=== PATIENT | male | born 1940 | race Two or more races ===

== ENCOUNTER 2018-10-28 09:58 | Inpatient (IN) | payer MEDICARE, OTHER ==
[2018-10-28] VITALS (11 sets, daily range): BP systolic 81–108; BP diastolic 38–44
[~2018-10-28] VITALS: Ht 172.7 cm; Wt 57.6 kg
[2018-10-28] MEDS ORDERED: NS 1000ml 1,600 ML IVLG ONE (10:15)
[2018-10-28] MEDS ORDERED: VITAMIN C500 M1 ORAL (10:17)
[2018-10-28] MEDS ORDERED: CELEXA20 MG ORAL (10:17)
[2018-10-28] MEDS ORDERED: BACLOFEN10 MG ORAL (10:17)
[2018-10-28] MEDS ORDERED: ASPIR 8181 MG ORAL (10:17)
[2018-10-28] MEDS ORDERED: CULTURELLE1 EAC1 PO (10:17)
[2018-10-28] MEDS ORDERED: BISACODYL10 M1 RC (10:17)
[2018-10-28] MEDS ORDERED: TAMSULOSIN HCL0.4 MG ORAL (10:17)
[2018-10-28] MEDS ORDERED: ACETAMINOPHEN325 M1 ORAL (10:17)
--- NOTE | 2018-10-28 10:17 | Emergency Room Report ---
History of Present Illness General Chief Complaint: Altered Level of Consciousness Source: Medical Record, EMS Present Illness HPI Mr. Ridley is a 78-year-old male with history of aortic valve disease, COPD, leukemia, congestive heart failure, CML, BPH, depression, GERD who presents with lethargy and altered mental status. The nursing staff custodial facility attempted to wake him. He appears to be less responsive. He is normally nonverbal. However he will open eyes to stimulation. He is more lethargic and less responsive as normal. Unclear CODE STATUS. POLST requests CPR and selective treatment. Resident of [facility] Allergies: Coded Allergies: No Known Allergies (Unverified , 10/28/18) Patient History Limited by: medical condition Past Medical History: see triage record, old chart reviewed Past Surgical History: unable to obtain Pertinent Family History: unable to obtain Social History Narrative UTO Reviewed Nursing Documentation: PMH: Agreed; PSxH: Agreed Nursing Documentation-PMH Past Medical History: No History, Except For Hx Hypertension: Yes Hx COPD: Yes Hx Gastrointestinal Problems: Yes Review of Systems All Other Systems: limited - nonverbal patient Physical Exam Vital Signs Date Time Temp Pulse Resp B/P (MAP) Pulse Ox O2 Delivery O2 Flow Rate FiO2 10/28/18 10:02 98.1 97 18 93/44 94 Room Air Sp02 EP Interpretation: reviewed, normal General Appearance: no apparent distress, Chronically Ill - cachetic, wearing diaper, frail, curled in position, eyes closed, will not respond to stimulation, maintain airway, squeezes eyes shut Eyes: bilateral eye normal inspection, bilateral eye PERRL ENT: no angioedema, uvula midline, dry mucus membranes Neck: normal inspection, full range of motion, no meningismus Respiratory: normal inspection, lungs clear, normal breath sounds, no rhonchi, no respiratory distress, no retraction, no accessory muscle use Cardiovascular #1: no JVD, tachycardia, systolic murmur - harsh 4/6 Cardiovascular #2: 2+ carotid (R), 2+ carotid (L) Gastrointestinal: normal inspection, soft Rectal: black stool, heme positive stool, other - very dark stool, Musculoskeletal: other - flexed lower extremiteis Neurologic: other - moves to withdrawal from pain Psychiatric: other - nonverbal, does not respond to voice Skin: pallor, other - clammy Procedures Critical Care Time Critical Care Time 35 minutes of critical care time excluding procedures were used in the care of the patient. I reviewed labs and imaging. I reviewed previous electronic medical record. Patient required multiple reassessments and interventions. Medical Decision Making Diagnostic Impression: Primary Impression: Acute GI bleeding Additional Impression: Acute metabolic encephalopathy ER Course Mr. Ridley presents with lethary and pallor. Severe anemia noted. Dark stools noticed on physical exam. Hemo-occult positive. Initially sepsis was concern with tachycardia and hypotension, however, no infiltrate on CT. No UTI. Leukocytosis likely due to CML and reactive due to stress of hemorrhage. Nurse obtained transfusion permission from family member per phone. Protonix bolus and infusion initiated in ED. Admitted to SDU in serious condition. Dr. Pearl accepted patient in admission EKG Diagnostic Results Rate: tachycardiac Rhythm: other - sinus tachycardia ST Segments: no acute changes Other Impression rate 110 bpm nl axis nl intervals no ST elevation no T wave inversion Chest X-Ray Diagnostic Results Chest X-Ray Diagnostic Results : Chest X-Ray Ordered: Yes # of Views/Limited/Complete: 1 View Indication: Other - illness Impression: Other - lung scarring enlarged cardiac silhouette no infiltrate Electronically Signed by: This image has been electronically signed by Dr. Tika Duke CT/MRI/US Diagnostic Results CT/MRI/US Diagnostic Results : Imaging Test Ordered: CT head no acute process, old changes Last Vital Signs Date Time Temp Pulse Resp B/P (MAP) Pulse Ox O2 Delivery O2 Flow Rate FiO2 10/28/18 10:02 98.1 97 18 93/44 94 Room Air Disposition: ADMITTED INPATIENT Tika Duke MD Oct 28, 2018 10:17
[2018-10-28] MEDS ORDERED: DOCUSATE SODIU100 MG ORAL (10:23)
[2018-10-28] MEDS ORDERED: Tubing IV Secondary IV ONE (10:25)
[2018-10-28] MEDS: Cefepime HCl 1 GM in NS 55 ML IV SCH ×2 (10:27→23:31)
[2018-10-28] MEDS ORDERED: PRILOSEC OTC20 MG ORAL (10:57)
[2018-10-28] MEDS ORDERED: FOLIC ACID1 MG ORAL (10:57)
[2018-10-28] MEDS ORDERED: SPRYCEL100 MG PO (10:57)
[2018-10-28] MEDS ORDERED: FERROUS SULFAT325 MG ORAL (10:57)
[2018-10-28] MEDS ORDERED: MILK OF MA400 MG/51 ORAL (10:57)
--- NOTE | 2018-10-28 10:58 | Diagnostic Imaging Report ---
Indication: Altered level of consciousness Technique: spiral acquisitions obtained through the brain. Angled axial and coronal 5 x 5 mm slices were reconstructed. No IV contrast utilized. Radiation dose was minimized using automated exposure control Total dose length product 1411.27 mGycm. CTDIvol(s) 70.38 mGy Comparison: none FINDINGS: There is what appears on the axial images to be cytotoxic edema involving the left posterior temporal lobe. However, on the coronal images this is determined to represent volume averaging artifact of a horizontally oriented sulcus. There is questionably some encephalomalacia of the posterolateral left cerebellar hemisphere. No mass effect or midline shift. There is age-related enlargement of the ventricles and extra axial CSF spaces. There is periventricular deep white matter ischemic change. Normal diallo-white differentiation. There is evidence of prior bilateral cataract surgery. Visualized sinuses are unremarkable. Intact calvarium. IMPRESSION: Negative for acute intracranial bleed or mass effect Chronic and age-related changes, as described Questionable left lateral cerebellar hemispheric encephalomalacia, could represent an old infarct. The CT scanner at [facility] is accredited by the [employer] and the scans are performed using protocols designed to limit radiation exposure to as low as reasonably achievable to attain images of sufficient resolution adequate for diagnostic evaluation
[2018-10-28 11:06] LABS: INR 0.9 (0.9-1.1)
[2018-10-28 11:10] LABS: APPEARANCE,URINE SLIGHTLY CLOUDY; BILIRUBIN, URINE NEGATIVE (NEGATIVE); COLOR,URINE PALE YELLOW; GLUCOSE, URINE (UA) NEGATIVE (NEGATIVE); KETONES,URINE NEGATIVE (NEGATIVE); LEUKOCYTE ESTERASE ,URINE NEGATIVE (NEGATIVE); NITRITE,URINE NEGATIVE (NEGATIVE); PH,URINE 5 (4.5-8.0); PROTEIN,URINE 3+ (NEGATIVE); UROBILINOGEN,URINE NORMAL MG/DL (0.0-1.0)
[2018-10-28 11:34] LABS: HEMATOCRIT 11.6 % (42.0-52.0); MEAN CORPUSCULAR VOLUME 95 FL (80-99); PLATELET COUNT 98 K/UL (150-450); RED BLOOD COUNT 1.22 M/UL (4.70-6.10); RED CELL DISTRIBUTION WIDTH 15.8 % (11.6-14.8); WHITE BLOOD COUNT 21.1 K/UL (4.8-10.8)
[2018-10-28 11:39] LABS: HEMOGLOBIN 3.8 G/DL (14.2-18.0)
[2018-10-28 11:51] LABS: ANION GAP 9 mmol/L (5-15); BLOOD UREA NITROGEN 53 mg/dL (7-18); CARBON DIOXIDE 22 MMOL/L (21-32); CHLORIDE 105 MMOL/L (98-107); CREATININE 0.8 MG/DL (0.55-1.30); POTASSIUM 4.3 MMOL/L (3.5-5.1); SODIUM 136 MMOL/L (136-145)
[2018-10-28 12:01] LABS: ALANINE AMINOTRANSFERASE 16 U/L (12-78); ALBUMIN/GLOBULIN RATIO 0.7 (1.0-2.7); ALKALINE PHOSPHATASE 58 U/L (46-116); ASPARTATE AMINO TRANSFERASE 19 U/L (15-37); BILIRUBIN,TOTAL < 0.1 MG/DL (0.2-1.0)
[2018-10-28] MEDS ORDERED: Pantoprazole Inj IVP ONE (12:15)
[2018-10-28] MEDS ORDERED: Pantoprazole 80 MG in NS 250 ML IV ONE (12:15)
--- NOTE | 2018-10-28 14:57 | Diagnostic Imaging Report ---
Indication: Chest pain Technique: One view of the chest Comparison: none Findings: Lungs and pleural spaces are clear. Heart size is upper limits normal . The aorta is tortuous ectatic and calcified Impression: No acute process
--- NOTE | 2018-10-28 16:03 | GI Initial Consult Note ---
History of Present Illness General Date patient seen: Oct 28, 2018 Time patient seen: 16:23 Reason for Hospitalization: Altered Level of Consciousness Referring physician: SUHAIL STYLES Reason for Consultation: GI BLEED Present Illness HPI Mr. Ridley is a 78-year-old male with history of aortic valve disease, COPD, leukemia, congestive heart failure, CML, BPH, depression, GERD who presents with lethargy and altered mental status. The nursing staff [facility] facility attempted to wake him. He appears to be less responsive. He is normally nonverbal. However he will open eyes to stimulation. He is more lethargic and less responsive as normal. Unclear CODE STATUS. POLST requests CPR and selective treatment. Resident of [facility] GI consulted for GI bleed. ROS limited, patient seen awake A&O NAD noted with generalized pallor. Labs reviewed; presents normocytic anemia with low Hgb of 3.8, 1 unit pRBCs + ppi gtt currently being infused. Leukocytosis. Elevated troponin levels. No hypercoagulation. Initially had tachycardia and hypotension now normalized. Digital exam showed melena. No BRBPR. Unknown history of endoscopy / colonoscopy. Home Meds Reported Medications Dasatinib (SPRYCEL) 100 Mg Tablet, 100 MG PO DAILY, TAB 10/28/18 Omeprazole Magnesium (PRILOSEC OTC) 20 Mg Tablet.dr, 20 MG ORAL DAILY, TAB 10/28/18 Magnesium Hydroxide* (MILK OF MAGNESIA*) 400 Mg/5 Ml Oral.susp, 30 ML ORAL DAILY , ML 10/28/18 Folic Acid* (FOLIC ACID*) 1 Mg Tablet, 1 MG ORAL DAILY, TAB 10/28/18 Ferrous Sulfate* (FERROUS SULFATE*) 325 Mg Tablet, 325 MG ORAL THREE TIMES A DAY , #90 TAB 0 Refills 10/28/18 Docusate Sodium* (DOCUSATE SODIUM*) 100 Mg Capsule, 100 MG ORAL DAILY, CAP 10/28/18 Lactobacillus Rhamnosus Gg (CULTURELLE) 1 Each Cap.sprink, 1 EACH PO BID, CAP 10/28/18 Citalopram Hydrobromide* (CELEXA*) 20 Mg Tablet, 10 MG ORAL DAILY, TAB 10/28/18 Bisacodyl (BISACODYL) 10 Mg Supp.rect, 10 MG RC NEEDED, SUPP 10/28/18 Baclofen* (BACLOFEN*) 10 Mg Tablet, 5 MG ORAL THREE TIMES A DAY, TAB 10/28/18 Aspirin* (ASPIR 81*) 81 Mg Tablet.dr, 81 MG ORAL DAILY, TAB 10/28/18 Acetaminophen* (ACETAMINOPHEN 325MG TABLET*) 325 Mg Tablet, 650 MG ORAL Q4H PRN for Mild Pain/Temp > 100.5, TAB 10/28/18 Ascorbic Acid* (VITAMIN C*) 500 Mg Tablet, 500 MG ORAL DAILY, #30 TAB 0 Refills 10/28/18 Tamsulosin Hcl (TAMSULOSIN HCL*) 0.4 Mg Cap.er.24h, 0.4 MG ORAL BEDTIME, CAP 10/28/18 Med list reviewed/reconciled: Yes Allergies: Coded Allergies: No Known Allergies (Unverified , 10/28/18) Patient History Limited by: medical condition History Provided By: Medical Record PMH Narrative Limited by: medical condition Past Medical History: see triage record, old chart reviewed Past Surgical History: unable to obtain Pertinent Family History: unable to obtain Social History Narrative UTO Reviewed Nursing Documentation: PMH: Agreed; PSxH: Agreed Nursing Documentation-PMH Past Medical History: No History, Except For Hx Hypertension: Yes Hx COPD: Yes Hx Gastrointestinal Problems: Yes Social History: Denies: smoking, alcohol use, drug use, other Review of Systems All Other Systems: negative except mentioned in HPI Physical Exam Vital Signs Date Time Temp Pulse Resp B/P (MAP) Pulse Ox O2 Delivery O2 Flow Rate FiO2 10/28/18 10:02 98.1 97 18 93/44 94 Room Air Sp02 EP Interpretation: reviewed, normal Labs Laboratory Tests Test 10/28/18 10:55 10/28/18 11:20 Urine Color Pale yellow Urine Appearance Slightly cloudy Urine pH 5 (4.5-8.0) Urine Specific [place] 1.015 (1.005-1.035) Urine Protein 3+ (NEGATIVE) H Urine Glucose (UA) Negative (NEGATIVE) Urine Ketones Negative (NEGATIVE) Urine Blood Negative (NEGATIVE) Urine Nitrite Negative (NEGATIVE) Urine Bilirubin Negative (NEGATIVE) Urine Urobilinogen Normal MG/DL (0.0-1.0) Urine Leukocyte Esterase Negative (NEGATIVE) Urine RBC 0-2 /HPF (0 - 0) H Urine WBC 0-2 /HPF (0 - 0) Urine Squamous Epithelial Cells Few /LPF (NONE/OCC) Urine Bacteria Few /HPF (NONE) Urine Granular Casts 0-2 /LPF (NONE) H White Blood Count 21.1 K/UL (4.8-10.8) H Red Blood Count 1.22 M/UL (4.70-6.10) L Hemoglobin 3.8 G/DL (14.2-18.0) *L Hematocrit 11.6 % (42.0-52.0) L Mean Corpuscular Volume 95 FL (80-99) Mean Corpuscular Hemoglobin 30.9 PG (27.0-31.0) Mean Corpuscular Hemoglobin Concent 32.6 G/DL (32.0-36.0) Red Cell Distribution Width 15.8 % (11.6-14.8) H Platelet Count 98 K/UL (150-450) L Mean Platelet Volume 9.8 FL (6.5-10.1) Neutrophils (%) (Auto) % (45.0-75.0) Lymphocytes (%) (Auto) % (20.0-45.0) Monocytes (%) (Auto) % (1.0-10.0) Eosinophils (%) (Auto) % (0.0-3.0) Basophils (%) (Auto) % (0.0-2.0) Differential Total Cells Counted 100 Neutrophils % (Manual) 92 % (45-75) H Lymphocytes % (Manual) 3 % (20-45) L Monocytes % (Manual) 3 % (1-10) Eosinophils % (Manual) 0 % (0-3) Basophils % (Manual) 0 % (0-2) Band Neutrophils 2 % (0-8) Platelet Estimate Decreased L Platelet Morphology Normal Hypochromasia 2+ Anisocytosis 1+ Prothrombin Time 9.9 SEC (9.30-11.50) Prothromb Time International Ratio 0.9 (0.9-1.1) Activated Partial Thromboplast Time 30 SEC (23-33) Sodium Level 136 MMOL/L (136-145) Potassium Level 4.3 MMOL/L (3.5-5.1) Chloride Level 105 MMOL/L (98-107) Carbon Dioxide Level 22 MMOL/L (21-32) Anion Gap 9 mmol/L (5-15) Blood Urea Nitrogen 53 mg/dL (7-18) H Creatinine 0.8 MG/DL (0.55-1.30) Estimat Glomerular Filtration Rate mL/min (>60) Glucose Level 123 MG/DL (74-106) H Lactic Acid Level 1.70 mmol/L (0.4-2.0) Calcium Level 7.0 MG/DL (8.5-10.1) L Total Bilirubin < 0.1 MG/DL (0.2-1.0) L Aspartate Amino Transf (AST/SGOT) 19 U/L (15-37) Alanine Aminotransferase (ALT/SGPT) 16 U/L (12-78) Alkaline Phosphatase 58 U/L (46-116) Troponin I 0.406 ng/mL (0.000-0.056) Pro-B-Type Natriuretic Peptide 3085 pg/mL (0-125) H Total Protein 4.7 G/DL (6.4-8.2) L Albumin 2.0 G/DL (3.4-5.0) L Globulin 2.7 g/dL Albumin/Globulin Ratio 0.7 (1.0-2.7) L General Appearance: well appearing, no apparent distress, alert, thin Head: normocephalic EENT: PERRL/EOMI, normal ENT inspection Neck: supple Respiratory: normal breath sounds, no respiratory distress Cardiovascular: normal rate Gastrointestinal: normal inspection, non tender, soft, normal bowel sounds, non -distended Rectal: deferred Genitourinary: deferred Musculoskeletal: normal inspection, back normal Neurologic: alert, responsive Skin: no rash, warm/dry, pallor Lymphatic: normal inspection, no adenopathy Current Medications Current Medications Medications (Trade) Dose Ordered Sig/Elder Route PRN Reason Start Time Stop Time Status Last Admin Dose Admin Cefepime HCl 1 gm/ Sodium Chloride 55 ml @ 110 mls/hr Q12H IV 10/28/18 10:15 10/29/18 10:14 10/28/18 10:27 Pantoprazole 80 mg/Sodium Chloride 250 ml @ 25 mls/hr Q10H ONCE IV 10/28/18 12:15 10/28/18 22:14 10/28/18 12:36 GI: Plan Problems: (1) PUD (peptic ulcer disease) (2) Gastric ulcer (3) UGIB (upper gastrointestinal bleed) (4) Severe anemia (5) Acute GI bleeding (6) Acute metabolic encephalopathy (7) Altered level of consciousness Plan emergent EGD scheduled for tomorrow @ 10am. - hold all blood thinners add 2 more units pRBCs, 4 units total to be given. >> post CBC after picc placement maintain NPO cont ppi gtt will follow with additional recs post procedure. Discussed with Dr. Mitchell. Thank you for this patient referral, we will follow. The patient was seen and examined at bedside and all new and available data was reviewed in the patients chart. I agree with the above findings, impression and plan. (Patient seen earlier today. Signature stamp does not reflect patient encounter time.). - MD Adela Sesay [facility] Oct 28, 2018 16:03
[2018-10-28] MEDS ORDERED: Heparin 2000 units/Ns 1000ml INJ PRN (16:15)
[2018-10-28] MEDS ORDERED: Lidocaine 1% Plain 30 ml INJ PRN (16:15)
[2018-10-28] MEDS ORDERED: Sodium Chloride 500ML 500 ML IV ONE (19:00)
[2018-10-28] MEDS: Dyna-Hex 2% Top Sol 2oz TOPIC SCH (20:00)
[2018-10-28] MEDS ORDERED: Vancomycin 1gm/D5W 275ml IVPB SCH ×2 (20:00)
[2018-10-28] MEDS: Tamsulosin 0.4mg cap ORAL SCH (21:24)
[2018-10-28] MEDS: Piperacillin/Tazobactam 3.375 GM in D5W 110 ML IVPB SCH (22:30)
--- NOTE | 2018-10-28 22:45 | History and Physical Report ---
DATE OF ADMISSION: 10/28/2018 CHIEF COMPLAINT: Shock and GI bleed. HISTORY: This patient is an unfortunate 78-year-old male. He has a history of hypertension, stroke, CML, and gastrointestinal bleed, who presented from a snf facility with complaints of altered mental status. According to the nursing staff, the patient was found unresponsive, was transferred to the emergency room. There, he was noted to be hypotensive and tachycardic. He had hemoglobin of 3. No reports of any bleeding, bright red blood per rectum, or melena. The patient has been typed and crossed, is currently being transfused, and is now admitted for further evaluation and care. PAST MEDICAL HISTORY: As above. PAST SURGICAL HISTORY: . CURRENT MEDICATIONS: Reconciled and reviewed. ALLERGIES: None. FAMILY HISTORY: None. SOCIAL HISTORY: There is no known history of tobacco, ethanol, or drugs. The patient was previously a do not resuscitate. REVIEW OF SYSTEMS: Unobtainable as the patient is mostly aphasic. PHYSICAL EXAMINATION: VITAL SIGNS: Temperature 98, pulse 115, respirations 20, and blood pressure 80/39. GENERAL: The patient is a chronic ill-appearing male, in no apparent distress. He is awake, alert, does respond to simple questions. HEENT: Pupils are equal, round, and reactive to light. Oropharynx clear. NECK: Supple. HEART: Regular rate and rhythm. LUNGS: Clear. ABDOMEN: Soft, nontender, and nondistended. EXTREMITIES: No clubbing, cyanosis, or edema. LABORATORY DATA: Labs showed white count 21,000, hemoglobin 3.8, hematocrit 11, and platelet count of 98,000. Sodium 136, potassium 4.3, BUN 53, and creatinine 0.8. Troponin was 0.46. ASSESSMENT: This is an unfortunate male with a history of CML, gastrointestinal bleed, stroke, and hypertension admitted with severe anemia, possible gastrointestinal bleed, and shock secondary to acute blood loss. PLAN: 1. Aggressive fluid resuscitation. 2. Transfuse multiple units of packed red blood cells. 3. IV proton pump inhibitor. 4. GI consultation has been obtained. 5. The patient's prognosis is critical and guarded. 6. Family states that they believe the patient would want to be DNR, but they would like to talk it over and reassess. Camron Pearl M.D. DR: JENNIFER JOB#: [id number] CC:
[2018-10-29] VITALS (24 sets, daily range): BP systolic 103–134; BP diastolic 36–58
--- NOTE | 2018-10-29 03:45 | Consultation ---
DATE OF CONSULTATION: 10/28/2018 CARDIOLOGY CONSULTATION CONSULTING PHYSICIAN: Arcenio Schulz M.D. REQUESTING PHYSICIAN: Camron Pearl M.D. REASON FOR CONSULTATION: Shock. HISTORY OF PRESENT ILLNESS: This 78-year-old male with multiple medical problems, presented from a prison facility with lethargy and altered mentation. He was found unresponsive, transferred to the emergency room and notably hypotensive and tachycardic on arrival with a hemoglobin level of only 3. He does have a known history of CML. There were no reports of bleeding orally or from the GI tract and transfusion of packed red cells was initiated in the emergency room followed by transfer to the intensive care unit. PAST MEDICAL HISTORY: CML, hypertension with hypertensive heart disease, chronic kidney disease, anemia of chronic kidney disease, COPD, cerebrovascular disease with history of cerebrovascular accident, gastroesophageal reflux disease, and prior history of GI bleeding. SOCIAL HISTORY: Negative for smoking, alcohol, or substance abuse. FAMILY HISTORY: Noncontributory. ALLERGIES: None known. MEDICATIONS: Prior to admission, reviewed and reconciled. REVIEW OF SYSTEMS: Presently not obtainable from the patient due to baseline cerebrovascular disease and current clinical state. PHYSICAL EXAMINATION: VITAL SIGNS: Afebrile, blood pressure 80/40, pulse 115, and respiratory rate 20. HEENT: Temporal wasting. Pale conjunctivae. Oropharynx clear. Mucous membranes dry. NECK: Supple. Jugular venous pressure normal. No accessory muscle use. LUNGS: Clear. CARDIAC: Regular rhythm. Rapid rate. Normal S1 and S2. Fourth heart sound. ABDOMEN: Soft and nontender. EXTREMITIES: Good pulses. No edema. NEUROLOGIC: Reveals him to be presently nonresponsive and he does have a reported history of baseline aphasia. LABORATORY AND DIAGNOSTIC DATA: White count 21, hemoglobin 3.8, and platelets 98,000. Potassium 4.3, BUN 53, and creatinine 0.8. Troponin 0.46. Chest x-ray reveals pulmonary venous congestion, mild . EKG reveals sinus tachycardia and nonspecific ST-T wave changes. IMPRESSION: 1. Hypovolemic. 2. Shock. 3. Severe anemia, possible GI bleeding. 4. Acute myocardial ischemia and possible non-ST elevation infarction. 5. Hypertensive cardiomyopathy. 6. Cerebrovascular disease with prior cerebrovascular accident. 7. Acute on chronic kidney disease. PLAN: 1. Volume support. 2. Packed red blood cell transfusion hemoglobin above 7 g. 3. SCDs. 4. Hold all anti-platelet drugs. 5. Avoid pressor support at this time. 6. Serial troponin levels. 7. Monitor metabolic parameters closely. 8. Condition is critical. 9. Prognosis guarded. Arcenio Schulz M.D. DR: MADISON JOB#: [id number] CC:
[2018-10-29 05:39] LABS: HEMOGLOBIN 7.8 G/DL (14.2-18.0); MEAN CORPUSCULAR VOLUME 88 FL (80-99); PLATELET COUNT 67 K/UL (150-450); RED BLOOD COUNT 2.62 M/UL (4.70-6.10); RED CELL DISTRIBUTION WIDTH 14.6 % (11.6-14.8); WHITE BLOOD COUNT 13.1 K/UL (4.8-10.8)
[2018-10-29 05:52] LABS: INR 0.9 (0.9-1.1)
[2018-10-29 06:13] LABS: ANION GAP 8 mmol/L (5-15); BLOOD UREA NITROGEN 32 mg/dL (7-18); CALCIUM 6.9 MG/DL (8.5-10.1); CARBON DIOXIDE 23 MMOL/L (21-32); CHLORIDE 108 MMOL/L (98-107); CHOLESTEROL 88 MG/DL (< 200); CREATININE 0.7 MG/DL (0.55-1.30); HDL CHOLESTEROL 35 MG/DL (40-60); POTASSIUM 3.5 MMOL/L (3.5-5.1); SODIUM 139 MMOL/L (136-145); TRIGLYCERIDES 100 MG/DL (30-150)
[2018-10-29] MEDS: Piperacillin/Tazobactam 3.375 GM in D5W 110 ML IVPB SCH ×3 (06:30→22:00)
[2018-10-29] MEDS: Vancomycin 500mg/D5W 110ml IVPB SCH ×4 (08:26→20:43)
--- NOTE | 2018-10-29 08:32 | General Progress Note ---
Assessment/Plan Problem List: (1) Acute GI bleeding ICD Codes: K92.2 - Gastrointestinal hemorrhage, unspecified SNOMED: 26608137 (2) Acute metabolic encephalopathy ICD Codes: G93.41 - Metabolic encephalopathy SNOMED: 02121796, 602090623 (3) UGIB (upper gastrointestinal bleed) ICD Codes: K92.2 - Gastrointestinal hemorrhage, unspecified SNOMED: 32416074 (4) Severe anemia ICD Codes: D64.9 - Anemia, unspecified SNOMED: 759828244 (5) Altered level of consciousness ICD Codes: R40.4 - Transient alteration of awareness SNOMED: 9441965 (6) PUD (peptic ulcer disease) ICD Codes: K27.9 - Peptic ulcer, site unspecified, unspecified as acute or chronic, without hemorrhage or perforation SNOMED: 21758530 (7) Gastric ulcer ICD Codes: K25.9 - Gastric ulcer, unspecified as acute or chronic, without hemorrhage or perforation SNOMED: 335887347 Status: stable, progressing Assessment/Plan PPI rx abx follow up cultures trend troponin transfuse ?EGD d/w dtr ursula- pt remains full code but family may change to dnr Subjective ROS Limited/Unobtainable: No Constitutional: Reports: malaise, weakness HEENT: Reports: no symptoms Cardiovascular: Reports: no symptoms Respiratory: Reports: no symptoms Gastrointestinal/Abdominal: Reports: no symptoms Genitourinary: Reports: no symptoms Neurologic/Psychiatric: Reports: pre-existing deficit Endocrine: Reports: no symptoms Hematologic/Lymphatic: Reports: anemia Allergies: Coded Allergies: No Known Allergies (Unverified , 10/28/18) All Systems: reviewed and negative except above Subjective s/p 4 units. no sign of bleeding. no fever or chills. Objective Last 24 Hour Vital Signs Date Time Temp Pulse Resp B/P (MAP) Pulse Ox O2 Delivery O2 Flow Rate FiO2 10/29/18 07:00 89 22 111/42 (65) 100 10/29/18 06:00 88 22 108/42 (64) 100 10/29/18 05:00 77 22 103/44 (63) 100 10/29/18 04:00 Room Air 10/29/18 04:00 77 10/29/18 04:00 98.6 77 22 107/51 (69) 100 10/29/18 03:00 109 22 107/45 (65) 100 10/29/18 02:00 66 22 134/41 (72) 100 10/29/18 01:00 65 22 106/49 (68) 100 10/29/18 00:00 98.4 106 22 108/40 (62) 100 10/29/18 00:00 Room Air 10/29/18 00:00 91 10/28/18 23:00 94 22 102/43 (62) 100 10/28/18 22:00 98 22 94/42 (59) 100 10/28/18 21:00 102 22 98/39 (58) 100 10/28/18 20:00 97.8 106 22 108/40 (62) 100 10/28/18 20:00 Room Air 10/28/18 19:00 115 22 82/39 (53) 100 10/28/18 18:00 101 15 81/38 (52) 100 10/28/18 17:00 Room Air 10/28/18 17:00 98.2 107 19 89/44 (59) 100 10/28/18 16:30 109 10/28/18 15:25 101 10/28/18 13:29 Room Air 10/28/18 13:05 97.2 100 18 100 10/28/18 12:55 97.8 105 16 104/44 100 Room Air 10/28/18 12:55 97.8 105 16 100/44 100 Room Air 10/28/18 12:40 97.1 103 16 104/43 100 Room Air 10/28/18 11:14 115 16 91/44 100 Room Air 10/28/18 10:12 105 18 Room Air 10/28/18 10:12 98.0 105 18 88/41 98 Room Air 10/28/18 10:02 98.1 97 18 93/44 94 Room Air Intake and Output 10/28/18 10/29/18 19:00 07:00 Intake Total 350 ml 2040.000 ml Output Total 350 ml 575 ml Balance 0 ml 1465.000 ml Intake Oral 0 ml IV Total 100 ml 1290.000 ml Blood Product 250 ml 750 ml Output Urine Total 350 ml 575 ml # Voids 1 Laboratory Tests 10/28/18 10:55: Urine Color Pale yellow, Urine Appearance Slightly cloudy, Urine pH 5, Urine Specific Reserve 1.015, Urine Protein 3+H, Urine Glucose (UA) Negative, Urine Ketones Negative, Urine Blood Negative, Urine Nitrite Negative, Urine Bilirubin Negative, Urine Urobilinogen Normal, Urine Leukocyte Esterase Negative, Urine RBC 0-2H, Urine WBC 0-2, Urine Squamous Epithelial Cells Few, Urine Bacteria Few , Urine Granular Casts 0-2H 10/28/18 11:20: White Blood Count 21.1H, Red Blood Count 1.22L, Hemoglobin 3.8*L, Hematocrit 11.6L, Mean Corpuscular Volume 95, Mean Corpuscular Hemoglobin 30.9, Mean Corpuscular Hemoglobin Concent 32.6, Red Cell Distribution Width 15.8H, Platelet Count 98L, Mean Platelet Volume 9.8, Neutrophils (%) (Auto) , Lymphocytes (%) (Auto) , Monocytes (%) (Auto) , Eosinophils (%) (Auto) , Basophils (%) (Auto) , Differential Total Cells Counted 100, Neutrophils % ( Manual) 92H, Lymphocytes % (Manual) 3L, Monocytes % (Manual) 3, Eosinophils % ( Manual) 0, Basophils % (Manual) 0, Band Neutrophils 2, Platelet Estimate DecreasedL, Platelet Morphology Normal, Hypochromasia 2+, Anisocytosis 1+, Prothrombin Time 9.9, Prothromb Time International Ratio 0.9, Activated Partial Thromboplast Time 30, Sodium Level 136, Potassium Level 4.3, Chloride Level 105 , Carbon Dioxide Level 22, Anion Gap 9, Blood Urea Nitrogen 53H, Creatinine 0.8 , Estimat Glomerular Filtration Rate , Glucose Level 123H, Lactic Acid Level 1.70, Calcium Level 7.0L, Total Bilirubin < 0.1L, Aspartate Amino Transf (AST/ SGOT) 19, Alanine Aminotransferase (ALT/SGPT) 16, Alkaline Phosphatase 58, Troponin I 0.406H, Pro-B-Type Natriuretic Peptide 3085H, Total Protein 4.7L, Albumin 2.0L, Globulin 2.7, Albumin/Globulin Ratio 0.7L 10/29/18 04:51: White Blood Count 13.1H, Red Blood Count 2.62L, Hemoglobin 7.8#L, Hematocrit 23.0#L, Mean Corpuscular Volume 88, Mean Corpuscular Hemoglobin 29.8, Mean Corpuscular Hemoglobin Concent 34.0, Red Cell Distribution Width 14.6, Platelet Count 67L, Mean Platelet Volume 10.1, Neutrophils (%) (Auto) , Lymphocytes (%) ( Auto) , Monocytes (%) (Auto) , Eosinophils (%) (Auto) , Basophils (%) (Auto) , Differential Total Cells Counted 100, Neutrophils % (Manual) 87H, Lymphocytes % (Manual) 6L, Monocytes % (Manual) 5, Eosinophils % (Manual) 2, Basophils % ( Manual) 0, Band Neutrophils 0, Platelet Estimate DecreasedL, Platelet Morphology Normal, Hypochromasia 1+, Anisocytosis 1+, Prothrombin Time 10.0, Prothromb Time International Ratio 0.9, Activated Partial Thromboplast Time 35H , Sodium Level 139, Potassium Level 3.5, Chloride Level 108H, Carbon Dioxide Level 23, Anion Gap 8, Blood Urea Nitrogen 32H, Creatinine 0.7, Estimat Glomerular Filtration Rate , Glucose Level 86, Calcium Level 6.9L, Troponin I 0.822H, Pro-B-Type Natriuretic Peptide 3829H, Magnesium Level 2.1, Triglycerides Level 100, Cholesterol Level 88, LDL Cholesterol 47, HDL Cholesterol 35L, Cholesterol/HDL Ratio 2.5L Height (Feet): 5 Height (Inches): 8.00 Weight (Pounds): 112 General Appearance: WD/WN, alert Neck: supple Cardiovascular: regular rhythm Respiratory/Chest: chest wall non-tender, lungs clear, normal breath sounds Abdomen: normal bowel sounds, non tender, soft Edema: no edema noted Arm (L), no edema noted Arm (R), no edema noted Leg (L), no edema noted Leg (R), no edema noted Pedal (L), no edema noted Pedal (R), no edema noted Generalized 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
[2018-10-29] MEDS ORDERED: Ascorbic Acid 500mg tab ORAL SCH (09:00)
[2018-10-29] MEDS ORDERED: Propofol 200mg/20ml IV ONE (10:00)
[2018-10-29] MEDS ORDERED: Lidocaine 1% MPF 10mg/ml 5ml ONE (10:00)
[2018-10-29] MEDS ORDERED: LR 1000ml ONE (10:00)
--- NOTE | 2018-10-29 10:13 | Pre-Procedure Note/Attestation ---
Pre-Procedure Note/Attestation Complete Prior to Procedure Planned Procedure: not applicable Procedure Narrative: egd Indications for Procedure Pre-Operative Diagnosis: GIB Attestation I attest that I discussed the nature of the procedure; its benefits; risks and complications; and alternatives (and the risks and benefits of such alternatives ), prior to the procedure, with the patient (or the patient's legal senior customer service representative). I attest that, if there was a reasonable possibility of needing a blood transfusion, the patient (or the patient's legal senior customer service representative) was given the [facility] standardized written summary, pursuant to the Johnathan Kaelyn Blood Safety Act ([place] Health and Safety Code # 1645, as amended). I attest that I re-evaluated the patient just prior to the surgery and that there has been no change in the patient's H&P, except as documented below: Redd Mitchell MD Oct 29, 2018 10:13
--- NOTE | 2018-10-29 10:29 | Endoscopy Procedure Note ---
Endoscopy Procedure Note General Indication for Procedure: gib Procedures Performed: EGD Operative Findings/Diagnosis: gastritis Specimen: yes Pt Tolerated Procedure Well: Yes Estimated Blood Loss: none Anesthesia Anesthesiologist: antonina Anesthesia: MAC Inserted Devices Implant(s) used?: No GI Core Measures 50 yrs or older w/o bx or poly: Not Applicable 10yrs. F/U not recommended: Not Applicable Redd Mitchell MD Oct 29, 2018 10:29
--- NOTE | 2018-10-29 10:33 | Anethesia Preoperative Eval ---
Anesthesia Pre-op PMH/ROS General Date of Evaluation: Oct 29, 2018 Time of Evaluation: 10:01 Anesthesiologist: Zi ASA Score: ASA 4 - Emergency Mallampati Score Class I : Soft palate, uvula, fauces, pillars visible Class II: Soft palate, uvula, fauces visible Class III: Soft palate, base of uvula visible Class IV: Only hard plate visible Mallampati Classification: Class II Surgeon: Donna Diagnosis: Anemia Surgical Procedure: EGD Anesthesia History: none Family History: no anesthesia problems Allergies: Coded Allergies: No Known Allergies (Unverified , 10/28/18) Medications: see eMAR Patient NPO?: Yes Past Medical History Cardiovascular: Reports: HTN, CAD - CHF, valve dz - Aortiv Valve Dis Pulmonary: Reports: COPD Neurologic/Psychiatric: Reports: dementia - AMS, CVA Hematology/Immune: Reports: anemia, other - Leukemia Anesthesia Pre-op Phys. Exam Physician Exam Last Vital Signs Date Time Temp Pulse Resp B/P (MAP) Pulse Ox O2 Delivery O2 Flow Rate FiO2 10/29/18 09:00 75 14 104/58 (73) 100 10/29/18 08:00 Nasal Cannula 2.0 10/29/18 08:00 98.2 Constitutional: NAD Neurologic: CN 2-12 intact Cardiovascular: RRR Respiratory: CTA Gastrointestinal: S/NT/ND Airway Exam Mallampati Score: Class II MO: limited ROM: limited Teeth: missing, intact Anesthesia Pre-op A/P Labs Hematology Test 10/28/18 11:20 10/29/18 04:51 White Blood Count 21.1 K/UL (4.8-10.8) H 13.1 K/UL (4.8-10.8) H Red Blood Count 1.22 M/UL (4.70-6.10) L 2.62 M/UL (4.70-6.10) L Hemoglobin 3.8 G/DL (14.2-18.0) *L 7.8 G/DL (14.2-18.0) #L Hematocrit 11.6 % (42.0-52.0) L 23.0 % (42.0-52.0) #L Mean Corpuscular Volume 95 FL (80-99) 88 FL (80-99) Mean Corpuscular Hemoglobin 30.9 PG (27.0-31.0) 29.8 PG (27.0-31.0) Mean Corpuscular Hemoglobin Concent 32.6 G/DL (32.0-36.0) 34.0 G/DL (32.0-36.0) Red Cell Distribution Width 15.8 % (11.6-14.8) H 14.6 % (11.6-14.8) Platelet Count 98 K/UL (150-450) L 67 K/UL (150-450) L Mean Platelet Volume 9.8 FL (6.5-10.1) 10.1 FL (6.5-10.1) Neutrophils (%) (Auto) % (45.0-75.0) % (45.0-75.0) Lymphocytes (%) (Auto) % (20.0-45.0) % (20.0-45.0) Monocytes (%) (Auto) % (1.0-10.0) % (1.0-10.0) Eosinophils (%) (Auto) % (0.0-3.0) % (0.0-3.0) Basophils (%) (Auto) % (0.0-2.0) % (0.0-2.0) Differential Total Cells Counted 100 100 Neutrophils % (Manual) 92 % (45-75) H 87 % (45-75) H Lymphocytes % (Manual) 3 % (20-45) L 6 % (20-45) L Monocytes % (Manual) 3 % (1-10) 5 % (1-10) Eosinophils % (Manual) 0 % (0-3) 2 % (0-3) Basophils % (Manual) 0 % (0-2) 0 % (0-2) Band Neutrophils 2 % (0-8) 0 % (0-8) Platelet Estimate Decreased L Decreased L Platelet Morphology Normal Normal Hypochromasia 2+ 1+ Anisocytosis 1+ 1+ Coagulation Test 10/28/18 11:20 10/29/18 04:51 Prothrombin Time 9.9 SEC (9.30-11.50) 10.0 SEC (9.30-11.50) Prothromb Time International Ratio 0.9 (0.9-1.1) 0.9 (0.9-1.1) Activated Partial Thromboplast Time 30 SEC (23-33) 35 SEC (23-33) H Chemistry Test 10/28/18 11:20 10/29/18 04:51 Sodium Level 136 MMOL/L (136-145) 139 MMOL/L (136-145) Potassium Level 4.3 MMOL/L (3.5-5.1) 3.5 MMOL/L (3.5-5.1) Chloride Level 105 MMOL/L (98-107) 108 MMOL/L (98-107) H Carbon Dioxide Level 22 MMOL/L (21-32) 23 MMOL/L (21-32) Anion Gap 9 mmol/L (5-15) 8 mmol/L (5-15) Blood Urea Nitrogen 53 mg/dL (7-18) H 32 mg/dL (7-18) H Creatinine 0.8 MG/DL (0.55-1.30) 0.7 MG/DL (0.55-1.30) Estimat Glomerular Filtration Rate mL/min (>60) mL/min (>60) Glucose Level 123 MG/DL (74-106) H 86 MG/DL (74-106) Lactic Acid Level 1.70 mmol/L (0.4-2.0) Calcium Level 7.0 MG/DL (8.5-10.1) L 6.9 MG/DL (8.5-10.1) L Total Bilirubin < 0.1 MG/DL (0.2-1.0) L Aspartate Amino Transf (AST/SGOT) 19 U/L (15-37) Alanine Aminotransferase (ALT/SGPT) 16 U/L (12-78) Alkaline Phosphatase 58 U/L (46-116) Troponin I 0.406 ng/mL (0.000-0.056) 0.822 ng/mL (0.000-0.056) Pro-B-Type Natriuretic Peptide 3085 pg/mL (0-125) H 3829 pg/mL (0-125) H Total Protein 4.7 G/DL (6.4-8.2) L Albumin 2.0 G/DL (3.4-5.0) L Globulin 2.7 g/dL Albumin/Globulin Ratio 0.7 (1.0-2.7) L Magnesium Level 2.1 MG/DL (1.8-2.4) Triglycerides Level 100 MG/DL (30-150) Cholesterol Level 88 MG/DL (< 200) LDL Cholesterol 47 mg/dL (<100) HDL Cholesterol 35 MG/DL (40-60) L Cholesterol/HDL Ratio 2.5 (3.3-4.4) L Risk Assessment & Plan Assessment: ASA 4E Plan: GA Status Change Before Surgery: No Filiberto Pinon MD Oct 29, 2018 10:32
--- NOTE | 2018-10-29 10:34 | Immediate Post-Op Evaluation ---
Immediate Post-Op Evalulation Immediate Post-Op Evalulation Procedure: EGD Date of Evaluation: Oct 29, 2018 Time of Evaluation: 10:45 IV Fluids: 100 Blood Products: 0 Estimated Blood Loss: 10 Urinary Output: 0 Blood Pressure Systolic: 107 Blood Pressure Diastolic: 73 Pulse Rate: 73 Respiratory Rate: 16 O2 Sat by Pulse Oximetry: 100 Temperature (Fahrenheit): 98.4 Pain Score (1-10): 2 Nausea: No Vomiting: No Complications 0 Patient Status: awake, reacts, patent, none Hydration Status: adequate Filiberto Pinon MD Oct 29, 2018 10:34
--- NOTE | 2018-10-29 10:35 | 48 Hour Post Anesthesia Eval ---
Post Anesthesia Evaluation Procedure: EGD Date of Evaluation: Oct 29, 2018 Time of Evaluation: 12:52 Blood Pressure Systolic: 121 0: 64 Pulse Rate: 77 Respiratory Rate: 18 Temperature (Fahrenheit): 98.6 O2 Sat by Pulse Oximetry: 100 Airway: patent Nausea: No Vomiting: No Pain Intensity: 0 Hydration Status: adequate Cardiopulmonary Status: Stable Mental Status/LOC: patient returned to baseline Follow-up Care/Observations: 0 Post-Anesthesia Complications: 0 Follow-up care needed: N/A Filiberto Pinon MD Oct 29, 2018 10:35
[2018-10-29] MEDS ORDERED: Docusate 100mg cap ORAL SCH ×2 (11:00→18:00)
--- NOTE | 2018-10-29 12:30 | Procedure Note ---
DATE OF PROCEDURE: 10/29/2018 SURGEON: Redd Mitchell M.D. PROCEDURE: Upper endoscopy with biopsy. ANESTHESIA: Per . INSTRUMENT: Olympus adult flexible upper endoscope. INDICATION: GI bleeding. REASON FOR PROCEDURE: The procedure, risks, benefits, and possible consequences, including hemorrhage, aspiration, perforation and infection, and alternative treatments, were explained to the patient/legal guardian by Dr. Redd Mitchell and the patient/legal guardian understood and accepted these risks. DESCRIPTION OF PROCEDURE: After informed consent was obtained and the patient was adequately sedated, Olympus upper endoscope was advanced from the mouth into the second portion of the duodenum and retroflexion was performed in the stomach. The patient had evidence of diffuse gastritis. Random biopsy from antrum was obtained to rule out H. pylori infection. Otherwise, the rest of the upper endoscopic examination grossly looked within normal limits. No evidence of any esophageal varices, gastric varices, gastric ulceration, or any evidence of upper GI bleeding at this time. The patient tolerated the procedure very well without any complication. SUMMARY OF FINDINGS: Gastritis, otherwise normal upper endoscopic examination. RECOMMENDATIONS: 1. Follow up biopsy results. 2. Resume diet. 3. Monitor hemoglobin and hematocrit, transfuse as needed. 4. Send stool for OB. 5. Given elevated troponin, colonoscopy for now to be on hold until cleared by Cardiology and if it is cleared possibly on Wednesday. Meanwhile monitor hemoglobin and hematocrit and transfuse as needed. Redd Mitchell M.D. DR: HUMBLE JOB#: [id number] CC:
[2018-10-29] MEDS ORDERED: NS 500ML ONE (16:38)
[2018-10-29] MEDS ORDERED: Tubing IV Secondary IV ONE ×2 (16:38→17:24)
[2018-10-29] MEDS: Dyna-Hex 2% Top Sol 2oz TOPIC SCH (20:00)
[2018-10-29] MEDS: Tamsulosin 0.4mg cap ORAL SCH (20:50)
[2018-10-29] MEDS ORDERED: Miralax 17gm pkt ORAL SCH (21:00)
[2018-10-30] VITALS (10 sets, daily range): BP systolic 110–128; BP diastolic 35–71
[2018-10-30] MEDS ORDERED: Carvedilol 6.25mg Tab ORAL SCH
--- NOTE | 2018-10-30 02:45 | Progress Note ---
DATE: 10/29/2018 CARDIOLOGY PROGRESS NOTE SUBJECTIVE: The patient is status post EGD today, gastritis with no active bleeding was noted. OBJECTIVE: VITAL SIGNS: Blood pressure 111/42, pulse 89, respirations 22, and afebrile. LUNGS: Bilateral breath sounds. CARDIAC: Regular rhythm and rate. Normal S1 and S2 with a fourth heart sound. ABDOMEN: Soft. EXTREMITIES: No edema. LABORATORY DATA: Echocardiogram revealed normal ejection fraction. White count is 13 and hemoglobin 7.8, posttransfusion. Troponin has increased to 0.822. Pro-natriuretic peptide is 3800. BUN is 32, creatinine 0.7, and potassium 3.5. IMPRESSION: 1. Severe anemia. 2. Acute myocardial infarction precipitated by hypoperfusion in the setting of severe anemia. 3. Acute diastolic congestive heart failure. 4. GI bleed due to gastritis, now resolved. 5. Altered mentation and metabolic encephalopathy. PLAN: 1. Monitor hemoglobin. 2. Add beta-ahsan. 3. No anti-platelet therapy at this time. 4. SCDs for DVT prophylaxis. 5. Monitor cardiopulmonary parameters closely. 6. Condition remains critical with prognosis guarded. Arcenio Schulz M.D. DR: RAOUL JOB#: [id number] CC:
[2018-10-30] MEDS: Piperacillin/Tazobactam 3.375 GM in D5W 110 ML IVPB SCH ×3 (05:42→22:27)
--- NOTE | 2018-10-30 07:41 | General Progress Note ---
Assessment/Plan Problem List: (1) Gastritis ICD Codes: K29.70 - Gastritis, unspecified, without bleeding SNOMED: 5344994 (2) CAD/[place] (3) Severe anemia ICD Codes: D64.9 - Anemia, unspecified SNOMED: 403689564 Assessment/Plan no overt active GIB neg EGD yesterday on ppi daily fu biopsy results given possible acute [place] hold colonoscopy unless for tomorrow colonoscopy when more stable and when cleared by cardiology fu stool ob monitor H&H prn blood transfusion Subjective ROS Limited/Unobtainable: Yes Allergies: Coded Allergies: No Known Allergies (Unverified , 10/28/18) Objective Last 24 Hour Vital Signs Date Time Temp Pulse Resp B/P (MAP) Pulse Ox O2 Delivery O2 Flow Rate FiO2 10/30/18 05:00 78 19 122/35 (64) 99 10/30/18 04:00 98.6 77 19 124/51 (75) 100 10/30/18 04:00 Room Air 10/30/18 04:00 87 10/30/18 03:00 78 19 122/35 (64) 99 10/30/18 02:00 76 19 118/52 (74) 99 10/30/18 01:00 81 19 126/47 (73) 99 10/30/18 00:00 Room Air 10/30/18 00:00 98.4 89 19 110/51 (70) 100 10/30/18 00:00 81 110/50 10/30/18 00:00 67 10/29/18 23:00 81 19 113/47 (69) 99 10/29/18 22:00 81 19 112/50 (70) 99 10/29/18 21:00 89 19 117/45 (69) 99 10/29/18 20:00 98.6 89 19 126/45 (72) 100 10/29/18 20:00 Room Air 10/29/18 20:00 61 10/29/18 19:00 89 20 124/54 (77) 100 10/29/18 18:00 89 20 112/50 (70) 100 10/29/18 17:00 79 17 114/46 (68) 100 10/29/18 16:00 Nasal Cannula 2.0 10/29/18 16:00 84 10/29/18 16:00 81 19 114/53 (73) 100 10/29/18 15:00 83 19 109/36 (60) 99 10/29/18 14:00 82 18 125/53 (77) 100 10/29/18 13:00 76 17 115/48 (70) 100 10/29/18 12:00 Nasal Cannula 2.0 10/29/18 12:00 76 10/29/18 12:00 76 18 117/55 (75) 98 10/29/18 11:00 76 15 104/45 (64) 97 10/29/18 10:35 77 18 100 10/29/18 10:34 73 16 100 10/29/18 10:00 79 16 108/46 (66) 100 10/29/18 09:00 75 14 104/58 (73) 100 10/29/18 08:00 80 10/29/18 08:00 Nasal Cannula 2.0 10/29/18 08:00 98.2 81 18 116/42 (66) 98 Intake and Output 10/29/18 10/30/18 19:00 07:00 Intake Total 1330.5 ml 1010.0 ml Output Total 470 ml 465 ml Balance 860.5 ml 545.0 ml Intake Oral 128 ml IV Total 1202.5 ml 1010.0 ml Output Urine Total 470 ml 465 ml Height (Feet): 5 Height (Inches): 8.00 Weight (Pounds): 112 General Appearance: no apparent distress EENT: normal ENT inspection Neck: supple Cardiovascular: normal rate Respiratory/Chest: lungs clear Abdomen: normal bowel sounds, non tender, soft Extremities: non-tender Redd Mitchell MD Oct 30, 2018 07:41
[2018-10-30 08:52] LABS: HEMATOCRIT 21.6 % (42.0-52.0); HEMOGLOBIN 7.3 G/DL (14.2-18.0); MEAN CORPUSCULAR VOLUME 88 FL (80-99); PLATELET COUNT 68 K/UL (150-450); RED BLOOD COUNT 2.46 M/UL (4.70-6.10); RED CELL DISTRIBUTION WIDTH 14.8 % (11.6-14.8); WHITE BLOOD COUNT 9.7 K/UL (4.8-10.8)
[2018-10-30 09:01] LABS: ANION GAP 8 mmol/L (5-15); BLOOD UREA NITROGEN 19 mg/dL (7-18); CALCIUM 6.9 MG/DL (8.5-10.1); CARBON DIOXIDE 22 MMOL/L (21-32); CHLORIDE 110 MMOL/L (98-107); CREATININE 0.6 MG/DL (0.55-1.30); POTASSIUM 3.4 MMOL/L (3.5-5.1); SODIUM 140 MMOL/L (136-145)
--- NOTE | 2018-10-30 09:14 | General Progress Note ---
Assessment/Plan Problem List: (1) Acute GI bleeding ICD Codes: K92.2 - Gastrointestinal hemorrhage, unspecified SNOMED: 21317232 (2) Acute metabolic encephalopathy ICD Codes: G93.41 - Metabolic encephalopathy SNOMED: 72954958, 608858086 (3) UGIB (upper gastrointestinal bleed) ICD Codes: K92.2 - Gastrointestinal hemorrhage, unspecified SNOMED: 68056818 (4) Severe anemia ICD Codes: D64.9 - Anemia, unspecified SNOMED: 343009072 (5) Altered level of consciousness ICD Codes: R40.4 - Transient alteration of awareness SNOMED: 9318635 (6) PUD (peptic ulcer disease) ICD Codes: K27.9 - Peptic ulcer, site unspecified, unspecified as acute or chronic, without hemorrhage or perforation SNOMED: 96869296 (7) Gastric ulcer ICD Codes: K25.9 - Gastric ulcer, unspecified as acute or chronic, without hemorrhage or perforation SNOMED: 100467467 Status: stable Assessment/Plan PPI rx abx follow up cultures trend troponin transfuse asneeded follow up am labs- pending d/w dtr ursula- pt remains full code but family may change to dnr Subjective ROS Limited/Unobtainable: No Constitutional: Reports: malaise, weakness HEENT: Reports: no symptoms Cardiovascular: Reports: no symptoms Respiratory: Reports: no symptoms Gastrointestinal/Abdominal: Reports: no symptoms Genitourinary: Reports: no symptoms Neurologic/Psychiatric: Reports: pre-existing deficit Endocrine: Reports: no symptoms Hematologic/Lymphatic: Reports: anemia Allergies: Coded Allergies: No Known Allergies (Unverified , 10/28/18) All Systems: reviewed and negative except above Subjective out of the icu. no bleeding noted. am labs pending. alert. no distress Objective Last 24 Hour Vital Signs Date Time Temp Pulse Resp B/P (MAP) Pulse Ox O2 Delivery O2 Flow Rate FiO2 10/30/18 08:00 97.7 81 18 114/60 (78) 95 10/30/18 05:00 78 19 122/35 (64) 99 10/30/18 04:00 98.6 77 19 124/51 (75) 100 10/30/18 04:00 Room Air 10/30/18 04:00 87 10/30/18 03:00 78 19 122/35 (64) 99 10/30/18 02:00 76 19 118/52 (74) 99 10/30/18 01:00 81 19 126/47 (73) 99 10/30/18 00:00 Room Air 10/30/18 00:00 98.4 89 19 110/51 (70) 100 10/30/18 00:00 81 110/50 10/30/18 00:00 67 10/29/18 23:00 81 19 113/47 (69) 99 10/29/18 22:00 81 19 112/50 (70) 99 10/29/18 21:00 89 19 117/45 (69) 99 10/29/18 20:00 98.6 89 19 126/45 (72) 100 10/29/18 20:00 Room Air 10/29/18 20:00 61 10/29/18 19:00 89 20 124/54 (77) 100 10/29/18 18:00 89 20 112/50 (70) 100 10/29/18 17:00 79 17 114/46 (68) 100 10/29/18 16:00 Nasal Cannula 2.0 10/29/18 16:00 84 10/29/18 16:00 81 19 114/53 (73) 100 10/29/18 15:00 83 19 109/36 (60) 99 10/29/18 14:00 82 18 125/53 (77) 100 10/29/18 13:00 76 17 115/48 (70) 100 10/29/18 12:00 Nasal Cannula 2.0 10/29/18 12:00 76 10/29/18 12:00 76 18 117/55 (75) 98 10/29/18 11:00 76 15 104/45 (64) 97 10/29/18 10:35 77 18 100 10/29/18 10:34 73 16 100 10/29/18 10:00 79 16 108/46 (66) 100 Intake and Output 10/29/18 10/30/18 19:00 07:00 Intake Total 1330.5 ml 1010.0 ml Output Total 470 ml 465 ml Balance 860.5 ml 545.0 ml Intake Oral 128 ml IV Total 1202.5 ml 1010.0 ml Output Urine Total 470 ml 465 ml Laboratory Tests 10/30/18 07:20: White Blood Count 9.7, Red Blood Count 2.46L, Hemoglobin 7.3L, Hematocrit 21.6L , Mean Corpuscular Volume 88, Mean Corpuscular Hemoglobin 29.9, Mean Corpuscular Hemoglobin Concent 34.0, Red Cell Distribution Width 14.8, Platelet Count 68L, Mean Platelet Volume 11.2H, Neutrophils (%) (Auto) , Lymphocytes (%) (Auto) , Monocytes (%) (Auto) , Eosinophils (%) (Auto) , Basophils (%) (Auto) , Neutrophils % (Manual) [Pending], Lymphocytes % (Manual) [Pending], Platelet Estimate [Pending], Platelet Morphology [Pending], Sodium Level [Pending], Potassium Level [Pending], Chloride Level [Pending], Carbon Dioxide Level [ Pending], Blood Urea Nitrogen [Pending], Creatinine [Pending], Estimat Glomerular Filtration Rate [Pending], Glucose Level [Pending], Calcium Level [ Pending], Troponin I [Pending], Vancomycin Level Trough [Pending] Height (Feet): 5 Height (Inches): 8.00 Weight (Pounds): 112 General Appearance: WD/WN, alert Neck: supple Cardiovascular: regular rhythm Respiratory/Chest: lungs clear, normal breath sounds, no respiratory distress Abdomen: normal bowel sounds, non tender, soft, no organomegaly, no mass Edema: no edema noted Arm (L), no edema noted Arm (R), no edema noted Leg (L), no edema noted Leg (R), no edema noted Pedal (L), no edema noted Pedal (R), no edema noted Generalized Camron Pearl MD Oct 30, 2018 09:14
[2018-10-30] MEDS: Docusate 100mg cap ORAL SCH ×2 (09:16→17:24)
[2018-10-30] MEDS: Carvedilol 6.25mg Tab ORAL SCH ×2 (09:16→22:25)
[2018-10-30] MEDS: Ascorbic Acid 500mg tab ORAL SCH (09:17)
[2018-10-30] MEDS: Vancomycin 500 MG in D5W 110 ML IVPB SCH ×2 (10:03→22:11)
[2018-10-30] MEDS: Dyna-Hex 2% Top Sol 2oz TOPIC SCH (20:00)
[2018-10-30] MEDS: Tamsulosin 0.4mg cap ORAL SCH (22:25)
[2018-10-30] MEDS: Miralax 17gm pkt ORAL SCH (22:27)
[2018-10-31] VITALS (7 sets, daily range): BP systolic 113–142; BP diastolic 48–75
--- NOTE | 2018-10-31 00:15 | Progress Note ---
DATE: 10/30/2018 CARDIOLOGY PROGRESS NOTE SUBJECTIVE: The patient is out of the intensive care unit. No new bleeding noted. PHYSICAL EXAMINATION: VITAL SIGNS: Blood pressure stable, range 114/60, heart rate 81, respiratory rate 18. Monitored rhythm sinus. Endoscopy yesterday was with gastritis, but no active bleeding. Echocardiogram with normal ejection fraction and mild degenerative valve disease. LUNGS: Bilateral breath sounds. HEART: Regular rhythm rate. Normal S1, S2. ABDOMEN: Soft, no edema. LABORATORY DATA: White count 9.7, hemoglobin 7.3, potassium 3.4. BUN 19, creatinine 0.6. Troponin down to 0.590. IMPRESSION: 1. Severe anemia. 2. Acute myocardial infarction precipitated by severely impaired oxygen carrying capacity in the setting of anemia. 3. History of cerebrovascular accident. 4. Hypertensive heart disease. 5. Acute on chronic diastolic congestive heart failure. 6. CML PLAN: 1. Follow up hemoglobin. 2. May need additional blood transfusion. 3. Replace potassium. 4. Check magnesium. 5. Trend troponin. 6. Periodic diuresis. 7. Considering ARB or ACEi rx. 8. IV iron pending iron panel. Arcenio Schulz M.D. DR: OMA JOB#: [id number] CC: DANNY
[2018-10-31 05:28] LABS: HEMATOCRIT 23.3 % (42.0-52.0); HEMOGLOBIN 7.8 G/DL (14.2-18.0); MEAN CORPUSCULAR VOLUME 89 FL (80-99); PLATELET COUNT 63 K/UL (150-450); RED BLOOD COUNT 2.61 M/UL (4.70-6.10); RED CELL DISTRIBUTION WIDTH 14.8 % (11.6-14.8); WHITE BLOOD COUNT 10.9 K/UL (4.8-10.8)
[2018-10-31] MEDS: Piperacillin/Tazobactam 3.375 GM in D5W 110 ML IVPB SCH ×3 (05:46→22:48)
[2018-10-31 05:55] LABS: ALANINE AMINOTRANSFERASE 15 U/L (12-78); ALBUMIN 1.9 G/DL (3.4-5.0); ALBUMIN/GLOBULIN RATIO 0.6 (1.0-2.7); ALKALINE PHOSPHATASE 54 U/L (46-116); ANION GAP 9 mmol/L (5-15); ASPARTATE AMINO TRANSFERASE 16 U/L (15-37); BILIRUBIN,TOTAL 0.3 MG/DL (0.2-1.0); BLOOD UREA NITROGEN 14 mg/dL (7-18); CALCIUM 7.1 MG/DL (8.5-10.1); CARBON DIOXIDE 20 MMOL/L (21-32); CHLORIDE 109 MMOL/L (98-107); CREATININE 0.6 MG/DL (0.55-1.30); POTASSIUM 3.9 MMOL/L (3.5-5.1); SODIUM 138 MMOL/L (136-145)
--- NOTE | 2018-10-31 06:10 | General Progress Note ---
Assessment/Plan Assessment/Plan Assessment - CML - Anemia - Thrombocytopenia - [place] / elevated troponin - COPD - CML - CVA - Gastritis Recommendations - Monitor H&H - Consider heme eval - laxative - Colonoscopy at later date, once stable Subjective Allergies: Coded Allergies: No Known Allergies (Unverified , 10/28/18) Subjective Above noted feels OK no complaints s/p RBC transfusion yesterday Objective Last 24 Hour Vital Signs Date Time Temp Pulse Resp B/P (MAP) Pulse Ox O2 Delivery O2 Flow Rate FiO2 10/31/18 04:00 Room Air 10/31/18 04:00 97.7 90 20 140/75 (96) 97 10/31/18 04:00 68 10/31/18 00:00 97.3 87 20 140/70 (93) 97 10/31/18 00:00 Room Air 10/31/18 00:00 65 10/30/18 22:25 74 143/87 10/30/18 20:00 Room Air 10/30/18 20:00 85 10/30/18 20:00 98.8 87 18 117/69 (85) 97 10/30/18 17:13 99.2 10/30/18 16:04 83 10/30/18 16:00 Room Air 10/30/18 16:00 99.2 81 18 123/64 (83) 97 10/30/18 12:00 99.0 81 18 128/71 (90) 99 10/30/18 12:00 Room Air 10/30/18 11:50 78 10/30/18 09:16 81 114/60 10/30/18 08:00 81 10/30/18 08:00 Room Air 10/30/18 08:00 97.7 81 18 114/60 (78) 95 Intake and Output 10/30/18 10/31/18 19:00 07:00 Intake Total 1365.0 ml 1182.50 ml Output Total 650 ml 400 ml Balance 715.0 ml 782.50 ml Intake Oral 320 ml IV Total 1045.0 ml 932.50 ml Blood Product 250 ml Output Urine Total 650 ml 400 ml Laboratory Tests 10/30/18 07:20: White Blood Count 9.7, Red Blood Count 2.46L, Hemoglobin 7.3L, Hematocrit 21.6L , Mean Corpuscular Volume 88, Mean Corpuscular Hemoglobin 29.9, Mean Corpuscular Hemoglobin Concent 34.0, Red Cell Distribution Width 14.8, Platelet Count 68L, Mean Platelet Volume 11.2H, Neutrophils (%) (Auto) , Lymphocytes (%) (Auto) , Monocytes (%) (Auto) , Eosinophils (%) (Auto) , Basophils (%) (Auto) , Differential Total Cells Counted 100, Neutrophils % (Manual) 84H, Lymphocytes % (Manual) 5L, Monocytes % (Manual) 3, Eosinophils % (Manual) 8H, Basophils % ( Manual) 0, Band Neutrophils 0, Platelet Estimate DecreasedL, Platelet Morphology Normal, Hypochromasia 1+, Anisocytosis 1+, Sodium Level 140, Potassium Level 3.4L, Chloride Level 110H, Carbon Dioxide Level 22, Anion Gap 8 , Blood Urea Nitrogen 19H, Creatinine 0.6, Estimat Glomerular Filtration Rate , Glucose Level 86, Calcium Level 6.9L, Troponin I 0.590H, Vancomycin Level Trough 10.2 10/31/18 03:45: White Blood Count 10.9H, Red Blood Count 2.61L, Hemoglobin 7.8L, Hematocrit 23.3L, Mean Corpuscular Volume 89, Mean Corpuscular Hemoglobin 29.9, Mean Corpuscular Hemoglobin Concent 33.6, Red Cell Distribution Width 14.8, Platelet Count 63L, Mean Platelet Volume 8.3, Neutrophils (%) (Auto) , Lymphocytes (%) ( Auto) , Monocytes (%) (Auto) , Eosinophils (%) (Auto) , Basophils (%) (Auto) , Neutrophils % (Manual) [Pending], Lymphocytes % (Manual) [Pending], Platelet Estimate [Pending], Platelet Morphology [Pending], Sodium Level 138, Potassium Level 3.9, Chloride Level 109H, Carbon Dioxide Level 20L, Anion Gap 9, Blood Urea Nitrogen 14, Creatinine 0.6, Estimat Glomerular Filtration Rate , Glucose Level 82, Calcium Level 7.1L, Troponin I [Pending], Total Bilirubin 0.3, Aspartate Amino Transf (AST/SGOT) 16, Alanine Aminotransferase (ALT/SGPT) 15, Alkaline Phosphatase 54, Pro-B-Type Natriuretic Peptide 5624H, Total Protein 4.9L, Albumin 1.9L, Globulin 3.0, Albumin/Globulin Ratio 0.6L Height (Feet): 5 Height (Inches): 8.00 Weight (Pounds): 112 Objective Thin elderly man NAD NCAT supple CTA RRR, (+) systolic murmur LSB abd soft, flat ND no edema Lalita Sheth MD Oct 31, 2018 06:10
[2018-10-31] MEDS ORDERED: Sorbitol Solution UD 30ml ORAL ONE (06:15)
[2018-10-31 06:50] LABS: % IRON SATURATION 7 % (15-50); IRON 14 ug/dL (50-175); TOTAL IRON BINDING CAPACITY 204 ug/dL (250-450)
[2018-10-31] MEDS: Vancomycin 500 MG in D5W 110 ML IVPB SCH ×2 (09:04→20:19)
[2018-10-31] MEDS: Ascorbic Acid 500mg tab ORAL SCH (09:04)
[2018-10-31] MEDS: Docusate 100mg cap ORAL SCH ×2 (09:05→18:00)
[2018-10-31] MEDS: Carvedilol 6.25mg Tab ORAL SCH ×2 (09:05→20:20)
--- NOTE | 2018-10-31 11:10 | Cardiology Report ---
APPROVED REPORT EXAM: Two-dimensional and M-mode echocardiogram with Doppler and color Doppler. INDICATION Congestive Heart Failure M-Mode DIMENSIONS IVSd2.0 (0.7-1.1cm)Left Atrium (MM)5.0 (1.6-4.0cm) LVDd5.1 (3.5-5.6cm)Aortic Root2.7 (2.0-3.7cm) PWd1.7 (0.7-1.1cm)Aortic Cusp Exc.1.3 (1.5-2.0cm) LVDs4.1 (2.5-4.0cm) PWs2.5 cm Technically difficult and limited study due to poor acoustic windows. Study quality precludes accurate assessment of regional wall motion. Normal left ventricular chamber size, systolic function and wall motion. Left ventricular ejection fraction estimated to be 60 %. Mild left ventricular hypertrophy. Small posterior pericardial effusion. All other cardiac chamber sizes are within normal limits. Aortic valve calcification with decreased cusp excursion c/w aortic stenosis. Mildly thickened mitral valve leaflets with normal excursion. Mild mitral annulus and aortic root calcification. Pulmonic valve not visualized. Normal tricuspid valve structure. Subcostal views not obtainable. A color flow and spectral Doppler study was performed and revealed: Moderate aortic insufficiency. Peak aortic valve gradient of 82 mmHg and a mean of 48 mmHg. Aortic valve area 0.5 cm2 calculated by continuity equation. Mild to moderate mitral regurgitation. Mitral diastolic velocities suggest mild left ventricular diastolic dysfunction (Grade I). Mild tricuspid regurgitation. Tricuspid systolic velocities suggests peak right ventricular systolic pressure of 33 mmHg.
--- NOTE | 2018-10-31 19:00 | Progress Note ---
DATE: 10/31/2018 CARDIOLOGY PROGRESS NOTE SUBJECTIVE: Blood pressure 140/75, pulse 90, respirations 20, and afebrile. The patient has no new complaints. Feeling better. He received another packed red blood cell transfusion yesterday. OBJECTIVE: GENERAL: Slight left-sided weakness. LUNGS: Clear. CARDIAC: Regular rhythm and rate. Normal S1, S2 with a fourth heart sound. ABDOMEN: Soft. EXTREMITIES: No edema. LABORATORY DATA: White count 10.9 and hemoglobin 7.8. Total iron 14 and sat 7%. BUN 14 and creatinine 0.6. Troponin down to 0.409 and pro-natriuretic peptide is 5600 with albumin of 1.9. IMPRESSION: 1. Severe anemia. 2. Acute myocardial infarction. 3. History of cerebrovascular accident. 4. Hypertensive heart disease. 5. Acute on chronic diastolic congestive heart failure clinically compensated. 6. Hemoccult-positive stool. 7. History of CML. 8. Chronic obstructive pulmonary disease. PLAN: 1. Transfuse for hemoglobin below 7.5. 2. Intravenous iron replacement. 3. Possible gastrointestinal workup. 4. Continue beta-ahsan therapy. 5. Avoid anti-platelet and anticoagulant therapy. 6. Proton pump inhibitor. Arcenio Schulz M.D. DR: CHELY JOB#: [id number] CC:
[2018-10-31] MEDS: Dyna-Hex 2% Top Sol 2oz TOPIC SCH (20:00)
[2018-10-31] MEDS: Iron Sucrose 100 MG in NS 55 ML IV SCH (20:19)
[2018-10-31] MEDS: Miralax 17gm pkt ORAL SCH (20:20)
[2018-10-31] MEDS: Tamsulosin 0.4mg cap ORAL SCH (20:20)
--- NOTE | 2018-10-31 22:37 | General Progress Note ---
Assessment/Plan Assessment/Plan Assessment - CML - Anemia - Thrombocytopenia - [place] / elevated troponin - COPD - CML - CVA - Gastritis Recommendations - Monitor H&H - Consider heme eval - laxative - Colonoscopy at later date, once stable Subjective Allergies: Coded Allergies: No Known Allergies (Unverified , 10/28/18) Subjective Above noted feels OK no complaints Objective Last 24 Hour Vital Signs Date Time Temp Pulse Resp B/P (MAP) Pulse Ox O2 Delivery O2 Flow Rate FiO2 10/31/18 20:20 74 130/74 10/31/18 20:00 98.1 74 20 130/74 (92) 96 10/31/18 16:00 Room Air 10/31/18 16:00 67 10/31/18 16:00 98.1 66 18 113/48 (69) 96 10/31/18 12:00 62 10/31/18 12:00 98.7 60 20 142/74 (96) 97 10/31/18 12:00 Room Air 10/31/18 09:05 74 134/61 10/31/18 08:00 97.7 74 20 134/61 (85) 98 10/31/18 08:00 Room Air 10/31/18 07:29 69 10/31/18 04:00 Room Air 10/31/18 04:00 97.7 90 20 140/75 (96) 97 10/31/18 04:00 68 10/31/18 00:00 97.3 87 20 140/70 (93) 97 10/31/18 00:00 Room Air 10/31/18 00:00 65 Intake and Output 10/30/18 10/31/18 18:59 06:59 Intake Total 1330.0 ml 1257.50 ml Output Total 650 ml 1000 ml Balance 680.0 ml 257.50 ml Intake Oral 320 ml IV Total 1010.0 ml 1007.50 ml Blood Product 250 ml Output Urine Total 650 ml 1000 ml Laboratory Tests 10/31/18 03:45: White Blood Count 10.9H, Red Blood Count 2.61L, Hemoglobin 7.8L, Hematocrit 23.3L, Mean Corpuscular Volume 89, Mean Corpuscular Hemoglobin 29.9, Mean Corpuscular Hemoglobin Concent 33.6, Red Cell Distribution Width 14.8, Platelet Count 63L, Mean Platelet Volume 8.3, Neutrophils (%) (Auto) , Lymphocytes (%) ( Auto) , Monocytes (%) (Auto) , Eosinophils (%) (Auto) , Basophils (%) (Auto) , Differential Total Cells Counted 100, Neutrophils % (Manual) 75, Lymphocytes % ( Manual) 17L, Monocytes % (Manual) 4, Eosinophils % (Manual) 3, Basophils % ( Manual) 1, Band Neutrophils 0, Nucleated Red Blood Cells 4, Platelet Estimate DecreasedL, Platelet Morphology Normal, Polychromasia 1+, Hypochromasia 3+, Anisocytosis 1+, Spherocytes 1+, Sodium Level 138, Potassium Level 3.9, Chloride Level 109H, Carbon Dioxide Level 20L, Anion Gap 9, Blood Urea Nitrogen 14, Creatinine 0.6, Estimat Glomerular Filtration Rate , Glucose Level 82, Calcium Level 7.1L, Iron Level 14L, Total Iron Binding Capacity 204L, Percent Iron Saturation 7L, Unsaturated Iron Binding 190, Total Bilirubin 0.3, Aspartate Amino Transf (AST/SGOT) 16, Alanine Aminotransferase (ALT/SGPT) 15, Alkaline Phosphatase 54, Troponin I 0.409H, Pro-B-Type Natriuretic Peptide 5624H , Total Protein 4.9L, Albumin 1.9L, Globulin 3.0, Albumin/Globulin Ratio 0.6L 10/31/18 18:00: Stool Occult Blood [Pending] Height (Feet): 5 Height (Inches): 8.00 Weight (Pounds): 146 Objective Thin elderly man NAD NCAT supple CTA RRR, (+) systolic murmur LSB abd soft, flat ND no edema Lalita Sheth MD Oct 31, 2018 22:37
[2018-11-01] VITALS: BP 123/87
[2018-11-01 04:00] VITALS: BP 140/76
[2018-11-01 05:07] LABS: HEMATOCRIT 22.9 % (42.0-52.0); HEMOGLOBIN 7.7 G/DL (14.2-18.0); MEAN CORPUSCULAR VOLUME 90 FL (80-99); PLATELET COUNT 71 K/UL (150-450); RED BLOOD COUNT 2.54 M/UL (4.70-6.10); RED CELL DISTRIBUTION WIDTH 14.7 % (11.6-14.8); WHITE BLOOD COUNT 7.7 K/UL (4.8-10.8)
[2018-11-01] MEDS: Piperacillin/Tazobactam 3.375 GM in D5W 110 ML IVPB SCH ×3 (05:35→22:20)
[2018-11-01 07:39] VITALS: BP 151/67
[2018-11-01] MEDS: Ascorbic Acid 500mg tab ORAL SCH (08:29)
[2018-11-01] MEDS: Carvedilol 6.25mg Tab ORAL SCH ×2 (08:29→20:37)
[2018-11-01] MEDS: Docusate 100mg cap ORAL SCH ×2 (08:29→17:54)
[2018-11-01] MEDS: Vancomycin 500 MG in D5W 110 ML IVPB SCH ×2 (08:30→20:37)
[2018-11-01] MEDS ORDERED: Losartan 50mg tab ORAL SCH (09:00)
--- NOTE | 2018-11-01 10:27 | General Progress Note ---
Assessment/Plan Problem List: (1) Acute GI bleeding ICD Codes: K92.2 - Gastrointestinal hemorrhage, unspecified SNOMED: 17958625 (2) Acute metabolic encephalopathy ICD Codes: G93.41 - Metabolic encephalopathy SNOMED: 54861044, 096737786 (3) UGIB (upper gastrointestinal bleed) ICD Codes: K92.2 - Gastrointestinal hemorrhage, unspecified SNOMED: 67645991 (4) Severe anemia ICD Codes: D64.9 - Anemia, unspecified SNOMED: 808103974 (5) Altered level of consciousness ICD Codes: R40.4 - Transient alteration of awareness SNOMED: 1495814 (6) PUD (peptic ulcer disease) ICD Codes: K27.9 - Peptic ulcer, site unspecified, unspecified as acute or chronic, without hemorrhage or perforation SNOMED: 97717923 (7) Gastric ulcer ICD Codes: K25.9 - Gastric ulcer, unspecified as acute or chronic, without hemorrhage or perforation SNOMED: 353914638 Status: stable, progressing Assessment/Plan PPI rx abx follow up cultures trend troponin transfuse follow up am labs- pending d/w dtr ursula- pt remains full code but family may change to dnr Subjective ROS Limited/Unobtainable: No Constitutional: Reports: malaise, weakness HEENT: Reports: no symptoms Cardiovascular: Reports: no symptoms Respiratory: Reports: no symptoms Gastrointestinal/Abdominal: Reports: no symptoms Genitourinary: Reports: no symptoms Neurologic/Psychiatric: Reports: no symptoms Endocrine: Reports: no symptoms Hematologic/Lymphatic: Reports: no symptoms Allergies: Coded Allergies: No Known Allergies (Unverified , 10/28/18) All Systems: reviewed and negative except above Subjective out of the icu. had black stool. am labs noted. alert. no distress Objective Last 24 Hour Vital Signs Date Time Temp Pulse Resp B/P (MAP) Pulse Ox O2 Delivery O2 Flow Rate FiO2 11/01/18 08:29 151/67 11/01/18 08:29 66 151/67 11/01/18 08:00 59 11/01/18 08:00 Room Air 11/01/18 07:39 98.0 66 20 151/67 (95) 96 11/01/18 04:00 98.2 73 16 140/76 (97) 97 11/01/18 04:00 63 11/01/18 04:00 Room Air 12/11/18 00:00 Room Air 11/01/18 00:00 64 11/01/18 00:00 98.8 70 18 123/87 (99) 98 10/31/18 20:20 74 130/74 10/31/18 20:00 Room Air 10/31/18 20:00 66 10/31/18 20:00 98.1 74 20 130/74 (92) 96 10/31/18 16:00 Room Air 10/31/18 16:00 67 10/31/18 16:00 98.1 66 18 113/48 (69) 96 10/31/18 12:00 62 10/31/18 12:00 98.7 60 20 142/74 (96) 97 10/31/18 12:00 Room Air Intake and Output 10/31/18 11/01/18 18:59 06:59 Intake Total 525.0 ml Output Total 850 ml 1550 ml Balance -325.0 ml -1550 ml Intake Oral 250 ml IV Total 275.0 ml Output Urine Total 850 ml 1550 ml # Bowel Movements 2 Laboratory Tests 10/31/18 18:00: Stool Occult Blood [Pending] 11/01/18 04:15: White Blood Count 7.7, Red Blood Count 2.54L, Hemoglobin 7.7L, Hematocrit 22.9L , Mean Corpuscular Volume 90, Mean Corpuscular Hemoglobin 30.3, Mean Corpuscular Hemoglobin Concent 33.6, Red Cell Distribution Width 14.7, Platelet Count 71L, Mean Platelet Volume 8.4, Neutrophils (%) (Auto) , Lymphocytes (%) ( Auto) , Monocytes (%) (Auto) , Eosinophils (%) (Auto) , Basophils (%) (Auto) , Differential Total Cells Counted 100, Neutrophils % (Manual) 78H, Lymphocytes % (Manual) 10L, Monocytes % (Manual) 6, Eosinophils % (Manual) 5H, Basophils % ( Manual) 1, Band Neutrophils 0, Nucleated Red Blood Cells 2, Platelet Estimate DecreasedL, Platelet Morphology Normal, Hypochromasia 3+, Anisocytosis 1+, Spherocytes 1+, Troponin I 0.298H Height (Feet): 5 Height (Inches): 8.00 Weight (Pounds): 122 General Appearance: WD/WN, alert EENT: TMs normal Neck: supple Cardiovascular: normal rate Respiratory/Chest: chest wall non-tender, lungs clear, normal breath sounds Abdomen: normal bowel sounds, non tender, soft, no organomegaly Edema: no edema noted Arm (L), no edema noted Arm (R), no edema noted Leg (L), no edema noted Leg (R), no edema noted Pedal (L), no edema noted Pedal (R), no edema noted Generalized 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
[2018-11-01 12:00] VITALS: BP 126/63
[2018-11-01 16:00] VITALS: BP 144/78
--- NOTE | 2018-11-01 19:55 | General Progress Note ---
Assessment/Plan Assessment/Plan Assessment - CML - ? cause of anemia - Anemia, OB (+) stool --s/p EGDx3, colonoscopy x1, Capsule endoscopy x1 in 2018 - Thrombocytopenia - [place] / elevated troponin - COPD - CML - CVA - Gastritis Recommendations - Monitor H&H - Consider heme eval - laxative - transfuse PRN - no plans for further GI w/u at this time Subjective Allergies: Coded Allergies: No Known Allergies (Unverified , 10/28/18) Subjective Above noted feels OK no complaints discussed with DTR re prior GI w/u at [facility] s/p EGD x 2, colonoscopy x1, and wireless capsule x1 at [facility] - no major source of bleeding identified Objective Last 24 Hour Vital Signs Date Time Temp Pulse Resp B/P (MAP) Pulse Ox O2 Delivery O2 Flow Rate FiO2 11/01/18 16:00 97.7 64 20 144/78 (100) 98 11/01/18 16:00 Room Air 11/01/18 16:00 70 11/01/18 12:00 97.7 67 20 126/63 (84) 96 11/01/18 12:00 68 11/01/18 12:00 Room Air 11/01/18 08:29 151/67 11/01/18 08:29 66 151/67 11/01/18 08:00 59 11/01/18 08:00 Room Air 11/01/18 07:39 98.0 66 20 151/67 (95) 96 11/01/18 04:00 98.2 73 16 140/76 (97) 97 11/01/18 04:00 63 11/01/18 04:00 Room Air 11/01/18 00:00 Room Air 11/01/18 00:00 64 11/01/18 00:00 98.8 70 18 123/87 (99) 98 10/31/18 20:20 74 130/74 10/31/18 20:00 Room Air 10/31/18 20:00 66 10/31/18 20:00 98.1 74 20 130/74 (92) 96 Intake and Output 10/31/18 11/01/18 19:00 07:00 Intake Total 525.0 ml Output Total 850 ml 1550 ml Balance -325.0 ml -1550 ml Intake Oral 250 ml IV Total 275.0 ml Output Urine Total 850 ml 1550 ml # Bowel Movements 2 Laboratory Tests 11/01/18 04:15: White Blood Count 7.7, Red Blood Count 2.54L, Hemoglobin 7.7L, Hematocrit 22.9L , Mean Corpuscular Volume 90, Mean Corpuscular Hemoglobin 30.3, Mean Corpuscular Hemoglobin Concent 33.6, Red Cell Distribution Width 14.7, Platelet Count 71L, Mean Platelet Volume 8.4, Neutrophils (%) (Auto) , Lymphocytes (%) ( Auto) , Monocytes (%) (Auto) , Eosinophils (%) (Auto) , Basophils (%) (Auto) , Differential Total Cells Counted 100, Neutrophils % (Manual) 78H, Lymphocytes % (Manual) 10L, Monocytes % (Manual) 6, Eosinophils % (Manual) 5H, Basophils % ( Manual) 1, Band Neutrophils 0, Nucleated Red Blood Cells 2, Platelet Estimate DecreasedL, Platelet Morphology Normal, Hypochromasia 3+, Anisocytosis 1+, Spherocytes 1+, Troponin I 0.298H Height (Feet): 5 Height (Inches): 8.00 Weight (Pounds): 122 Objective Thin elderly man NAD NCAT supple CTA RRR, (+) systolic murmur LSB abd soft, flat ND no edema Lalita Sheth MD Nov 01, 2018 19:54
[2018-11-01 20:00] VITALS: BP 144/79
[2018-11-01] MEDS: Dyna-Hex 2% Top Sol 2oz TOPIC SCH ×2 (20:00→20:36)
[2018-11-01] MEDS: Tamsulosin 0.4mg cap ORAL SCH (20:37)
[2018-11-01] MEDS: Miralax 17gm pkt ORAL SCH (20:37)
[2018-11-01] MEDS: Iron Sucrose 100 MG in NS 55 ML IV SCH (21:34)
[2018-11-02] VITALS: BP 146/66
--- NOTE | 2018-11-02 01:30 | Progress Note ---
DATE: 11/01/2018 CARDIOLOGY PROGRESS NOTE SUBJECTIVE: The patient continues to have episodes of black stool and low hemoglobin episodes requiring transfusion. He has had 2 EGDs and one colonoscopy as well as a wireless capsule study at [facility], none of which revealed any major source of bleeding or active bleeding. OBJECTIVE: VITAL SIGNS: Blood pressure 144/78, pulse 64, respiratory rate 20. LUNGS: Clear. CARDIAC: Regular. Normal S1, S2. ABDOMEN: Soft. EXTREMITIES: Trace edema. LABORATORY DATA: White count 7.7, hemoglobin 7.7. Troponin down to 0.298. IMPRESSION: 1. History of CML. 2. Chronic GI bleeding. 3. Severe anemia on admission. 4. Acute myocardial infarction. 5. Iron deficiency. 6. Severe protein-calorie malnutrition. 7. Acute on chronic diastolic congestive heart failure. PLAN: 1. No plan for additional GI workup. 2. Advance anti-failure and antihypertensive regimen. 3. No antiplatelet drugs in this clinical setting. Arcenio Schulz M.D. DR: Bobby JOB#: [id number] CC:
[2018-11-02 04:00] VITALS: BP 142/65
[2018-11-02 05:18] LABS: HEMATOCRIT 28.3 % (42.0-52.0); HEMOGLOBIN 9.6 G/DL (14.2-18.0); MEAN CORPUSCULAR VOLUME 88 FL (80-99); PLATELET COUNT 77 K/UL (150-450); RED CELL DISTRIBUTION WIDTH 15.3 % (11.6-14.8); WHITE BLOOD COUNT 7.2 K/UL (4.8-10.8)
[2018-11-02] MEDS: Piperacillin/Tazobactam 3.375 GM in D5W 110 ML IVPB SCH ×3 (05:27→22:13)
[2018-11-02 07:57] VITALS: BP 151/80
[2018-11-02] MEDS: Losartan 50mg tab ORAL SCH (08:23)
[2018-11-02] MEDS: Ascorbic Acid 500mg tab ORAL SCH (08:23)
[2018-11-02] MEDS: Vancomycin 500 MG in D5W 110 ML IVPB SCH ×2 (08:23→20:54)
[2018-11-02] MEDS: Docusate 100mg cap ORAL SCH (08:24)
[2018-11-02] MEDS: Carvedilol 12.5mg tab ORAL SCH ×2 (08:24→20:57)
[2018-11-02 11:33] VITALS: BP 120/56
[2018-11-02 16:00] VITALS: BP 125/58
[2018-11-02] MEDS: Docusate 100mg/10ml Liq ORAL SCH (17:07)
--- NOTE | 2018-11-02 17:47 | General Progress Note ---
Assessment/Plan Problem List: (1) Acute GI bleeding ICD Codes: K92.2 - Gastrointestinal hemorrhage, unspecified SNOMED: 13934836 (2) Acute metabolic encephalopathy ICD Codes: G93.41 - Metabolic encephalopathy SNOMED: 22971678, 803965762 (3) UGIB (upper gastrointestinal bleed) ICD Codes: K92.2 - Gastrointestinal hemorrhage, unspecified SNOMED: 97029590 (4) Severe anemia ICD Codes: D64.9 - Anemia, unspecified SNOMED: 325374814 (5) Altered level of consciousness ICD Codes: R40.4 - Transient alteration of awareness SNOMED: 5745658 (6) PUD (peptic ulcer disease) ICD Codes: K27.9 - Peptic ulcer, site unspecified, unspecified as acute or chronic, without hemorrhage or perforation SNOMED: 43837636 (7) Gastric ulcer ICD Codes: K25.9 - Gastric ulcer, unspecified as acute or chronic, without hemorrhage or perforation SNOMED: 435374273 Status: stable, progressing Assessment/Plan PPI rx abx follow up cultures trend troponin transfuse follow up am labs- pending d/w dtr ursula- pt remains full code but family may change to dnr Subjective ROS Limited/Unobtainable: No Constitutional: Reports: malaise, weakness HEENT: Reports: no symptoms Cardiovascular: Reports: no symptoms Respiratory: Reports: no symptoms Gastrointestinal/Abdominal: Reports: tarry stools Genitourinary: Reports: no symptoms Neurologic/Psychiatric: Reports: no symptoms Endocrine: Reports: no symptoms Hematologic/Lymphatic: Reports: anemia Allergies: Coded Allergies: No Known Allergies (Unverified , 10/28/18) All Systems: reviewed and negative except above Subjective out of the icu. had black stool. am labs noted. alert. no distress Objective Last 24 Hour Vital Signs Date Time Temp Pulse Resp B/P (MAP) Pulse Ox O2 Delivery O2 Flow Rate FiO2 11/02/18 16:00 98.1 69 20 125/58 (80) 94 11/02/18 16:00 Room Air 18 16:00 71 18 12:00 59 11/02/18 12:00 Room Air 11/02/18 11:33 97.9 64 16 120/56 (77) 95 11/02/18 08:24 63 151/80 11/02/18 08:23 151/80 11/02/18 08:00 Room Air 11/02/18 08:00 59 11/02/18 07:57 97.7 63 20 151/80 (103) 97 11/02/18 04:00 69 11/02/18 04:00 Room Air 11/02/18 04:00 97.9 65 20 142/65 (90) 97 11/02/18 00:00 71 11/02/18 00:00 Room Air 11/02/18 00:00 98.1 70 20 146/66 (92) 96 11/01/18 20:37 72 144/79 11/01/18 20:00 77 11/01/18 20:00 Room Air 11/01/18 20:00 98.4 72 20 144/79 (100) 97 Intake and Output 11/01/18 11/02/18 19:00 07:00 Intake Total 1300.0 ml 280.0 ml Output Total 1350 ml 900 ml Balance -50.0 ml -620.0 ml Intake Oral 720 ml IV Total 330.0 ml 280.0 ml Blood Product 250 ml Output Urine Total 1350 ml 900 ml # Bowel Movements 3 Laboratory Tests 11/02/18 03:40: White Blood Count 7.2, Red Blood Count 3.20L, Hemoglobin 9.6L, Hematocrit 28.3L , Mean Corpuscular Volume 88, Mean Corpuscular Hemoglobin 30.0, Mean Corpuscular Hemoglobin Concent 34.0, Red Cell Distribution Width 15.3H, Platelet Count 77L, Mean Platelet Volume 10.4H, Neutrophils (%) (Auto) , Lymphocytes (%) (Auto) , Monocytes (%) (Auto) , Eosinophils (%) (Auto) , Basophils (%) (Auto) Height (Feet): 5 Height (Inches): 8.00 Weight (Pounds): 133 General Appearance: WD/WN, alert EENT: TMs normal Neck: supple Cardiovascular: normal peripheral pulses, normal rate, regular rhythm Respiratory/Chest: chest wall non-tender, lungs clear, normal breath sounds Abdomen: normal bowel sounds, non tender, soft, no organomegaly Edema: no edema noted Arm (L), no edema noted Arm (R), no edema noted Leg (L), no edema noted Leg (R), no edema noted Pedal (L), no edema noted Pedal (R), no edema noted Generalized Camron Pearl MD Nov 02, 2018 17:47
[2018-11-02 20:00] VITALS: BP 140/59
[2018-11-02] MEDS: Dyna-Hex 2% Top Sol 2oz TOPIC SCH (20:00)
[2018-11-02] MEDS: Tamsulosin 0.4mg cap ORAL SCH (20:57)
[2018-11-02] MEDS: Miralax 17gm pkt ORAL SCH (20:57)
[2018-11-02] MEDS: Iron Sucrose 100 MG in NS 55 ML IV SCH (20:57)
--- NOTE | 2018-11-02 23:19 | General Progress Note ---
Assessment/Plan Assessment/Plan Assessment - CML - ? cause of anemia - Anemia, OB (+) stool --s/p EGDx3, colonoscopy x1, Capsule endoscopy x1 in 2018 - Thrombocytopenia - [place] / elevated troponin - COPD - CML - CVA - Gastritis Recommendations - Monitor H&H - Consider heme eval - laxative - transfuse PRN - no plans for further GI w/u at this time Subjective Allergies: Coded Allergies: No Known Allergies (Unverified , 10/28/18) Subjective Above noted feels OK no complaints discussed with DTR re prior GI w/u at [facility] s/p EGD x 2, colonoscopy x1, and wireless capsule x1 at [facility] - no major source of bleeding identified Objective Last 24 Hour Vital Signs Date Time Temp Pulse Resp B/P (MAP) Pulse Ox O2 Delivery O2 Flow Rate FiO2 11/02/18 20:57 62 140/59 11/02/18 20:00 64 11/02/18 20:00 98.8 62 20 140/59 (86) 95 11/02/18 20:00 Room Air 11/02/18 16:00 98.1 69 20 125/58 (80) 94 11/02/18 16:00 Room Air 11/02/18 16:00 71 11/02/18 12:00 59 11/02/18 12:00 Room Air 11/02/18 11:33 97.9 64 16 120/56 (77) 95 11/02/18 08:24 63 151/80 11/02/18 08:23 151/80 11/02/18 08:00 Room Air 11/02/18 08:00 59 11/02/18 07:57 97.7 63 20 151/80 (103) 97 11/02/18 04:00 69 11/02/18 04:00 Room Air 11/02/18 04:00 97.9 65 20 142/65 (90) 97 11/02/18 00:00 71 11/02/18 00:00 Room Air 11/02/18 00:00 98.1 70 20 146/66 (92) 96 Intake and Output 11/01/18 11/02/18 19:00 07:00 Intake Total 1300.0 ml 280.0 ml Output Total 1350 ml 900 ml Balance -50.0 ml -620.0 ml Intake Oral 720 ml IV Total 330.0 ml 280.0 ml Blood Product 250 ml Output Urine Total 1350 ml 900 ml # Bowel Movements 3 Laboratory Tests 11/02/18 03:40: White Blood Count 7.2, Red Blood Count 3.20L, Hemoglobin 9.6L, Hematocrit 28.3L , Mean Corpuscular Volume 88, Mean Corpuscular Hemoglobin 30.0, Mean Corpuscular Hemoglobin Concent 34.0, Red Cell Distribution Width 15.3H, Platelet Count 77L, Mean Platelet Volume 10.4H, Neutrophils (%) (Auto) , Lymphocytes (%) (Auto) , Monocytes (%) (Auto) , Eosinophils (%) (Auto) , Basophils (%) (Auto) Height (Feet): 5 Height (Inches): 8.00 Weight (Pounds): 133 Objective Thin elderly man NAD NCAT supple CTA RRR, (+) systolic murmur LSB abd soft, flat ND no edema Lalita Sheth MD Nov 02, 2018 23:19
[2018-11-03] VITALS: BP 148/76
--- NOTE | 2018-11-03 03:30 | Progress Note ---
DATE: 11/02/2018 CARDIOLOGY PROGRESS NOTE SUBJECTIVE: The patient with rare episodes of black stool. No source of bleeding noted on numerous evaluations. Admitted with severe anemia, hemoglobin of 3 and secondary myocardial infarction, now with no signs of ongoing ischemia or congestive heart failure. OBJECTIVE: VITAL SIGNS: Blood pressure 120/56, pulse 64, and respirations 16. LUNGS: Clear. CARDIAC: Regular. Normal S1, S2 with a fourth heart sound. ABDOMEN: Soft. EXTREMITIES: No edema. LABORATORY DATA: White count 7.2 and hemoglobin 9.6 post transfusion. IMPRESSION: Hemodynamically stable. PLAN: 1. Follow up hemoglobin. 2. Maintain beta-ahsan. 3. Avoid anti-platelet drugs. 4. Follow up chemistry panel. 5. Titrate anti-failure regimen. 6. Remains high risk. Arcenio Schulz M.D. DR: CHELY JOB#: [id number] CC:
[2018-11-03 04:00] VITALS: BP 149/70
[2018-11-03 05:10] LABS: HEMATOCRIT 27.5 % (42.0-52.0); HEMOGLOBIN 9.3 G/DL (14.2-18.0); MEAN CORPUSCULAR VOLUME 88 FL (80-99); PLATELET COUNT 75 K/UL (150-450); RED BLOOD COUNT 3.12 M/UL (4.70-6.10); RED CELL DISTRIBUTION WIDTH 14.9 % (11.6-14.8); WHITE BLOOD COUNT 5.2 K/UL (4.8-10.8)
[2018-11-03] MEDS: Piperacillin/Tazobactam 3.375 GM in D5W 110 ML IVPB SCH ×3 (05:15→21:14)
[2018-11-03 05:53] LABS: ALANINE AMINOTRANSFERASE 11 U/L (12-78); ALBUMIN 1.9 G/DL (3.4-5.0); ALBUMIN/GLOBULIN RATIO 0.6 (1.0-2.7); ALKALINE PHOSPHATASE 55 U/L (46-116); ANION GAP 6 mmol/L (5-15); ASPARTATE AMINO TRANSFERASE 13 U/L (15-37); BILIRUBIN,TOTAL 0.4 MG/DL (0.2-1.0); BLOOD UREA NITROGEN 11 mg/dL (7-18); CALCIUM 7.4 MG/DL (8.5-10.1); CARBON DIOXIDE 25 MMOL/L (21-32); CHLORIDE 106 MMOL/L (98-107); CREATININE 0.6 MG/DL (0.55-1.30); POTASSIUM 3.6 MMOL/L (3.5-5.1); SODIUM 137 MMOL/L (136-145)
[2018-11-03 07:45] VITALS: BP 145/74
[2018-11-03] MEDS: Carvedilol 12.5mg tab ORAL SCH ×2 (08:11→21:13)
[2018-11-03] MEDS: Docusate 100mg/10ml Liq ORAL SCH ×2 (08:11→17:06)
[2018-11-03] MEDS: Ascorbic Acid 500mg tab ORAL SCH (08:12)
[2018-11-03] MEDS: Losartan 50mg tab ORAL SCH (08:12)
[2018-11-03 11:52] VITALS: BP 129/71
[2018-11-03 15:42] VITALS: BP 136/61
--- NOTE | 2018-11-03 16:25 | General Progress Note ---
Assessment/Plan Problem List: (1) Acute GI bleeding ICD Codes: K92.2 - Gastrointestinal hemorrhage, unspecified SNOMED: 99783752 (2) Acute metabolic encephalopathy ICD Codes: G93.41 - Metabolic encephalopathy SNOMED: 85567952, 612838364 (3) UGIB (upper gastrointestinal bleed) ICD Codes: K92.2 - Gastrointestinal hemorrhage, unspecified SNOMED: 42220125 (4) Severe anemia ICD Codes: D64.9 - Anemia, unspecified SNOMED: 209570634 (5) Altered level of consciousness ICD Codes: R40.4 - Transient alteration of awareness SNOMED: 0789515 (6) PUD (peptic ulcer disease) ICD Codes: K27.9 - Peptic ulcer, site unspecified, unspecified as acute or chronic, without hemorrhage or perforation SNOMED: 48692848 (7) Gastric ulcer ICD Codes: K25.9 - Gastric ulcer, unspecified as acute or chronic, without hemorrhage or perforation SNOMED: 032693405 Status: stable Assessment/Plan cont PPI rx abx follow up cultures trend troponin transfuse as needed monitor labs dc planning tomorrow if stable Subjective ROS Limited/Unobtainable: No Constitutional: Reports: malaise, weakness HEENT: Reports: no symptoms Cardiovascular: Reports: no symptoms Respiratory: Reports: no symptoms Gastrointestinal/Abdominal: Reports: black stools, tarry stools Genitourinary: Reports: no symptoms Neurologic/Psychiatric: Reports: pre-existing deficit Endocrine: Reports: no symptoms Hematologic/Lymphatic: Reports: anemia Allergies: Coded Allergies: No Known Allergies (Unverified , 10/28/18) All Systems: reviewed and negative except above Subjective out of the icu. had 1 black stool last night. am labs noted. alert. no distress d/w gi. pt has had extensive gi cardoso in the last 3 mos that has been unremarkable. Objective Last 24 Hour Vital Signs Date Time Temp Pulse Resp B/P (MAP) Pulse Ox O2 Delivery O2 Flow Rate FiO2 11/03/18 16:16 60 11/03/18 16:00 Room Air 11/03/18 15:42 97.5 58 18 136/61 (86) 95 11/03/18 12:00 60 11/03/18 12:00 Room Air 11/03/18 11:52 97.5 58 18 129/71 (90) 98 11/03/18 08:12 145/74 11/03/18 08:11 60 145/74 11/03/18 08:09 60 11/03/18 08:00 Room Air 11/03/18 07:45 97.7 63 18 145/74 (97) 97 11/03/18 04:00 Room Air 11/03/18 04:00 97.7 62 18 149/70 (96) 94 11/03/18 04:00 61 11/03/18 00:00 62 11/03/18 00:00 Room Air 11/03/18 00:00 98.2 71 18 148/76 (100) 95 11/02/18 20:57 62 140/59 11/02/18 20:00 64 11/02/18 20:00 98.8 62 20 140/59 (86) 95 11/02/18 20:00 Room Air Intake and Output 11/02/18 11/03/18 19:00 07:00 Intake Total 650.0 ml Output Total 1500 ml 1600 ml Balance -850.0 ml -1600 ml Intake Oral 320 ml IV Total 330.0 ml Output Urine Total 1500 ml 1600 ml # Voids 2 # Bowel Movements 2 1 Laboratory Tests 11/03/18 03:10: White Blood Count 5.2, Red Blood Count 3.12L, Hemoglobin 9.3L, Hematocrit 27.5L , Mean Corpuscular Volume 88, Mean Corpuscular Hemoglobin 29.9, Mean Corpuscular Hemoglobin Concent 33.8, Red Cell Distribution Width 14.9H, Platelet Count 75L, Mean Platelet Volume 9.6, Neutrophils (%) (Auto) , Lymphocytes (%) (Auto) , Monocytes (%) (Auto) , Eosinophils (%) (Auto) , Basophils (%) (Auto) , Sodium Level 137, Potassium Level 3.6, Chloride Level 106 , Carbon Dioxide Level 25, Anion Gap 6, Blood Urea Nitrogen 11, Creatinine 0.6, Estimat Glomerular Filtration Rate , Glucose Level 85, Calcium Level 7.4L, Total Bilirubin 0.4, Aspartate Amino Transf (AST/SGOT) 13L, Alanine Aminotransferase (ALT/SGPT) 11L, Alkaline Phosphatase 55, Troponin I 0.060H, Pro -B-Type Natriuretic Peptide 5312H, Total Protein 5.2L, Albumin 1.9L, Globulin 3.3, Albumin/Globulin Ratio 0.6L Height (Feet): 5 Height (Inches): 8.00 Weight (Pounds): 128 General Appearance: WD/WN, alert, confused Neck: supple Cardiovascular: regular rhythm Respiratory/Chest: lungs clear, normal breath sounds Abdomen: normal bowel sounds, non tender, soft, no organomegaly Edema: no edema noted Arm (L), no edema noted Arm (R), no edema noted Leg (L), no edema noted Leg (R), no edema noted Pedal (L), no edema noted Pedal (R), no edema noted Generalized Neurologic: 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
[2018-11-03 20:00] VITALS: BP 155/76
[2018-11-03] MEDS: Dyna-Hex 2% Top Sol 2oz TOPIC SCH (20:00)
[2018-11-03] MEDS: Tamsulosin 0.4mg cap ORAL SCH (21:13)
[2018-11-03] MEDS: Iron Sucrose 100 MG in NS 55 ML IV SCH (21:13)
[2018-11-03] MEDS: Miralax 17gm pkt ORAL SCH (21:14)
--- NOTE | 2018-11-03 21:45 | Progress Note ---
DATE: 11/03/2018 CARDIOLOGY PROGRESS NOTE SUBJECTIVE: The patient has some black stools. Episodic transfusions have been required. He has had an extensive gastrointestinal workup in the last several months that has been unrevealing. No chest pain. No shortness of breath. Troponin levels have normalized. OBJECTIVE: VITAL SIGNS: Blood pressure 136/61, pulse 58, respirations 18, and afebrile. Monitored rhythm sinus and sinus bradycardia. No pauses. Occasional PAC. LUNGS: Clear. CARDIAC: Regular. Normal S1, S2 with a fourth heart sound. ABDOMEN: Soft. EXTREMITIES: Trace edema. NEUROLOGIC: Baseline hemiparesis. LABORATORY DATA: White count 5.2 and hemoglobin 9.3. Albumin 1.9. Chemistry panel within normal limits. IMPRESSION: 1. Acute myocardial infarction, [id number] type, precipitated by severe anemia and uncomplicated. 2. 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 Stable post transfusion. 3. Acute on chronic diastolic congestive heart failure, compensated. 4. Hypertensive heart disease with controlled blood pressure. 5. Sinus bradycardia, on beta-blockers, asymptomatic. PLAN: 1. No additional cardiovascular workup. 2. Continue current cardiovascular medications. 3. Will require close monitoring of hemoglobin and probable outpatient transfusion. 4. No additional gastrointestinal workup presently planned either due to extensive recent workup including capsule study at [facility]. Arcenio Schulz M.D. DR: CHELY JOB#: [id number] CC:
--- NOTE | 2018-11-03 23:13 | General Progress Note ---
Assessment/Plan Assessment/Plan Assessment - CML - ? cause of anemia - Anemia, OB (+) stool --s/p EGDx3, colonoscopy x1, Capsule endoscopy x1 in 2018 - Thrombocytopenia - [place] / elevated troponin - COPD - CML - CVA - Gastritis Recommendations - Monitor H&H - Consider heme eval - laxative - transfuse PRN - IV Iron PRN - d/c vitamin C - no plans for further GI w/u at this time Subjective Allergies: Coded Allergies: No Known Allergies (Unverified , 10/28/18) Subjective Above noted feels OK no complaints discussed with PMD patient with reported black stools on this admission has required some transfusions but has had a negative EGD on this admission on 10/29 also has had prior unrevealing GI w/u at [facility], in total: s/p EGD x 2, colonoscopy x1, and wireless capsule x1 at [facility] - no major source of bleeding identified Objective Last 24 Hour Vital Signs Date Time Temp Pulse Resp B/P (MAP) Pulse Ox O2 Delivery O2 Flow Rate FiO2 11/03/18 21:13 64 155/76 11/03/18 20:00 Room Air 11/03/18 20:00 98.2 64 18 155/76 (102) 95 11/03/18 20:00 68 11/03/18 16:16 60 11/03/18 16:00 Room Air 11/03/18 15:42 97.5 58 18 136/61 (86) 95 11/03/18 12:00 60 11/03/18 12:00 Room Air 11/03/18 11:52 97.5 58 18 129/71 (90) 98 11/03/18 08:12 145/74 11/03/18 08:11 60 145/74 11/03/18 08:09 60 11/03/18 08:00 Room Air 11/03/18 07:45 97.7 63 18 145/74 (97) 97 11/03/18 04:00 Room Air 11/03/18 04:00 97.7 62 18 149/70 (96) 94 11/03/18 04:00 61 11/03/18 00:00 62 11/03/18 00:00 Room Air 11/03/18 00:00 98.2 71 18 148/76 (100) 95 Intake and Output 11/02/18 11/03/18 19:00 07:00 Intake Total 650.0 ml Output Total 1500 ml 1600 ml Balance -850.0 ml -1600 ml Intake Oral 320 ml IV Total 330.0 ml Output Urine Total 1500 ml 1600 ml # Voids 2 # Bowel Movements 2 1 Laboratory Tests 11/03/18 03:10: White Blood Count 5.2, Red Blood Count 3.12L, Hemoglobin 9.3L, Hematocrit 27.5L , Mean Corpuscular Volume 88, Mean Corpuscular Hemoglobin 29.9, Mean Corpuscular Hemoglobin Concent 33.8, Red Cell Distribution Width 14.9H, Platelet Count 75L, Mean Platelet Volume 9.6, Neutrophils (%) (Auto) , Lymphocytes (%) (Auto) , Monocytes (%) (Auto) , Eosinophils (%) (Auto) , Basophils (%) (Auto) , Sodium Level 137, Potassium Level 3.6, Chloride Level 106 , Carbon Dioxide Level 25, Anion Gap 6, Blood Urea Nitrogen 11, Creatinine 0.6, Estimat Glomerular Filtration Rate , Glucose Level 85, Calcium Level 7.4L, Total Bilirubin 0.4, Aspartate Amino Transf (AST/SGOT) 13L, Alanine Aminotransferase (ALT/SGPT) 11L, Alkaline Phosphatase 55, Troponin I 0.060H, Pro -B-Type Natriuretic Peptide 5312H, Total Protein 5.2L, Albumin 1.9L, Globulin 3.3, Albumin/Globulin Ratio 0.6L Height (Feet): 5 Height (Inches): 8.00 Weight (Pounds): 128 Objective Thin elderly man NAD NCAT supple CTA RRR, (+) systolic murmur LSB abd soft, flat ND no edema Lalita Sheth MD Nov 03, 2018 23:13
[2018-11-04] VITALS: BP 132/67
[2018-11-04 04:00] VITALS: BP 143/71
[2018-11-04 05:23] LABS: HEMATOCRIT 27.1 % (42.0-52.0); HEMOGLOBIN 9.1 G/DL (14.2-18.0); MEAN CORPUSCULAR VOLUME 89 FL (80-99); PLATELET COUNT 73 K/UL (150-450); RED BLOOD COUNT 3.04 M/UL (4.70-6.10); RED CELL DISTRIBUTION WIDTH 14.2 % (11.6-14.8); WHITE BLOOD COUNT 4.8 K/UL (4.8-10.8)
[2018-11-04] MEDS: Piperacillin/Tazobactam 3.375 GM in D5W 110 ML IVPB SCH (06:07)
[2018-11-04 08:00] VITALS: BP 143/75
[2018-11-04] MEDS: Docusate 100mg/10ml Liq ORAL SCH ×2 (09:00→21:47)
[2018-11-04] MEDS: Losartan 50mg tab ORAL SCH (09:51)
[2018-11-04] MEDS: Carvedilol 12.5mg tab ORAL SCH ×2 (09:52→21:48)
[2018-11-04 12:00] VITALS: BP 149/82
[2018-11-04 15:36] VITALS: BP 149/69
[2018-11-04 20:00] VITALS: BP 143/68
--- NOTE | 2018-11-04 20:38 | General Progress Note ---
Assessment/Plan Assessment/Plan Assessment - CML - Anemia, OB (+) stool -- s/p EGDx3, colonoscopy x1, Capsule endoscopy x1 in 2018 - Thrombocytopenia - [place] / elevated troponin - COPD - CVA - Gastritis Recommendations - Monitor H&H - Consider heme eval - laxative PRN - transfuse PRN - IV Iron PRN - no plans for further GI w/u at this time Subjective Allergies: Coded Allergies: No Known Allergies (Unverified , 10/28/18) Subjective Above noted dark stools per RN But H&H holding [place] [facility] [place] x 2, colonoscopy x1, and wireless capsule x1 at [facility] no major source of bleeding identified Objective Last 24 Hour Vital Signs Date Time Temp Pulse Resp B/P (MAP) Pulse Ox O2 Delivery O2 Flow Rate FiO2 11/04/18 16:00 Room Air 11/04/18 15:36 97.9 65 18 149/69 (95) 95 11/04/18 15:22 72 11/04/18 12:00 70 11/04/18 12:00 98.1 71 18 149/82 (104) 96 11/04/18 12:00 Room Air 11/04/18 09:52 60 143/75 11/04/18 09:51 143/75 11/04/18 08:00 Room Air 11/04/18 08:00 98.1 60 18 143/75 (97) 94 11/04/18 07:49 62 11/04/18 04:00 97.9 61 18 143/71 (95) 95 11/04/18 04:00 Room Air 11/04/18 04:00 57 11/04/18 00:00 98.1 62 18 132/67 (88) 96 11/04/18 00:00 Room Air 11/04/18 00:00 66 11/03/18 21:13 64 155/76 Intake and Output 11/03/18 11/04/18 19:00 07:00 Intake Total 580.0 ml 297.5 ml Output Total 650 ml 1400 ml Balance -70.0 ml -1102.5 ml Intake Oral 360 ml 100 ml IV Total 220.0 ml 197.5 ml Output Urine Total 650 ml 1400 ml # Voids 2 # Bowel Movements 2 Laboratory Tests 11/04/18 03:15: White Blood Count 4.8, Red Blood Count 3.04L, Hemoglobin 9.1L, Hematocrit 27.1L , Mean Corpuscular Volume 89, Mean Corpuscular Hemoglobin 29.8, Mean Corpuscular Hemoglobin Concent 33.5, Red Cell Distribution Width 14.2, Platelet Count 73L, Mean Platelet Volume 9.7, Neutrophils (%) (Auto) , Lymphocytes (%) ( Auto) , Monocytes (%) (Auto) , Eosinophils (%) (Auto) , Basophils (%) (Auto) Height (Feet): 5 Height (Inches): 8.00 Weight (Pounds): 130 Objective Thin elderly man NAD NCAT supple CTA RRR, (+) systolic murmur LSB abd soft, flat ND no edema Lalita Sheth MD Nov 04, 2018 20:38
[2018-11-04] MEDS: Iron Sucrose 100 MG in NS 55 ML IV SCH (21:47)
[2018-11-04] MEDS: Miralax 17gm pkt ORAL SCH (21:48)
[2018-11-04] MEDS: Tamsulosin 0.4mg cap ORAL SCH (21:48)
--- NOTE | 2018-11-04 23:15 | Discharge Summary ---
DATE OF ADMISSION: 10/30/2018 DATE OF DISCHARGE: 11/04/2018 ADMISSION DIAGNOSES: 1. Severe anemia. 2. Possible gastrointestinal bleed. 3. History of CLL. 4. Hypertension. 5. Prior history of stroke. 6. History of dysphagia. DISCHARGE DIAGNOSIS: 1. Severe anemia. 2. Possible gastrointestinal bleed. 3. History of CLL. 4. Hypertension. 5. Prior history of stroke. 6. History of dysphagia. 7. Acute myocardial infarction. HOSPITAL COURSE: The patient is an elderly male with a history of CLL, who presented with complaints of severe anemia and altered mental status. He was initially hypotensive and admitted to intensive care unit. He had a hemoglobin of 3. He received 4 units of packed red blood cells initially and later the 5th unit. His hemoglobin remained stable. He did have a few episodes of black tarry stool, but his hemoglobin remained stable. He had, had an extensive diagnostic workup in the last several months including endoscopy, colonoscopy, and capsule study that did not reveal any source of bleeding. Because his hemoglobin is stable and has overall status, the patient's invasive workup i.e., endoscopy was deferred. This is discussed with the patient's family by the gastrointestinal physician. The patient was treated with antibiotics for possible pneumonia. He did improve and on discharge, he is stable. He will be discharged back to the [facility] facility. He will have blood counts monitored twice a week. DISCHARGE MEDICATIONS: Please see discharge medication list for discharge medications. DIET: Cardiac diet. ACTIVITIES: Ad-dimitri. FOLLOWUP: The patient to follow-up in one to two days at the retirement facility. Camron Pearl M.D. DR: JENNIFER JOB#: [id number] CC:
[2018-11-05] VITALS: BP 119/56
[2018-11-05 04:00] VITALS: BP 149/69
[2018-11-05 08:00] VITALS: BP 146/66
[2018-11-05] MEDS: Docusate 100mg/10ml Liq ORAL SCH (09:34)
[2018-11-05] MEDS: Losartan 50mg tab ORAL SCH (09:35)
[2018-11-05] MEDS: Carvedilol 12.5mg tab ORAL SCH (09:35)
[2018-11-05 12:00] VITALS: BP 139/70
--- NOTE | 2018-11-05 13:01 | General Progress Note ---
Assessment/Plan Problem List: (1) Acute GI bleeding ICD Codes: K92.2 - Gastrointestinal hemorrhage, unspecified SNOMED: 49544262 (2) Acute metabolic encephalopathy ICD Codes: G93.41 - Metabolic encephalopathy SNOMED: 43607124, 324288412 (3) UGIB (upper gastrointestinal bleed) ICD Codes: K92.2 - Gastrointestinal hemorrhage, unspecified SNOMED: 70623193 (4) Severe anemia ICD Codes: D64.9 - Anemia, unspecified SNOMED: 939039057 (5) Altered level of consciousness ICD Codes: R40.4 - Transient alteration of awareness SNOMED: 2697663 (6) PUD (peptic ulcer disease) ICD Codes: K27.9 - Peptic ulcer, site unspecified, unspecified as acute or chronic, without hemorrhage or perforation SNOMED: 49617373 (7) Gastric ulcer ICD Codes: K25.9 - Gastric ulcer, unspecified as acute or chronic, without hemorrhage or perforation SNOMED: 385734668 Status: stable, progressing Assessment/Plan cont PPI rx abx follow up cultures trend troponin transfuse as needed monitor labs dc planning Subjective ROS Limited/Unobtainable: Yes Constitutional: Reports: malaise, weakness HEENT: Reports: no symptoms Cardiovascular: Reports: no symptoms Respiratory: Reports: no symptoms Gastrointestinal/Abdominal: Reports: no symptoms Genitourinary: Reports: no symptoms Neurologic/Psychiatric: Reports: pre-existing deficit Endocrine: Reports: no symptoms Hematologic/Lymphatic: Reports: anemia Allergies: Coded Allergies: No Known Allergies (Unverified , 10/28/18) All Systems: reviewed and negative except above Subjective no change. was not discharged yesterday. stool is brown. Objective Last 24 Hour Vital Signs Date Time Temp Pulse Resp B/P (MAP) Pulse Ox O2 Delivery O2 Flow Rate FiO2 11/05/18 12:00 97.9 61 18 139/70 (93) 96 11/05/18 09:35 146/66 11/05/18 09:35 60 146/66 11/05/18 08:00 63 11/05/18 08:00 97.7 60 18 146/66 (92) 93 11/05/18 08:00 Room Air 11/05/18 04:00 Room Air 11/05/18 04:00 97.8 56 18 149/69 (95) 95 11/05/18 04:00 55 11/05/18 00:00 98.0 63 18 119/56 (77) 95 11/05/18 00:00 60 11/05/18 00:00 Room Air 11/04/18 21:48 63 143/68 11/04/18 20:00 Room Air 11/04/18 20:00 66 11/04/18 20:00 98.2 63 20 143/68 (93) 96 11/04/18 16:00 Room Air 11/04/18 15:36 97.9 65 18 149/69 (95) 95 11/04/18 15:22 72 Intake and Output 11/04/18 11/05/18 18:59 06:59 Intake Total 710.0 ml 100 ml Output Total 550 ml 700 ml Balance 160.0 ml -600 ml Intake Oral 600 ml 100 ml IV Total 110.0 ml Output Urine Total 550 ml 700 ml # Bowel Movements 2 Height (Feet): 5 Height (Inches): 8.00 Weight (Pounds): 127 Objective General Appearance: WD/WN, alert, confused Neck: supple Cardiovascular: regular rhythm Respiratory/Chest: lungs clear, normal breath sounds Abdomen: normal bowel sounds, non tender, soft, no organomegaly Edema: no edema noted Arm (L), no edema noted Arm (R), no edema noted Leg (L), no edema noted Leg (R), no edema noted Pedal (L), no edema noted Pedal (R), no edema noted Generalized 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
[2018-11-05] MEDS ORDERED: D5W 275ml ONE ×2 (13:43→13:44)
[2018-11-05] MEDS ORDERED: NS 275ml ONE ×2 (13:43→13:44)
[2018-11-05] MEDS ORDERED: Tubing Blood Filter IV ONE (13:44)
[2018-11-05] MEDS ORDERED: Tubing IV Secondary IV ONE (13:44)
--- NOTE | 2018-11-05 16:38 | General Progress Note ---
Assessment/Plan Assessment/Plan Assessment - CML - Anemia, OB (+) stool -- s/p EGDx3, colonoscopy x1, Capsule endoscopy x1 in 2018 - Thrombocytopenia - [place] / elevated troponin - COPD - CVA - Gastritis Recommendations - Monitor H&H - laxative PRN - transfuse PRN - IV Iron PRN - no plans for further GI w/u at this time Subjective Allergies: Coded Allergies: No Known Allergies (Unverified , 10/28/18) Subjective Above noted for discharge today s/p EGD few days ago at [facility] [place] s/p EGD x 2, colonoscopy x1, and wireless capsule x1 at [facility] no major source of bleeding identified Objective Last 24 Hour Vital Signs Date Time Temp Pulse Resp B/P (MAP) Pulse Ox O2 Delivery O2 Flow Rate FiO2 11/05/18 12:00 97.9 61 18 139/70 (93) 96 11/05/18 12:00 Room Air 11/05/18 11:52 59 11/05/18 09:35 146/66 11/05/18 09:35 60 146/66 11/05/18 08:00 63 11/05/18 08:00 97.7 60 18 146/66 (92) 93 11/05/18 08:00 Room Air 11/05/18 04:00 Room Air 11/05/18 04:00 97.8 56 18 149/69 (95) 95 11/05/18 04:00 55 11/05/18 00:00 98.0 63 18 119/56 (77) 95 11/05/18 00:00 60 11/05/18 00:00 Room Air 11/04/18 21:48 63 143/68 11/04/18 20:00 Room Air 11/04/18 20:00 66 11/04/18 20:00 98.2 63 20 143/68 (93) 96 Intake and Output 11/04/18 11/05/18 19:00 07:00 Intake Total 682.5 ml 100 ml Output Total 550 ml 700 ml Balance 132.5 ml -600 ml Intake Oral 600 ml 100 ml IV Total 82.5 ml Output Urine Total 550 ml 700 ml # Bowel Movements 2 Height (Feet): 5 Height (Inches): 8.00 Weight (Pounds): 127 Objective Thin elderly man NAD NCAT supple CTA RRR, (+) systolic murmur LSB abd soft, flat ND no edema Lalita Sheth MD Nov 05, 2018 16:38
== END 2018-11-05 15:11 | DRG 377 ==
LOC: EDBD 09:58 → EMR 10:25 → EDBEDREQSVC 11:43 → EDBEDREQ 11:43 → 2W 11:48 → EDBEDREQ 12:00 → ICU 16:26 → 2W 10-30 05:54
PROC: 30233N1 Transfusion of Nonautologous Red Blood Cells into Peripheral Vein, Percutaneous Approach (ICD-10-PCS; principal; 2018-10-28)
PROC: 0DB78ZX Excision of Stomach, Pylorus, Via Natural or Artificial Opening Endoscopic, Diagnostic (ICD-10-PCS; 2018-10-29)
DX: K92.2 Gastrointestinal hemorrhage, unspecified (principal); G93.41 Metabolic encephalopathy; I21.4 Non-ST elevation (NSTEMI) myocardial infarction; I50.33 Acute on chronic diastolic (congestive) heart failure; J18.9 Pneumonia, unspecified organism; E43 Unspecified severe protein-calorie malnutrition; I13.0 Hypertensive heart and chronic kidney disease with heart failure and stage 1 through stage 4 chronic kidney disease, or unspecified chronic kidney disease; C92.10 Chronic myeloid leukemia, BCR/ABL-positive, not having achieved remission; R57.9 Shock, unspecified; J44.0 Chronic obstructive pulmonary disease with (acute) lower respiratory infection; Z68.1 Body mass index [BMI] 19.9 or less, adult; N18.9 Chronic kidney disease, unspecified; Z86.73 Personal history of transient ischemic attack (TIA), and cerebral infarction without residual deficits; D50.0 Iron deficiency anemia secondary to blood loss (chronic); N40.0 Benign prostatic hyperplasia without lower urinary tract symptoms; R00.0 Tachycardia, unspecified; D63.1 Anemia in chronic kidney disease; E86.1 Hypovolemia; F32.9 Major depressive disorder, single episode, unspecified; D69.6 Thrombocytopenia, unspecified
CPT/HCPCS: 36415; 70450; 71045; 74230; 80048; 80053; 80061; 80202; 81003; 82270; 83540; 83550; 83605; 83735; 83880; 84484; 85007; 85025; 85610; 85730; 86850; 86900; 86901; 86920; 87040; 87081; 87086; 93005; 93306; 94003; 94150; 96361; 96365; 99291

== ENCOUNTER 2019-01-11 09:45 | Inpatient (IN) | payer MEDICARE, OTHER ==
[~2019-01-11] VITALS: Ht 165.1 cm; Wt 51.7 kg
[2019-01-11] VITALS (7 sets, daily range): BP systolic 96–119; BP diastolic 45–65
[~2019-01-11 09:45] MED LIST: ACETAMINOPHEN325 M1 ORAL; ASPIR 8181 MG ORAL; BACLOFEN10 MG ORAL; BISACODYL10 M1 RC; CELEXA20 MG ORAL; CULTURELLE1 EAC1 PO; DOCUSATE SODIU100 MG ORAL; FERROUS SULFAT325 MG ORAL; FOLIC ACID1 MG ORAL; MILK OF MA400 MG/51 ORAL; PRILOSEC OTC20 MG ORAL; SPRYCEL100 MG PO; TAMSULOSIN HCL0.4 MG ORAL; VITAMIN C500 M1 ORAL
--- NOTE | 2019-01-11 10:02 | Emergency Room Report ---
History of Present Illness General Chief Complaint: Dyspnea/Respdistress Source: Medical Record, EMS Present Illness HPI Patient is sent in for decreased oxygen saturation. Also he was given Tylenol for fever before being sent in. The patient is unable to give a history. Apparently patient is a full code. The patient was admitted October last year for a upper GI bleed. Discharge diagnoses: 1. Severe anemia. 2. Possible gastrointestinal bleed. 3. History of CLL. 4. Hypertension. 5. Prior history of stroke. 6. History of dysphagia. 7. Acute myocardial infarction. Allergies: Coded Allergies: No Known Allergies (Unverified , 10/28/18) Patient History Limited by: medical condition Past Medical History: see triage record, old chart reviewed Social History Narrative jail facility Reviewed Nursing Documentation: PMH: Agreed; PSxH: Agreed Nursing Documentation-PMH Past Medical History: No History, Except For Hx Cardiac Problems: Yes - nonrheumatic aortic valve disorder, anemia, CHF, leukemia Hx Hypertension: Yes Hx COPD: Yes Hx Gastrointestinal Problems: Yes - dysphagia, BPH, GERD Hx Neurological Problems: No - muscle weakness Hx Cerebrovascular Accident: Yes Review of Systems All Other Systems: limited Physical Exam Vital Signs Date Time Temp Pulse Resp B/P (MAP) Pulse Ox O2 Delivery O2 Flow Rate FiO2 01/11/19 09:52 98.4 117 18 102/55 94 Nasal Cannula 2.0 General Appearance: thin, Chronically Ill Head: normocephalic Eyes: bilateral eye conjunctivae pale ENT: moist mucus membranes Neck: supple Respiratory: chest non-tender, no respiratory distress, decreased breath sounds Cardiovascular #1: tachycardia Cardiovascular #2: 2+ radial (L) Gastrointestinal: non tender, decreased bowel sounds, scaphoid Rectal: heme positive stool - melena Genitourinary: no CVA tenderness Musculoskeletal: other - Contractures Neurologic: DTRs symmetric, other - Vegetative state with minimal response to pain Psychiatric: depressed affect Skin: pallor, other - Decubiti initial stage III Procedures Critical Care Time Critical Care Time Total Critical Care Time: 45 min bedside evaluation and treatment excludes procedures (EKG). Reason for critical care: Pneumonia, non-STEMI, upper GI bleed Possible complications: hypotension, hypertension, ND, shock, arrhythmias, metabolic acidosis, end organ damage, respiratory failure. Interventions: Aspirin, antibiotics, fluid resuscitation, blood transfusion, Protonix, repeat evaluations. Course: Patient presented with low oxygen saturation fever. Evaluation for pneumonia undertaken. Fluid resuscitation begun. Hemoglobin low and evidence of GI bleed. Patient started on Protonix. Positive troponin. Even in the face of GI bleed aspirin given. In the face of myocardial ischemia and anemia emergent transfusions begun. Patient improved although still slightly tachycardic. Consultations:: nursing staff, EMS, admitting physician Performed by: Dr. Vasquez Tolerated well condition = serious Medical Decision Making Diagnostic Impression: Primary Impression: Left lower lobe pneumonia Qualified Codes: J18.1 - Lobar pneumonia, unspecified organism Additional Impressions: Left upper lobe pneumonia Qualified Codes: J18.1 - Lobar pneumonia, unspecified organism NSTEMI (non-ST elevated myocardial infarction) Hypernatremia Severe anemia UGI bleed ER Course Patient presents with decreased oxygen saturation and fever. Differential includes sepsis, pneumonia, bronchitis, acute myocardial infarction, pulmonary embolus amongst others. Patient will be evaluated with EKG, chest x-ray and labs. He is an extremely complex patient as he cannot give a history. Given the pallor and the melena the patient does have a upper GI bleed. The patient will be treated with IV hydration and the source is identified antibiotics will be started. It is presumed that this source is pulmonary. EKG without injury. Chest x-ray dense left upper and lower lobe infiltrates. CBC with profound anemia. Left shift. Positive troponin. Urinalysis essentially negative. Aspirin given. Hemoglobin extremely low. Patient has melanotic stool. Blood is ordered. In addition Protonix is ordered. Due to the positive troponin it is extremely important to transfuse the patient. Antibiotics begun for left-sided infiltrates. Patient improved with IV hydration. Receiving blood without difficulty. Discussed with Dr. Pearl. Admitted to stepdown unit. Laboratory Tests Test 01/11/19 10:20 01/11/19 10:50 White Blood Count 10.7 K/UL (4.8-10.8) Red Blood Count 2.01 M/UL (4.70-6.10) L Hemoglobin 6.3 G/DL (14.2-18.0) *L Hematocrit 19.9 % (42.0-52.0) L Mean Corpuscular Volume 100 FL (80-99) H Mean Corpuscular Hemoglobin 31.2 PG (27.0-31.0) H Mean Corpuscular Hemoglobin Concent 31.4 G/DL (32.0-36.0) L Red Cell Distribution Width 18.2 % (11.6-14.8) H Platelet Count 167 K/UL (150-450) Mean Platelet Volume 6.0 FL (6.5-10.1) L Neutrophils (%) (Auto) % (45.0-75.0) Lymphocytes (%) (Auto) % (20.0-45.0) Monocytes (%) (Auto) % (1.0-10.0) Eosinophils (%) (Auto) % (0.0-3.0) Basophils (%) (Auto) % (0.0-2.0) Differential Total Cells Counted 100 Neutrophils % (Manual) 77 % (45-75) H Lymphocytes % (Manual) 4 % (20-45) L Monocytes % (Manual) 5 % (1-10) Eosinophils % (Manual) 0 % (0-3) Basophils % (Manual) 0 % (0-2) Band Neutrophils 14 % (0-8) H Platelet Estimate Adequate Platelet Morphology Normal Polychromasia Occasional Prothrombin Time 10.0 SEC (9.30-11.50) Prothrombin Time INR 0.9 (0.9-1.1) PTT 29 SEC (23-33) Sodium Level 153 MMOL/L (136-145) H Potassium Level 3.6 MMOL/L (3.5-5.1) Chloride Level 118 MMOL/L (98-107) H Carbon Dioxide Level 24 MMOL/L (21-32) Anion Gap 12 mmol/L (5-15) Blood Urea Nitrogen 35 mg/dL (7-18) H Creatinine 1.1 MG/DL (0.55-1.30) Estimate Glomerular Filtration Rate mL/min (>60) Glucose Level 123 MG/DL (74-106) H Lactic Acid Level 1.20 mmol/L (0.4-2.0) Calcium Level 7.3 MG/DL (8.5-10.1) L Magnesium Level 2.2 MG/DL (1.8-2.4) Total Bilirubin 0.2 MG/DL (0.2-1.0) Aspartate Amino Transferase (AST) 36 U/L (15-37) Alanine Aminotransferase (ALT) 19 U/L (12-78) Alkaline Phosphatase 52 U/L (46-116) Total Creatine Kinase 393 U/L (26-308) H Troponin I 0.250 ng/mL (0.000-0.056) Pro-B-Type Natriuretic Peptide 2179 pg/mL (0-125) H Total Protein 5.7 G/DL (6.4-8.2) L Albumin 1.6 G/DL (3.4-5.0) L Globulin 4.1 g/dL Albumin/Globulin Ratio 0.4 (1.0-2.7) L Urine Color Yellow Urine Appearance Slightly cloudy Urine pH 5 (4.5-8.0) Urine Specific [place] 1.020 (1.005-1.035) Urine Protein 3+ (NEGATIVE) H Urine Glucose (UA) Negative (NEGATIVE) Urine Ketones 1+ (NEGATIVE) H Urine Blood 1+ (NEGATIVE) H Urine Nitrite Negative (NEGATIVE) Urine Bilirubin 1+ (NEGATIVE) H Urine Ictotest Positive (NEGATIVE) Urine Urobilinogen 4 MG/DL (0.0-1.0) H Urine Leukocyte Esterase 1+ (NEGATIVE) H Urine RBC 2-4 /HPF (0 - 0) H Urine WBC 2-4 /HPF (0 - 0) Urine Squamous Epithelial Cells Few /LPF (NONE/OCC) Urine Bacteria Occasional /HPF (NONE) Microbiology Date/Time Source Procedure Growth Status 01/11/19 10:30 Nasal Nares Influenza Types A,B Antigen (ROCIO) - Final Complete EKG Diagnostic Results Rate: tachycardiac ST Segments: no acute changes Rhythm Strip Diag. Results EP Interpretation: yes Rhythm: no PVC's, no ectopy, other - Sinus tachycardia Chest X-Ray Diagnostic Results Chest X-Ray Diagnostic Results : Chest X-Ray Ordered: Yes # of Views/Limited/Complete: 1 View Indication: Shortness of Breath EP Interpretation: Yes Interpretation: no effusion, no pneumothorax, other - Left-sided upper and lower infiltrates Impression: Other Electronically Signed by: Electronically signed by Arcenio Vasquez MD Last Vital Signs Date Time Temp Pulse Resp B/P (MAP) Pulse Ox O2 Delivery O2 Flow Rate FiO2 01/11/19 20:00 Nasal Cannula 3.0 01/11/19 19:01 97 01/11/19 17:40 97.6 20 98/45 100 Status: improved Disposition: ADMITTED INPATIENT Condition: Serious Arcenio Vasquez MD Jan 11, 2019 10:02
[2019-01-11] MEDS ORDERED: CULTURELLE1 EACH ORAL (10:11)
[2019-01-11] MEDS ORDERED: TAMSULOSIN HCL0.4 MG ORAL (10:12)
[2019-01-11] MEDS ORDERED: FAMOTIDINE20 MG ORAL (10:12)
[2019-01-11] MEDS ORDERED: POLYETHYLENE GL17 GM ORAL (10:12)
--- NOTE | 2019-01-11 10:30 | NUR ---
ED Nurse Note: pt with interventions as noted. skin wound pictures taken as per protocol. pt with all swabs sent. lungs dim bibasilar. pt noted to have black tarry stool mod amt. cleansed and md aware. abd soft nontender. pt noted to have legs pulled up and contracted. does not straighten legs. able to straighten bilat arms. pt with straight cath urine sample obtained and sent. pt does follow with eyes during interventions and will grasp siderails of gurney when instructed, remains nonverbal. oral mucosa noted to be dry . pt with occ cough not able to bring up sputum.
[2019-01-11 10:38] LABS: INR 0.9 (0.9-1.1)
[2019-01-11 10:44] LABS: ANION GAP 12 mmol/L (5-15); BLOOD UREA NITROGEN 35 mg/dL (7-18); CALCIUM 7.3 MG/DL (8.5-10.1); CARBON DIOXIDE 24 MMOL/L (21-32); CHLORIDE 118 MMOL/L (98-107); CREATININE 1.1 MG/DL (0.55-1.30); POTASSIUM 3.6 MMOL/L (3.5-5.1); SODIUM 153 MMOL/L (136-145)
--- NOTE | 2019-01-11 10:49 | Diagnostic Imaging Report ---
Indication: Shortness of breath Technique: One view of the chest Comparison: 10/28/2018 Findings: Interim development of interstitial and alveolar infiltrates throughout the left lung, predominantly central in distribution. Minimal reticular disease is seen in the right hilar region, but this may have been evident previously. The pleural spaces are clear. The heart size is upper limits normal. Impression: There are extensive infiltrates in the left lung, suspect pneumonia Minimal right lung interstitial opacity, may be chronic
[2019-01-11 11:00] LABS: ALANINE AMINOTRANSFERASE 19 U/L (12-78); ALBUMIN 1.6 G/DL (3.4-5.0); ALBUMIN/GLOBULIN RATIO 0.4 (1.0-2.7); ALKALINE PHOSPHATASE 52 U/L (46-116); ASPARTATE AMINO TRANSFERASE 36 U/L (15-37); BILIRUBIN,TOTAL 0.2 MG/DL (0.2-1.0); CREATINE KINASE 393 U/L (26-308)
[2019-01-11 11:03] LABS: HEMATOCRIT 19.9 % (42.0-52.0); MEAN CORPUSCULAR VOLUME 100 FL (80-99); PLATELET COUNT 167 K/UL (150-450); RED BLOOD COUNT 2.01 M/UL (4.70-6.10); RED CELL DISTRIBUTION WIDTH 18.2 % (11.6-14.8); WHITE BLOOD COUNT 10.7 K/UL (4.8-10.8)
--- NOTE | 2019-01-11 11:06 | NUR ---
ED Nurse Note: ERMD notified of Troponin 0.250. Addendum: 01/11/19 at 1109 by JACINDA ERMD notified of H&H - 6.4 & 19.9
[2019-01-11 11:08] LABS: HEMOGLOBIN 6.3 G/DL (14.2-18.0)
[2019-01-11 11:15] LABS: APPEARANCE,URINE SLIGHTLY CLOUDY; BILIRUBIN, URINE 1+ (NEGATIVE); GLUCOSE, URINE (UA) NEGATIVE (NEGATIVE); KETONES,URINE 1+ (NEGATIVE); LEUKOCYTE ESTERASE ,URINE 1+ (NEGATIVE); NITRITE,URINE NEGATIVE (NEGATIVE); PH,URINE 5 (4.5-8.0); PROTEIN,URINE 3+ (NEGATIVE); UROBILINOGEN,URINE 4 MG/DL (0.0-1.0)
[2019-01-11] MEDS ORDERED: Cefepime HCl 1 GM in D5W 55 ML IVPB ONE (11:15)
[2019-01-11 11:19] LABS: COLOR,URINE YELLOW
[2019-01-11] MEDS ORDERED: Pantoprazole Inj IVP ONE (11:30)
--- NOTE | 2019-01-11 11:45 | NUR ---
ED Nurse Note: pt with T & S sent as ordered. tolerates well. vss with ivf infusing as ordered, bp improved.
--- NOTE | 2019-01-11 14:50 | NUR ---
ED Nurse Note: Dr. Vasquez spoke with daughter (Felipe Ridley) re patient's condition.
--- NOTE | 2019-01-11 15:00 | NUR ---
ED Nurse Note: pt with prbc infusion without adverse reaction in 1st 15 minutes of infusion. pt tolerating well. see transfusion record for frequent vs.
--- NOTE | 2019-01-11 16:01 | NUR ---
ED Nurse Note: attempted to give sdu report, rn states not taking this pt at this time. weigher and charger aware and rn hot strip mill supervisor aware.
--- NOTE | 2019-01-11 16:05 | NUR ---
ED Nurse Note: per rn checking department supervisor sdu awaiting rn to take report approx 1700. ed cupola charger aware.
--- NOTE | 2019-01-11 16:58 | NUR ---
ED Nurse Note: PT tolerates #1 unit PRBC without adverse reaction. pt to have #2 initiated. awaiting sdu bed for transfer.
--- NOTE | 2019-01-11 17:18 | NUR ---
ED Nurse Note: report given to debo rn, no tele monitor available to call when able to admit pt
--- NOTE | 2019-01-11 17:45 | NUR ---
ED Nurse Note: pt tolerating #2 PRBC well, no adverse reaction noted. pt prepared to go to sdu with e learning specialist protocol. sdu ready for pt., pt cleansed of black tarry mod amt stool.
--- NOTE | 2019-01-11 18:03 | NUR ---
NURSE NOTES: patient brought up by SOCORRO Merino and a staff member via stretcher to SDU room 244-1. Report received at bed side. Patient is on IVF NS 300cc/hr and Blood transfusion, no adverse side effect noted. Patient is alert, responsive, but non verbal at this time. no S/Sx of pain is noted manju FLACC scale. Ob oxygen 2L/min via NC, sp01 is 98%. IV site is to `right AC 22g and left wrist 20g, and is intact. Tele box put on, cleaned patient, put a condom cath on pt. Bed is is in low position. Call light is within easy reach while in bed. Will continue to monitor.
--- NOTE | 2019-01-11 18:40 | NUR ---
NURSE NOTES: Completed the 2nd PRBC transfusion with no adverse side effect noted at this time. Paged Dr Pearl for admission orders. Currently awaiting for call back.
--- NOTE | 2019-01-11 19:22 | NUR ---
NURSE NOTES: Report received from SOCORRO Cornelius. Patient seen in room in semi null position with Bipap with previous setting. patient opens eye from time to time but is non verbal at this time. no S/Sx of pain is noted at this time via FLACC scale. IV site to right hand 20g and left FA 20g is intact. Bassett cath is intact. Continues with IVF of D5 0.45% NS with 20mEq K at 100cc/hr. Bed is in lowest position. Call light is within easy reach while in bed. Will continue to monitor. Addendum: 01/11/19 at 1926 by Natalia Dey RN DISREGARD ABOVE CHARTING. WRONG CHART
[2019-01-11] MEDS ORDERED: Albuterol/Ipratropium 3ml neb HHN PRN (19:45)
[2019-01-11] MEDS ORDERED: Vancomycin 1gm/D5W 275ml IVPB ONE ×2 (22:00)
[2019-01-11] MEDS: Tamsulosin 0.4mg cap ORAL SCH (22:42)
[2019-01-12] VITALS: BP 100/60
[2019-01-12] MEDS: Piperacillin/Tazobactam 3.375 GM in NS 110 ML IVPB SCH ×3 (00:49→16:41)
[2019-01-12 04:00] VITALS: BP 100/60
[2019-01-12 05:47] LABS: HEMATOCRIT 23.1 % (42.0-52.0); HEMOGLOBIN 7.6 G/DL (14.2-18.0); MEAN CORPUSCULAR VOLUME 96 FL (80-99); PLATELET COUNT 145 K/UL (150-450); RED CELL DISTRIBUTION WIDTH 17.4 % (11.6-14.8); WHITE BLOOD COUNT 12.3 K/UL (4.8-10.8)
[2019-01-12 06:38] LABS: ALANINE AMINOTRANSFERASE 23 U/L (12-78); ALBUMIN 1.3 G/DL (3.4-5.0); ALBUMIN/GLOBULIN RATIO 0.4 (1.0-2.7); ALKALINE PHOSPHATASE 51 U/L (46-116); ANION GAP 12 mmol/L (5-15); ASPARTATE AMINO TRANSFERASE 46 U/L (15-37); BILIRUBIN,TOTAL 0.2 MG/DL (0.2-1.0); BLOOD UREA NITROGEN 35 mg/dL (7-18); CALCIUM 6.5 MG/DL (8.5-10.1); CARBON DIOXIDE 20 MMOL/L (21-32); CHLORIDE 120 MMOL/L (98-107); CREATININE 0.7 MG/DL (0.55-1.30); POTASSIUM 3.8 MMOL/L (3.5-5.1); SODIUM 152 MMOL/L (136-145)
--- NOTE | 2019-01-12 07:18 | NUR ---
HAND-OFF: Report given to SOCORRO CARMONA. Paged Dr Pearl and left message in regards to Hgb level.
--- NOTE | 2019-01-12 07:19 | NUR ---
NURSE NOTES: Received patient from SOCORRO Fisher. Patient in bed, awake, able to spontaneously open his eyes, but nonverbal. In room air. Currently in NPO. surveillance system monitor and condom cath in placed. IV sites are asymptomatic. Per PM nurse, she called Dr. Pearl for HGB of 7.6 and now awaiting for call back. Bed in lowest position with side rails up. Will continue to follow plan of care.
[2019-01-12 08:00] VITALS: BP 109/60
[2019-01-12] MEDS: Lactobacillus-GG tablet ORAL SCH ×2 (08:13→17:11)
[2019-01-12] MEDS: Docusate 100mg cap ORAL SCH (08:14)
--- NOTE | 2019-01-12 09:57 | NUR ---
NURSE NOTES: Informed Dr. Pearl that HGB 7.6 and HCT 23.1. Received an order for 1unit of PRBC. Order carried out.
--- NOTE | 2019-01-12 10:29 | NUR ---
ST NOTE: BEDSIDE SWALLOW EVAL RECEIVED BEDSIDE SWALLOW EVAL ORDER CHART REVIEWED PRIOR THE EVALUATION PT IS A 78-YEAR-OLD SERBIAN-SPEAKING MALE WHO WAS ADMITTED DUE TO L-SIDED PNA WITH TEMP 100.7, DESATURATION TO 87-89% AND HEMOGLOBIN IS LOW(SUSPECTED UPPER GI BLEED) DYSPHAGIA RISK FACTORS: L-SIDED PNA, H/O RECURRENT PNA(11/2018), H/O CVA(CEREBRAL INFARCTION), GERD, H/O DYSPHAGIA, COPD, GERD, DEMENTIA, MDD, HEART FAILURE, HTN, PER CXR: There are extensive infiltrates in the left lung, suspect pneumonia Minimal right lung interstitial opacity, may be chronic PLOF: [facility]. PER CHART, PT WAS ON PUREE WITH HONEY THICK LIQUIDS DIET. PT'S POSLT: FULL CODE, SELECTIVE TX. OKAY TRIAL PERIOD OF ARTIFICIAL NUTRITION, INCLUDING FEEDING TUBES. PER VIDEOSWALLOW STUDY AT [facility] ON 11/02/18: MODERATE DYSPHAGIA ON THE [place] OR DYSPHAGIA OUTCOME AND SEVERITY SCALE. TRACE SILENT ASPIRATION WITH STRAW SEQUENTIAL AND TRACE SILENT LARYNGEAL PENETRATION WITH THIN. TRACE SILENT ASPIRATION WITH TSP OF NECTAR THICK NO ASP/LP BUT HAD RISK DUE TO MIN RESIDUE AFTER THE SWALLOW WITH HONEY THICK. NO ASP/LP BUT HAD RISK WITH PUREED. DIET WAS RECOMMENDED PUREE WITH HONEY THICK LIQUIDS FOR QUALITY OF LIFE. CURRENT STATUS: PT SEEN AT BEDSIDE IN AM. ALERT, COOPERATIVE, POOR ABILITY IN FOLLOWING DIRECTIONS, PT WITH NC(3L), VERY SOFT VOICE. OXYGEN LEVEL: 97, NO RESP DISTRESS WAS NOTED. GIVEN PO TRIALS: HONEY THICK LIQUIDS(TSP X 1) ONLY INITIAL IMPRESSION: PERSISTENT MODERATE OR WORSENED OROPHARYNGEAL DYSPHAGIA SLOW AND INCREASED ORAL TRANSIT TIME AND OROPAHRYNGEAL TRANSIT TIME, FAIR HYO-LARYNGEAL ELEVATION, NO OVERT S/S OF ASPIRATION. PT HAS HIGH SILENT ASPIRATION RISK DUE TO PT HAS L-SIDED PNA AND RE-CURRENT PNA. RECOMMENDATIONS: 1. CONSERVATIVELY, KEEP PT NPO 2. CONSIDER TEMPORARILY TEMPORARILY NONORAL FEEDING MEANS TO MEET NUTRITION AND HYDRATION NEEDS ONLY IF CLEAR BY MD(PROBABLY DUE TO GI BLEED). (PT PROBABLY IS A GOOD CANDIDATE FOR LONG-TERM NONORAL FEEDING MEANS DUE TO PT HAS RECURRENT PNA) 3. VIDEOSWALLOW STUDY TO OBJECTIVELY ASSESS PT'S SWALLOWING FUNCTION AND SILENT ASPIRATION RISK. 4. ORAL CARE AND ORAL SUCTION IF NEEDED 5. SKILLED ST TO FOLLOW UP D/W RNKRISTINE AND SUSAN EWING POSTED NPO SIGN.
--- NOTE | 2019-01-12 11:45 | NUR ---
RD ASSESSMENT & RECOMMENDATIONS SEE CARE ACTIVITY FOR COMPLETE ASSESSMENT DAILY ESTIMATED NEEDS: Needs based on Underweight, 51kg 30-35 kcals/kg 0308-3722 total kcals 1-1.5 g protein/kg 51-76 g total protein 25-30 mL/kg 7401-1385 total fluid mLs NUTRITION DIAGNOSIS: * Swallowing difficulty R/T dysphagia, h/o CVA as evidenced by POTATO SORTER eval, recs for temp non oral feeds. * Altered nutrition related lab values R/T clinical condition as evidenced by critically low hgb (6.3* -> 7.6.) improving w/ PRBC, elev BNP (2179), elev Na and BUN. * Increased kcal and protein needs r/t underweight status as evidenced by pt w generalized moderate to severe wasting, BMI underweight per guidelines, 73% of [place] Body Weight. CURRENT DIET: NPO ENTERAL NUTRITION RECOMMENDATIONS: Osmolite 1.2 @55ml/hr x24 hrs to provide 1320ml, 1584 kcal, 73g prot, 1082ml free H2O - Obtain GI access, initiate Osmolite 1.2 @25ml for 6-8 hrs, advance as tolerated 10ml/hr q4-6 hrs to goal - Flush per MD/ HOB over 30 degrees ADDITIONAL RECOMMENDATIONS: * CALIBRATED bedscale wt for accurate CBW * Weekly wts given underweight status * F/up w/ WC eval * TF recs as above for temp feeds * Monitor LYTES, BG daily w/ TF
[2019-01-12 12:00] VITALS: BP 104/53
--- NOTE | 2019-01-12 13:00 | NUR ---
NURSE NOTES: Blood bank called and said that the the blood for the patient for the transfusion will be delayed because they will need to order the blood from [facility].
--- NOTE | 2019-01-12 13:42 | NUR ---
NURSE NOTES: Informed Dr. Pearl that blood transfusion will be delayed and would have brief episodes of tachycardia HR 150s. Awaiting for call back.
--- NOTE | 2019-01-12 13:57 | NUR ---
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 98.1 HR 117 RR 18 B/P 102/55 NC 2L H/H 6.3/19.9 BANDS 14 NA 153 TCK 393 TROP 0.250 BNP 2179 UA+ PROTEIN,KETONES,BLOOD,BILIRUBIN,ICTOTEST,UROBILINOGEN,LEUKOCYTE ESTERASE CXR= EXTENSIVE INFILTRATES IN THE LEFT LUNG. PNA IS: IV BOLUS NS X 2 LITERS ADMITTED TO STEP DOWN @ 1755 STEP DOWN STATUS DCP PENDING HOSPITAL STAY
--- NOTE | 2019-01-12 15:03 | Diagnostic Imaging Report ---
APPROVED REPORT CPT Code: 33950 Present Symptoms Comments: Screening Technically difficult study. Limited visualization (patient has BLE contractures of the hip and knee). BILATERAL: Imaging reveals a patent deep venous system bilaterally. There is no evidence of thrombus within the common femoral, superficial femoral, popliteal or tibial segments. The greater saphenous veins are within normal limits. Doppler indicates normal spontaneous flow within these segments.
[2019-01-12 16:00] VITALS: BP 119/57
--- NOTE | 2019-01-12 16:50 | NUR ---
NURSE NOTES: Called Dr. Pearl's office and spoke to Nancy to inform that patient is having brief episodes of tachycardia HR 150s and was told that she will send the message to Dr. Schulz. Awaiting for call back.
--- NOTE | 2019-01-12 19:08 | NUR ---
HAND-OFF: Report given to SOCORRO Fisher. Aware to give 1u PRBC to patient. Tylenol and Benadryl order still active for blood transfusion adverse effects. Also, aware that Dr. Schulz was called for patient's HR and still awaiting for call back.
--- NOTE | 2019-01-12 19:09 | NUR ---
NURSE NOTES: Received report from SOCORRO Ram. Patient seen in bed in semi null position. ON oxygen via NC 3L/min, sp02 is 97%. No S/Sx of pain is noted via FLACC scale. IV site to right AC 22g and left wrist 20g is intact. Addendum: 01/12/19 at 1920 by Natalia Dey RN NURSE NOTES: Received report from SOCORRO Ram. Patient seen in bed in semi null position. On oxygen via NC 3L/min, sp02 is 97%. No S/Sx of pain is noted via FLACC scale. IV site to right AC 22g and left wrist 20g is intact. Continues on IVF of D5W at 70cc/HR. noted with condom cath and is intact. Patient is alert, but non verbal. Bed is in lowest position . Call light is within easy reach while in bed. will continue to monitor.
[2019-01-12 20:00] VITALS: BP 109/69
--- NOTE | 2019-01-12 20:13 | NUR ---
NURSE NOTES: Blood transfusion started at 1755, Vs was T98.4, bp 115/52, p100, RR 20. V/S at 2009 was T 98.5, P 19, R 21, bp 109/69. Tolerating well. No adverse side effect noted at this time. Will continue to monitor patient.
[2019-01-12] MEDS: Vancomycin 500mg/D5W 110ml IVPB SCH ×2 (21:54)
[2019-01-12] MEDS: Tamsulosin 0.4mg cap ORAL SCH (21:54)
--- NOTE | 2019-01-12 23:00 | NUR ---
Blood transfusion completed. VSS.
--- NOTE | 2019-01-12 23:28 | NUR ---
NURSE NOTES: Dr Schulz came to see patient. Episode of Elevated HR made aware to Dr Schulz.
[2019-01-13] VITALS: BP 105/66
[2019-01-13] MEDS ORDERED: Iron Sucrose 100 MG in NS 55 ML IV ONE (00:15)
--- NOTE | 2019-01-13 00:45 | Progress Note ---
DATE: 01/12/2019 CARDIOLOGY PROGRESS NOTE AND INTERNAL MEDICINE COVERAGE SUBJECTIVE: The patient is less congested. Heart rate has improved. He was transfused packed cells yesterday and again planned for today. OBJECTIVE: VITAL SIGNS: Blood pressure 119/57, pulse rate 103, respiratory rate 19, afebrile, and oxygen saturation 99% on 3 L. LUNGS: Coarse breath sounds. Scattered rhonchi. CARDIAC: Regular rhythm. Rapid rate. Normal S1 and S2. A 1/6 systolic ejection murmur at the base. ABDOMEN: Soft. EXTREMITIES: No edema. LABORATORY DATA: Sodium 153, potassium 3.8, bicarbonate 20, chloride 120, BUN 35, and creatinine 0.7. Troponin down to 0.241. Albumin 1.3. White count 12 and hemoglobin 7.6. IMPRESSION: 1. Healthcare-acquired pneumonia. 2. Dehydration. 3. Hyponatremia. 4. Hyperchloremia. 5. Metabolic acidosis. 6. Acute myocardial ischemia. 7. Severe protein-calorie malnutrition. 8. Transfusion-dependent anemia. 9. Chronic GI bleeding. 10. History of CML. 11. Severe aortic valve stenosis. PLAN: 1. Antimicrobials. 2. Respiratory hygiene. 3. Diuresis based on clinical parameters, but for now hypotonic IV fluid hydration is indicated. 4. SCDs for DVT prophylaxis. 5. No anti-platelet or anticoagulants due to chronic bleeding and. Arcenio Schulz M.D. DR: ANALISA JOB#: [id number] CC:
[2019-01-13] MEDS: Piperacillin/Tazobactam 3.375 GM in NS 110 ML IVPB SCH ×3 (01:23→17:58)
--- NOTE | 2019-01-13 01:30 | History and Physical Report ---
DATE OF ADMISSION: 01/11/2019 REASON FOR ADMISSION: Hypoxia, tachycardia, and respiratory distress. HISTORY: This is a 78-year-old male, known to me from prior care, who was transferred to the emergency room for evaluation of hypoxia and respiratory distress. He apparently had fevers and was given acetaminophen prior to transfer. On arrival, he was noted to have tachycardia, hypoxia, and tachypnea. He is being admitted under my care. He has had several hospitalizations over the past few months for both heart failure and recurring anemia due to chronic GI bleeding. He has had an extensive GI diagnostic workup and a definitive source of bleeding has not been found. He has been transfusion dependent. PAST MEDICAL HISTORY: Includes the following. Chronic lymphocytic leukemia, chronic GI bleeding, chronic transfusion-dependent anemia, hypertensive heart disease, degenerative aortic valve stenosis, coronary atherosclerosis with history of myocardial infarction, COPD, cerebrovascular disease with dementia, gastroesophageal reflux disease, prostatic hypertrophy, dysphagia, history of CML. ALLERGIES: None. FAMILY HISTORY: Noncontributory. SOCIAL HISTORY: Negative for smoking, alcohol, or substance abuse. MEDICATIONS: Medications prior to admission, reviewed and reconciled. REVIEW OF SYSTEMS: As stated, he has had chronic recurring anemia requiring transfusions. He has had multiple upper and lower endoscopies. He has had capsule study on at least 1 occasion at [facility]. He has not had a definitive source of bleeding isolated. The patient also has severe aortic stenosis. He was referred for TAVR procedure at [facility] last year and was felt to be a poor candidate and not offered intervention. He has had a prior stroke. He has had a myocardial infarction. He has been managed medically. There is history of atrial and ventricular ectopy, but nonsustained. His most recent echocardiogram revealed normal ejection fraction with severe aortic stenosis and mild concentric hypertrophy. PHYSICAL EXAMINATION: VITAL SIGNS: Afebrile, blood pressure 102/55, heart rate 117, respiratory rate 18, oxygen saturation 94% on 2 L. HEENT: Temporal wasting. Pale conjunctivae. Oropharynx clear. NECK: Supple. Jugular venous pressure elevated. Accessory muscle use noted. LUNGS: Bilateral rales. Diffuse expiratory wheezes. HEART: Regular rhythm. Rapid rate. Normal S1, S2 with a fourth heart sound. ABDOMEN: Soft, nontender. EXTREMITIES: No edema. SKIN: Decubitus is pictured in the chart. DIAGNOSTIC DATA: EKG with sinus tachycardia and nonspecific ST-T changes. Chest x-ray reveals left-sided upper and lower infiltrates. LABORATORY DATA: Urinalysis, 2-4 white cells. White count 10.7, hemoglobin 6.3. Sodium 153, potassium 3.6, bicarbonate 24, BUN 35, creatinine 1.1. Lactic acid 1.2. Magnesium 2.2. Pro-natriuretic peptide was 2100 and albumin was 1.6. IMPRESSION: 1. Healthcare-acquired pneumonia. 2. Dehydration. 3. Hypernatremia. 4. Acute and chronic diastolic congestive heart failure. 5. Severe protein-calorie malnutrition. 6. Acute myocardial ischemia. 7. Severe aortic stenosis. 8. History of COPD. 9. Cerebrovascular disease with dementia. 10. Acute and chronic anemia, which is transfusion dependent. 11. History of CML. 12. Decubitus. PLAN: 1. Respiratory hygiene. 2. Antimicrobials. 3. No anti-platelet therapy due to bleeding risk. 4. Transfuse to hemoglobin above 7 g. 5. Respiratory hygiene. 6. Reassess for diuresis. 7. Nutritional support. 8. SCDs for DVT prophylaxis. 9. Skin care. 10. Antianginal therapy based on clinical parameters and they include beta-blockers as well as nitrates. Arcenio Schulz M.D. DR: Bobby JOB#: [id number] CC:
[2019-01-13 04:00] VITALS: BP 120/58
[2019-01-13 06:11] LABS: HEMATOCRIT 22.9 % (42.0-52.0); HEMOGLOBIN 7.6 G/DL (14.2-18.0); MEAN CORPUSCULAR VOLUME 91 FL (80-99); PLATELET COUNT 127 K/UL (150-450); RED BLOOD COUNT 2.51 M/UL (4.70-6.10); RED CELL DISTRIBUTION WIDTH 18.4 % (11.6-14.8); WHITE BLOOD COUNT 8.9 K/UL (4.8-10.8)
--- NOTE | 2019-01-13 07:20 | NUR ---
NURSE NOTES: RECEIVED PT WITH HOB ELEVATED 45 DEGREE RESTING COMFORTABLY ,PT DENIES PAIN OR SOB AT THIS TIME .PT ABLE TO FOLLOWS SIMPLE COMMANDS IN [place] ONLY .FULL BODY ASSESSMENT DONE.PT REPOSITIONED Q2 HRS TO PROVIDE COMFORT AND PREVENT FURTHER SKIN BREAK DOWN.PT IS NPO ON SCHEDULE FOR VIDEO SWALLOW STUDY TODAY.PT IS NPO EXCEPTS MEDS.PT ABLE TO SWALLOW PO MED,S WITH APPLE SAUCE.PT TOLERATED WELL.NO EVIDENCE OF COUGH OR ANY RESP DISTRESS .NO ACUTE DISTRESS NOTED AT THIS TIME.WILL CONT TO MONITOR.
--- NOTE | 2019-01-13 07:23 | NUR ---
HAND-OFF: Report given to SOCORRO Mason.
[2019-01-13 07:28] LABS: ALANINE AMINOTRANSFERASE 22 U/L (12-78); ALBUMIN 1.3 G/DL (3.4-5.0); ALKALINE PHOSPHATASE 62 U/L (46-116); ANION GAP 10 mmol/L (5-15); ASPARTATE AMINO TRANSFERASE 37 U/L (15-37); BLOOD UREA NITROGEN 26 mg/dL (7-18); CARBON DIOXIDE 21 MMOL/L (21-32); CHLORIDE 117 MMOL/L (98-107); CREATININE 0.7 MG/DL (0.55-1.30); SODIUM 148 MMOL/L (136-145)
[2019-01-13 07:43] LABS: BILIRUBIN,TOTAL 0.3 MG/DL (0.2-1.0)
[2019-01-13 07:51] LABS: ALBUMIN/GLOBULIN RATIO 0.4 (1.0-2.7)
[2019-01-13 08:00] VITALS: BP 124/75
[2019-01-13] MEDS: Iron Sucrose 100 MG in NS 55 ML IV SCH (10:03)
[2019-01-13] MEDS: Docusate 100mg cap ORAL SCH (10:04)
[2019-01-13] MEDS: Lactobacillus-GG tablet ORAL SCH ×2 (10:05→18:31)
[2019-01-13 12:00] VITALS: BP 114/66
--- NOTE | 2019-01-13 12:48 | NUR ---
ST NOTE: SWALLOW STATUS: PATIENT ALERT BUT DOES NOT SPEAK, NOD HIS HEAD NOR FOLLOW ORAL COMMANDS. PATIENT SPOKEN TO IN [place] AND [place]. WILL NOT GIVE PO TRIALS AT THIS TIME GIVEN HIGH RISK FOR SILENT ASPIRATION. PER RN, PATIENT HAS HEART RATE ISSUES AND CANNOT GO DOWN FOR A MOD BARIUM SWALLOW STUDY TODAY. PATIENT HAS BEEN NPO SINCE 01/11/19. GIVEN THE HIGH RISK OF ASP AND CURRENT AND PAST PNA HX, CONSIDER NGT AT THIS TIME (POLST IS OK WITH TRIAL TF AT THIS TIME, SMALLER DIAMETER IF ABLE). EDUCATED/TRAINED STAFF IN POSTED ORAL CARE AND ASP PREC PLAN: CONTINUE WITH ORAL CARE AND INITIATE NONORAL FEEDINGS MOD BARIUM SWALLOW STUDY NEXT WEEK D/W RNS [place] AND EMILE[facility] ON [place]
--- NOTE | 2019-01-13 15:09 | Consultation ---
History of Present Illness General Date patient seen: Jan 13, 2019 Chief Complaint: Dyspnea/Respdistress Present Illness HPI 78 year old female with multiple medical comorbidities who is currently admitted for respiratory insufficiency under medical care was noted to have multiple wounds on admission requiring care. surgery called to evaluate and assist with care/management. furthermore, patient with anemia and GI bleed needing monitoring. patient seen, chart reviewed, patient examined Allergies: Coded Allergies: No Known Allergies (Unverified , 10/28/18) Medication History Scheduled Ascorbic Acid* (Vitamin C*), 500 MG ORAL DAILY, (Reported) Aspirin* (Aspir 81*), 81 MG ORAL DAILY, (Reported) Baclofen* (Baclofen*), 5 MG ORAL THREE TIMES A DAY, (Reported) Bisacodyl (Bisacodyl), 10 MG RC NEEDED, (Reported) Citalopram Hydrobromide* (Celexa*), 10 MG ORAL DAILY, (Reported) Dasatinib (Sprycel), 100 MG PO DAILY, (Reported) Docusate Sodium* (Docusate Sodium*), 100 MG ORAL DAILY, (Reported) Famotidine (Famotidine), 20 MG ORAL DAILY, (Reported) Ferrous Sulfate* (Ferrous Sulfate*), 325 MG ORAL THREE TIMES A DAY, (Reported) Folic Acid* (Folic Acid*), 1 MG ORAL DAILY, (Reported) Lactobacillus Rhamnosus Gg (Culturelle), 1 EACH PO BID, (Reported) Lactobacillus Rhamnosus Gg* (Culturelle*), 1 CAP ORAL BID, (Reported) Magnesium Hydroxide* (Milk Of Magnesia*), 30 ML ORAL DAILY, (Reported) Omeprazole Magnesium (Prilosec Otc), 20 MG ORAL DAILY, (Reported) Tamsulosin Hcl (Tamsulosin Hcl*), 0.4 MG ORAL BEDTIME, (Reported) Tamsulosin Hcl (Tamsulosin Hcl*), 0.4 MG ORAL BEDTIME, (Reported) Scheduled PRN Acetaminophen* (Acetaminophen 325MG Tablet*), 650 MG ORAL Q4H PRN for Mild Pain/ Temp > 100.5, (Reported) Polyethylene Glycol 3350* (Polyethylene Glycol 3350*), 17 GM ORAL BEDTIME PRN for Constipation, (Reported) Patient History Limited by: medical condition History Provided By: Medical Record, PMD Healthcare decision maker MIRIAM JAY Resuscitation status Full Code Advanced Directive on File No Past Medical/Surgical History Past Medical/Surgical History: (1) Gastric ulcer (2) PUD (peptic ulcer disease) (3) Altered level of consciousness (4) UGIB (upper gastrointestinal bleed) (5) Gastritis (6) CAD/NE (7) PNEUMONIA (8) Hypernatremia (9) UGI bleed (10) NSTEMI (non-ST elevated myocardial infarction) (11) Left upper lobe pneumonia (12) Severe anemia (13) Left lower lobe pneumonia Review of Systems All Other Systems: negative except mentioned in HPI Physical Exam General Appearance: no apparent distress Lines, tubes and drains: peripheral HEENT: mucous membranes moist Neck: normal inspection Respiratory/Chest: no respiratory distress, decreased breath sounds Cardiovascular/Chest: regular rhythm Abdomen: soft, no organomegaly, no mass Extremities: other Skin Exam: other Last 24 Hour Vital Signs Date Time Temp Pulse Resp B/P (MAP) Pulse Ox O2 Delivery O2 Flow Rate FiO2 01/13/19 12:00 Nasal Cannula 3.0 01/13/19 12:00 98.4 97 22 114/66 (82) 98 01/13/19 08:00 Nasal Cannula 3.0 01/13/19 08:00 97 01/13/19 08:00 97.9 92 20 124/75 (91) 96 01/13/19 04:00 Nasal Cannula 3.0 01/13/19 04:00 98.2 103 20 120/58 (78) 95 01/13/19 03:40 107 01/13/19 00:00 98.3 103 24 105/66 (79) 95 01/13/19 00:00 Nasal Cannula 3.0 01/12/19 23:36 103 01/12/19 20:00 98.5 105 24 109/69 (82) 99 01/12/19 20:00 Nasal Cannula 3.0 01/12/19 20:00 103 20 Nasal Cannula 2.0 01/12/19 19:09 104 01/12/19 16:00 98.6 103 19 119/57 (77) 99 01/12/19 16:00 Nasal Cannula 3.0 01/12/19 15:27 92 Intake and Output 01/12/19 01/13/19 19:00 07:00 Intake Total 426.54 ml 765.0 ml Output Total 450 ml 400 ml Balance -23.46 ml 365.0 ml IV Total 426.54 ml 515.0 ml Blood Product 250 ml Output Urine Total 450 ml 400 ml # Bowel Movements 1 Laboratory Tests Test 01/13/19 03:10 White Blood Count 8.9 K/UL (4.8-10.8) Red Blood Count 2.51 M/UL (4.70-6.10) L Hemoglobin 7.6 G/DL (14.2-18.0) L Hematocrit 22.9 % (42.0-52.0) L Mean Corpuscular Volume 91 FL (80-99) Mean Corpuscular Hemoglobin 30.4 PG (27.0-31.0) Mean Corpuscular Hemoglobin Concent 33.3 G/DL (32.0-36.0) Red Cell Distribution Width 18.4 % (11.6-14.8) H Platelet Count 127 K/UL (150-450) L Mean Platelet Volume 6.6 FL (6.5-10.1) Neutrophils (%) (Auto) % (45.0-75.0) Lymphocytes (%) (Auto) % (20.0-45.0) Monocytes (%) (Auto) % (1.0-10.0) Eosinophils (%) (Auto) % (0.0-3.0) Basophils (%) (Auto) % (0.0-2.0) Differential Total Cells Counted 100 Neutrophils % (Manual) 78 % (45-75) H Lymphocytes % (Manual) 9 % (20-45) L Monocytes % (Manual) 11 % (1-10) H Eosinophils % (Manual) 2 % (0-3) Basophils % (Manual) 0 % (0-2) Band Neutrophils 0 % (0-8) Platelet Estimate Decreased L Platelet Morphology Normal Hypochromasia 1+ Anisocytosis 1+ Sodium Level 148 MMOL/L (136-145) H Potassium Level 3.0 MMOL/L (3.5-5.1) L Chloride Level 117 MMOL/L (98-107) H Carbon Dioxide Level 21 MMOL/L (21-32) Anion Gap 10 mmol/L (5-15) Blood Urea Nitrogen 26 mg/dL (7-18) H Creatinine 0.7 MG/DL (0.55-1.30) Estimat Glomerular Filtration Rate mL/min (>60) Glucose Level 93 MG/DL (74-106) Calcium Level 7.0 MG/DL (8.5-10.1) L Total Bilirubin 0.3 MG/DL (0.2-1.0) Aspartate Amino Transf (AST/SGOT) 37 U/L (15-37) Alanine Aminotransferase (ALT/SGPT) 22 U/L (12-78) Alkaline Phosphatase 62 U/L (46-116) Troponin I 0.309 ng/mL (0.000-0.056) Pro-B-Type Natriuretic Peptide 2648 pg/mL (0-125) H Total Protein 5.0 G/DL (6.4-8.2) L Albumin 1.3 G/DL (3.4-5.0) L Globulin 3.7 g/dL Albumin/Globulin Ratio 0.4 (1.0-2.7) L Height (Feet): 5 Height (Inches): 5.00 Weight (Pounds): 112 Medications Current Medications Medications (Trade) Dose Ordered Sig/Elder Route PRN Reason Start Time Stop Time Status Last Admin Dose Admin Albuterol/ Ipratropium (Albuterol/ Ipratropium) 3 ml Q4H PRN HHN Shortness of Breath 01/11/19 19:45 01/16/19 19:44 Dextrose 1,000 ml @ 100 mls/hr Q10H IV 01/13/19 06:45 02/12/19 06:44 01/13/19 13:58 Docusate Sodium (Colace) 100 mg DAILY ORAL 01/12/19 09:00 02/11/19 08:59 01/13/19 10:04 Folic Acid (Folate) 1 mg DAILY ORAL 01/12/19 09:00 02/11/19 08:59 01/13/19 10:05 Iron Sucrose 100 mg/Sodium Chloride 60 ml @ 240 mls/hr DAILY IV 01/13/19 09:00 01/17/19 09:14 01/13/19 10:03 Lactobacillus Acidophilus (Culturelle) 1 tab TWICE A DAY ORAL 01/12/19 09:00 02/11/19 08:59 01/13/19 10:05 Pantoprazole (Protonix) 40 mg DAILY ORAL 01/12/19 09:00 02/11/19 08:59 01/13/19 10:04 Piperacillin Sod/ Tazobactam Sod 3.375 gm/Sodium Chloride 110 ml @ 27.5 mls/hr Q8H IVPB 01/12/19 01:00 01/19/19 00:59 01/13/19 10:15 Potassium Chloride (K-Dur) 10 meq DAILY ORAL 01/12/19 09:00 02/11/19 08:59 01/13/19 10:04 Tamsulosin HCl (Flomax) 0.4 mg BEDTIME ORAL 01/11/19 21:00 02/10/19 20:59 01/12/19 21:54 Vancomycin HCl (Vanco rx to dose) 1 ea DAILY PRN MISC Per rx protocol 01/11/19 19:45 02/10/19 19:44 Vancomycin HCl 500 mg/Dextrose 110 ml @ 110 mls/hr Q24H IVPB 01/12/19 22:00 01/17/19 21:59 01/12/19 21:54 Assessment/Plan Problem List: (1) Decubitus skin ulcer Assessment & Plan: patient presented with multiple skin wounds/decubitus. right hip stage 2/3 decubitus ulcer, tatum wound erythema, no fluctuance, skin breakdown in periphery, no drainage, no odor left hip with erythema right buttock partial thickness skin breakdown without underlying defect right great toe with ischemia and breakdown right heel / Achilles tendon with blood blister Tx Plan: was right hip and right buttock wounds daily with NS, apply skin protectant/ hydrogel, apply foam dressing daily turn q2h air soft mattress heel protectors pillow between legs and under knees will follow with recs thank you ICD Codes: L89.90 - Pressure ulcer of unspecified site, unspecified stage SNOMED: [id number] (2) UGI bleed Assessment & Plan: anemia on admission hx of prior gastritis and gi bleed trend H/H PPI will monitor thank you ICD Codes: K92.2 - Gastrointestinal hemorrhage, unspecified SNOMED: [id number] Josh Hernandez Jan 13, 2019 15:09
[2019-01-13 16:00] VITALS: BP 115/63
--- NOTE | 2019-01-13 19:00 | NUR ---
HAND-OFF: Report given to .BENJI QUINTANILLA.
--- NOTE | 2019-01-13 19:10 | NUR ---
NURSE NOTES: Report received from SOCORRO Mason. Observe pt lying on the bed, awake and Lao speaker. Denies any pain at this time. No signs of SOB noted. ST with telemetry monitor, HR of 120s'. On NC 2L, saturating at 96%. Condom catheter intact and draining well. IV on R AC 22G, intact and running D5W 20meq K, running at 100cc/hr. R H 22G intact and running 27.5cc/hr. Bed in the lowest position. Side rails up x2. Will continue to monitor.
[2019-01-13] MEDS: D5W w/KCl 20mEq 1,000 ML IV SCH (19:46)
[2019-01-13 20:00] VITALS: BP 134/78
[2019-01-13] MEDS ORDERED: NS 275ml ONE ×2 (20:16→20:24)
[2019-01-13] MEDS ORDERED: Tubing Blood Filter IV ONE (20:16)
[2019-01-13] MEDS ORDERED: Tubing IV Secondary IV ONE (20:24)
[2019-01-13] MEDS ORDERED: Iron Sucrose 100 MG in NS 55 ML IV SCH (21:00)
[2019-01-13] MEDS: Tamsulosin 0.4mg cap ORAL SCH (21:49)
--- NOTE | 2019-01-13 21:56 | Pulmonology Progress Note ---
Assessment/Plan Assessment/Plan Pulmonary Consultation HPI Patient is sent in for decreased oxygen saturation, fevers, noted to have Pneumonia on CXR The patient is unable to give a history. Apparently patient is a full code. PMH: 1. Severe anemia. 2. Possible gastrointestinal bleed. 3. History of CLL. 4. Hypertension. 5. Prior history of stroke. 6. History of dysphagia. 7. Acute myocardial infarction. Allergies: No Known Allergies All Other Systems: limited Physical Exam Vital Signs Noted General Appearance: thin, Chronically Ill Head: normocephalic Eyes: bilateral eye conjunctivae pale ENT: moist mucus membranes Neck: supple Respiratory: chest non-tender, no respiratory distress, decreased breath sounds Cardiovascular: HS1, HS2, RRR, tachycardia Gastrointestinal: non tender, decreased bowel sounds, scaphoid Rectal: heme positive stool - melena Genitourinary: no CVA tenderness Musculoskeletal: other - Contractures Neurologic: DTRs symmetric, other - Vegetative state with minimal response to pain Psychiatric: depressed affect Skin: pallor, other - Decubiti initial stage III Impression: Left lower lobe pneumonia Lobar pneumonia, unspecified organism NSTEMI (non-ST elevated myocardial infarction) Hypernatremia Severe anemia UGI bleed Plan Upper GI bleed. Cytoptotective agents Pneumonia: Chest x-ray dense left upper and lower lobe infiltrates. CBC with profound anemia. Left shift. Positive troponin. Urinalysis essentially negative. Anemia - TFN PRN, IVF PRN Antibiotics: Zosyn, Vancomycin HHN O2 PRN Aspiration precautions PPX: SCD Laboratory Tests Test 01/11/19 10:20 01/11/19 10:50 White Blood Count 10.7 K/UL (4.8-10.8) Red Blood Count 2.01 M/UL (4.70-6.10) L Hemoglobin 6.3 G/DL (14.2-18.0) *L Hematocrit 19.9 % (42.0-52.0) L Mean Corpuscular Volume 100 FL (80-99) H Mean Corpuscular Hemoglobin 31.2 PG (27.0-31.0) H Mean Corpuscular Hemoglobin Concent 31.4 G/DL (32.0-36.0) L Red Cell Distribution Width 18.2 % (11.6-14.8) H Platelet Count 167 K/UL (150-450) Mean Platelet Volume 6.0 FL (6.5-10.1) L Neutrophils (%) (Auto) % (45.0-75.0) Lymphocytes (%) (Auto) % (20.0-45.0) Monocytes (%) (Auto) % (1.0-10.0) Eosinophils (%) (Auto) % (0.0-3.0) Basophils (%) (Auto) % (0.0-2.0) Differential Total Cells Counted 100 Neutrophils % (Manual) 77 % (45-75) H Lymphocytes % (Manual) 4 % (20-45) L Monocytes % (Manual) 5 % (1-10) Eosinophils % (Manual) 0 % (0-3) Basophils % (Manual) 0 % (0-2) Band Neutrophils 14 % (0-8) H Platelet Estimate Adequate Platelet Morphology Normal Polychromasia Occasional Prothrombin Time 10.0 SEC (9.30-11.50) Prothrombin Time INR 0.9 (0.9-1.1) PTT 29 SEC (23-33) Sodium Level 153 MMOL/L (136-145) H Potassium Level 3.6 MMOL/L (3.5-5.1) Chloride Level 118 MMOL/L (98-107) H Carbon Dioxide Level 24 MMOL/L (21-32) Anion Gap 12 mmol/L (5-15) Blood Urea Nitrogen 35 mg/dL (7-18) H Creatinine 1.1 MG/DL (0.55-1.30) Estimate Glomerular Filtration Rate mL/min (>60) Glucose Level 123 MG/DL (74-106) H Lactic Acid Level 1.20 mmol/L (0.4-2.0) Calcium Level 7.3 MG/DL (8.5-10.1) L Magnesium Level 2.2 MG/DL (1.8-2.4) Total Bilirubin 0.2 MG/DL (0.2-1.0) Aspartate Amino Transferase (AST) 36 U/L (15-37) Alanine Aminotransferase (ALT) 19 U/L (12-78) Alkaline Phosphatase 52 U/L (46-116) Total Creatine Kinase 393 U/L (26-308) H Troponin I 0.250 ng/mL (0.000-0.056) Pro-B-Type Natriuretic Peptide 2179 pg/mL (0-125) H Total Protein 5.7 G/DL (6.4-8.2) L Albumin 1.6 G/DL (3.4-5.0) L Globulin 4.1 g/dL Albumin/Globulin Ratio 0.4 (1.0-2.7) L Urine Color Yellow Urine Appearance Slightly cloudy Urine pH 5 (4.5-8.0) Urine Specific [place] 1.020 (1.005-1.035) Urine Protein 3+ (NEGATIVE) H Urine Glucose (UA) Negative (NEGATIVE) Urine Ketones 1+ (NEGATIVE) H Urine Blood 1+ (NEGATIVE) H Urine Nitrite Negative (NEGATIVE) Urine Bilirubin 1+ (NEGATIVE) H Urine Ictotest Positive (NEGATIVE) Urine Urobilinogen 4 MG/DL (0.0-1.0) H Urine Leukocyte Esterase 1+ (NEGATIVE) H Urine RBC 2-4 /HPF (0 - 0) H Urine WBC 2-4 /HPF (0 - 0) Urine Squamous Epithelial Cells Few /LPF (NONE/OCC) Urine Bacteria Occasional /HPF (NONE) Microbiology Date/Time Source Procedure Growth Status 01/11/19 10:30 Nasal Nares Influenza Types A,B Antigen (ROCIO) - Final Complete EKG: Rate: tachycardiac ST Segments: no acute changes CXR: no pneumothorax, other - Left-sided upper and lower infiltrate, no effusion , LE Dupplex: no DVT, Subjective ROS Limited/Unobtainable: No Allergies: Coded Allergies: No Known Allergies (Unverified , 10/28/18) Objective Last 24 Hour Vital Signs Date Time Temp Pulse Resp B/P (MAP) Pulse Ox O2 Delivery O2 Flow Rate FiO2 01/13/19 20:29 112 20 Nasal Cannula 3.0 32 01/13/19 20:29 96 Nasal Cannula 3.0 32 01/13/19 20:29 Nasal Cannula 3.0 32 01/13/19 20:00 98.2 116 24 134/78 (96) 92 01/13/19 18:03 104 22 Nasal Cannula 2.0 01/13/19 16:00 98.2 95 22 115/63 (80) 95 01/13/19 16:00 Nasal Cannula 3.0 01/13/19 16:00 96 01/13/19 12:00 Nasal Cannula 3.0 01/13/19 12:00 98.4 97 22 114/66 (82) 98 01/13/19 12:00 103 01/13/19 08:00 Nasal Cannula 3.0 01/13/19 08:00 97 01/13/19 08:00 97.9 92 20 124/75 (91) 96 01/13/19 04:00 Nasal Cannula 3.0 01/13/19 04:00 98.2 103 20 120/58 (78) 95 01/13/19 03:40 107 01/13/19 00:00 98.3 103 24 105/66 (79) 95 01/13/19 00:00 Nasal Cannula 3.0 01/12/19 23:36 103 Intake and Output 01/12/19 01/13/19 19:00 07:00 Intake Total 426.54 ml 865.0 ml Output Total 450 ml 400 ml Balance -23.46 ml 465.0 ml IV Total 426.54 ml 615.0 ml Blood Product 250 ml Output Urine Total 450 ml 400 ml # Bowel Movements 1 Microbiology Date/Time Source Procedure Growth Status 01/11/19 10:20 Blood Blood Culture - Preliminary Resulted 01/11/19 09:50 Blood Blood Culture - Preliminary NO GROWTH AFTER 24 HOURS Resulted 01/11/19 10:30 Nasal Nares MRSA Culture - Final Staphylococcus Aureus - Mrsa Complete 01/11/19 10:30 Nasal Nares Influenza Types A,B Antigen (ROCIO) - Final Complete 01/11/19 10:30 Rectum VRE Culture - Final NO VANCOMYCIN RESISTANT ENTEROCOCCUS ... Complete 01/11/19 10:30 Rectum - Final NO CARBAPENEM-RESISTANT ENTEROBACTERI... Complete Laboratory Tests 01/13/19 03:10: White Blood Count 8.9, Red Blood Count 2.51L, Hemoglobin 7.6L, Hematocrit 22.9L , Mean Corpuscular Volume 91, Mean Corpuscular Hemoglobin 30.4, Mean Corpuscular Hemoglobin Concent 33.3, Red Cell Distribution Width 18.4H, Platelet Count 127L, Mean Platelet Volume 6.6, Neutrophils (%) (Auto) , Lymphocytes (%) (Auto) , Monocytes (%) (Auto) , Eosinophils (%) (Auto) , Basophils (%) (Auto) , Differential Total Cells Counted 100, Neutrophils % ( Manual) 78H, Lymphocytes % (Manual) 9L, Monocytes % (Manual) 11H, Eosinophils % (Manual) 2, Basophils % (Manual) 0, Band Neutrophils 0, Platelet Estimate DecreasedL, Platelet Morphology Normal, Hypochromasia 1+, Anisocytosis 1+, Sodium Level 148H, Potassium Level 3.0L, Chloride Level 117H, Carbon Dioxide Level 21, Anion Gap 10, Blood Urea Nitrogen 26H, Creatinine 0.7, Estimat Glomerular Filtration Rate , Glucose Level 93, Calcium Level 7.0L, Total Bilirubin 0.3, Aspartate Amino Transf (AST/SGOT) 37, Alanine Aminotransferase ( ALT/SGPT) 22, Alkaline Phosphatase 62, Troponin I 0.309H, Pro-B-Type Natriuretic Peptide 2648H, Total Protein 5.0L, Albumin 1.3L, Globulin 3.7, Albumin/Globulin Ratio 0.4L Current Medications Medications (Trade) Dose Ordered Sig/Elder Route PRN Reason Start Time Stop Time Status Last Admin Dose Admin Albuterol/ Ipratropium (Albuterol/ Ipratropium) 3 ml Q4H PRN HHN Shortness of Breath 01/11/19 19:45 01/16/19 19:44 Albuterol/ Ipratropium (Albuterol/ Ipratropium) 3 ml Q4HRT HHN 01/13/19 23:00 01/18/19 22:59 Dextrose/ Electrolytes 1,000 ml @ 100 mls/hr Q10H IV 01/13/19 19:00 02/12/19 18:59 01/13/19 19:46 Docusate Sodium (Colace) 100 mg DAILY ORAL 01/12/19 09:00 02/11/19 08:59 01/13/19 10:04 Folic Acid (Folate) 1 mg DAILY ORAL 01/12/19 09:00 02/11/19 08:59 01/13/19 10:05 Iron Sucrose 100 mg/Sodium Chloride 60 ml @ 240 mls/hr DAILY IV 01/13/19 09:00 01/17/19 09:14 01/13/19 10:03 Lactobacillus Acidophilus (Culturelle) 1 tab TWICE A DAY ORAL 01/12/19 09:00 02/11/19 08:59 01/13/19 18:31 Pantoprazole (Protonix) 40 mg DAILY ORAL 01/12/19 09:00 02/11/19 08:59 01/13/19 10:04 Piperacillin Sod/ Tazobactam Sod 3.375 gm/Sodium Chloride 110 ml @ 27.5 mls/hr Q8H IVPB 01/12/19 01:00 01/19/19 00:59 01/13/19 17:58 Potassium Chloride (K-Dur) 10 meq DAILY ORAL 01/12/19 09:00 02/11/19 08:59 01/13/19 10:04 Tamsulosin HCl (Flomax) 0.4 mg BEDTIME ORAL 01/11/19 21:00 02/10/19 20:59 01/12/19 21:54 Vancomycin HCl (Vanco rx to dose) 1 ea DAILY PRN MISC Per rx protocol 01/11/19 19:45 02/10/19 19:44 Vancomycin HCl 500 mg/Dextrose 110 ml @ 110 mls/hr Q24H IVPB 01/12/19 22:00 01/17/19 21:59 01/12/19 21:54 Arcenio Mandujano MD Jan 13, 2019 21:56
[2019-01-13] MEDS: Vancomycin 500mg/D5W 110ml IVPB SCH ×2 (22:20)
[2019-01-13] MEDS: Albuterol/Ipratropium 3ml neb HHN SCH (23:24)
--- NOTE | 2019-01-13 23:39 | NUR ---
NURSE NOTES: Observed pt got breathing treatment by RT. No signs of pain. IV sites intact and patent. Reposition and oral care done. Will continue to monitor.
[2019-01-14] VITALS: BP 132/77
[2019-01-14] MEDS: Piperacillin/Tazobactam 3.375 GM in NS 110 ML IVPB SCH ×3 (00:45→17:11)
[2019-01-14] MEDS: Albuterol/Ipratropium 3ml neb HHN SCH ×5 (03:13→19:47)
--- NOTE | 2019-01-14 03:50 | NUR ---
NURSE NOTES: Noted HR of 170 after deep suction for sputum culture. Pt is calm and asymptomatic, denies any pain at this time. Noted episodes of HR going up and down, highest 170 and lowest 100s'. Will continue to monitor.
[2019-01-14 04:00] VITALS: BP_SYST 134; BP_SYST 145; BP_DIAS 78; BP_DIAS 90
[2019-01-14] MEDS: D5W w/KCl 20mEq 1,000 ML IV SCH ×2 (05:08→15:29)
--- NOTE | 2019-01-14 05:13 | NUR ---
NURSE NOTES: Observed pt sleeping on the bed. HR of 106 noted. Will continue to monitor.
[2019-01-14 07:00] LABS: HEMOGLOBIN 7.6 G/DL (14.2-18.0); MEAN CORPUSCULAR VOLUME 92 FL (80-99); PLATELET COUNT 110 K/UL (150-450); RED BLOOD COUNT 2.49 M/UL (4.70-6.10); RED CELL DISTRIBUTION WIDTH 18.3 % (11.6-14.8); WHITE BLOOD COUNT 6.6 K/UL (4.8-10.8)
--- NOTE | 2019-01-14 07:30 | NUR ---
NURSE NOTES: Received patient from SOCORRO Nicholson. Patient in bed and able to spontaneously open his eyes. On 3L NC. In no respiratory distress. On radiographer cardiac catheterization. Per PM nurse, Dr. Schulz aware of HR going up and down and troponin level. Condom catheter intact. IV sites are asymptomatic and running D5W with 20meqKCL at 100cc/hour. Bed in lowest position with side rails up. Will continue to follow plan of care.
--- NOTE | 2019-01-14 07:37 | NUR ---
HAND-OFF: Report given to SOCORRO Ram. No acute distress noted at this time.
[2019-01-14 07:46] LABS: ALANINE AMINOTRANSFERASE 23 U/L (12-78); ALBUMIN 1.3 G/DL (3.4-5.0); ALBUMIN/GLOBULIN RATIO 0.4 (1.0-2.7); ALKALINE PHOSPHATASE 46 U/L (46-116); ANION GAP 8 mmol/L (5-15); ASPARTATE AMINO TRANSFERASE 34 U/L (15-37); BILIRUBIN,TOTAL 0.3 MG/DL (0.2-1.0); BLOOD UREA NITROGEN 16 mg/dL (7-18); CALCIUM 7.3 MG/DL (8.5-10.1); CARBON DIOXIDE 23 MMOL/L (21-32); CHLORIDE 111 MMOL/L (98-107); CREATININE 0.7 MG/DL (0.55-1.30); POTASSIUM 3.2 MMOL/L (3.5-5.1); SODIUM 142 MMOL/L (136-145)
[2019-01-14 08:00] VITALS: BP 106/55
--- NOTE | 2019-01-14 08:20 | NUR ---
NURSE NOTES: Called Dr. Schulz and left a message regarding about patient's potassium level of 3.2, Mg 1.6, and HGB 7.6 and HR going up and down as high as 170s. Awaiting for call back.
[2019-01-14] MEDS: Docusate 100mg cap ORAL SCH (08:24)
[2019-01-14] MEDS: Lactobacillus-GG tablet ORAL SCH ×2 (08:25→17:46)
[2019-01-14] MEDS: Iron Sucrose 100 MG in NS 55 ML IV SCH (09:01)
--- NOTE | 2019-01-14 10:06 | NUR ---
CASE MANAGEMENT: REVIEW SI: PNA . NSTEMI . ANEMIA . UGI BLEED T 98.2 HR 148 RR 24 BP 145/90 SAT 92% NC/2L H/H 7.6/23.0 K 3.2 IS: MAG SULFATE IV @ 100ML/HR K-DUR PO X1 VENOFER IV QD ZOSYN IV X1 PROTONIX PO QD STEP DOWN UNIT STATUS DCP: PATIENT IS FROM [facility]
--- NOTE | 2019-01-14 10:11 | NUR ---
NURSE NOTES: Dr. Schulz called back and received order for Mg 1g IV x2 now and 40 meqKdur once. Orders carried out. Also, aware that heart rate goes up as high as 170. He stated that he will see the patient later today.
[2019-01-14 12:00] VITALS: BP 102/68
--- NOTE | 2019-01-14 13:01 | Pulmonology Progress Note ---
Assessment/Plan Assessment/Plan Pulmonary Consultation HPI Patient is sent in for decreased oxygen saturation, fevers, noted to have Pneumonia on CXR Improving on AB LE Dupplex negative for DVT The patient is unable to give a history. Apparently patient is a full code. PMH: 1. Severe anemia. 2. Possible gastrointestinal bleed. 3. History of CLL. 4. Hypertension. 5. Prior history of stroke. 6. History of dysphagia. 7. Acute myocardial infarction. Allergies: No Known Allergies All Other Systems: limited Physical Exam Vital Signs Noted General Appearance: thin, Chronically Ill Head: normocephalic Eyes: bilateral eye conjunctivae pale ENT: moist mucus membranes Neck: supple Respiratory: chest non-tender, no respiratory distress, decreased breath sounds Cardiovascular: HS1, HS2, RRR, tachycardia Gastrointestinal: non tender, decreased bowel sounds, scaphoid Rectal: heme positive stool - melena Genitourinary: no CVA tenderness Musculoskeletal: other - Contractures Neurologic: DTRs symmetric, other - Vegetative state with minimal response to pain Psychiatric: depressed affect Skin: pallor, other - Decubiti initial stage III Impression: Left lower lobe pneumonia Lobar pneumonia, unspecified organism NSTEMI (non-ST elevated myocardial infarction) Hypernatremia Severe anemia UGI bleed Plan Upper GI bleed. Cytoptotective agents Pneumonia: Chest x-ray dense left upper and lower lobe infiltrates. CBC with profound anemia. Left shift. Positive troponin. Urinalysis essentially negative. Anemia - TFN PRN, IVF PRN Antibiotics: Zosyn, Vancomycin HHN O2 PRN Aspiration precautions PPX: SCD Laboratory Tests Test 01/11/19 10:20 01/11/19 10:50 White Blood Count 10.7 K/UL (4.8-10.8) Red Blood Count 2.01 M/UL (4.70-6.10) L Hemoglobin 6.3 G/DL (14.2-18.0) *L Hematocrit 19.9 % (42.0-52.0) L Mean Corpuscular Volume 100 FL (80-99) H Mean Corpuscular Hemoglobin 31.2 PG (27.0-31.0) H Mean Corpuscular Hemoglobin Concent 31.4 G/DL (32.0-36.0) L Red Cell Distribution Width 18.2 % (11.6-14.8) H Platelet Count 167 K/UL (150-450) Mean Platelet Volume 6.0 FL (6.5-10.1) L Neutrophils (%) (Auto) % (45.0-75.0) Lymphocytes (%) (Auto) % (20.0-45.0) Monocytes (%) (Auto) % (1.0-10.0) Eosinophils (%) (Auto) % (0.0-3.0) Basophils (%) (Auto) % (0.0-2.0) Differential Total Cells Counted 100 Neutrophils % (Manual) 77 % (45-75) H Lymphocytes % (Manual) 4 % (20-45) L Monocytes % (Manual) 5 % (1-10) Eosinophils % (Manual) 0 % (0-3) Basophils % (Manual) 0 % (0-2) Band Neutrophils 14 % (0-8) H Platelet Estimate Adequate Platelet Morphology Normal Polychromasia Occasional Prothrombin Time 10.0 SEC (9.30-11.50) Prothrombin Time INR 0.9 (0.9-1.1) PTT 29 SEC (23-33) Sodium Level 153 MMOL/L (136-145) H Potassium Level 3.6 MMOL/L (3.5-5.1) Chloride Level 118 MMOL/L (98-107) H Carbon Dioxide Level 24 MMOL/L (21-32) Anion Gap 12 mmol/L (5-15) Blood Urea Nitrogen 35 mg/dL (7-18) H Creatinine 1.1 MG/DL (0.55-1.30) Estimate Glomerular Filtration Rate mL/min (>60) Glucose Level 123 MG/DL (74-106) H Lactic Acid Level 1.20 mmol/L (0.4-2.0) Calcium Level 7.3 MG/DL (8.5-10.1) L Magnesium Level 2.2 MG/DL (1.8-2.4) Total Bilirubin 0.2 MG/DL (0.2-1.0) Aspartate Amino Transferase (AST) 36 U/L (15-37) Alanine Aminotransferase (ALT) 19 U/L (12-78) Alkaline Phosphatase 52 U/L (46-116) Total Creatine Kinase 393 U/L (26-308) H Troponin I 0.250 ng/mL (0.000-0.056) Pro-B-Type Natriuretic Peptide 2179 pg/mL (0-125) H Total Protein 5.7 G/DL (6.4-8.2) L Albumin 1.6 G/DL (3.4-5.0) L Globulin 4.1 g/dL Albumin/Globulin Ratio 0.4 (1.0-2.7) L Urine Color Yellow Urine Appearance Slightly cloudy Urine pH 5 (4.5-8.0) Urine Specific [place] 1.020 (1.005-1.035) Urine Protein 3+ (NEGATIVE) H Urine Glucose (UA) Negative (NEGATIVE) Urine Ketones 1+ (NEGATIVE) H Urine Blood 1+ (NEGATIVE) H Urine Nitrite Negative (NEGATIVE) Urine Bilirubin 1+ (NEGATIVE) H Urine Ictotest Positive (NEGATIVE) Urine Urobilinogen 4 MG/DL (0.0-1.0) H Urine Leukocyte Esterase 1+ (NEGATIVE) H Urine RBC 2-4 /HPF (0 - 0) H Urine WBC 2-4 /HPF (0 - 0) Urine Squamous Epithelial Cells Few /LPF (NONE/OCC) Urine Bacteria Occasional /HPF (NONE) Microbiology Date/Time Source Procedure Growth Status 01/11/19 10:30 Nasal Nares Influenza Types A,B Antigen (ROCIO) - Final Complete EKG: Rate: tachycardiac ST Segments: no acute changes CXR: no pneumothorax, other - Left-sided upper and lower infiltrate, no effusion , LE Dupplex: no DVT, Subjective ROS Limited/Unobtainable: No Allergies: Coded Allergies: No Known Allergies (Unverified , 10/28/18) Objective Last 24 Hour Vital Signs Date Time Temp Pulse Resp B/P (MAP) Pulse Ox O2 Delivery O2 Flow Rate FiO2 01/14/19 12:00 Nasal Cannula 3.0 01/14/19 12:00 98.1 125 18 102/68 (79) 99 01/14/19 10:59 118 20 99 Nasal Cannula 3.0 32 01/14/19 10:50 115 22 97 Nasal Cannula 3.0 32 01/14/19 08:00 98.1 117 18 106/55 (72) 97 01/14/19 08:00 168 01/14/19 08:00 Nasal Cannula 3.0 01/14/19 07:12 62 22 98 Nasal Cannula 3.0 32 01/14/19 07:11 95 Nasal Cannula 3.0 32 01/14/19 07:11 Nasal Cannula 3.0 32 01/14/19 07:04 56 24 96 Nasal Cannula 3.0 32 01/14/19 04:00 98.2 116 24 145/90 (108) 92 01/14/19 04:00 165 01/14/19 04:00 Nasal Cannula 3.0 01/14/19 03:47 149 01/14/19 03:28 112 20 99 Nasal Cannula 3.0 32 01/14/19 03:13 106 20 98 Nasal Cannula 3.0 32 01/14/19 00:00 148 01/14/19 00:00 Nasal Cannula 3.0 01/14/19 00:00 98.4 103 24 132/77 (95) 100 01/13/19 23:33 106 20 99 Nasal Cannula 3.0 32 01/13/19 23:24 103 20 97 Nasal Cannula 3.0 32 01/13/19 20:29 112 20 Nasal Cannula 3.0 32 01/13/19 20:29 96 Nasal Cannula 3.0 32 01/13/19 20:29 Nasal Cannula 3.0 32 01/13/19 20:00 98.2 116 24 134/78 (96) 92 01/13/19 20:00 Nasal Cannula 3.0 01/13/19 20:00 149 01/13/19 18:03 104 22 Nasal Cannula 2.0 01/13/19 16:00 98.2 95 22 115/63 (80) 95 01/13/19 16:00 Nasal Cannula 3.0 01/13/19 16:00 96 Intake and Output 01/13/19 01/14/19 19:00 07:00 Intake Total 1000 ml 1345.0 ml Output Total 700 ml 400 ml Balance 300 ml 945.0 ml IV Total 1000 ml 1345.0 ml Output Urine Total 700 ml 400 ml # Bowel Movements 1 Laboratory Tests 01/14/19 04:30: White Blood Count 6.6, Red Blood Count 2.49L, Hemoglobin 7.6L, Hematocrit 23.0L , Mean Corpuscular Volume 92, Mean Corpuscular Hemoglobin 30.3, Mean Corpuscular Hemoglobin Concent 32.9, Red Cell Distribution Width 18.3H, Platelet Count 110L, Mean Platelet Volume 6.7, Neutrophils (%) (Auto) , Lymphocytes (%) (Auto) , Monocytes (%) (Auto) , Eosinophils (%) (Auto) , Basophils (%) (Auto) , Differential Total Cells Counted 100, Neutrophils % ( Manual) 81H, Lymphocytes % (Manual) 12L, Monocytes % (Manual) 7, Eosinophils % ( Manual) 0, Basophils % (Manual) 0, Band Neutrophils 0, Platelet Estimate DecreasedL, Platelet Morphology Normal, Hypochromasia 1+, Anisocytosis 1+, Sodium Level 142, Potassium Level 3.2L, Chloride Level 111H, Carbon Dioxide Level 23, Anion Gap 8, Blood Urea Nitrogen 16, Creatinine 0.7, Estimat Glomerular Filtration Rate , Glucose Level 129H, Calcium Level 7.3L, Magnesium Level 1.6L, Total Bilirubin 0.3, Aspartate Amino Transf (AST/SGOT) 34, Alanine Aminotransferase (ALT/SGPT) 23, Alkaline Phosphatase 46, Pro-B-Type Natriuretic Peptide 4348H, Total Protein 5.0L, Albumin 1.3L, Globulin 3.7, Albumin/Globulin Ratio 0.4L Current Medications Medications (Trade) Dose Ordered Sig/Elder Route PRN Reason Start Time Stop Time Status Last Admin Dose Admin Albuterol/ Ipratropium (Albuterol/ Ipratropium) 3 ml Q4H PRN HHN Shortness of Breath 01/11/19 19:45 01/16/19 19:44 Albuterol/ Ipratropium (Albuterol/ Ipratropium) 3 ml Q4HRT HHN 01/13/19 23:00 01/18/19 22:59 01/14/19 10:58 Dextrose/ Electrolytes 1,000 ml @ 100 mls/hr Q10H IV 01/13/19 19:00 02/12/19 18:59 01/14/19 05:08 Docusate Sodium (Colace) 100 mg DAILY ORAL 01/12/19 09:00 02/11/19 08:59 01/14/19 08:24 Folic Acid (Folate) 1 mg DAILY ORAL 01/12/19 09:00 02/11/19 08:59 01/14/19 08:24 Iron Sucrose 100 mg/Sodium Chloride 60 ml @ 240 mls/hr DAILY IV 01/13/19 09:00 01/17/19 09:14 01/14/19 09:01 Lactobacillus Acidophilus (Culturelle) 1 tab TWICE A DAY ORAL 01/12/19 09:00 02/11/19 08:59 01/14/19 08:25 Magnesium Sulfate 100 ml @ 100 mls/hr Q1H IVPB 01/14/19 11:15 01/14/19 13:14 01/14/19 11:30 Pantoprazole (Protonix) 40 mg DAILY ORAL 01/12/19 09:00 02/11/19 08:59 01/14/19 08:24 Piperacillin Sod/ Tazobactam Sod 3.375 gm/Sodium Chloride 110 ml @ 27.5 mls/hr Q8H IVPB 01/12/19 01:00 01/19/19 00:59 01/14/19 08:24 Potassium Chloride (K-Dur) 10 meq DAILY ORAL 01/12/19 09:00 02/11/19 08:59 01/14/19 08:24 Tamsulosin HCl (Flomax) 0.4 mg BEDTIME ORAL 01/11/19 21:00 02/10/19 20:59 01/13/19 21:49 Vancomycin HCl (Vanco rx to dose) 1 ea DAILY PRN MISC Per rx protocol 01/11/19 19:45 02/10/19 19:44 Vancomycin HCl 500 mg/Dextrose 110 ml @ 110 mls/hr Q24H IVPB 01/12/19 22:00 01/17/19 21:59 01/13/19 22:20 Arcenio Mandujano MD Jan 14, 2019 13:01
--- NOTE | 2019-01-14 13:57 | Surgery Progress Note ---
Surgery Progress Note Subjective Additional Comments no acute events. stable. comfortable. h/h stable labs noted no bleeding noted Objective Last 24 Hour Vital Signs Date Time Temp Pulse Resp B/P (MAP) Pulse Ox O2 Delivery O2 Flow Rate FiO2 01/14/19 12:00 Nasal Cannula 3.0 01/14/19 12:00 98.1 125 18 102/68 (79) 99 01/14/19 10:59 118 20 99 Nasal Cannula 3.0 32 01/14/19 10:50 115 22 97 Nasal Cannula 3.0 32 01/14/19 08:00 98.1 117 18 106/55 (72) 97 01/14/19 08:00 168 01/14/19 08:00 Nasal Cannula 3.0 01/14/19 07:12 62 22 98 Nasal Cannula 3.0 32 01/14/19 07:11 95 Nasal Cannula 3.0 32 01/14/19 07:11 Nasal Cannula 3.0 32 01/14/19 07:04 56 24 96 Nasal Cannula 3.0 32 01/14/19 04:00 98.2 116 24 145/90 (108) 92 01/14/19 04:00 165 01/14/19 04:00 Nasal Cannula 3.0 01/14/19 03:47 149 01/14/19 03:28 112 20 99 Nasal Cannula 3.0 32 01/14/19 03:13 106 20 98 Nasal Cannula 3.0 32 01/14/19 00:00 148 01/14/19 00:00 Nasal Cannula 3.0 01/14/19 00:00 98.4 103 24 132/77 (95) 100 01/13/19 23:33 106 20 99 Nasal Cannula 3.0 32 01/13/19 23:24 103 20 97 Nasal Cannula 3.0 32 01/13/19 20:29 112 20 Nasal Cannula 3.0 32 01/13/19 20:29 96 Nasal Cannula 3.0 32 01/13/19 20:29 Nasal Cannula 3.0 32 01/13/19 20:00 98.2 116 24 134/78 (96) 92 01/13/19 20:00 Nasal Cannula 3.0 01/13/19 20:00 149 01/13/19 18:03 104 22 Nasal Cannula 2.0 01/13/19 16:00 98.2 95 22 115/63 (80) 95 01/13/19 16:00 Nasal Cannula 3.0 01/13/19 16:00 96 I&O Intake and Output 01/13/19 01/14/19 19:00 07:00 Intake Total 1000 ml 1345.0 ml Output Total 700 ml 400 ml Balance 300 ml 945.0 ml IV Total 1000 ml 1345.0 ml Output Urine Total 700 ml 400 ml # Bowel Movements 1 Dressing: other Wound: clean Drains: other Cardiovascular: RSR Respiratory: clear Abdomen: soft, present bowel sounds, non-distended Extremities: other Laboratory Tests Test 01/14/19 04:30 White Blood Count 6.6 K/UL (4.8-10.8) Red Blood Count 2.49 M/UL (4.70-6.10) L Hemoglobin 7.6 G/DL (14.2-18.0) L Hematocrit 23.0 % (42.0-52.0) L Mean Corpuscular Volume 92 FL (80-99) Mean Corpuscular Hemoglobin 30.3 PG (27.0-31.0) Mean Corpuscular Hemoglobin Concent 32.9 G/DL (32.0-36.0) Red Cell Distribution Width 18.3 % (11.6-14.8) H Platelet Count 110 K/UL (150-450) L Mean Platelet Volume 6.7 FL (6.5-10.1) Neutrophils (%) (Auto) % (45.0-75.0) Lymphocytes (%) (Auto) % (20.0-45.0) Monocytes (%) (Auto) % (1.0-10.0) Eosinophils (%) (Auto) % (0.0-3.0) Basophils (%) (Auto) % (0.0-2.0) Differential Total Cells Counted 100 Neutrophils % (Manual) 81 % (45-75) H Lymphocytes % (Manual) 12 % (20-45) L Monocytes % (Manual) 7 % (1-10) Eosinophils % (Manual) 0 % (0-3) Basophils % (Manual) 0 % (0-2) Band Neutrophils 0 % (0-8) Platelet Estimate Decreased L Platelet Morphology Normal Hypochromasia 1+ Anisocytosis 1+ Sodium Level 142 MMOL/L (136-145) Potassium Level 3.2 MMOL/L (3.5-5.1) L Chloride Level 111 MMOL/L (98-107) H Carbon Dioxide Level 23 MMOL/L (21-32) Anion Gap 8 mmol/L (5-15) Blood Urea Nitrogen 16 mg/dL (7-18) Creatinine 0.7 MG/DL (0.55-1.30) Estimat Glomerular Filtration Rate mL/min (>60) Glucose Level 129 MG/DL (74-106) H Calcium Level 7.3 MG/DL (8.5-10.1) L Magnesium Level 1.6 MG/DL (1.8-2.4) L Total Bilirubin 0.3 MG/DL (0.2-1.0) Aspartate Amino Transf (AST/SGOT) 34 U/L (15-37) Alanine Aminotransferase (ALT/SGPT) 23 U/L (12-78) Alkaline Phosphatase 46 U/L (46-116) Pro-B-Type Natriuretic Peptide 4348 pg/mL (0-125) H Total Protein 5.0 G/DL (6.4-8.2) L Albumin 1.3 G/DL (3.4-5.0) L Globulin 3.7 g/dL Albumin/Globulin Ratio 0.4 (1.0-2.7) L Plan Problems: (1) Decubitus skin ulcer Assessment & Plan: patient presented with multiple skin wounds/decubitus. right hip stage 2/3 decubitus ulcer, tatum wound erythema, no fluctuance, skin breakdown in periphery, no drainage, no odor left hip with erythema right buttock partial thickness skin breakdown without underlying defect right great toe with ischemia and breakdown right heel / Achilles tendon with blood blister Tx Plan: was right hip and right buttock wounds daily with NS, apply skin protectant/ hydrogel, apply foam dressing daily turn q2h air soft mattress heel protectors pillow between legs and under knees will follow with recs thank you (2) UGI bleed Assessment & Plan: anemia on admission hx of prior gastritis and gi bleed trend H/H PPI will monitor thank you Josh Hernandez Jan 14, 2019 13:57
[2019-01-14 16:00] VITALS: BP 113/67
--- NOTE | 2019-01-14 16:45 | Consultation ---
DATE OF CONSULTATION: 01/14/2019 INFECTIOUS DISEASES CONSULTATION CONSULTING PHYSICIAN: Ernie Barraza M.D. REFERRING PHYSICIAN: Arcenio Schulz M.D. REASON FOR CONSULTATION: Pneumonia. HISTORY OF PRESENTING ILLNESS: This is a 78-year-old gentleman with history of chronic lymphocytic leukemia, GI bleeding, aortic valve stenosis, hypertension, coronary artery disease, and COPD, who came in with hypoxia and respiratory distress. He also had some fevers and was found to be tachycardic. Chest x-ray was consistent with pneumonia and an Infectious Diseases consultation has been obtained for antibiotics. PAST MEDICAL HISTORY: 1. History of CLL. 2. GI bleeding. 3. Anemia. 4. Hypertension. 5. Aortic stenosis. 6. Coronary artery disease. 7. COPD. 8. CVA. 9. Dementia. 10. GERD. 11. Prostatic hypertrophy. 12. Dysphagia. SOCIAL HISTORY: No history of smoking, alcohol, or drug use. FAMILY HISTORY: Unknown. REVIEW OF SYSTEMS: Unable to obtain currently. MEDICATIONS: As an inpatient, he is on magnesium, albuterol, ipratropium, iron sucrose, IV vancomycin, , docusate, Protonix, folic acid, Zosyn, and Flomax. ALLERGIES: No known drug allergies. PHYSICAL EXAMINATION: VITAL SIGNS: Temperature of 98.1, T-max of 98.4, pulse of 118, respiratory rate 20, blood pressure 106/55, and O2 saturation of 99%. HEENT: Pupils equally reactive to light and accommodation. Mouth appears clean without thrush. NECK: Supple. No adenopathy. No JVD. CARDIOVASCULAR: Regular rate and rhythm. No murmurs. LUNGS: Clear to auscultation bilaterally. No crackles. No wheezes. ABDOMEN: Soft and nontender. No organomegaly. EXTREMITIES: No cyanosis, no clubbing, no edema. LABORATORY AND DIAGNOSTIC DATA: White count of 6.6, hemoglobin 7.6, hematocrit 23, MCV 92, platelet count of 110 with neutrophils of 81%. Sodium 142, potassium 3.2, chloride 111, bicarb 23, BUN 16, creatinine 0.7, glucose 129, calcium 7.3, magnesium 1.6. Total bilirubin 0.3. AST 34, ALT 23, and alkaline phosphatase 46. Troponin 0.3. Beta-natriuretic peptide 4348. Total protein 5. Albumin 1.3. UA showing 2 to 4 white cells. Rectal swab was negative for VRE. Nasal swab was positive for MRSA. Nasal swab was negative for influenza. Blood cultures from 01/11/2019 growing gram-positive rods. Chest x-ray showing extensive infiltrates in the left lung and minimal right lung interstitial opacity noted. Ultrasound legs showed no evidence of DVT. ASSESSMENT: This is a 78-year-old gentleman with history of hypertension and CLL, who comes in with fevers as well as hypoxia and respiratory distress and was found to have: 1. Community-acquired pneumonia versus aspiration pneumonia. 2. CLL. 3. Hypertension. 4. Positive blood culture with gram-positive rods maybe a contaminant. PLAN: 1. Continue IV vancomycin and Zosyn. 2. We will order sputum for Gram stain and culture. 3. We will follow up cultures and adjust antibiotics accordingly. I would like to thank, Dr. Schulz, for this consultation. Ernie Barraza M.D. DR: JAVAD JOB#: [id number] CC: Arcenio Schulz M.D.
--- NOTE | 2019-01-14 19:00 | NUR ---
HAND-OFF: Report given to SOCORRO Del Rosario. Patient stable.
--- NOTE | 2019-01-14 19:01 | NUR ---
NURSE NOTES: Report received from OSCORRO Ram. Patient seen in bed in semi null position. Patient is alert, but non verbal. No S/Sx of pain is noted via FLACC scale. continues on oxygen via NC 3L/min , sp02 is 98%. No acute respiratory distress is present. IV site to right hand 22g is intact. Continues on IVF of D5w with 20mEw KCL @ 100cc/hr. Noted with forbes cath and is intact. Urine is draining. Bed is in lowest position. Call light is within easy reach while in bed. Will continue to monitor.
[2019-01-14 20:00] VITALS: BP 114/63
[2019-01-14] MEDS: Tamsulosin 0.4mg cap ORAL SCH (20:45)
--- NOTE | 2019-01-14 21:40 | NUR ---
NURSE NOTES: received vanco trough. noted 4.3 low. pharmacist made aware, will change dose. awaiting for new dose to be delivered.
[2019-01-14] MEDS ORDERED: Vancomycin 750mg/D5W 275ml IVPB SCH ×2 (22:00)
[2019-01-15] VITALS: BP 121/64
[2019-01-15] MEDS: Albuterol/Ipratropium 3ml neb HHN SCH ×7 (00:12→23:31)
[2019-01-15] MEDS: D5W w/KCl 20mEq 1,000 ML IV SCH ×3 (00:43→21:27)
[2019-01-15] MEDS: Piperacillin/Tazobactam 3.375 GM in NS 110 ML IVPB SCH ×3 (00:45→16:16)
[2019-01-15 04:00] VITALS: BP 103/60
--- NOTE | 2019-01-15 05:15 | Progress Note ---
DATE: 01/13/2019 CARDIOLOGY PROGRESS NOTE SUBJECTIVE: The patient still is congested, episodes of hypoxia. Monitored rhythm, sinus tachycardia. OBJECTIVE: VITAL SIGNS: Blood pressure 120/58, heart rate 103, respiratory rate 20, afebrile, oxygen saturation 95% on 3 L. LUNGS: Coarse breath sounds. Scattered rhonchi. HEART: Regular rhythm. Rapid rate. Normal S1, S2 with a fourth heart sound. ABDOMEN: Soft. EXTREMITIES: Trace edema. LABORATORY DATA: White count 8.9, hemoglobin 7.6, platelet count 127,000. Sodium 148, potassium 3, bicarbonate 21, chloride 117, BUN 26, creatinine 0.7. Pro-natriuretic peptide is 2600. Albumin 1.3. Troponin is 0.309. IMPRESSION: 1. Pneumonia. 2. Dehydration. 3. Hypernatremia. 4. Hypokalemia. 5. Hyperchloremia. 6. Acute myocardial ischemia and possible [id number] infarction. 7. Severe protein-calorie malnutrition. 8. Acute on chronic diastolic congestive heart failure. 9. Secondary sinus tachycardia. 10. CLL with transfusion-dependent anemia and chronic GI blood loss. 11. Severe aortic valve stenosis. PLAN: 1. Hypotonic IV fluid hydration. 2. Potassium replacement. 3. Antimicrobials. 4. Respiratory hygiene. 5. Protein supplement. 6. Hold diuresis. 7. Serial troponin. 8. Transfuse for further drop in hemoglobin. 9. Cautious beta-blockade. Arcenio Schulz M.D. DR: Bobby JOB#: [id number] CC:
--- NOTE | 2019-01-15 05:30 | Progress Note ---
DATE: 01/14/2019 CARDIOLOGY AND INTERNAL MEDICINE PROGRESS NOTE SUBJECTIVE: Still with congestion and shortness of breath. Withdrawn and nonverbal. OBJECTIVE: VITAL SIGNS: Blood pressure 106/55, pulse 117, respiratory rate 18, and afebrile. Monitored rhythm, sinus tachycardia. Oxygen saturation on 3 L is 97%. LUNGS: Bilateral breath sounds. Scattered rhonchi, left greater than right. No wheezing. CARDIAC: Regular rhythm. Rapid rate. Normal S1 and S2. A 2/6 systolic ejection murmur at the base. ABDOMEN: Soft. EXTREMITIES: Trace edema. LABORATORY DATA: Sodium 142, potassium 3.2, bicarbonate 22, BUN 16, creatinine 0.7, and magnesium 1.6. Albumin 1.3. Pro-natriuretic peptide 4300. IMPRESSION: 1. Hypomagnesemia. 2. Hypokalemia. 3. Rehydrated. 4. Healthcare-acquired pneumonia. 5. Severe aortic stenosis. 6. CLL. 7. Chronic GI bleed with anemia. 8. Acute myocardial ischemia and possible non-ST elevation infarction. PLAN: 1. Antimicrobials. 2. Respiratory hygiene. 3. Potassium replacement. 4. IV magnesium replacement. 5. Transfuse for hemoglobin below 7. 6. Continue beta-blockade. 7. No anti-platelet and anticoagulant because of bleeding. Arecnio Schulz M.D. DR: MADISON JOB#: [id number] CC:
[2019-01-15 06:27] LABS: HEMATOCRIT 19.2 % (42.0-52.0); MEAN CORPUSCULAR VOLUME 91 FL (80-99); PLATELET COUNT 96 K/UL (150-450); RED BLOOD COUNT 2.11 M/UL (4.70-6.10); RED CELL DISTRIBUTION WIDTH 17.6 % (11.6-14.8); WHITE BLOOD COUNT 5.8 K/UL (4.8-10.8)
[2019-01-15 06:29] LABS: HEMOGLOBIN 6.2 G/DL (14.2-18.0)
--- NOTE | 2019-01-15 06:33 | NUR ---
NURSE NOTES: received call from lab, hgb is 6.2 low. left message with Dr Pearl. Awaiting for call back.
[2019-01-15 06:56] LABS: ALANINE AMINOTRANSFERASE 20 U/L (12-78); ALBUMIN 1.1 G/DL (3.4-5.0); ALBUMIN/GLOBULIN RATIO 0.3 (1.0-2.7); ALKALINE PHOSPHATASE 42 U/L (46-116); ANION GAP 6 mmol/L (5-15); ASPARTATE AMINO TRANSFERASE 26 U/L (15-37); BILIRUBIN,TOTAL 0.3 MG/DL (0.2-1.0); BLOOD UREA NITROGEN 9 mg/dL (7-18); CALCIUM 7.2 MG/DL (8.5-10.1); CARBON DIOXIDE 22 MMOL/L (21-32); CHLORIDE 109 MMOL/L (98-107); CREATININE 0.7 MG/DL (0.55-1.30); POTASSIUM 3.7 MMOL/L (3.5-5.1); SODIUM 137 MMOL/L (136-145)
--- NOTE | 2019-01-15 07:01 | NUR ---
HAND-OFF: Report given to SOCORRO Ram.
--- NOTE | 2019-01-15 07:02 | NUR ---
NURSE NOTES: Received patient from SOCORRO Del Rosario. Patient in bed and asleep. Currently on 3L NC. In no respiratory distress. web analyst and condom catheter in placed. IV sites are intact. Bed in lowest position with side rails up. Will continue to follow plan of care.
[2019-01-15 08:00] VITALS: BP 108/60
[2019-01-15] MEDS: Iron Sucrose 100 MG in NS 55 ML IV SCH (08:06)
[2019-01-15] MEDS: Docusate 100mg cap ORAL SCH (08:57)
[2019-01-15] MEDS: Lactobacillus-GG tablet ORAL SCH ×2 (08:57→17:54)
--- NOTE | 2019-01-15 09:55 | NUR ---
NURSE NOTES: Patient currently receiving 1u of blood. No s/s of adverse effects. Will continue to monitor patient.
--- NOTE | 2019-01-15 10:42 | Infectious Diseases Prog Note ---
Assessment/Plan Assessment/Plan A; 1. Community-acquired pneumonia versus aspiration pneumonia. 2. CLL. 3. Hypertension. 4. Positive blood culture with gram-positive rods maybe a contaminant 5. Aortic stenosis. 6. Coronary artery disease. 7. COPD. 8. CVA. 9. Dementia. 10. GERD. 11. Prostatic hypertrophy. 12. Dysphagia. P: 1. Continue IV vancomycin and Zosyn. 2. We will f/u sputum culture. Subjective ROS Limited/Unobtainable: Yes Allergies: Coded Allergies: No Known Allergies (Unverified , 10/28/18) Objective Vital Signs Last 24 Hour Vital Signs Date Time Temp Pulse Resp B/P (MAP) Pulse Ox O2 Delivery O2 Flow Rate FiO2 01/15/19 08:00 98.1 95 22 108/60 (76) 97 01/15/19 08:00 Nasal Cannula 3.0 01/15/19 08:00 104 01/15/19 08:00 104 01/15/19 07:25 103 20 99 Nasal Cannula 2.0 28 01/15/19 07:17 98 Nasal Cannula 2.0 28 01/15/19 07:17 Nasal Cannula 2.0 28 01/15/19 07:17 101 20 98 Nasal Cannula 2.0 28 01/15/19 04:00 Nasal Cannula 3.0 01/15/19 04:00 98.1 104 22 103/60 (74) 99 01/15/19 03:33 107 01/15/19 03:06 102 20 100 Nasal Cannula 2.0 28 01/15/19 03:00 99 20 98 Nasal Cannula 2.0 28 01/15/19 00:13 Nasal Cannula 3.0 32 01/15/19 00:12 111 20 97 Nasal Cannula 3.0 32 01/15/19 00:00 98.2 105 20 121/64 (83) 97 01/15/19 00:00 Nasal Cannula 3.0 01/14/19 23:41 108 01/14/19 20:00 Nasal Cannula 3.0 01/14/19 20:00 98.4 103 20 114/63 (80) 94 01/14/19 19:58 107 20 97 Nasal Cannula 3.0 32 01/14/19 19:51 97 Nasal Cannula 3.0 32 01/14/19 19:51 Nasal Cannula 3.0 32 01/14/19 19:47 101 22 97 Nasal Cannula 3.0 32 01/14/19 19:42 107 01/14/19 16:00 97.9 85 22 113/67 (82) 98 01/14/19 16:00 Nasal Cannula 3.0 01/14/19 15:54 96 01/14/19 15:20 Nasal Cannula 3.0 32 01/14/19 15:20 Nasal Cannula 3.0 32 01/14/19 12:00 Nasal Cannula 3.0 01/14/19 12:00 98.1 125 18 102/68 (79) 99 01/14/19 11:37 169 01/14/19 10:59 118 20 99 Nasal Cannula 3.0 32 01/14/19 10:50 115 22 97 Nasal Cannula 3.0 32 Height (Feet): 5 Height (Inches): 5.00 Weight (Pounds): 112 HEENT: mucous membranes moist Respiratory/Chest: lungs clear Cardiovascular: tachycardia Abdomen: soft, non tender Extremities: no edema Skin: ulcers Neurologic/Psychiatric: alert, responsive Microbiology Date/Time Source Procedure Growth Status 01/14/19 03:30 Sputum Gram Stain - Final Resulted 01/14/19 03:30 Sputum Culture - Preliminary Gram Negative Cristiano Resulted Laboratory Tests Test 01/14/19 20:45 01/15/19 04:55 Vancomycin Level Trough 4.3 ug/mL (5.0-12.0) L White Blood Count 5.8 K/UL (4.8-10.8) Red Blood Count 2.11 M/UL (4.70-6.10) L Hemoglobin 6.2 G/DL (14.2-18.0) *L Hematocrit 19.2 % (42.0-52.0) L Mean Corpuscular Volume 91 FL (80-99) Mean Corpuscular Hemoglobin 29.6 PG (27.0-31.0) Mean Corpuscular Hemoglobin Concent 32.5 G/DL (32.0-36.0) Red Cell Distribution Width 17.6 % (11.6-14.8) H Platelet Count 96 K/UL (150-450) L Mean Platelet Volume 8.2 FL (6.5-10.1) Neutrophils (%) (Auto) % (45.0-75.0) Lymphocytes (%) (Auto) % (20.0-45.0) Monocytes (%) (Auto) % (1.0-10.0) Eosinophils (%) (Auto) % (0.0-3.0) Basophils (%) (Auto) % (0.0-2.0) Differential Total Cells Counted 100 Neutrophils % (Manual) 81 % (45-75) H Lymphocytes % (Manual) 10 % (20-45) L Monocytes % (Manual) 6 % (1-10) Eosinophils % (Manual) 3 % (0-3) Basophils % (Manual) 0 % (0-2) Band Neutrophils 0 % (0-8) Platelet Estimate Decreased L Platelet Morphology Normal Hypochromasia 1+ Anisocytosis 1+ Sodium Level 137 MMOL/L (136-145) Potassium Level 3.7 MMOL/L (3.5-5.1) Chloride Level 109 MMOL/L (98-107) H Carbon Dioxide Level 22 MMOL/L (21-32) Anion Gap 6 mmol/L (5-15) Blood Urea Nitrogen 9 mg/dL (7-18) Creatinine 0.7 MG/DL (0.55-1.30) Estimat Glomerular Filtration Rate mL/min (>60) Glucose Level 96 MG/DL (74-106) Calcium Level 7.2 MG/DL (8.5-10.1) L Total Bilirubin 0.3 MG/DL (0.2-1.0) Aspartate Amino Transf (AST/SGOT) 26 U/L (15-37) Alanine Aminotransferase (ALT/SGPT) 20 U/L (12-78) Alkaline Phosphatase 42 U/L (46-116) L Troponin I 0.214 ng/mL (0.000-0.056) Pro-B-Type Natriuretic Peptide 4128 pg/mL (0-125) H Total Protein 4.6 G/DL (6.4-8.2) L Albumin 1.1 G/DL (3.4-5.0) L Globulin 3.5 g/dL Albumin/Globulin Ratio 0.3 (1.0-2.7) L Current Medications Medications (Trade) Dose Ordered Sig/Elder Route PRN Reason Start Time Stop Time Status Last Admin Dose Admin Albuterol/ Ipratropium (Albuterol/ Ipratropium) 3 ml Q4H PRN HHN Shortness of Breath 01/11/19 19:45 01/16/19 19:44 Albuterol/ Ipratropium (Albuterol/ Ipratropium) 3 ml Q4HRT HHN 01/13/19 23:00 01/18/19 22:59 01/15/19 07:17 Dextrose/ Electrolytes 1,000 ml @ 100 mls/hr Q10H IV 01/13/19 19:00 02/12/19 18:59 01/15/19 00:43 Docusate Sodium (Colace) 100 mg DAILY ORAL 01/12/19 09:00 02/11/19 08:59 01/15/19 08:57 Folic Acid (Folate) 1 mg DAILY ORAL 01/12/19 09:00 02/11/19 08:59 01/15/19 08:57 Iron Sucrose 100 mg/Sodium Chloride 60 ml @ 240 mls/hr DAILY IV 01/13/19 09:00 01/17/19 09:14 01/15/19 08:06 Lactobacillus Acidophilus (Culturelle) 1 tab TWICE A DAY ORAL 01/12/19 09:00 02/11/19 08:59 01/15/19 08:57 Pantoprazole (Protonix) 40 mg DAILY ORAL 01/12/19 09:00 02/11/19 08:59 01/15/19 08:58 Piperacillin Sod/ Tazobactam Sod 3.375 gm/Sodium Chloride 110 ml @ 27.5 mls/hr Q8H IVPB 01/12/19 01:00 01/19/19 00:59 01/15/19 08:58 Potassium Chloride (K-Dur) 10 meq DAILY ORAL 01/12/19 09:00 02/11/19 08:59 01/15/19 08:57 Tamsulosin HCl (Flomax) 0.4 mg BEDTIME ORAL 01/11/19 21:00 02/10/19 20:59 01/14/19 20:45 Vancomycin HCl (Vanco rx to dose) 1 ea DAILY PRN MISC Per rx protocol 01/11/19 19:45 02/10/19 19:44 Vancomycin HCl 1 gm/Dextrose 275 ml @ 183.333 mls/hr Q24H IVPB 01/15/19 17:00 01/20/19 16:59 Mike Lazcano MD Jan 15, 2019 10:42
[2019-01-15 12:00] VITALS: BP 113/66
--- NOTE | 2019-01-15 13:45 | NUR ---
NURSE NOTES: Finished administering blood transfusion. No adverse effects.
--- NOTE | 2019-01-15 13:55 | Surgery Progress Note ---
Surgery Progress Note Subjective Additional Comments H/H trending down again. Objective Last 24 Hour Vital Signs Date Time Temp Pulse Resp B/P (MAP) Pulse Ox O2 Delivery O2 Flow Rate FiO2 01/15/19 12:00 98.1 104 20 113/66 (82) 97 01/15/19 12:00 Nasal Cannula 3.0 01/15/19 11:47 105 01/15/19 11:30 99 20 99 Nasal Cannula 2.0 28 01/15/19 11:17 100 20 99 Nasal Cannula 2.0 28 01/15/19 08:00 98.1 95 22 108/60 (76) 97 01/15/19 08:00 Nasal Cannula 3.0 01/15/19 08:00 104 01/15/19 08:00 104 01/15/19 07:25 103 20 99 Nasal Cannula 2.0 28 01/15/19 07:17 98 Nasal Cannula 2.0 28 01/15/19 07:17 Nasal Cannula 2.0 28 01/15/19 07:17 101 20 98 Nasal Cannula 2.0 28 01/15/19 04:00 Nasal Cannula 3.0 01/15/19 04:00 98.1 104 22 103/60 (74) 99 01/15/19 03:33 107 01/15/19 03:06 102 20 100 Nasal Cannula 2.0 28 01/15/19 03:00 99 20 98 Nasal Cannula 2.0 28 01/15/19 00:13 Nasal Cannula 3.0 32 01/15/19 00:12 111 20 97 Nasal Cannula 3.0 32 01/15/19 00:00 98.2 105 20 121/64 (83) 97 01/15/19 00:00 Nasal Cannula 3.0 01/14/19 23:41 108 01/14/19 20:00 Nasal Cannula 3.0 01/14/19 20:00 98.4 103 20 114/63 (80) 94 01/14/19 19:58 107 20 97 Nasal Cannula 3.0 32 01/14/19 19:51 97 Nasal Cannula 3.0 32 01/14/19 19:51 Nasal Cannula 3.0 32 01/14/19 19:47 101 22 97 Nasal Cannula 3.0 32 01/14/19 19:42 107 01/14/19 16:00 97.9 85 22 113/67 (82) 98 01/14/19 16:00 Nasal Cannula 3.0 01/14/19 15:54 96 01/14/19 15:20 Nasal Cannula 3.0 32 01/14/19 15:20 Nasal Cannula 3.0 32 I&O Intake and Output 01/14/19 01/15/19 18:59 06:59 Intake Total 1110.666 ml 1270.0 ml Output Total 300 ml 1600 ml Balance 810.666 ml -330.0 ml IV Total 1110.666 ml 1270.0 ml Output Urine Total 300 ml 1600 ml # Bowel Movements 2 2 Dressing: other Wound: other Drains: other Cardiovascular: RSR Respiratory: clear Abdomen: present bowel sounds, non-distended Extremities: other Laboratory Tests Test 01/14/19 20:45 01/15/19 04:55 Vancomycin Level Trough 4.3 ug/mL (5.0-12.0) L White Blood Count 5.8 K/UL (4.8-10.8) Red Blood Count 2.11 M/UL (4.70-6.10) L Hemoglobin 6.2 G/DL (14.2-18.0) *L Hematocrit 19.2 % (42.0-52.0) L Mean Corpuscular Volume 91 FL (80-99) Mean Corpuscular Hemoglobin 29.6 PG (27.0-31.0) Mean Corpuscular Hemoglobin Concent 32.5 G/DL (32.0-36.0) Red Cell Distribution Width 17.6 % (11.6-14.8) H Platelet Count 96 K/UL (150-450) L Mean Platelet Volume 8.2 FL (6.5-10.1) Neutrophils (%) (Auto) % (45.0-75.0) Lymphocytes (%) (Auto) % (20.0-45.0) Monocytes (%) (Auto) % (1.0-10.0) Eosinophils (%) (Auto) % (0.0-3.0) Basophils (%) (Auto) % (0.0-2.0) Differential Total Cells Counted 100 Neutrophils % (Manual) 81 % (45-75) H Lymphocytes % (Manual) 10 % (20-45) L Monocytes % (Manual) 6 % (1-10) Eosinophils % (Manual) 3 % (0-3) Basophils % (Manual) 0 % (0-2) Band Neutrophils 0 % (0-8) Platelet Estimate Decreased L Platelet Morphology Normal Hypochromasia 1+ Anisocytosis 1+ Sodium Level 137 MMOL/L (136-145) Potassium Level 3.7 MMOL/L (3.5-5.1) Chloride Level 109 MMOL/L (98-107) H Carbon Dioxide Level 22 MMOL/L (21-32) Anion Gap 6 mmol/L (5-15) Blood Urea Nitrogen 9 mg/dL (7-18) Creatinine 0.7 MG/DL (0.55-1.30) Estimat Glomerular Filtration Rate mL/min (>60) Glucose Level 96 MG/DL (74-106) Calcium Level 7.2 MG/DL (8.5-10.1) L Total Bilirubin 0.3 MG/DL (0.2-1.0) Aspartate Amino Transf (AST/SGOT) 26 U/L (15-37) Alanine Aminotransferase (ALT/SGPT) 20 U/L (12-78) Alkaline Phosphatase 42 U/L (46-116) L Troponin I 0.214 ng/mL (0.000-0.056) Pro-B-Type Natriuretic Peptide 4128 pg/mL (0-125) H Total Protein 4.6 G/DL (6.4-8.2) L Albumin 1.1 G/DL (3.4-5.0) L Globulin 3.5 g/dL Albumin/Globulin Ratio 0.3 (1.0-2.7) L Plan Problems: (1) Decubitus skin ulcer Assessment & Plan: patient presented with multiple skin wounds/decubitus. right hip stage 2/3 decubitus ulcer, tatum wound erythema, no fluctuance, skin breakdown in periphery, no drainage, no odor left hip with erythema right buttock partial thickness skin breakdown without underlying defect right great toe with ischemia and breakdown right heel / Achilles tendon with blood blister Tx Plan: was right hip and right buttock wounds daily with NS, apply skin protectant/ hydrogel, apply foam dressing daily turn q2h air soft mattress heel protectors pillow between legs and under knees will follow with recs thank you (2) UGI bleed Assessment & Plan: anemia on admission hx of prior gastritis and gi bleed trend H/H PPI transfuse prn will monitor thank you Josh Hernandez Jan 15, 2019 13:55
[2019-01-15 16:00] VITALS: BP 104/75
--- NOTE | 2019-01-15 16:15 | NUR ---
NURSE NOTES: Dr. Pearl at bedside and aware about patient's dark tarry stool.
--- NOTE | 2019-01-15 16:24 | Pulmonology Progress Note ---
Assessment/Plan Assessment/Plan Pulmonary Progress Note HPI Patient is sent in for decreased oxygen saturation, fevers, noted to have Pneumonia on CXR Improving on AB LE Dupplex negative for DVT The patient is unable to give a history. Apparently patient is a full code. PMH: 1. Severe anemia. 2. Possible gastrointestinal bleed. 3. History of CLL. 4. Hypertension. 5. Prior history of stroke. 6. History of dysphagia. 7. Acute myocardial infarction. Allergies: No Known Allergies All Other Systems: limited Physical Exam Vital Signs Noted General Appearance: thin, Chronically Ill Head: normocephalic Eyes: bilateral eye conjunctivae pale ENT: moist mucus membranes Neck: supple Respiratory: chest non-tender, no respiratory distress, decreased breath sounds Cardiovascular: HS1, HS2, RRR, tachycardia Gastrointestinal: non tender, decreased bowel sounds, scaphoid Rectal: heme positive stool - melena Genitourinary: no CVA tenderness Musculoskeletal: other - Contractures Neurologic: DTRs symmetric, other - Vegetative state with minimal response to pain Psychiatric: depressed affect Skin: pallor, other - Decubiti initial stage III Impression: Left lower lobe pneumonia Lobar pneumonia, unspecified organism NSTEMI (non-ST elevated myocardial infarction) Hypernatremia Severe anemia UGI bleed Plan Upper GI bleed. Cytoptotective agents Pneumonia: Chest x-ray dense left upper and lower lobe infiltrates. CBC with profound anemia. Left shift. Positive troponin. Urinalysis essentially negative. Anemia - TFN PRN, IVF PRN Antibiotics: Zosyn, Vancomycin HHN O2 PRN Aspiration precautions PPX: SCD Laboratory Tests Test 01/11/19 10:20 01/11/19 10:50 White Blood Count 10.7 K/UL (4.8-10.8) Red Blood Count 2.01 M/UL (4.70-6.10) L Hemoglobin 6.3 G/DL (14.2-18.0) *L Hematocrit 19.9 % (42.0-52.0) L Mean Corpuscular Volume 100 FL (80-99) H Mean Corpuscular Hemoglobin 31.2 PG (27.0-31.0) H Mean Corpuscular Hemoglobin Concent 31.4 G/DL (32.0-36.0) L Red Cell Distribution Width 18.2 % (11.6-14.8) H Platelet Count 167 K/UL (150-450) Mean Platelet Volume 6.0 FL (6.5-10.1) L Neutrophils (%) (Auto) % (45.0-75.0) Lymphocytes (%) (Auto) % (20.0-45.0) Monocytes (%) (Auto) % (1.0-10.0) Eosinophils (%) (Auto) % (0.0-3.0) Basophils (%) (Auto) % (0.0-2.0) Differential Total Cells Counted 100 Neutrophils % (Manual) 77 % (45-75) H Lymphocytes % (Manual) 4 % (20-45) L Monocytes % (Manual) 5 % (1-10) Eosinophils % (Manual) 0 % (0-3) Basophils % (Manual) 0 % (0-2) Band Neutrophils 14 % (0-8) H Platelet Estimate Adequate Platelet Morphology Normal Polychromasia Occasional Prothrombin Time 10.0 SEC (9.30-11.50) Prothrombin Time INR 0.9 (0.9-1.1) PTT 29 SEC (23-33) Sodium Level 153 MMOL/L (136-145) H Potassium Level 3.6 MMOL/L (3.5-5.1) Chloride Level 118 MMOL/L (98-107) H Carbon Dioxide Level 24 MMOL/L (21-32) Anion Gap 12 mmol/L (5-15) Blood Urea Nitrogen 35 mg/dL (7-18) H Creatinine 1.1 MG/DL (0.55-1.30) Estimate Glomerular Filtration Rate mL/min (>60) Glucose Level 123 MG/DL (74-106) H Lactic Acid Level 1.20 mmol/L (0.4-2.0) Calcium Level 7.3 MG/DL (8.5-10.1) L Magnesium Level 2.2 MG/DL (1.8-2.4) Total Bilirubin 0.2 MG/DL (0.2-1.0) Aspartate Amino Transferase (AST) 36 U/L (15-37) Alanine Aminotransferase (ALT) 19 U/L (12-78) Alkaline Phosphatase 52 U/L (46-116) Total Creatine Kinase 393 U/L (26-308) H Troponin I 0.250 ng/mL (0.000-0.056) Pro-B-Type Natriuretic Peptide 2179 pg/mL (0-125) H Total Protein 5.7 G/DL (6.4-8.2) L Albumin 1.6 G/DL (3.4-5.0) L Globulin 4.1 g/dL Albumin/Globulin Ratio 0.4 (1.0-2.7) L Urine Color Yellow Urine Appearance Slightly cloudy Urine pH 5 (4.5-8.0) Urine Specific [place] 1.020 (1.005-1.035) Urine Protein 3+ (NEGATIVE) H Urine Glucose (UA) Negative (NEGATIVE) Urine Ketones 1+ (NEGATIVE) H Urine Blood 1+ (NEGATIVE) H Urine Nitrite Negative (NEGATIVE) Urine Bilirubin 1+ (NEGATIVE) H Urine Ictotest Positive (NEGATIVE) Urine Urobilinogen 4 MG/DL (0.0-1.0) H Urine Leukocyte Esterase 1+ (NEGATIVE) H Urine RBC 2-4 /HPF (0 - 0) H Urine WBC 2-4 /HPF (0 - 0) Urine Squamous Epithelial Cells Few /LPF (NONE/OCC) Urine Bacteria Occasional /HPF (NONE) Microbiology Date/Time Source Procedure Growth Status 01/11/19 10:30 Nasal Nares Influenza Types A,B Antigen (ROCIO) - Final Complete EKG: Rate: tachycardiac ST Segments: no acute changes CXR: no pneumothorax, other - Left-sided upper and lower infiltrate, no effusion , LE Dupplex: no DVT, Subjective ROS Limited/Unobtainable: No Allergies: Coded Allergies: No Known Allergies (Unverified , 10/28/18) Objective Last 24 Hour Vital Signs Date Time Temp Pulse Resp B/P (MAP) Pulse Ox O2 Delivery O2 Flow Rate FiO2 01/15/19 15:08 101 20 99 Nasal Cannula 2.0 28 01/15/19 14:54 99 20 97 Nasal Cannula 2.0 28 01/15/19 12:00 98.1 104 20 113/66 (82) 97 01/15/19 12:00 Nasal Cannula 3.0 01/15/19 11:47 105 01/15/19 11:30 99 20 99 Nasal Cannula 2.0 28 01/15/19 11:17 100 20 99 Nasal Cannula 2.0 28 01/15/19 08:00 98.1 95 22 108/60 (76) 97 01/15/19 08:00 Nasal Cannula 3.0 2/24/19 08:00 104 01/15/19 08:00 104 01/15/19 07:25 103 20 99 Nasal Cannula 2.0 28 01/15/19 07:17 98 Nasal Cannula 2.0 28 01/15/19 07:17 Nasal Cannula 2.0 28 01/15/19 07:17 101 20 98 Nasal Cannula 2.0 28 01/15/19 04:00 Nasal Cannula 3.0 01/15/19 04:00 98.1 104 22 103/60 (74) 99 01/15/19 03:33 107 01/15/19 03:06 102 20 100 Nasal Cannula 2.0 28 01/15/19 03:00 99 20 98 Nasal Cannula 2.0 28 01/15/19 00:13 Nasal Cannula 3.0 32 01/15/19 00:12 111 20 97 Nasal Cannula 3.0 32 01/15/19 00:00 98.2 105 20 121/64 (83) 97 01/15/19 00:00 Nasal Cannula 3.0 01/14/19 23:41 108 01/14/19 20:00 Nasal Cannula 3.0 01/14/19 20:00 98.4 103 20 114/63 (80) 94 01/14/19 19:58 107 20 97 Nasal Cannula 3.0 32 01/14/19 19:51 97 Nasal Cannula 3.0 32 01/14/19 19:51 Nasal Cannula 3.0 32 01/14/19 19:47 101 22 97 Nasal Cannula 3.0 32 01/14/19 19:42 107 Intake and Output 01/14/19 01/15/19 19:00 07:00 Intake Total 1010.666 ml 1370.0 ml Output Total 300 ml 1600 ml Balance 710.666 ml -230.0 ml IV Total 1010.666 ml 1370.0 ml Output Urine Total 300 ml 1600 ml # Bowel Movements 2 2 Microbiology Date/Time Source Procedure Growth Status 01/14/19 03:30 Sputum Gram Stain - Final Resulted 01/14/19 03:30 Sputum Culture - Preliminary Gram Negative Cristiano Resulted Laboratory Tests 01/14/19 20:45: Vancomycin Level Trough 4.3L 01/15/19 04:55: White Blood Count 5.8, Red Blood Count 2.11L, Hemoglobin 6.2*L, Hematocrit 19.2L , Mean Corpuscular Volume 91, Mean Corpuscular Hemoglobin 29.6, Mean Corpuscular Hemoglobin Concent 32.5, Red Cell Distribution Width 17.6H, Platelet Count 96L, Mean Platelet Volume 8.2, Neutrophils (%) (Auto) , Lymphocytes (%) (Auto) , Monocytes (%) (Auto) , Eosinophils (%) (Auto) , Basophils (%) (Auto) , Differential Total Cells Counted 100, Neutrophils % ( Manual) 81H, Lymphocytes % (Manual) 10L, Monocytes % (Manual) 6, Eosinophils % ( Manual) 3, Basophils % (Manual) 0, Band Neutrophils 0, Platelet Estimate DecreasedL, Platelet Morphology Normal, Hypochromasia 1+, Anisocytosis 1+, Sodium Level 137, Potassium Level 3.7, Chloride Level 109H, Carbon Dioxide Level 22, Anion Gap 6, Blood Urea Nitrogen 9, Creatinine 0.7, Estimat Glomerular Filtration Rate , Glucose Level 96, Calcium Level 7.2L, Total Bilirubin 0.3, Aspartate Amino Transf (AST/SGOT) 26, Alanine Aminotransferase ( ALT/SGPT) 20, Alkaline Phosphatase 42L, Troponin I 0.214H, Pro-B-Type Natriuretic Peptide 4128H, Total Protein 4.6L, Albumin 1.1L, Globulin 3.5, Albumin/Globulin Ratio 0.3L Current Medications Medications (Trade) Dose Ordered Sig/Elder Route PRN Reason Start Time Stop Time Status Last Admin Dose Admin Albuterol/ Ipratropium (Albuterol/ Ipratropium) 3 ml Q4H PRN HHN Shortness of Breath 01/11/19 19:45 01/16/19 19:44 Albuterol/ Ipratropium (Albuterol/ Ipratropium) 3 ml Q4HRT HHN 01/13/19 23:00 01/18/19 22:59 01/15/19 14:53 Dextrose/ Electrolytes 1,000 ml @ 100 mls/hr Q10H IV 01/13/19 19:00 02/12/19 18:59 01/15/19 11:02 Docusate Sodium (Colace) 100 mg DAILY ORAL 01/12/19 09:00 02/11/19 08:59 01/15/19 08:57 Folic Acid (Folate) 1 mg DAILY ORAL 01/12/19 09:00 02/11/19 08:59 01/15/19 08:57 Iron Sucrose 100 mg/Sodium Chloride 60 ml @ 240 mls/hr DAILY IV 01/13/19 09:00 01/17/19 09:14 01/15/19 08:06 Lactobacillus Acidophilus (Culturelle) 1 tab TWICE A DAY ORAL 01/12/19 09:00 02/11/19 08:59 01/15/19 08:57 Pantoprazole (Protonix) 40 mg DAILY ORAL 01/12/19 09:00 02/11/19 08:59 01/15/19 08:58 Piperacillin Sod/ Tazobactam Sod 3.375 gm/Sodium Chloride 110 ml @ 27.5 mls/hr Q8H IVPB 01/12/19 01:00 01/19/19 00:59 01/15/19 16:16 Potassium Chloride (K-Dur) 10 meq DAILY ORAL 01/12/19 09:00 02/11/19 08:59 01/15/19 08:57 Tamsulosin HCl (Flomax) 0.4 mg BEDTIME ORAL 01/11/19 21:00 02/10/19 20:59 01/14/19 20:45 Vancomycin HCl (Vanco rx to dose) 1 ea DAILY PRN MISC Per rx protocol 01/11/19 19:45 02/10/19 19:44 Vancomycin HCl 1 gm/Dextrose 275 ml @ 183.333 mls/hr Q24H IVPB 01/15/19 17:00 01/20/19 16:59 01/15/19 16:15 Arcenio Mandujano MD Jan 15, 2019 16:24
[2019-01-15] MEDS ORDERED: Vancomycin 1 GM in D5W 275 ML IVPB SCH (17:00)
--- NOTE | 2019-01-15 19:15 | NUR ---
HAND-OFF: Report given to SOCORRO De Dios. Patient stable.
--- NOTE | 2019-01-15 19:30 | NUR ---
NURSE NOTES:Received pt, awake but non verbal, on o2 at 3l/nc resp. even and spont., 02 sat >92%- , ST on the monitor with PACs bp stable , afebrile. IVF D5W + KCL 20meq at 100ml/hr, infusing well per left hand Site atraumatic.Pt with multiple skin breakdown to lower extremities and buttocks with optifoam drsg. dry and intact. Pls see pictures.Turned q 2hrs prn with good skin care done.-Diuresing well via condom cath. Monitor I and O. Monitor lytes.- Will continue to monitor.
[2019-01-15 20:00] VITALS: BP 116/72
--- NOTE | 2019-01-15 20:01 | NUR ---
NURSE NOTES:Receiving resp. Tx from Rt, Tolerating well,.
[2019-01-15] MEDS: Tamsulosin 0.4mg cap ORAL SCH (21:26)
[2019-01-16] VITALS: BP 129/81
--- NOTE | 2019-01-16 01:45 | Progress Note ---
DATE: 01/15/2019 CARDIOLOGY PROGRESS NOTE SUBJECTIVE: The patient continues to have congestion, hypoxia, and shortness of breath. Monitored rhythm, sinus tachycardia. OBJECTIVE: VITAL SIGNS: Blood pressure 113/66, pulse 104, respiratory rate 20, and afebrile. LUNGS: Coarse breath sounds. Scattered rales. HEART: Regular rhythm. Rapid rate. Normal S1 and S2. 1/6 systolic ejection murmur at the base. ABDOMEN: Soft. EXTREMITIES: No edema. LABORATORY DATA: Chest x-ray with left-sided infiltrate. White count 5.8 and hemoglobin 6.2. Troponin 0.2, BUN 9, creatinine 0.7, pro-natriuretic peptide 4100, and albumin 1.1. IMPRESSION: 1. Acute myocardial infarction. 2. Acute on chronic diastolic congestive heart failure. 3. Severe aortic stenosis. 4. Severe protein-calorie malnutrition. 5. Healthcare acquired pneumonia. 6. Secondary sinus tachycardia. 7. Hypomagnesemia. 8. Anemia, transfusion-dependent. 9. History of chronic lymphocytic leukemia. PLAN: 1. Antimicrobials. 2. Await final sputum cultures. 3. DVT and stress ulcer prophylaxis. 4. Diuresis. 5. Advance anti-failure and antianginal regimen. 6. Packed red blood cell transfusion. Arcenio Schulz M.D. DR: OSIEL JOB#: [id number] CC:
[2019-01-16] MEDS: Piperacillin/Tazobactam 3.375 GM in NS 110 ML IVPB SCH ×2 (03:12→08:46)
[2019-01-16] MEDS: Albuterol/Ipratropium 3ml neb HHN SCH ×2 (03:27→07:41)
[2019-01-16 04:00] VITALS: BP 112/60
[2019-01-16 05:08] LABS: HEMATOCRIT 20.3 % (42.0-52.0); MEAN CORPUSCULAR VOLUME 91 FL (80-99); PLATELET COUNT 89 K/UL (150-450); RED BLOOD COUNT 2.23 M/UL (4.70-6.10); WHITE BLOOD COUNT 4.3 K/UL (4.8-10.8)
[2019-01-16 05:10] LABS: HEMOGLOBIN 6.7 G/DL (14.2-18.0)
--- NOTE | 2019-01-16 05:30 | NUR ---
NURSE NOTES:Called dr Toya Schulz with pts Hgb 6.7- awaiting for md to call back
[2019-01-16 06:00] LABS: ALANINE AMINOTRANSFERASE 20 U/L (12-78); ALBUMIN 1.1 G/DL (3.4-5.0); ALBUMIN/GLOBULIN RATIO 0.3 (1.0-2.7); ALKALINE PHOSPHATASE 41 U/L (46-116); ANION GAP 6 mmol/L (5-15); ASPARTATE AMINO TRANSFERASE 20 U/L (15-37); BILIRUBIN,TOTAL 0.2 MG/DL (0.2-1.0); BLOOD UREA NITROGEN 7 mg/dL (7-18); CALCIUM 7.4 MG/DL (8.5-10.1); CARBON DIOXIDE 25 MMOL/L (21-32); CHLORIDE 108 MMOL/L (98-107); CREATININE 0.5 MG/DL (0.55-1.30); POTASSIUM 3.9 MMOL/L (3.5-5.1); SODIUM 139 MMOL/L (136-145)
--- NOTE | 2019-01-16 06:00 | NUR ---
NURSE NOTES:Pt put out 2600 yellowish urine after lasix 40 mg ivp was given.
--- NOTE | 2019-01-16 06:46 | NUR ---
NURSE NOTES:Dr Pearl called back with orders to transfuse 2 uPRBC and also metropolol xl 25mg po daily for pts tachycardia.
[2019-01-16] MEDS: D5W w/KCl 20mEq 1,000 ML IV SCH ×2 (07:00→17:39)
--- NOTE | 2019-01-16 07:28 | NUR ---
HAND-OFF: Report given to Michael Johnson RN.
--- NOTE | 2019-01-16 07:30 | NUR ---
NURSE NOTES: Received report from SOCORRO De Dios. Patient is resting in bed in stable condition. No s/sx of SOB, breathing is even and unlabored at this time. Observed no presence of pain or discomfort at this time. Bed is in lowest position, brakes engaged. Call light is kept within easy reach. Will continue to monitor patient.
[2019-01-16 08:00] VITALS: BP 103/64
[2019-01-16] MEDS: Docusate 100mg cap ORAL SCH (08:20)
--- NOTE | 2019-01-16 08:30 | NUR ---
NURSE NOTES: Dr. Pearl at nurse station. Informed MD of speech therapist recommendations of NPO and NGT insertion. Dr. Pearl acknowledged ordered to keep diet order of cardiac diet pureed moist at this time have one to one feeder. Noted. Dr. Diallo ordered video swallow evaluation. Noted. Will continue to monitor patient.
[2019-01-16] MEDS: Iron Sucrose 100 MG in NS 55 ML IV SCH (08:31)
[2019-01-16] MEDS: Lactobacillus-GG tablet ORAL SCH ×2 (08:32→17:39)
--- NOTE | 2019-01-16 08:48 | General Progress Note ---
Assessment/Plan Problem List: (1) CML (chronic myelocytic leukemia) ICD Codes: C92.10 - Chronic myeloid leukemia, BCR/ABL-positive, not having achieved remission SNOMED: 42355874 (2) Left upper lobe pneumonia ICD Codes: J18.1 - Lobar pneumonia, unspecified organism SNOMED: 048925103 Qualifiers: Qualified Codes: J18.1 - Lobar pneumonia, unspecified organism (3) Severe anemia ICD Codes: D64.9 - Anemia, unspecified SNOMED: 289218269 (4) CAD/VA (5) PNEUMONIA (6) Aortic stenosis, severe ICD Codes: I35.0 - Nonrheumatic aortic (valve) stenosis SNOMED: 87374659 Status: stable Assessment/Plan cont resp care iv abx monitor cxr video swallow transfuse check stool ob extensive GI workup negative at [facility] Subjective ROS Limited/Unobtainable: No Constitutional: Reports: malaise, weakness HEENT: Reports: no symptoms Cardiovascular: Reports: no symptoms Respiratory: Reports: cough Gastrointestinal/Abdominal: Reports: no symptoms Genitourinary: Reports: no symptoms Neurologic/Psychiatric: Reports: pre-existing deficit Endocrine: Reports: no symptoms Hematologic/Lymphatic: Reports: anemia Allergies: Coded Allergies: No Known Allergies (Unverified , 10/28/18) All Systems: reviewed and negative except above Subjective decrease h/h noted. no obvious bleeding. on abx. Objective Last 24 Hour Vital Signs Date Time Temp Pulse Resp B/P (MAP) Pulse Ox O2 Delivery O2 Flow Rate FiO2 01/16/19 08:35 104 103/64 01/16/19 07:25 99 20 100 Nasal Cannula 2.0 28 01/16/19 07:15 Nasal Cannula 22.0 28 01/16/19 07:15 100 Nasal Cannula 2.0 28 01/16/19 07:15 99 14 100 Nasal Cannula 2.0 28 01/16/19 04:00 98.4 101 20 112/60 (77) 99 01/16/19 04:00 Nasal Cannula 3.0 01/16/19 03:38 98 20 97 Nasal Cannula 2.0 28 01/16/19 03:28 94 18 94 Nasal Cannula 2.0 28 01/16/19 03:21 115 01/16/19 00:00 Nasal Cannula 3.0 01/16/19 00:00 91 01/16/19 00:00 98.6 104 18 129/81 (97) 99 01/15/19 23:41 103 20 99 Nasal Cannula 2.0 28 01/15/19 23:31 98 20 97 Nasal Cannula 2.0 28 01/15/19 20:00 106 01/15/19 20:00 98.7 104 20 116/72 (87) 98 01/15/19 20:00 Nasal Cannula 3.0 01/15/19 19:31 106 20 99 Nasal Cannula 2.0 28 01/15/19 19:21 98 20 98 Nasal Cannula 2.0 28 01/15/19 19:21 98 Nasal Cannula 2.0 28 01/15/19 19:21 Nasal Cannula 2.0 28 01/15/19 18:00 Nasal Cannula 3.0 01/15/19 16:00 Nasal Cannula 3.0 01/15/19 16:00 98.1 107 24 104/75 (85) 97 01/15/19 15:38 104 01/15/19 15:08 101 20 99 Nasal Cannula 2.0 28 01/15/19 14:54 99 20 97 Nasal Cannula 2.0 28 01/15/19 12:00 98.1 104 20 113/66 (82) 97 01/15/19 12:00 Nasal Cannula 3.0 01/15/19 11:47 105 01/15/19 11:30 99 20 99 Nasal Cannula 2.0 28 01/15/19 11:17 100 20 99 Nasal Cannula 2.0 28 Intake and Output 01/15/19 01/16/19 19:00 07:00 Intake Total 1117.5826 ml 1060 ml Output Total 1250 ml 4400 ml Balance -132.4174 ml -3340 ml Intake Oral 60 ml IV Total 867.5826 ml 1000 ml Blood Product 250 ml Output Urine Total 1250 ml 4400 ml # Bowel Movements 2 3 Laboratory Tests 01/16/19 02:35: White Blood Count 4.3L, Red Blood Count 2.23L, Hemoglobin 6.7*L, Hematocrit 20.3L, Mean Corpuscular Volume 91, Mean Corpuscular Hemoglobin 30.2, Mean Corpuscular Hemoglobin Concent 33.2, Red Cell Distribution Width 16.0H, Platelet Count 89L, Mean Platelet Volume 8.3, Neutrophils (%) (Auto) , Lymphocytes (%) (Auto) , Monocytes (%) (Auto) , Eosinophils (%) (Auto) , Basophils (%) (Auto) , Differential Total Cells Counted 100, Neutrophils % ( Manual) 66, Lymphocytes % (Manual) 23, Monocytes % (Manual) 4, Eosinophils % ( Manual) 7H, Basophils % (Manual) 0, Band Neutrophils 0, Platelet Estimate DecreasedL, Platelet Morphology Normal, Hypochromasia 1+, Anisocytosis 1+, Sodium Level 139, Potassium Level 3.9, Chloride Level 108H, Carbon Dioxide Level 25, Anion Gap 6, Blood Urea Nitrogen 7, Creatinine 0.5L, Estimat Glomerular Filtration Rate , Glucose Level 101, Calcium Level 7.4L, Magnesium Level 1.8, Total Bilirubin 0.2, Aspartate Amino Transf (AST/SGOT) 20, Alanine Aminotransferase (ALT/SGPT) 20, Alkaline Phosphatase 41L, Troponin I 0.142H, Pro -B-Type Natriuretic Peptide 2787H, Total Protein 4.5L, Albumin 1.1L, Globulin 3.4, Albumin/Globulin Ratio 0.3L Height (Feet): 5 Height (Inches): 5.00 Weight (Pounds): 112 General Appearance: WD/WN, alert Neck: supple Cardiovascular: normal peripheral pulses, normal rate, regular rhythm Respiratory/Chest: chest wall non-tender, lungs clear, normal breath sounds, no respiratory distress, no accessory muscle use Abdomen: normal bowel sounds, non tender, soft, no organomegaly Edema: no edema noted Arm (L), no edema noted Arm (R), no edema noted Leg (L), no edema noted Leg (R), no edema noted Pedal (L), no edema noted Pedal (R), no edema noted Generalized Camron Pearl MD Jan 16, 2019 08:48
[2019-01-16] MEDS ORDERED: Metoprolol Succinate XL 25mg tab ORAL ONE (09:00)
[2019-01-16] MEDS: Pantoprazole Inj IVP SCH ×2 (09:15→20:09)
[2019-01-16] MEDS ORDERED: Levalbuterol Inh UD 1.25mg/0.5ml HHN PRN (09:15)
--- NOTE | 2019-01-16 10:47 | NUR ---
RD ASSESSMENT & RECOMMENDATIONS SEE CARE ACTIVITY FOR COMPLETE ASSESSMENT DAILY ESTIMATED NEEDS: Needs based on Underweight, 51kg 30-35 kcals/kg 0562-3003 total kcals 1-1.5 g protein/kg 51-76 g total protein 25-30 mL/kg 8429-6705 total fluid mLs NUTRITION DIAGNOSIS: * Swallowing difficulty R/T dysphagia, h/o CVA as evidenced by OPHTHALMIC MEDICAL TECHNOLOGIST eval, recs for temp non oral feeds. * Altered nutrition related lab values R/T clinical condition as evidenced by critically low hgb (6.3* -> 7.6-> 6.7*), elev BNP (2179), elev Na and BUN -> now all wnl. * Increased kcal and protein needs r/t underweight status as evidenced by pt w generalized moderate to severe wasting, BMI underweight per guidelines, 73% of Yeso Body Weight. CURRENT DIET:CARDIAC, pureed moist PO DIET RECOMMENDATIONS: IF SAFE FOR PO -> LOW NA/ texture per OPHTHALMIC MEDICAL TECHNOLOGIST ENTERAL NUTRITION RECOMMENDATIONS: Osmolite 1.2 @55ml/hr x24 hrs to provide 1320ml, 1584 kcal, 73g prot, 1082ml free H2O - IF PT IS NOT SAFE FOR ORAL FEEDS AND TF PART OF POC, OBTAIN GI ACCESS - Initiate Osmolite 1.2 @ 25ml for 6-8 hrs - Advance as tolerated 10ml/hr q4-6 hrs to goal - Flush per MD/ HOB over 30 degrees ADDITIONAL RECOMMENDATIONS: * CALIBRATED bedscale wt for accurate CBW * Weekly wts given underweight status * Monitor OPHTHALMIC MEDICAL TECHNOLOGIST eval and rec- PO vs TF? * Rec WC eval- multiple wound photos * Monitor LYTES, BG daily w/ TF
[2019-01-16 11:53] VITALS: BP 120/81
--- NOTE | 2019-01-16 12:37 | Infectious Diseases Prog Note ---
Assessment/Plan Assessment/Plan A; 1. Community-acquired pneumonia versus aspiration pneumonia. 2. CLL. 3. Hypertension. 4. Positive blood culture with gram-positive rods maybe a contaminant 5. Aortic stenosis. 6. Coronary artery disease. 7. COPD. 8. CVA. 9. Dementia. 10. GERD. 11. Prostatic hypertrophy. 12. Dysphagia. 13. anemia, getting blood transfusion P: 1. Discontinue IV vancomycin and Zosyn. 2. Start on Cefepime Subjective ROS Limited/Unobtainable: Yes Allergies: Coded Allergies: No Known Allergies (Unverified , 10/28/18) Objective Vital Signs Last 24 Hour Vital Signs Date Time Temp Pulse Resp B/P (MAP) Pulse Ox O2 Delivery O2 Flow Rate FiO2 01/16/19 12:00 Nasal Cannula 3.0 01/16/19 11:53 98.8 101 20 120/81 (94) 100 01/16/19 08:35 104 103/64 01/16/19 08:00 98.5 106 22 103/64 (77) 99 01/16/19 08:00 Nasal Cannula 3.0 01/16/19 08:00 104 01/16/19 07:25 99 20 100 Nasal Cannula 2.0 28 01/16/19 07:15 Nasal Cannula 22.0 28 01/16/19 07:15 100 Nasal Cannula 2.0 28 01/16/19 07:15 99 14 100 Nasal Cannula 2.0 28 01/16/19 04:00 98.4 101 20 112/60 (77) 99 01/16/19 04:00 Nasal Cannula 3.0 01/16/19 03:38 98 20 97 Nasal Cannula 2.0 28 01/16/19 03:28 94 18 94 Nasal Cannula 2.0 28 01/16/19 03:21 115 01/16/19 00:00 Nasal Cannula 3.0 01/16/19 00:00 91 01/16/19 00:00 98.6 104 18 129/81 (97) 99 01/15/19 23:41 103 20 99 Nasal Cannula 2.0 28 01/15/19 23:31 98 20 97 Nasal Cannula 2.0 28 01/15/19 20:00 106 01/15/19 20:00 98.7 104 20 116/72 (87) 98 01/15/19 20:00 Nasal Cannula 3.0 01/15/19 19:31 106 20 99 Nasal Cannula 2.0 28 01/15/19 19:21 98 20 98 Nasal Cannula 2.0 28 01/15/19 19:21 98 Nasal Cannula 2.0 28 01/15/19 19:21 Nasal Cannula 2.0 28 01/15/19 18:00 Nasal Cannula 3.0 01/15/19 16:00 Nasal Cannula 3.0 01/15/19 16:00 98.1 107 24 104/75 (85) 97 01/15/19 15:38 104 01/15/19 15:08 101 20 99 Nasal Cannula 2.0 28 01/15/19 14:54 99 20 97 Nasal Cannula 2.0 28 Height (Feet): 5 Height (Inches): 5.00 Weight (Pounds): 112 General Appearance: cachetic HEENT: mucous membranes moist Respiratory/Chest: lungs clear, other - oxygen by nasal cannula Cardiovascular: tachycardia Abdomen: soft, non tender Extremities: no edema Neurologic/Psychiatric: alert, responsive Microbiology Date/Time Source Procedure Growth Status 01/14/19 03:30 Sputum Gram Stain - Final Complete 01/14/19 03:30 Sputum Culture - Final Escherichia Coli Usual Respiratory Shawna Complete Laboratory Tests Test 01/16/19 02:35 White Blood Count 4.3 K/UL (4.8-10.8) L Red Blood Count 2.23 M/UL (4.70-6.10) L Hemoglobin 6.7 G/DL (14.2-18.0) *L Hematocrit 20.3 % (42.0-52.0) L Mean Corpuscular Volume 91 FL (80-99) Mean Corpuscular Hemoglobin 30.2 PG (27.0-31.0) Mean Corpuscular Hemoglobin Concent 33.2 G/DL (32.0-36.0) Red Cell Distribution Width 16.0 % (11.6-14.8) H Platelet Count 89 K/UL (150-450) L Mean Platelet Volume 8.3 FL (6.5-10.1) Neutrophils (%) (Auto) % (45.0-75.0) Lymphocytes (%) (Auto) % (20.0-45.0) Monocytes (%) (Auto) % (1.0-10.0) Eosinophils (%) (Auto) % (0.0-3.0) Basophils (%) (Auto) % (0.0-2.0) Differential Total Cells Counted 100 Neutrophils % (Manual) 66 % (45-75) Lymphocytes % (Manual) 23 % (20-45) Monocytes % (Manual) 4 % (1-10) Eosinophils % (Manual) 7 % (0-3) H Basophils % (Manual) 0 % (0-2) Band Neutrophils 0 % (0-8) Platelet Estimate Decreased L Platelet Morphology Normal Hypochromasia 1+ Anisocytosis 1+ Sodium Level 139 MMOL/L (136-145) Potassium Level 3.9 MMOL/L (3.5-5.1) Chloride Level 108 MMOL/L (98-107) H Carbon Dioxide Level 25 MMOL/L (21-32) Anion Gap 6 mmol/L (5-15) Blood Urea Nitrogen 7 mg/dL (7-18) Creatinine 0.5 MG/DL (0.55-1.30) L Estimat Glomerular Filtration Rate mL/min (>60) Glucose Level 101 MG/DL (74-106) Calcium Level 7.4 MG/DL (8.5-10.1) L Magnesium Level 1.8 MG/DL (1.8-2.4) Total Bilirubin 0.2 MG/DL (0.2-1.0) Aspartate Amino Transf (AST/SGOT) 20 U/L (15-37) Alanine Aminotransferase (ALT/SGPT) 20 U/L (12-78) Alkaline Phosphatase 41 U/L (46-116) L Troponin I 0.142 ng/mL (0.000-0.056) Pro-B-Type Natriuretic Peptide 2787 pg/mL (0-125) H Total Protein 4.5 G/DL (6.4-8.2) L Albumin 1.1 G/DL (3.4-5.0) L Globulin 3.4 g/dL Albumin/Globulin Ratio 0.3 (1.0-2.7) L Current Medications Medications (Trade) Dose Ordered Sig/Elder Route PRN Reason Start Time Stop Time Status Last Admin Dose Admin Dextrose/ Electrolytes 1,000 ml @ 100 mls/hr Q10H IV 01/13/19 19:00 02/12/19 18:59 01/15/19 21:27 Folic Acid (Folate) 1 mg DAILY ORAL 01/12/19 09:00 02/11/19 08:59 01/16/19 08:32 Furosemide (Lasix) 40 mg ONCE IV 01/16/19 12:28 01/16/19 13:30 Iron Sucrose 100 mg/Sodium Chloride 60 ml @ 240 mls/hr DAILY IV 01/13/19 09:00 01/17/19 09:14 01/16/19 08:31 Lactobacillus Acidophilus (Culturelle) 1 tab TWICE A DAY ORAL 01/12/19 09:00 02/11/19 08:59 01/16/19 08:32 Levalbuterol HCl (Xopenex) 0.63 mg QIDPRN PRN HHN Shortness of Breath 01/16/19 09:15 01/21/19 09:14 Metoprolol Tartrate (Lopressor) 25 mg Q12HR ORAL 01/16/19 12:45 02/15/19 12:44 UNV Pantoprazole (Protonix) 40 mg EVERY 12 HOURS IVP 01/16/19 09:15 02/15/19 09:14 Piperacillin Sod/ Tazobactam Sod 3.375 gm/Sodium Chloride 110 ml @ 27.5 mls/hr Q8H IVPB 01/12/19 01:00 01/19/19 00:59 01/16/19 03:12 Potassium Chloride (K-Dur) 10 meq DAILY ORAL 01/12/19 09:00 02/11/19 08:59 01/15/19 08:57 Tamsulosin HCl (Flomax) 0.4 mg BEDTIME ORAL 01/11/19 21:00 02/10/19 20:59 01/15/19 21:26 Vancomycin HCl (Vanco rx to dose) 1 ea DAILY PRN MISC Per rx protocol 01/11/19 19:45 02/10/19 19:44 Vancomycin HCl 1 gm/Dextrose 275 ml @ 183.333 mls/hr Q24H IVPB 01/15/19 17:00 01/20/19 16:59 01/15/19 16:15 Mike Lazcano MD Jan 16, 2019 12:37
[2019-01-16] MEDS: Metoprolol 25mg tab ORAL SCH ×2 (12:41→20:09)
[2019-01-16] MEDS: Cefepime HCl 1 GM in D5W 55 ML IVPB SCH (14:37)
--- NOTE | 2019-01-16 14:46 | Surgery Progress Note ---
Surgery Progress Note Subjective Additional Comments transfused prbc. remains anemic. otherwise unchanged Objective Last 24 Hour Vital Signs Date Time Temp Pulse Resp B/P (MAP) Pulse Ox O2 Delivery O2 Flow Rate FiO2 01/16/19 12:41 101 120/81 01/16/19 12:00 121 01/16/19 12:00 Nasal Cannula 3.0 01/16/19 11:53 98.8 101 20 120/81 (94) 100 01/16/19 08:35 104 103/64 01/16/19 08:00 98.5 106 22 103/64 (77) 99 01/16/19 08:00 Nasal Cannula 3.0 01/16/19 08:00 104 01/16/19 07:25 99 20 100 Nasal Cannula 2.0 28 01/16/19 07:15 Nasal Cannula 22.0 28 01/16/19 07:15 100 Nasal Cannula 2.0 28 01/16/19 07:15 99 14 100 Nasal Cannula 2.0 28 01/16/19 04:00 98.4 101 20 112/60 (77) 99 01/16/19 04:00 Nasal Cannula 3.0 01/16/19 03:38 98 20 97 Nasal Cannula 2.0 28 01/16/19 03:28 94 18 94 Nasal Cannula 2.0 28 01/16/19 03:21 115 01/16/19 00:00 Nasal Cannula 3.0 01/16/19 00:00 91 01/16/19 00:00 98.6 104 18 129/81 (97) 99 01/15/19 23:41 103 20 99 Nasal Cannula 2.0 28 01/15/19 23:31 98 20 97 Nasal Cannula 2.0 28 01/15/19 20:00 106 01/15/19 20:00 98.7 104 20 116/72 (87) 98 01/15/19 20:00 Nasal Cannula 3.0 01/15/19 19:31 106 20 99 Nasal Cannula 2.0 28 01/15/19 19:21 98 20 98 Nasal Cannula 2.0 28 01/15/19 19:21 98 Nasal Cannula 2.0 28 01/15/19 19:21 Nasal Cannula 2.0 28 01/15/19 18:00 Nasal Cannula 3.0 01/15/19 16:00 Nasal Cannula 3.0 01/15/19 16:00 98.1 107 24 104/75 (85) 97 01/15/19 15:38 104 01/15/19 15:08 101 20 99 Nasal Cannula 2.0 28 01/15/19 14:54 99 20 97 Nasal Cannula 2.0 28 I&O Intake and Output 01/15/19 01/16/19 18:59 06:59 Intake Total 1217.5826 ml 1060 ml Output Total 1250 ml 4400 ml Balance -32.4174 ml -3340 ml Intake Oral 60 ml IV Total 967.5826 ml 1000 ml Blood Product 250 ml Output Urine Total 1250 ml 4400 ml # Bowel Movements 2 3 Dressing: other Wound: other Drains: other Cardiovascular: RSR Respiratory: clear Abdomen: soft, present bowel sounds, non-distended Extremities: other Laboratory Tests Test 01/16/19 02:35 White Blood Count 4.3 K/UL (4.8-10.8) L Red Blood Count 2.23 M/UL (4.70-6.10) L Hemoglobin 6.7 G/DL (14.2-18.0) *L Hematocrit 20.3 % (42.0-52.0) L Mean Corpuscular Volume 91 FL (80-99) Mean Corpuscular Hemoglobin 30.2 PG (27.0-31.0) Mean Corpuscular Hemoglobin Concent 33.2 G/DL (32.0-36.0) Red Cell Distribution Width 16.0 % (11.6-14.8) H Platelet Count 89 K/UL (150-450) L Mean Platelet Volume 8.3 FL (6.5-10.1) Neutrophils (%) (Auto) % (45.0-75.0) Lymphocytes (%) (Auto) % (20.0-45.0) Monocytes (%) (Auto) % (1.0-10.0) Eosinophils (%) (Auto) % (0.0-3.0) Basophils (%) (Auto) % (0.0-2.0) Differential Total Cells Counted 100 Neutrophils % (Manual) 66 % (45-75) Lymphocytes % (Manual) 23 % (20-45) Monocytes % (Manual) 4 % (1-10) Eosinophils % (Manual) 7 % (0-3) H Basophils % (Manual) 0 % (0-2) Band Neutrophils 0 % (0-8) Platelet Estimate Decreased L Platelet Morphology Normal Hypochromasia 1+ Anisocytosis 1+ Sodium Level 139 MMOL/L (136-145) Potassium Level 3.9 MMOL/L (3.5-5.1) Chloride Level 108 MMOL/L (98-107) H Carbon Dioxide Level 25 MMOL/L (21-32) Anion Gap 6 mmol/L (5-15) Blood Urea Nitrogen 7 mg/dL (7-18) Creatinine 0.5 MG/DL (0.55-1.30) L Estimat Glomerular Filtration Rate mL/min (>60) Glucose Level 101 MG/DL (74-106) Calcium Level 7.4 MG/DL (8.5-10.1) L Magnesium Level 1.8 MG/DL (1.8-2.4) Total Bilirubin 0.2 MG/DL (0.2-1.0) Aspartate Amino Transf (AST/SGOT) 20 U/L (15-37) Alanine Aminotransferase (ALT/SGPT) 20 U/L (12-78) Alkaline Phosphatase 41 U/L (46-116) L Troponin I 0.142 ng/mL (0.000-0.056) Pro-B-Type Natriuretic Peptide 2787 pg/mL (0-125) H Total Protein 4.5 G/DL (6.4-8.2) L Albumin 1.1 G/DL (3.4-5.0) L Globulin 3.4 g/dL Albumin/Globulin Ratio 0.3 (1.0-2.7) L Plan Problems: (1) Decubitus skin ulcer Assessment & Plan: patient presented with multiple skin wounds/decubitus. right hip stage 2/3 decubitus ulcer, tatum wound erythema, no fluctuance, skin breakdown in periphery, no drainage, no odor left hip with erythema right buttock partial thickness skin breakdown without underlying defect right great toe with ischemia and breakdown right heel / Achilles tendon with blood blister Tx Plan: was right hip and right buttock wounds daily with NS, apply skin protectant/ hydrogel, apply foam dressing daily turn q2h air soft mattress heel protectors pillow between legs and under knees will follow with recs thank you (2) UGI bleed Assessment & Plan: anemia on admission hx of prior gastritis and gi bleed trend H/H PPI transfuse prn will monitor thank you Josh Hernandez Jan 16, 2019 14:46
[2019-01-16 16:00] VITALS: BP 106/70
--- NOTE | 2019-01-16 18:15 | NUR ---
NURSE NOTES: Dr. Schulz at nurse station, informed MD that patient is currently sinus tachycardia with HR of 120. Dr. Schulz acknowledged, no new orders given at this time. Will continue to monitor patient.
--- NOTE | 2019-01-16 18:35 | NUR ---
NURSE NOTES: 2 units of PRBC successfully transfused. No adverse reactions noted. Will continue to monitor patient.
--- NOTE | 2019-01-16 19:10 | NUR ---
HAND-OFF: Report given to SOCORRO Fisher.
--- NOTE | 2019-01-16 19:10 | NUR ---
NURSE NOTES: Report received from SOCORRO Rodriguez. Patient seen in bed in semi null position. Alert, but non verbal. On oxygen 2 L/min via NC, sp02 is 98%. No S/Sx of pain is present via FLACC scale. IV site is to left wrist and is intact. IV fluid of D5W with 20mEqK is running at 100cc/hr. Condom cath present and is intact. Bed is in lowest position. Call light is within easy reach while in bed. Will continue to monitor.
--- NOTE | 2019-01-16 19:14 | NUR ---
CASE MANAGEMENT: REVIEW SI: PNA . NSTEMI . ANEMIA . UGI BLEED T 98.2 HR 121 RR 20 BP 106/70 SAT 99% NC/3L WBC 4.3 H/H 6.7/20.3 TROPONIN I 0.142 IS: CEFEPIME IV Q24HR LOPRESSOR PO Q12HR PROTONIX IV Q12HR D5W w/KCl IVF@ 100ML/HR VENOFER IV QD K-DUR PO QD VIDEO SWALLOW EVAL TRANSFUSED PRBC TRANSFUSE PRN STEP DOWN UNIT STATUS DCP: PATIENT IS FROM [facility]
[2019-01-16 20:00] VITALS: BP 105/59
[2019-01-16] MEDS: Tamsulosin 0.4mg cap ORAL SCH (20:09)
--- NOTE | 2019-01-16 20:15 | Progress Note ---
CARDIOLOGY PROGRESS NOTE DATE: 01/16/2019 SUBJECTIVE: The patient continues to have episodes of sinus tachycardia and paroxysmal atrial fibrillation. He received a unit of packed red blood cells yesterday. Hemoglobin has increased from 6.2 to 6.7. The patient is unable to complain of any chest pain or shortness of breath due to his underlying dementia. OBJECTIVE: VITAL SIGNS: Blood pressure 103/64, pulse 104, and respirations 20. No fevers. LUNGS: Diminished breath sounds. Few rales. HEART: Irregularly irregular rhythm. Rapid rate. Normal S1 and S2. 2/6 systolic ejection murmur. ABDOMEN: Soft. No focal tenderness. EXTREMITIES: Dependent edema. LABORATORY DATA: White count 4.3, hemoglobin 6.7, and platelets 89,000. Sodium 139, potassium 3.9, bicarb 25, BUN 7, and creatinine 0.5. Magnesium 1.8. Troponin 0.142. Pro-natriuretic peptide 2787. Albumin 1.1. IMPRESSION: 1. Anemia, acute on chronic. 2. Recurring gastrointestinal bleeding. 3. History of CML. 4. Severe aortic stenosis. 5. Acute on chronic diastolic congestive heart failure. 6. Acute non-ST elevation myocardial infarction. 7. Severe protein-calorie malnutrition. 8. Healthcare-acquired pneumonia. PLAN: 1. Additional packed red blood cell transfusions. 2. Additional diuresis. 3. Continue antimicrobials. 4. Respiratory hygiene. 5. Advance beta-blockade. 6. No anti-platelet or anticoagulant therapy. 7. Continue cardiac monitoring. 8. Remains high risk. Arcenoi Schulz M.D. DR: RAJANI JOB#: [id number] CC:
[2019-01-16] MEDS ORDERED: Metoprolol 25mg tab ORAL SCH (21:00)
[2019-01-17] VITALS: BP 95/56
[2019-01-17] MEDS: D5W w/KCl 20mEq 1,000 ML IV SCH ×3 (03:22→22:30)
[2019-01-17 04:00] VITALS: BP 125/75
--- NOTE | 2019-01-17 06:57 | NUR ---
HAND-OFF: Report given to SOCORRO Rodriguez.
[2019-01-17 07:16] LABS: ANION GAP 6 mmol/L (5-15); BLOOD UREA NITROGEN 8 mg/dL (7-18); CALCIUM 7.3 MG/DL (8.5-10.1); CARBON DIOXIDE 27 MMOL/L (21-32); CHLORIDE 102 MMOL/L (98-107); CREATININE 0.6 MG/DL (0.55-1.30); POTASSIUM 3.4 MMOL/L (3.5-5.1); SODIUM 135 MMOL/L (136-145)
[2019-01-17 07:22] LABS: HEMATOCRIT 28.9 % (42.0-52.0); MEAN CORPUSCULAR VOLUME 88 FL (80-99); PLATELET COUNT 113 K/UL (150-450); RED BLOOD COUNT 3.27 M/UL (4.70-6.10); RED CELL DISTRIBUTION WIDTH 15.8 % (11.6-14.8); WHITE BLOOD COUNT 3.8 K/UL (4.8-10.8)
--- NOTE | 2019-01-17 07:22 | NUR ---
NURSE NOTES: Received report from SOCORRO Fisher. Patient is resting in bed, in stable condition. No s/sx of SOB, breathing is even and unlabored. Observed no presence of pain or discomfort at this time. Bed is in lowest position, brakes engaged. Call light is kept within easy reach. Will continue to monitor patient.
--- NOTE | 2019-01-17 07:39 | NUR ---
NURSE NOTES: Received call back from Dr Shah. Dr shah will arrange dialysis for patient for today. Addendum: 01/18/19 at 0722 by Natalia Dey RN wrong patient. disregard the charting
[2019-01-17 08:00] VITALS: BP 121/75
[2019-01-17 08:11] LABS: HEMOGLOBIN 9.6 G/DL (14.2-18.0)
--- NOTE | 2019-01-17 08:11 | General Progress Note ---
Assessment/Plan Problem List: (1) CML (chronic myelocytic leukemia) ICD Codes: C92.10 - Chronic myeloid leukemia, BCR/ABL-positive, not having achieved remission SNOMED: 66109018 (2) Left upper lobe pneumonia ICD Codes: J18.1 - Lobar pneumonia, unspecified organism SNOMED: 122766199 Qualifiers: Qualified Codes: J18.1 - Lobar pneumonia, unspecified organism (3) Severe anemia ICD Codes: D64.9 - Anemia, unspecified SNOMED: 479606958 (4) CAD/CO (5) PNEUMONIA (6) Aortic stenosis, severe ICD Codes: I35.0 - Nonrheumatic aortic (valve) stenosis SNOMED: 68184382 Status: stable, progressing Assessment/Plan cont resp care iv abx monitor cxr video swallow transfuse as needed check stool ob replace k extensive GI workup negative at [facility] Subjective ROS Limited/Unobtainable: Yes Constitutional: Reports: malaise, weakness HEENT: Reports: no symptoms Cardiovascular: Reports: no symptoms Respiratory: Reports: no symptoms Gastrointestinal/Abdominal: Reports: no symptoms Genitourinary: Reports: no symptoms Neurologic/Psychiatric: Reports: pre-existing deficit Endocrine: Reports: no symptoms Hematologic/Lymphatic: Reports: no symptoms Allergies: Coded Allergies: No Known Allergies (Unverified , 10/28/18) All Systems: reviewed and negative except above Subjective no events. s/p 2 units prbcs. no reports of bleeding. low k noted. Objective Last 24 Hour Vital Signs Date Time Temp Pulse Resp B/P (MAP) Pulse Ox O2 Delivery O2 Flow Rate FiO2 01/17/19 07:33 Room Air 21 01/17/19 07:33 96 Room Air 21 01/17/19 04:00 100 01/17/19 04:00 Nasal Cannula 3.0 01/17/19 04:00 98.9 96 20 125/75 (92) 97 01/17/19 00:00 99.0 103 20 95/56 (69) 95 01/17/19 00:00 Nasal Cannula 3.0 01/16/19 23:28 97 01/16/19 20:09 121 105/59 01/16/19 20:00 Nasal Cannula 3.0 01/16/19 20:00 99 Nasal Cannula 3.0 32 01/16/19 20:00 Nasal Cannula 3.0 32 01/16/19 20:00 99.2 121 20 105/59 (74) 96 01/16/19 19:42 120 01/16/19 16:00 Nasal Cannula 3.0 01/16/19 16:00 98.2 111 20 106/70 (82) 100 01/16/19 16:00 111 01/16/19 12:41 101 120/81 01/16/19 12:00 121 01/16/19 12:00 Nasal Cannula 3.0 01/16/19 11:53 98.8 101 20 120/81 (94) 100 01/16/19 08:35 104 103/64 Intake and Output 01/16/19 01/17/19 19:00 07:00 Intake Total 100 ml 250 ml Output Total 1000 ml 1200 ml Balance -900 ml -950 ml Intake Oral 50 ml IV Total 100 ml 200 ml Output Urine Total 1000 ml 1200 ml # Bowel Movements 3 Laboratory Tests 01/17/19 05:10: White Blood Count [Pending], Red Blood Count [Pending], Hemoglobin [Pending], Hematocrit [Pending], Mean Corpuscular Volume [Pending], Mean Corpuscular Hemoglobin [Pending], Mean Corpuscular Hemoglobin Concent [Pending], Red Cell Distribution Width [Pending], Platelet Count [Pending], Mean Platelet Volume [ Pending], Neutrophils (%) (Auto) [Pending], Lymphocytes (%) (Auto) [Pending], Monocytes (%) (Auto) [Pending], Eosinophils (%) (Auto) [Pending], Basophils (%) (Auto) [Pending], Sodium Level 135L, Potassium Level 3.4L, Chloride Level 102, Carbon Dioxide Level 27, Anion Gap 6, Blood Urea Nitrogen 8, Creatinine 0.6, Estimat Glomerular Filtration Rate , Glucose Level 108H, Calcium Level 7.3L Height (Feet): 5 Height (Inches): 5.00 Weight (Pounds): 112 Objective General Appearance: WD/WN, alert Neck: supple Cardiovascular: normal peripheral pulses, normal rate, regular rhythm Respiratory/Chest: chest wall non-tender, lungs clear, normal breath sounds, no respiratory distress, no accessory muscle use Abdomen: normal bowel sounds, non tender, soft, no organomegaly Edema: no edema noted Arm (L), no edema noted Arm (R), no edema noted Leg (L), no edema noted Leg (R), no edema noted Pedal (L), no edema noted Pedal (R), no edema noted Generalized Camron Pearl MD Jan 17, 2019 08:11
[2019-01-17] MEDS: Iron Sucrose 100 MG in NS 55 ML IV SCH (08:49)
[2019-01-17] MEDS: Lactobacillus-GG tablet ORAL SCH ×2 (08:49→18:12)
[2019-01-17] MEDS: Pantoprazole Inj IVP SCH ×2 (08:50→20:28)
[2019-01-17] MEDS: Metoprolol 25mg tab ORAL SCH ×2 (08:50→20:29)
--- NOTE | 2019-01-17 10:36 | Infectious Diseases Prog Note ---
Assessment/Plan Assessment/Plan antibiotics : cefepime A 1. e.coli pneumonia 2. CLL 3. hypertension 4. aortic stenosis 5. + blood culture with gram positive rods likely contaminated 6. CVA 7. COPD P 1. continue cefepime 2. will follow up cultures Subjective ROS Limited/Unobtainable: Yes Allergies: Coded Allergies: No Known Allergies (Unverified , 10/28/18) Objective Vital Signs Last 24 Hour Vital Signs Date Time Temp Pulse Resp B/P (MAP) Pulse Ox O2 Delivery O2 Flow Rate FiO2 01/17/19 08:50 100 121/75 01/17/19 08:00 Nasal Cannula 3.0 01/17/19 08:00 97.3 100 22 121/75 (90) 97 01/17/19 07:33 Room Air 21 01/17/19 07:33 96 Room Air 21 01/17/19 04:00 100 01/17/19 04:00 Nasal Cannula 3.0 01/17/19 04:00 98.9 96 20 125/75 (92) 97 01/17/19 00:00 99.0 103 20 95/56 (69) 95 01/17/19 00:00 Nasal Cannula 3.0 01/16/19 23:28 97 01/16/19 20:09 121 105/59 01/16/19 20:00 Nasal Cannula 3.0 01/16/19 20:00 99 Nasal Cannula 3.0 32 01/16/19 20:00 Nasal Cannula 3.0 32 01/16/19 20:00 99.2 121 20 105/59 (74) 96 01/16/19 19:42 120 01/16/19 16:00 Nasal Cannula 3.0 01/16/19 16:00 98.2 111 20 106/70 (82) 100 01/16/19 16:00 111 01/16/19 12:41 101 120/81 01/16/19 12:00 121 01/16/19 12:00 Nasal Cannula 3.0 01/16/19 11:53 98.8 101 20 120/81 (94) 100 Height (Feet): 5 Height (Inches): 5.00 Weight (Pounds): 112 Respiratory/Chest: lungs clear Cardiovascular: normal rate, regular rhythm, no gallop/murmur Abdomen: soft, non tender Extremities: no edema Laboratory Tests Test 01/17/19 05:10 White Blood Count 3.8 K/UL (4.8-10.8) L Red Blood Count 3.27 M/UL (4.70-6.10) L Hemoglobin 9.6 G/DL (14.2-18.0) #L Hematocrit 28.9 % (42.0-52.0) #L Mean Corpuscular Volume 88 FL (80-99) Mean Corpuscular Hemoglobin 29.5 PG (27.0-31.0) Mean Corpuscular Hemoglobin Concent 33.3 G/DL (32.0-36.0) Red Cell Distribution Width 15.8 % (11.6-14.8) H Platelet Count 113 K/UL (150-450) L Mean Platelet Volume 8.1 FL (6.5-10.1) Neutrophils (%) (Auto) % (45.0-75.0) Lymphocytes (%) (Auto) % (20.0-45.0) Monocytes (%) (Auto) % (1.0-10.0) Eosinophils (%) (Auto) % (0.0-3.0) Basophils (%) (Auto) % (0.0-2.0) Neutrophils % (Manual) Pending Lymphocytes % (Manual) Pending Platelet Estimate Pending Platelet Morphology Pending Sodium Level 135 MMOL/L (136-145) L Potassium Level 3.4 MMOL/L (3.5-5.1) L Chloride Level 102 MMOL/L (98-107) Carbon Dioxide Level 27 MMOL/L (21-32) Anion Gap 6 mmol/L (5-15) Blood Urea Nitrogen 8 mg/dL (7-18) Creatinine 0.6 MG/DL (0.55-1.30) Estimat Glomerular Filtration Rate mL/min (>60) Glucose Level 108 MG/DL (74-106) H Calcium Level 7.3 MG/DL (8.5-10.1) L Current Medications Medications (Trade) Dose Ordered Sig/Elder Route PRN Reason Start Time Stop Time Status Last Admin Dose Admin Cefepime HCl 1 gm/ Dextrose 55 ml @ 110 mls/hr Q24H IVPB 01/16/19 15:00 01/23/19 14:59 Dextrose/ Electrolytes 1,000 ml @ 100 mls/hr Q10H IV 01/13/19 19:00 02/12/19 18:59 01/17/19 03:22 Folic Acid (Folate) 1 mg DAILY ORAL 01/12/19 09:00 02/11/19 08:59 01/17/19 08:49 Lactobacillus Acidophilus (Culturelle) 1 tab TWICE A DAY ORAL 01/12/19 09:00 02/11/19 08:59 01/17/19 08:49 Levalbuterol HCl (Xopenex) 0.63 mg QIDPRN PRN HHN Shortness of Breath 01/16/19 09:15 01/21/19 09:14 Metoprolol Tartrate (Lopressor) 25 mg Q12HR ORAL 01/16/19 12:45 02/15/19 12:44 01/17/19 08:50 Pantoprazole (Protonix) 40 mg EVERY 12 HOURS IVP 01/16/19 09:15 02/15/19 09:14 01/17/19 08:50 Potassium Chloride 100 ml @ 100 mls/hr Q1HR IVPB 01/17/19 09:00 01/17/19 11:59 01/17/19 09:48 Potassium Chloride (K-Dur) 10 meq DAILY ORAL 01/12/19 09:00 02/11/19 08:59 01/17/19 08:49 Tamsulosin HCl (Flomax) 0.4 mg BEDTIME ORAL 01/11/19 21:00 02/10/19 20:59 01/16/19 20:09 Ernie Barraza MD Jan 17, 2019 10:36
--- NOTE | 2019-01-17 11:53 | NUR ---
SWALLOW/SPEECH THERAPY NOTE: COMPLETED MOD BARIUM SWALLOW STUDY, SEE FULL REPORT TO FOLLOW. ON ROOM AIR AND RN MONITORING VITALS WHICH WERE STABLE. HAS A WEAK SPON COUGH W/O PO X ONE. NONVERBAL BUT DID TRY TO MOUTHE WORDS MIN TO NO VOICE. VARIABLE FOLLOWING COMMANDS AND POOR EYE CONTACT. ST SPOKE ITALIAN TO PATIENT DURING STUDY. TENDS TO LEAN TO THE LEFT AND SEEN IN LATERAL/OBLIQUE VIEW 4:49 TIME FOR STUDY. 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 APPEARED SOB ON ROOM AIR BUT VITALS STABLE DURING THE STUDY. LEVELS 2 AND 3 ON THE DYSPHAGIA OUTCOME SEVERITY SCALE ([place]) SINCE FAMILY WANTS HIM TO EAT FOR QUALITY OF LIFE NO ASPIRATION BUT HAS SIGNIFICANT RISK AND DEEP LARYNGEAL PENETRATION (LP) WITH MANY CONSISTENCIES. RISK FOR CHRONIC TRACE ASPIRATION ON ALL CONSISTENCIES DUE TO DELAYED SWALLOW AND OROPHARYNGEAL DYSMOTILITY WITH POOR SENSATION FOR OROPHARYNGEAL RESIDUE. THIN LIQUIDS TSP - NO ASP NO LP BUT SOME RISK AFTER SWALLOW WITH MIN RESIDUE IN PHARYNX CUP - DEEP TRACE LARYNGEAL PENETRATION ABOVE VOCAL FOLDS NOT EJECTED DUE TO DELAYED SWALLOW AND LATE CLOSURE OF LARYNGEAL VESTIBULE (LVC), AND REDUCED HYOLARYNGEAL EXCURSION STRAW SEQUENTIAL AND CUP WASH (AFTER PUDDING)- DEEPER TRACE LP CONTACTED VOCAL FOLDS NOT EJECTED DUE TO INCOMPLETE AND LATE LVC AND REDUCED HYOLARYNGEAL EXCURSION. NECTAR THICK LIQUIDS TSP - NO ASP/LP CUP AND STRAW SEQUENTIAL - TRACE DEEP LP TO LEVEL OF VOCAL FOLDS NO EJECTION DUE TO DELAYED SWALLOW, LATE/INCOMPLETE CLOSURE OF LARYNGEAL VESTIBULE. HONEY THICK LIQUID AND PUREED TSP NO ASP BUT HAD HIGH RISK DUE TO MILD ORAL AND MOD-SEVERE VALLECULAR/PYRIFORM SINUS RESIDUE AFTER THE SWALLOW, DID NOT CLEAR COMPLETELY WITH MAX CUES TO SWALLOW AGAIN HAD DENTITION BUT TOO UNSAFE FOR MASTICATED SOLIDS AND TIME CONSTRAINTS ESOPHAGEAL PHASE LIMITED VIEW AND SHOULDER OBSTRUCTION BUT GROSSLY FUNCTIONAL ON PROTONIX SEE FULL REPORT FOR ALL DEFICITS. TRIAL TX LIMITED: VARIABLE WITH SECOND SWALLOW, SOME CLEARANCE WITH THIN LIQ WASH BUT LP OCCURRED, NEEDS MORE TIMES SAFEST WITH TSP NECTAR THICK LIQUIDS 2 SWALLOW EDUCATED/TRAINED DORY QUIÑONES IN POSTED AND UPDATED ASP REFLUX PREC RECOMMENDATIONS: CONTINUE WITH PO INTAKE SINCE PATIENT'S FAMILY WANTS PO FOR QUALITY OF LIFE, D/W DR STYLES WHO AGREES SINCE PT TAKES 100% OF DIET. SUCTION PRN. WILL DOWNGRADE TO [facility] LIQUIFIED PUREED LIKE NECTAR THICK SOUP DIET/LIQUIDS WITH UPDATED AND POSTED ASPIRATION AND REFLUX PRECAUTIONS AND 1 TO 1 FEEDING. DYSPHAGIA MANAGEMENT AND TX TO CONTINUE (SEE FULL REPORT) D/W RN, ELAINE, DTR, AND DR STYLES PATIENT NONVERBAL MOSTLY AND CONFUSED.
[2019-01-17 12:00] VITALS: BP 139/60
--- NOTE | 2019-01-17 13:39 | Surgery Progress Note ---
Surgery Progress Note Subjective Additional Comments responded to transfusion. labs noted. no acute events. Objective Last 24 Hour Vital Signs Date Time Temp Pulse Resp B/P (MAP) Pulse Ox O2 Delivery O2 Flow Rate FiO2 01/17/19 12:00 Nasal Cannula 3.0 01/17/19 12:00 98.3 85 16 139/60 (86) 97 01/17/19 08:50 100 121/75 01/17/19 08:00 Nasal Cannula 3.0 01/17/19 08:00 97.3 100 22 121/75 (90) 97 01/17/19 07:33 Room Air 21 01/17/19 07:33 96 Room Air 21 01/17/19 07:28 91 01/17/19 04:00 100 01/17/19 04:00 Nasal Cannula 3.0 01/17/19 04:00 98.9 96 20 125/75 (92) 97 01/17/19 00:00 99.0 103 20 95/56 (69) 95 01/17/19 00:00 Nasal Cannula 3.0 01/16/19 23:28 97 01/16/19 20:09 121 105/59 01/16/19 20:00 Nasal Cannula 3.0 01/16/19 20:00 99 Nasal Cannula 3.0 32 01/16/19 20:00 Nasal Cannula 3.0 32 01/16/19 20:00 99.2 121 20 105/59 (74) 96 01/16/19 19:42 120 01/16/19 16:00 Nasal Cannula 3.0 01/16/19 16:00 98.2 111 20 106/70 (82) 100 01/16/19 16:00 111 I&O Intake and Output 01/16/19 01/17/19 19:00 07:00 Intake Total 100 ml 250 ml Output Total 1000 ml 1200 ml Balance -900 ml -950 ml Intake Oral 50 ml IV Total 100 ml 200 ml Output Urine Total 1000 ml 1200 ml # Bowel Movements 3 Dressing: other Wound: other Drains: other Cardiovascular: RSR Respiratory: decreased breath sounds Abdomen: soft, present bowel sounds Extremities: other Laboratory Tests Test 01/17/19 05:10 White Blood Count 3.8 K/UL (4.8-10.8) L Red Blood Count 3.27 M/UL (4.70-6.10) L Hemoglobin 9.6 G/DL (14.2-18.0) #L Hematocrit 28.9 % (42.0-52.0) #L Mean Corpuscular Volume 88 FL (80-99) Mean Corpuscular Hemoglobin 29.5 PG (27.0-31.0) Mean Corpuscular Hemoglobin Concent 33.3 G/DL (32.0-36.0) Red Cell Distribution Width 15.8 % (11.6-14.8) H Platelet Count 113 K/UL (150-450) L Mean Platelet Volume 8.1 FL (6.5-10.1) Neutrophils (%) (Auto) % (45.0-75.0) Lymphocytes (%) (Auto) % (20.0-45.0) Monocytes (%) (Auto) % (1.0-10.0) Eosinophils (%) (Auto) % (0.0-3.0) Basophils (%) (Auto) % (0.0-2.0) Differential Total Cells Counted 100 Neutrophils % (Manual) 61 % (45-75) Lymphocytes % (Manual) 21 % (20-45) Monocytes % (Manual) 10 % (1-10) Eosinophils % (Manual) 5 % (0-3) H Basophils % (Manual) 0 % (0-2) Band Neutrophils 3 % (0-8) Platelet Estimate Decreased L Platelet Morphology Normal Anisocytosis 1+ Sodium Level 135 MMOL/L (136-145) L Potassium Level 3.4 MMOL/L (3.5-5.1) L Chloride Level 102 MMOL/L (98-107) Carbon Dioxide Level 27 MMOL/L (21-32) Anion Gap 6 mmol/L (5-15) Blood Urea Nitrogen 8 mg/dL (7-18) Creatinine 0.6 MG/DL (0.55-1.30) Estimat Glomerular Filtration Rate mL/min (>60) Glucose Level 108 MG/DL (74-106) H Calcium Level 7.3 MG/DL (8.5-10.1) L Plan Problems: (1) Decubitus skin ulcer Assessment & Plan: patient presented with multiple skin wounds/decubitus. right hip stage 2/3 decubitus ulcer, tatum wound erythema, no fluctuance, skin breakdown in periphery, no drainage, no odor left hip with erythema right buttock partial thickness skin breakdown without underlying defect right great toe with ischemia and breakdown right heel / Achilles tendon with blood blister Tx Plan: was right hip and right buttock wounds daily with NS, apply skin protectant/ hydrogel, apply foam dressing daily turn q2h air soft mattress heel protectors pillow between legs and under knees will follow with recs thank you (2) UGI bleed Assessment & Plan: anemia on admission hx of prior gastritis and gi bleed trend H/H PPI transfuse prn will monitor thank you Josh Hernandez Jan 17, 2019 13:39
[2019-01-17] MEDS: Cefepime HCl 1 GM in D5W 55 ML IVPB SCH (15:42)
[2019-01-17 16:00] VITALS: BP 120/78
--- NOTE | 2019-01-17 19:03 | NUR ---
NURSE NOTES: Received report from SOCORRO Rodriguez. patient seen in bed in semi null position. Alert, but non verbal, no S/Sx of pain noted via FLACC scale. IV site to left hand and right hand is intact. Continues with IVF of D5w with 20mEq KCl at 100cc/hr. Condom cath is intact. No acute distress is noted at this time. Bed is in lowest position. Call light is within easy reach while in room. will continue to monitor.
--- NOTE | 2019-01-17 19:25 | NUR ---
HAND-OFF: Report given to SOCORRO Fisher.
[2019-01-17 20:00] VITALS: BP 125/87
[2019-01-17] MEDS: Tamsulosin 0.4mg cap ORAL SCH (20:55)
[2019-01-18] VITALS: BP 147/63
[2019-01-18] MEDS: Ertapenem 1 GM in NS 55 ML IVPB SCH (00:47)
--- NOTE | 2019-01-18 01:00 | Progress Note ---
DATE: 01/17/2019 CARDIOLOGY PROGRESS NOTE SUBJECTIVE: The patient remains with episodes of tachycardia and atrial arrhythmias. He still has congestion. He is status post transfusion 2 units just yesterday. OBJECTIVE: VITAL SIGNS: Blood pressure 125/75, pulse 96, and respirations 20. Afebrile. LUNGS: Bilateral breath sounds. Rhonchi. HEART: Regular rhythm. Rapid rate. Normal S1, S2. A 1/6 systolic ejection murmur at the base. ABDOMEN: Soft. EXTREMITIES: No edema. LABORATORY DATA: Sputum culture is positive for E. coli with multiple resistance. White count is 3.8 and hemoglobin 9.6. Potassium 3.4. IMPRESSION: 1. Escherichia coli ESBL pneumonia. 2. Respiratory failure. 3. Chronic gastrointestinal blood loss. 4. Anemia. 5. History of CML. 6. Hypokalemia. 7. Severe aortic valve stenosis. 8. Acute myocardial ischemia. 9. Possible [id number] myocardial infarction. 10. Acute on chronic diastolic congestive heart failure. PLAN: 1. Antimicrobials adjusted. 2. Discussed with ID team. 3. Replace potassium. 4. Recheck magnesium. 5. Diuresis based on clinical parameters. 6. Monitor hemoglobin and transfuse as needed. Arcenio Schulz M.D. DR: CHELY JOB#: [id number] CC:
[2019-01-18 04:00] VITALS: BP 142/80
[2019-01-18 06:20] LABS: BASOPHILS % (AUTO) 0.8 % (0.0-2.0); EOSINOPHILS % (AUTO) 2.3 % (0.0-3.0); HEMATOCRIT 32.1 % (42.0-52.0); HEMOGLOBIN 10.4 G/DL (14.2-18.0); LYMPHOCYTES % (AUTO) 18.6 % (20.0-45.0); MEAN CORPUSCULAR VOLUME 89 FL (80-99); MONOCYTES % (AUTO) 13.8 % (1.0-10.0); NEUTROPHILS % (AUTO) 64.5 % (45.0-75.0); PLATELET COUNT 121 K/UL (150-450); RED CELL DISTRIBUTION WIDTH 15.6 % (11.6-14.8); WHITE BLOOD COUNT 5.8 K/UL (4.8-10.8)
[2019-01-18 06:48] LABS: ALANINE AMINOTRANSFERASE 23 U/L (12-78); ALBUMIN 1.4 G/DL (3.4-5.0); ALBUMIN/GLOBULIN RATIO 0.4 (1.0-2.7); ALKALINE PHOSPHATASE 48 U/L (46-116); ANION GAP 6 mmol/L (5-15); ASPARTATE AMINO TRANSFERASE 20 U/L (15-37); BILIRUBIN,TOTAL 0.2 MG/DL (0.2-1.0); BLOOD UREA NITROGEN 5 mg/dL (7-18); CALCIUM 7.6 MG/DL (8.5-10.1); CARBON DIOXIDE 26 MMOL/L (21-32); CHLORIDE 104 MMOL/L (98-107); CREATININE 0.6 MG/DL (0.55-1.30); SODIUM 136 MMOL/L (136-145)
--- NOTE | 2019-01-18 07:21 | NUR ---
HAND-OFF: Report given to SOCORRO Ram.
--- NOTE | 2019-01-18 07:22 | NUR ---
NURSE NOTES: Received patient from SOCORRO Fisher. Patient in bed, awake, able to open his eyes, but nonverbal. On 3L NC. In no respiratory distress. 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 IV site is asymptomatic. Bed in lowest position with side rails up. Will continue to follow plan of care.
[2019-01-18 08:00] VITALS: BP 153/98
[2019-01-18] MEDS: D5W w/KCl 20mEq 1,000 ML IV SCH ×2 (08:44→18:22)
[2019-01-18] MEDS: Lactobacillus-GG tablet ORAL SCH ×2 (09:03→18:21)
[2019-01-18] MEDS: Pantoprazole Inj IVP SCH ×2 (09:03→20:55)
[2019-01-18] MEDS: Metoprolol 25mg tab ORAL SCH ×2 (09:03→20:55)
--- NOTE | 2019-01-18 09:44 | General Progress Note ---
Assessment/Plan Problem List: (1) CML (chronic myelocytic leukemia) ICD Codes: C92.10 - Chronic myeloid leukemia, BCR/ABL-positive, not having achieved remission SNOMED: 40663351 (2) Left upper lobe pneumonia ICD Codes: J18.1 - Lobar pneumonia, unspecified organism SNOMED: 115003413 Qualifiers: Qualified Codes: J18.1 - Lobar pneumonia, unspecified organism (3) Severe anemia ICD Codes: D64.9 - Anemia, unspecified SNOMED: 397895531 (4) CAD/KS (5) PNEUMONIA (6) Aortic stenosis, severe ICD Codes: I35.0 - Nonrheumatic aortic (valve) stenosis SNOMED: 33033030 Status: stable, progressing Assessment/Plan cont resp care iv abx per id monitor cxr transfuse as needed monitor for bleeding extensive GI workup negative at [facility] dc planning Subjective ROS Limited/Unobtainable: No Constitutional: Reports: malaise, weakness HEENT: Reports: no symptoms Cardiovascular: Reports: no symptoms Respiratory: Reports: no symptoms Gastrointestinal/Abdominal: Reports: no symptoms Genitourinary: Reports: no symptoms Neurologic/Psychiatric: Reports: pre-existing deficit Endocrine: Reports: no symptoms Hematologic/Lymphatic: Reports: no symptoms Allergies: Coded Allergies: No Known Allergies (Unverified , 10/28/18) All Systems: reviewed and negative except above Subjective no events. s/p 2 units prbcs. no reports of bleeding. h/h improved. dtr does not want feeding tube Objective Last 24 Hour Vital Signs Date Time Temp Pulse Resp B/P (MAP) Pulse Ox O2 Delivery O2 Flow Rate FiO2 01/18/19 09:03 108 153/98 01/18/19 08:00 Nasal Cannula 3.0 01/18/19 08:00 98.1 108 24 153/98 (116) 97 01/18/19 07:11 98 Nasal Cannula 3.0 32 01/18/19 07:11 Nasal Cannula 3.0 32 01/18/19 04:00 90 01/18/19 04:00 Nasal Cannula 3.0 01/18/19 04:00 98.0 104 20 142/80 (100) 98 01/18/19 00:00 98.8 108 19 147/63 (91) 95 01/18/19 00:00 Nasal Cannula 3.0 01/17/19 23:30 95 01/17/19 20:29 110 125/87 01/17/19 20:11 95 Room Air 21 01/17/19 20:11 Room Air 21 01/17/19 20:00 98.1 110 20 125/87 (100) 95 01/17/19 20:00 Nasal Cannula 3.0 01/17/19 19:59 110 01/17/19 16:00 98.7 83 16 120/78 (92) 94 01/17/19 16:00 Nasal Cannula 3.0 01/17/19 16:00 80 01/17/19 12:00 Nasal Cannula 3.0 01/17/19 12:00 98.3 85 16 139/60 (86) 97 01/17/19 11:41 100 Intake and Output 01/17/19 01/18/19 19:00 07:00 Intake Total 300 ml 1155 ml Output Total 1450 ml 1500 ml Balance -1150 ml -345 ml Intake Oral 200 ml IV Total 100 ml 1155 ml Output Urine Total 1450 ml 1500 ml Laboratory Tests 01/18/19 04:30: White Blood Count 5.8#, Red Blood Count 3.60L, Hemoglobin 10.4L, Hematocrit 32.1L, Mean Corpuscular Volume 89, Mean Corpuscular Hemoglobin 28.9, Mean Corpuscular Hemoglobin Concent 32.4, Red Cell Distribution Width 15.6H, Platelet Count 121L, Mean Platelet Volume 7.8, Neutrophils (%) (Auto) 64.5, Lymphocytes (%) (Auto) 18.6L, Monocytes (%) (Auto) 13.8H, Eosinophils (%) (Auto ) 2.3, Basophils (%) (Auto) 0.8, Sodium Level 136, Potassium Level 4.0, Chloride Level 104, Carbon Dioxide Level 26, Anion Gap 6, Blood Urea Nitrogen 5L , Creatinine 0.6, Estimat Glomerular Filtration Rate , Glucose Level 119H, Calcium Level 7.6L, Magnesium Level 1.8, Total Bilirubin 0.2, Aspartate Amino Transf (AST/SGOT) 20, Alanine Aminotransferase (ALT/SGPT) 23, Alkaline Phosphatase 48, Pro-B-Type Natriuretic Peptide 2472H, Total Protein 4.9L, Albumin 1.4L, Globulin 3.5, Albumin/Globulin Ratio 0.4L Height (Feet): 5 Height (Inches): 5.00 Weight (Pounds): 114 General Appearance: WD/WN, alert Neck: supple Cardiovascular: regular rhythm Respiratory/Chest: chest wall non-tender, lungs clear, normal breath sounds Abdomen: normal bowel sounds, non tender, soft, no organomegaly Edema: no edema noted Arm (L), no edema noted Arm (R), no edema noted Leg (L), no edema noted Leg (R), no edema noted Pedal (L), no edema noted Pedal (R), no edema noted Generalized Neurologic: alert, responsive Objective General Appearance: WD/WN, alert Neck: supple Cardiovascular: normal peripheral pulses, normal rate, regular rhythm Respiratory/Chest: chest wall non-tender, lungs clear, normal breath sounds, no respiratory distress, no accessory muscle use Abdomen: normal bowel sounds, non tender, soft, no organomegaly Edema: no edema noted Arm (L), no edema noted Arm (R), no edema noted Leg (L), no edema noted Leg (R), no edema noted Pedal (L), no edema noted Pedal (R), no edema noted Generalized Camron Pearl MD Jan 18, 2019 09:44
--- NOTE | 2019-01-18 09:48 | Infectious Diseases Prog Note ---
Assessment/Plan Assessment/Plan antibiotics : ertapenem A 1. e.coli pneumonia 2. CLL 3. hypertension 4. aortic stenosis 5. + blood culture with gram positive rods likely contaminated 6. CVA 7. COPD P 1. ertapenem started 2. will follow up cultures Subjective ROS Limited/Unobtainable: Yes Allergies: Coded Allergies: No Known Allergies (Unverified , 10/28/18) Objective Vital Signs Last 24 Hour Vital Signs Date Time Temp Pulse Resp B/P (MAP) Pulse Ox O2 Delivery O2 Flow Rate FiO2 01/18/19 09:03 108 153/98 01/18/19 08:00 Nasal Cannula 3.0 01/18/19 08:00 98.1 108 24 153/98 (116) 97 01/18/19 07:11 98 Nasal Cannula 3.0 32 01/18/19 07:11 Nasal Cannula 3.0 32 01/18/19 04:00 90 01/18/19 04:00 Nasal Cannula 3.0 01/18/19 04:00 98.0 104 20 142/80 (100) 98 01/18/19 00:00 98.8 108 19 147/63 (91) 95 01/18/19 00:00 Nasal Cannula 3.0 01/17/19 23:30 95 01/17/19 20:29 110 125/87 01/17/19 20:11 95 Room Air 21 01/17/19 20:11 Room Air 21 01/17/19 20:00 98.1 110 20 125/87 (100) 95 01/17/19 20:00 Nasal Cannula 3.0 01/17/19 19:59 110 01/17/19 16:00 98.7 83 16 120/78 (92) 94 01/17/19 16:00 Nasal Cannula 3.0 01/17/19 16:00 80 01/17/19 12:00 Nasal Cannula 3.0 01/17/19 12:00 98.3 85 16 139/60 (86) 97 01/17/19 11:41 100 Height (Feet): 5 Height (Inches): 5.00 Weight (Pounds): 114 Respiratory/Chest: lungs clear Cardiovascular: normal rate, regular rhythm, no gallop/murmur Abdomen: soft, non tender Extremities: no edema Laboratory Tests Test 01/18/19 04:30 White Blood Count 5.8 K/UL (4.8-10.8) # Red Blood Count 3.60 M/UL (4.70-6.10) L Hemoglobin 10.4 G/DL (14.2-18.0) L Hematocrit 32.1 % (42.0-52.0) L Mean Corpuscular Volume 89 FL (80-99) Mean Corpuscular Hemoglobin 28.9 PG (27.0-31.0) Mean Corpuscular Hemoglobin Concent 32.4 G/DL (32.0-36.0) Red Cell Distribution Width 15.6 % (11.6-14.8) H Platelet Count 121 K/UL (150-450) L Mean Platelet Volume 7.8 FL (6.5-10.1) Neutrophils (%) (Auto) 64.5 % (45.0-75.0) Lymphocytes (%) (Auto) 18.6 % (20.0-45.0) L Monocytes (%) (Auto) 13.8 % (1.0-10.0) H Eosinophils (%) (Auto) 2.3 % (0.0-3.0) Basophils (%) (Auto) 0.8 % (0.0-2.0) Sodium Level 136 MMOL/L (136-145) Potassium Level 4.0 MMOL/L (3.5-5.1) Chloride Level 104 MMOL/L (98-107) Carbon Dioxide Level 26 MMOL/L (21-32) Anion Gap 6 mmol/L (5-15) Blood Urea Nitrogen 5 mg/dL (7-18) L Creatinine 0.6 MG/DL (0.55-1.30) Estimat Glomerular Filtration Rate mL/min (>60) Glucose Level 119 MG/DL (74-106) H Calcium Level 7.6 MG/DL (8.5-10.1) L Magnesium Level 1.8 MG/DL (1.8-2.4) Total Bilirubin 0.2 MG/DL (0.2-1.0) Aspartate Amino Transf (AST/SGOT) 20 U/L (15-37) Alanine Aminotransferase (ALT/SGPT) 23 U/L (12-78) Alkaline Phosphatase 48 U/L (46-116) Pro-B-Type Natriuretic Peptide 2472 pg/mL (0-125) H Total Protein 4.9 G/DL (6.4-8.2) L Albumin 1.4 G/DL (3.4-5.0) L Globulin 3.5 g/dL Albumin/Globulin Ratio 0.4 (1.0-2.7) L Current Medications Medications (Trade) Dose Ordered Sig/Elder Route PRN Reason Start Time Stop Time Status Last Admin Dose Admin Dextrose/ Electrolytes 1,000 ml @ 100 mls/hr Q10H IV 01/13/19 19:00 02/12/19 18:59 01/18/19 08:44 Ertapenem 1 gm/ Sodium Chloride 55 ml @ 110 mls/hr Q24H IVPB 01/18/19 00:00 01/23/19 00:00 01/18/19 00:47 Folic Acid (Folate) 1 mg DAILY ORAL 01/12/19 09:00 02/11/19 08:59 01/18/19 09:03 Lactobacillus Acidophilus (Culturelle) 1 tab TWICE A DAY ORAL 01/12/19 09:00 02/11/19 08:59 01/18/19 09:03 Levalbuterol HCl (Xopenex) 0.63 mg QIDPRN PRN HHN Shortness of Breath 01/16/19 09:15 01/21/19 09:14 Metoprolol Tartrate (Lopressor) 25 mg Q12HR ORAL 01/16/19 12:45 02/15/19 12:44 01/18/19 09:03 Pantoprazole (Protonix) 40 mg EVERY 12 HOURS IVP 01/16/19 09:15 02/15/19 09:14 01/18/19 09:03 Potassium Chloride (K-Dur) 10 meq DAILY ORAL 01/12/19 09:00 02/11/19 08:59 01/18/19 09:03 Tamsulosin HCl (Flomax) 0.4 mg BEDTIME ORAL 01/11/19 21:00 02/10/19 20:59 01/17/19 20:55 Ernie Barraza MD Jan 18, 2019 09:48
[2019-01-18 12:00] VITALS: BP 142/82
--- NOTE | 2019-01-18 14:22 | Surgery Progress Note ---
Surgery Progress Note Subjective Additional Comments H/H stable. labs improved. improving. Objective Last 24 Hour Vital Signs Date Time Temp Pulse Resp B/P (MAP) Pulse Ox O2 Delivery O2 Flow Rate FiO2 01/18/19 12:00 Room Air 01/18/19 12:00 97.3 102 20 142/82 (102) 97 01/18/19 11:31 137 01/18/19 09:03 108 153/98 01/18/19 08:00 Nasal Cannula 3.0 01/18/19 08:00 98.1 108 24 153/98 (116) 97 01/18/19 07:41 107 01/18/19 07:11 98 Nasal Cannula 3.0 32 01/18/19 07:11 Nasal Cannula 3.0 32 01/18/19 04:00 90 01/18/19 04:00 Nasal Cannula 3.0 01/18/19 04:00 98.0 104 20 142/80 (100) 98 01/18/19 00:00 98.8 108 19 147/63 (91) 95 01/18/19 00:00 Nasal Cannula 3.0 01/17/19 23:30 95 01/17/19 20:29 110 125/87 01/17/19 20:11 95 Room Air 21 01/17/19 20:11 Room Air 21 01/17/19 20:00 98.1 110 20 125/87 (100) 95 01/17/19 20:00 Nasal Cannula 3.0 01/17/19 19:59 110 01/17/19 16:00 98.7 83 16 120/78 (92) 94 01/17/19 16:00 Nasal Cannula 3.0 01/17/19 16:00 80 I&O Intake and Output 01/17/19 01/18/19 19:00 07:00 Intake Total 300 ml 1255 ml Output Total 1450 ml 1500 ml Balance -1150 ml -245 ml Intake Oral 200 ml IV Total 100 ml 1255 ml Output Urine Total 1450 ml 1500 ml Dressing: other Wound: other Drains: other Cardiovascular: RSR Respiratory: clear Abdomen: soft, non-tender, non-distended Extremities: other Laboratory Tests Test 01/18/19 04:30 White Blood Count 5.8 K/UL (4.8-10.8) # Red Blood Count 3.60 M/UL (4.70-6.10) L Hemoglobin 10.4 G/DL (14.2-18.0) L Hematocrit 32.1 % (42.0-52.0) L Mean Corpuscular Volume 89 FL (80-99) Mean Corpuscular Hemoglobin 28.9 PG (27.0-31.0) Mean Corpuscular Hemoglobin Concent 32.4 G/DL (32.0-36.0) Red Cell Distribution Width 15.6 % (11.6-14.8) H Platelet Count 121 K/UL (150-450) L Mean Platelet Volume 7.8 FL (6.5-10.1) Neutrophils (%) (Auto) 64.5 % (45.0-75.0) Lymphocytes (%) (Auto) 18.6 % (20.0-45.0) L Monocytes (%) (Auto) 13.8 % (1.0-10.0) H Eosinophils (%) (Auto) 2.3 % (0.0-3.0) Basophils (%) (Auto) 0.8 % (0.0-2.0) Sodium Level 136 MMOL/L (136-145) Potassium Level 4.0 MMOL/L (3.5-5.1) Chloride Level 104 MMOL/L (98-107) Carbon Dioxide Level 26 MMOL/L (21-32) Anion Gap 6 mmol/L (5-15) Blood Urea Nitrogen 5 mg/dL (7-18) L Creatinine 0.6 MG/DL (0.55-1.30) Estimat Glomerular Filtration Rate mL/min (>60) Glucose Level 119 MG/DL (74-106) H Calcium Level 7.6 MG/DL (8.5-10.1) L Magnesium Level 1.8 MG/DL (1.8-2.4) Total Bilirubin 0.2 MG/DL (0.2-1.0) Aspartate Amino Transf (AST/SGOT) 20 U/L (15-37) Alanine Aminotransferase (ALT/SGPT) 23 U/L (12-78) Alkaline Phosphatase 48 U/L (46-116) Pro-B-Type Natriuretic Peptide 2472 pg/mL (0-125) H Total Protein 4.9 G/DL (6.4-8.2) L Albumin 1.4 G/DL (3.4-5.0) L Globulin 3.5 g/dL Albumin/Globulin Ratio 0.4 (1.0-2.7) L Plan Problems: (1) Decubitus skin ulcer Assessment & Plan: patient presented with multiple skin wounds/decubitus. right hip stage 2/3 decubitus ulcer, tatum wound erythema, no fluctuance, skin breakdown in periphery, no drainage, no odor left hip with erythema right buttock partial thickness skin breakdown without underlying defect right great toe with ischemia and breakdown right heel / Achilles tendon with blood blister Tx Plan: was right hip and right buttock wounds daily with NS, apply skin protectant/ hydrogel, apply foam dressing daily turn q2h air soft mattress heel protectors pillow between legs and under knees will follow with recs thank you (2) UGI bleed Assessment & Plan: anemia on admission hx of prior gastritis and gi bleed trend H/H PPI transfuse prn will monitor thank you Josh Hernandez Jan 18, 2019 14:22
[2019-01-18 16:00] VITALS: BP 140/82
[2019-01-18] MEDS ORDERED: Tubing IV Blood Pump IV ONE (16:01)
[2019-01-18] MEDS ORDERED: Tubing IV Secondary IV ONE ×2 (16:01→18:13)
[2019-01-18] MEDS ORDERED: NS 275ml ONE (16:01)
[2019-01-18] MEDS ORDERED: D5W 275ml ONE (16:01)
--- NOTE | 2019-01-18 17:00 | Diagnostic Imaging Report ---
Indication: Dysphasia Procedure and findings: Real-time fluoroscopic imaging performed in a lateral projection in conjunction with the speech pathologist evaluation. Variable consistencies of barium given per mouth. Findings: Significant abnormalities of both oral and pharyngeal phases of swallowing are demonstrated. Fluoroscopic time 284 seconds. No aspiration was identified. Laryngeal penetration occurred with most of the sequences. Abnormal video swallow. Please refer to speech pathology evaluation for more information.
--- NOTE | 2019-01-18 17:42 | NUR ---
CASE MANAGEMENT: REVIEW 01/18/2019 SI: NSTEMI. T 97.9 HR 99 RR 24 B/P 140/82 SATS 98% ON RA BUN 5 GLU 119 CA 7.6 BNP 2472 IS: CEFEPIME IV Q24HR LOPRESSOR PO Q12HR PROTONIX IV Q12HR D5W w/KCl IVF@ 100ML/HR VENOFER IV QD K-DUR PO QD STEP DOWN UNIT STATUS DCP: PATIENT IS FROM [facility]
[2019-01-18] MEDS ORDERED: Tubing Blood Filter IV ONE (18:13)
--- NOTE | 2019-01-18 19:15 | NUR ---
HAND-OFF: Report given to SOCORRO Fisher. Patient stable.
--- NOTE | 2019-01-18 19:16 | NUR ---
NURSE NOTES: Report received from SOCORRO Ram. Patient seen in bed in semi null position. Alert, but non verbal. No S/Sx of pain is present via FLACC scale. Patient is on RA and sp02 is 96%. IV site is to left hand, 24 g and is intact. IVF of D5W with 20mEq KCL running at 100cc/hr. Condom cath is present and urine is draining. Bed is in lowest position. Call light is within easy reach while in room. will continue to monitor.
[2019-01-18 20:00] VITALS: BP 123/82
[2019-01-18] MEDS: Tamsulosin 0.4mg cap ORAL SCH (20:55)
[2019-01-19] VITALS: BP 126/76
[2019-01-19] MEDS: Ertapenem 1 GM in NS 55 ML IVPB SCH (00:11)
[2019-01-19 04:00] VITALS: BP 134/85
[2019-01-19] MEDS: D5W w/KCl 20mEq 1,000 ML IV SCH ×2 (04:15→15:11)
[2019-01-19 05:02] LABS: BASOPHILS % (AUTO) 1.2 % (0.0-2.0); HEMATOCRIT 30.7 % (42.0-52.0); HEMOGLOBIN 10.2 G/DL (14.2-18.0); LYMPHOCYTES % (AUTO) 31.5 % (20.0-45.0); MEAN CORPUSCULAR VOLUME 90 FL (80-99); MONOCYTES % (AUTO) 13.9 % (1.0-10.0); NEUTROPHILS % (AUTO) 49.5 % (45.0-75.0); PLATELET COUNT 143 K/UL (150-450); RED BLOOD COUNT 3.42 M/UL (4.70-6.10); RED CELL DISTRIBUTION WIDTH 15.6 % (11.6-14.8); WHITE BLOOD COUNT 3.5 K/UL (4.8-10.8)
[2019-01-19 05:31] LABS: ALANINE AMINOTRANSFERASE 23 U/L (12-78); ALBUMIN 1.4 G/DL (3.4-5.0); ALBUMIN/GLOBULIN RATIO 0.4 (1.0-2.7); ALKALINE PHOSPHATASE 48 U/L (46-116); ANION GAP 6 mmol/L (5-15); ASPARTATE AMINO TRANSFERASE 17 U/L (15-37); BILIRUBIN,TOTAL 0.2 MG/DL (0.2-1.0); BLOOD UREA NITROGEN 3 mg/dL (7-18); CALCIUM 7.7 MG/DL (8.5-10.1); CARBON DIOXIDE 26 MMOL/L (21-32); CHLORIDE 104 MMOL/L (98-107); CREATININE 0.6 MG/DL (0.55-1.30); POTASSIUM 3.9 MMOL/L (3.5-5.1); SODIUM 136 MMOL/L (136-145)
--- NOTE | 2019-01-19 07:23 | NUR ---
HAND-OFF: Report given to SOCORRO austin.
--- NOTE | 2019-01-19 07:24 | NUR ---
NURSE NOTES: Received patient in bed. In no apparent distress. On room air. No facial grimace. Awake, non verbal. On continuous IVF per order. Contact isolation observed. Will continue plan of care.
[2019-01-19 08:00] VITALS: BP 130/75
--- NOTE | 2019-01-19 08:52 | General Progress Note ---
Assessment/Plan Problem List: (1) CML (chronic myelocytic leukemia) ICD Codes: C92.10 - Chronic myeloid leukemia, BCR/ABL-positive, not having achieved remission SNOMED: 12247261 (2) Left upper lobe pneumonia ICD Codes: J18.1 - Lobar pneumonia, unspecified organism SNOMED: 641510462 Qualifiers: Qualified Codes: J18.1 - Lobar pneumonia, unspecified organism (3) Severe anemia ICD Codes: D64.9 - Anemia, unspecified SNOMED: 583982938 (4) CAD/[place] (5) PNEUMONIA (6) Aortic stenosis, severe ICD Codes: I35.0 - Nonrheumatic aortic (valve) stenosis SNOMED: 69816929 Status: stable, progressing Assessment/Plan cont resp care iv abx per id monitor cxr- pending transfuse as needed monitor for bleeding extensive GI workup negative at [facility] dc planning if cxr ok will need iv abx on dc Subjective ROS Limited/Unobtainable: No Constitutional: Reports: malaise, weakness HEENT: Reports: no symptoms Cardiovascular: Reports: no symptoms Respiratory: Reports: no symptoms Gastrointestinal/Abdominal: Reports: no symptoms Genitourinary: Reports: no symptoms Neurologic/Psychiatric: Reports: pre-existing deficit Endocrine: Reports: no symptoms Hematologic/Lymphatic: Reports: anemia Allergies: Coded Allergies: No Known Allergies (Unverified , 10/28/18) All Systems: reviewed and negative except above Subjective no events. stable. on iv ertapenem. cxr pending for today Objective Last 24 Hour Vital Signs Date Time Temp Pulse Resp B/P (MAP) Pulse Ox O2 Delivery O2 Flow Rate FiO2 01/19/19 08:00 Nasal Cannula 3.0 01/19/19 05:17 93 Room Air 21 01/19/19 05:17 Room Air 21 01/19/19 04:28 100 01/19/19 04:00 97.8 103 20 134/85 (101) 94 01/19/19 04:00 Nasal Cannula 3.0 01/19/19 00:00 Nasal Cannula 3.0 01/19/19 00:00 98.0 99 20 126/76 (93) 94 01/18/19 23:45 99 01/18/19 20:55 105 128/84 01/18/19 20:00 98.6 105 20 123/82 (96) 94 01/18/19 20:00 Nasal Cannula 3.0 01/18/19 19:02 105 01/18/19 16:00 97.9 99 24 140/82 (101) 98 01/18/19 16:00 Room Air 01/18/19 15:14 118 01/18/19 12:00 Room Air 01/18/19 12:00 97.3 102 20 142/82 (102) 97 01/18/19 11:31 137 01/18/19 09:03 108 153/98 Intake and Output 01/18/19 01/19/19 19:00 07:00 Intake Total 939.999 ml 1205 ml Output Total 1000 ml 2000 ml Balance -60.001 ml -795 ml Intake Oral 150 ml 50 ml IV Total 789.999 ml 1155 ml Output Urine Total 1000 ml 2000 ml Laboratory Tests 01/19/19 03:45: White Blood Count 3.5L, Red Blood Count 3.42L, Hemoglobin 10.2L, Hematocrit 30.7L, Mean Corpuscular Volume 90, Mean Corpuscular Hemoglobin 29.8, Mean Corpuscular Hemoglobin Concent 33.2, Red Cell Distribution Width 15.6H, Platelet Count 143L, Mean Platelet Volume 7.0, Neutrophils (%) (Auto) 49.5, Lymphocytes (%) (Auto) 31.5, Monocytes (%) (Auto) 13.9H, Eosinophils (%) (Auto) 4.0H, Basophils (%) (Auto) 1.2, Sodium Level 136, Potassium Level 3.9, Chloride Level 104, Carbon Dioxide Level 26, Anion Gap 6, Blood Urea Nitrogen 3L, Creatinine 0.6, Estimat Glomerular Filtration Rate , Glucose Level 105, Calcium Level 7.7L, Total Bilirubin 0.2, Aspartate Amino Transf (AST/SGOT) 17, Alanine Aminotransferase (ALT/SGPT) 23, Alkaline Phosphatase 48, Total Protein 4.8L, Albumin 1.4L, Globulin 3.4, Albumin/Globulin Ratio 0.4L Height (Feet): 5 Height (Inches): 5.00 Weight (Pounds): 114 Objective General Appearance: WD/WN, alert Neck: supple Cardiovascular: normal peripheral pulses, normal rate, regular rhythm Respiratory/Chest: chest wall non-tender, lungs clear, normal breath sounds, no respiratory distress, no accessory muscle use Abdomen: normal bowel sounds, non tender, soft, no organomegaly Edema: no edema noted Arm (L), no edema noted Arm (R), no edema noted Leg (L), no edema noted Leg (R), no edema noted Pedal (L), no edema noted Pedal (R), no edema noted Generalized Camron Pearl MD Jan 19, 2019 08:52
[2019-01-19] MEDS: Pantoprazole Inj IVP SCH ×2 (09:01→21:00)
[2019-01-19] MEDS: Metoprolol 25mg tab ORAL SCH ×2 (09:01→21:00)
[2019-01-19] MEDS: Lactobacillus-GG tablet ORAL SCH ×2 (09:01→17:07)
--- NOTE | 2019-01-19 10:48 | NUR ---
RADIOLOGY DEPT CHEST X-RAY DONE.-P.DYE
--- NOTE | 2019-01-19 10:52 | Diagnostic Imaging Report ---
Indication: Cough Technique: One view of the chest Comparison: 01/11/2019 Findings: Interim development or increase of bilateral pleural effusions. There may be some parenchymal consolidation at the right lung base. Left perihilar parenchymal consolidation persists, unchanged. The heart size is upper limits of normal Impression: New/increased bilateral pleural effusions, since prior study 01/11/2018 Other findings as noted
--- NOTE | 2019-01-19 11:59 | Infectious Diseases Prog Note ---
Assessment/Plan Assessment/Plan A; 1. Community-acquired pneumonia versus aspiration pneumonia. 2. CLL. 3. Hypertension. 4. Positive blood culture with gram-positive rods maybe a contaminant 5. Aortic stenosis. 6. Coronary artery disease. 7. COPD. 8. CVA. 9. Dementia. 10. GERD. 11. Prostatic hypertrophy. 12. Dysphagia. 13. anemia, getting blood transfusion P: 1. continue Ertapenem Subjective ROS Limited/Unobtainable: Yes Allergies: Coded Allergies: No Known Allergies (Unverified , 10/28/18) Objective Vital Signs Last 24 Hour Vital Signs Date Time Temp Pulse Resp B/P (MAP) Pulse Ox O2 Delivery O2 Flow Rate FiO2 01/19/19 09:39 104 22 Nasal Cannula 3.0 32 01/19/19 09:01 88 130/75 01/19/19 08:00 Nasal Cannula 3.0 01/19/19 08:00 98 01/19/19 08:00 97.9 88 20 130/75 (93) 92 01/19/19 05:17 93 Room Air 21 01/19/19 05:17 Room Air 21 01/19/19 04:28 100 01/19/19 04:00 97.8 103 20 134/85 (101) 94 01/19/19 04:00 Nasal Cannula 3.0 01/19/19 00:00 Nasal Cannula 3.0 01/19/19 00:00 98.0 99 20 126/76 (93) 94 01/18/19 23:45 99 01/18/19 20:55 105 128/84 01/18/19 20:00 98.6 105 20 123/82 (96) 94 01/18/19 20:00 Nasal Cannula 3.0 01/18/19 19:02 105 01/18/19 16:00 97.9 99 24 140/82 (101) 98 01/18/19 16:00 Room Air 01/18/19 15:14 118 01/18/19 12:00 Room Air 01/18/19 12:00 97.3 102 20 142/82 (102) 97 Height (Feet): 5 Height (Inches): 5.00 Weight (Pounds): 114 General Appearance: no acute distress Respiratory/Chest: lungs clear Cardiovascular: tachycardia Abdomen: soft, non tender Extremities: no edema Neurologic/Psychiatric: other - sleeping Laboratory Tests Test 01/19/19 03:45 White Blood Count 3.5 K/UL (4.8-10.8) L Red Blood Count 3.42 M/UL (4.70-6.10) L Hemoglobin 10.2 G/DL (14.2-18.0) L Hematocrit 30.7 % (42.0-52.0) L Mean Corpuscular Volume 90 FL (80-99) Mean Corpuscular Hemoglobin 29.8 PG (27.0-31.0) Mean Corpuscular Hemoglobin Concent 33.2 G/DL (32.0-36.0) Red Cell Distribution Width 15.6 % (11.6-14.8) H Platelet Count 143 K/UL (150-450) L Mean Platelet Volume 7.0 FL (6.5-10.1) Neutrophils (%) (Auto) 49.5 % (45.0-75.0) Lymphocytes (%) (Auto) 31.5 % (20.0-45.0) Monocytes (%) (Auto) 13.9 % (1.0-10.0) H Eosinophils (%) (Auto) 4.0 % (0.0-3.0) H Basophils (%) (Auto) 1.2 % (0.0-2.0) Sodium Level 136 MMOL/L (136-145) Potassium Level 3.9 MMOL/L (3.5-5.1) Chloride Level 104 MMOL/L (98-107) Carbon Dioxide Level 26 MMOL/L (21-32) Anion Gap 6 mmol/L (5-15) Blood Urea Nitrogen 3 mg/dL (7-18) L Creatinine 0.6 MG/DL (0.55-1.30) Estimat Glomerular Filtration Rate mL/min (>60) Glucose Level 105 MG/DL (74-106) Calcium Level 7.7 MG/DL (8.5-10.1) L Total Bilirubin 0.2 MG/DL (0.2-1.0) Aspartate Amino Transf (AST/SGOT) 17 U/L (15-37) Alanine Aminotransferase (ALT/SGPT) 23 U/L (12-78) Alkaline Phosphatase 48 U/L (46-116) Total Protein 4.8 G/DL (6.4-8.2) L Albumin 1.4 G/DL (3.4-5.0) L Globulin 3.4 g/dL Albumin/Globulin Ratio 0.4 (1.0-2.7) L Current Medications Medications (Trade) Dose Ordered Sig/Elder Route PRN Reason Start Time Stop Time Status Last Admin Dose Admin Dextrose/ Electrolytes 1,000 ml @ 100 mls/hr Q10H IV 01/13/19 19:00 02/12/19 18:59 01/19/19 04:15 Ertapenem 1 gm/ Sodium Chloride 55 ml @ 110 mls/hr Q24H IVPB 01/18/19 00:00 01/23/19 00:00 01/19/19 00:11 Folic Acid (Folate) 1 mg DAILY ORAL 01/12/19 09:00 02/11/19 08:59 01/19/19 09:01 Lactobacillus Acidophilus (Culturelle) 1 tab TWICE A DAY ORAL 01/12/19 09:00 02/11/19 08:59 01/19/19 09:01 Levalbuterol HCl (Xopenex) 0.63 mg QIDPRN PRN HHN Shortness of Breath 01/16/19 09:15 01/21/19 09:14 Metoprolol Tartrate (Lopressor) 25 mg Q12HR ORAL 01/16/19 12:45 02/15/19 12:44 01/19/19 09:01 Pantoprazole (Protonix) 40 mg EVERY 12 HOURS IVP 01/16/19 09:15 02/15/19 09:14 01/19/19 09:01 Potassium Chloride (K-Dur) 10 meq DAILY ORAL 01/12/19 09:00 02/11/19 08:59 01/19/19 09:01 Tamsulosin HCl (Flomax) 0.4 mg BEDTIME ORAL 01/11/19 21:00 02/10/19 20:59 01/18/19 20:55 Mike Lazcano MD Jan 19, 2019 11:59
[2019-01-19 12:00] VITALS: BP 146/88
--- NOTE | 2019-01-19 14:20 | NUR ---
WEEKLY SWALLOW/SPEECH THERAPY SUMMARY: PATIENT SEEN FOR DYSPHAGIA MOSTLY, SEE SWALLOW EVAL AND MOD BARIUM SWALLOW STUDY GOALS FOR STAFF EDUCATED/TRAINED IN ASP PRECAUTIONS POSTED GOALS FOR INTAKE VARAIBLE AND POOR 50% AND IT TAKES A LONG TIME TO EAT PO TRIALS WITH ST SHOW VARIABLE OP TRANSIT TIMES OF 3 TO 7 SECONDS WITH TSP OF NECATAR THICK LIQUIDS WITHOUT OVERT ASPIRATION. CURRENTLY ON A LIQUIFIED PUREED LIKE NECTAR THICK SOUP DIET. PLAN: CONTINUE WITH CURRENT DIET/LIQUIDS WITH POSTED PRECAUTIONS AND DYSPHAGIA MANAGEMENT AND TX (SEE VIDEO REPORT) D/W RN, KARLEE, AND PATIENT WHO IS NONVERBAL
[2019-01-19 16:00] VITALS: BP 121/73
[2019-01-19] MEDS ORDERED: Bisacodyl EC 5mg tab ORAL PRN (17:15)
--- NOTE | 2019-01-19 17:30 | Surgery Progress Note ---
Surgery Progress Note Subjective Symptoms: passing flatus, BM Objective Last 24 Hour Vital Signs Date Time Temp Pulse Resp B/P (MAP) Pulse Ox O2 Delivery O2 Flow Rate FiO2 01/19/19 16:00 97.9 96 20 121/73 (89) 98 01/19/19 16:00 Nasal Cannula 3.0 01/19/19 15:07 90 01/19/19 12:00 Nasal Cannula 3.0 01/19/19 12:00 97.5 91 18 146/88 (107) 97 01/19/19 11:51 87 01/19/19 09:39 104 22 Nasal Cannula 3.0 32 01/19/19 09:01 88 130/75 01/19/19 08:00 Nasal Cannula 3.0 01/19/19 08:00 98 01/19/19 08:00 97.9 88 20 130/75 (93) 92 01/19/19 05:17 93 Room Air 21 01/19/19 05:17 Room Air 21 01/19/19 04:28 100 01/19/19 04:00 97.8 103 20 134/85 (101) 94 01/19/19 04:00 Nasal Cannula 3.0 01/19/19 00:00 Nasal Cannula 3.0 01/19/19 00:00 98.0 99 20 126/76 (93) 94 01/18/19 23:45 99 01/18/19 20:55 105 128/84 01/18/19 20:00 98.6 105 20 123/82 (96) 94 01/18/19 20:00 Nasal Cannula 3.0 01/18/19 19:02 105 I&O Intake and Output 01/18/19 01/19/19 19:00 07:00 Intake Total 939.999 ml 1305 ml Output Total 1000 ml 2000 ml Balance -60.001 ml -695 ml Intake Oral 150 ml 50 ml IV Total 789.999 ml 1255 ml Output Urine Total 1000 ml 2000 ml Dressing: other Wound: other Drains: other Cardiovascular: RSR Respiratory: decreased breath sounds Abdomen: soft, non-tender, present bowel sounds Extremities: no cyanosis Laboratory Tests Test 01/19/19 03:45 White Blood Count 3.5 K/UL (4.8-10.8) L Red Blood Count 3.42 M/UL (4.70-6.10) L Hemoglobin 10.2 G/DL (14.2-18.0) L Hematocrit 30.7 % (42.0-52.0) L Mean Corpuscular Volume 90 FL (80-99) Mean Corpuscular Hemoglobin 29.8 PG (27.0-31.0) Mean Corpuscular Hemoglobin Concent 33.2 G/DL (32.0-36.0) Red Cell Distribution Width 15.6 % (11.6-14.8) H Platelet Count 143 K/UL (150-450) L Mean Platelet Volume 7.0 FL (6.5-10.1) Neutrophils (%) (Auto) 49.5 % (45.0-75.0) Lymphocytes (%) (Auto) 31.5 % (20.0-45.0) Monocytes (%) (Auto) 13.9 % (1.0-10.0) H Eosinophils (%) (Auto) 4.0 % (0.0-3.0) H Basophils (%) (Auto) 1.2 % (0.0-2.0) Sodium Level 136 MMOL/L (136-145) Potassium Level 3.9 MMOL/L (3.5-5.1) Chloride Level 104 MMOL/L (98-107) Carbon Dioxide Level 26 MMOL/L (21-32) Anion Gap 6 mmol/L (5-15) Blood Urea Nitrogen 3 mg/dL (7-18) L Creatinine 0.6 MG/DL (0.55-1.30) Estimat Glomerular Filtration Rate mL/min (>60) Glucose Level 105 MG/DL (74-106) Calcium Level 7.7 MG/DL (8.5-10.1) L Total Bilirubin 0.2 MG/DL (0.2-1.0) Aspartate Amino Transf (AST/SGOT) 17 U/L (15-37) Alanine Aminotransferase (ALT/SGPT) 23 U/L (12-78) Alkaline Phosphatase 48 U/L (46-116) Total Protein 4.8 G/DL (6.4-8.2) L Albumin 1.4 G/DL (3.4-5.0) L Globulin 3.4 g/dL Albumin/Globulin Ratio 0.4 (1.0-2.7) L Plan Problems: (1) Decubitus skin ulcer Assessment & Plan: patient presented with multiple skin wounds/decubitus. right hip stage 2/3 decubitus ulcer, tatum wound erythema, no fluctuance, skin breakdown in periphery, no drainage, no odor left hip with erythema right buttock partial thickness skin breakdown without underlying defect right great toe with ischemia and breakdown right heel / Achilles tendon with blood blister Tx Plan: was right hip and right buttock wounds daily with NS, apply skin protectant/ hydrogel, apply foam dressing daily turn q2h air soft mattress heel protectors pillow between legs and under knees will follow with recs thank you (2) UGI bleed Assessment & Plan: anemia on admission hx of prior gastritis and gi bleed trend H/H PPI transfuse prn will monitor thank you Josh Hernandez Jan 19, 2019 17:30
--- NOTE | 2019-01-19 19:30 | NUR ---
HAND-OFF: Report given to Kelsey Trammell RN.
--- NOTE | 2019-01-19 19:31 | NUR ---
NURSE NOTES: Received bedside report from SOCORRO Keys.Patient stable,nonverbal,SR-ST on cardiac exercise physiologist,tolerated r/air well 1:1 required feeding BARRERA ,puree ,BS active in all quadrants,IV asymptomatic,intact on R/wrist 20G running with D5 water w/KCl 100ml/hr,L/wrist 24 G TKO,no s/sof pain,no respiratory distress noted,bed in a low safety position,call light within a reach,will continue to monitor.
[2019-01-19 20:00] VITALS: BP 110/70
[2019-01-19] MEDS: Tamsulosin 0.4mg cap ORAL SCH (21:00)
[2019-01-20] VITALS: BP 118/77
[2019-01-20] MEDS: Ertapenem 1 GM in NS 55 ML IVPB SCH (00:09)
[2019-01-20] MEDS: D5W w/KCl 20mEq 1,000 ML IV SCH ×2 (00:10→13:51)
[2019-01-20 04:00] VITALS: BP 112/70
--- NOTE | 2019-01-20 06:15 | Progress Note ---
DATE: 01/18/2019 CARDIOLOGY PROGRESS NOTE This is a late entry for 01/18/2019. SUBJECTIVE: The patient required 2 units of packed red blood cells. Family members do not want a feeding tube. Monitored rhythm is sinus with atrial arrhythmia. OBJECTIVE: VITAL SIGNS: Blood pressure 153/98, pulse 108, respiratory rate 24, and afebrile. LUNGS: Coarse breath sounds. Scattered rhonchi. HEART: Regular rhythm and rate. Normal S1, paradoxically split S2. A 2/6 systolic ejection murmur at the base. ABDOMEN: Soft. EXTREMITIES: Trace edema. LABORATORY DATA: White count 5.8 and hemoglobin 10.4. Sodium 136, potassium 4, bicarbonate 26, BUN 5, creatinine 0.6, and magnesium 1.8. Pro-natriuretic peptide 2472. Albumin 1.4. IMPRESSION: 1. Acute on chronic diastolic congestive heart failure, improved. 2. Severe aortic stenosis, not a surgical candidate. 3. CML with chronic anemia and chronic blood loss of unclear source. 4. Severe protein-calorie malnutrition. 5. Pneumonia. 6. Hypertensive heart disease with overall adequate blood pressure control. PLAN: 1. Antihypertensive p.r.n. for blood pressure spikes. 2. Monitor hemoglobin, transfuse as needed. 3. Complete antibiotics. 4. Respiratory hygiene. 5. No plans for TAVR, not an acceptable candidate. Arcenio Schulz M.D. DR: LAUREN JOB#: [id number] CC:
--- NOTE | 2019-01-20 06:45 | Progress Note ---
DATE: 01/19/2019 CARDIOLOGY PROGRESS NOTE SUBJECTIVE: The patient remains on IV antimicrobials with respiratory hygiene. Oxygen saturations 93% to 94% on room air. Blood pressure parameters are stabilizing. Monitored rhythm remains sinus with atrial arrhythmias. Chest x-ray today was performed and notable for an increased pleural effusion. OBJECTIVE: VITAL SIGNS: Blood pressure 121/73, pulse 96, respiratory rate 20, and afebrile. LUNGS: Diminished breath sounds. Scattered rales. HEART: Regular rhythm and rate. Normal S1 and S2. A 2/6 systolic ejection murmur at the base. ABDOMEN: Soft. EXTREMITIES: Trace edema. IMPRESSION: 1. Aspiration pneumonia. 2. CML. 3. Hypertensive heart disease. 4. Aortic stenosis. 5. Possible bacteremia. 6. Acute on chronic diastolic congestive heart failure. 7. Chronic anemia. 8. Chronic GI blood loss. PLAN: 1. Antimicrobials. 2. Diuresis. 3. Respiratory hygiene. 4. Monitor hemoglobin. 5. Family does not want a feeding tube. Arcenio Schulz M.D. DR: LAUREN JOB#: [id number] CC:
--- NOTE | 2019-01-20 07:13 | NUR ---
HAND-OFF: Report given to SOCORRO Keys.Patient stable.
[2019-01-20 07:18] LABS: ALANINE AMINOTRANSFERASE 15 U/L (12-78); ALBUMIN 1.4 G/DL (3.4-5.0); ALBUMIN/GLOBULIN RATIO 0.3 (1.0-2.7); ALKALINE PHOSPHATASE 48 U/L (46-116); ANION GAP 6 mmol/L (5-15); ASPARTATE AMINO TRANSFERASE 15 U/L (15-37); BILIRUBIN,TOTAL 0.2 MG/DL (0.2-1.0); BLOOD UREA NITROGEN 4 mg/dL (7-18); CALCIUM 7.8 MG/DL (8.5-10.1); CARBON DIOXIDE 27 MMOL/L (21-32); CHLORIDE 102 MMOL/L (98-107); CREATININE 0.7 MG/DL (0.55-1.30); POTASSIUM 3.8 MMOL/L (3.5-5.1); SODIUM 134 MMOL/L (136-145)
[2019-01-20 08:00] VITALS: BP 122/76
[2019-01-20] MEDS: Pantoprazole Inj IVP SCH (08:32)
[2019-01-20] MEDS: Lactobacillus-GG tablet ORAL SCH (08:32)
[2019-01-20] MEDS ORDERED: Metoprolol 25mg tab ORAL SCH (09:00)
--- NOTE | 2019-01-20 10:10 | Infectious Diseases Prog Note ---
Assessment/Plan Assessment/Plan antibiotics : ertapenem A 1. e.coli pneumonia 2. CLL 3. hypertension 4. aortic stenosis 5. + blood culture with clostridium likely contaminated 6. CVA 7. COPD P 1. continue ertapenem 2 more days 2. will follow up cultures Subjective ROS Limited/Unobtainable: Yes Allergies: Coded Allergies: No Known Allergies (Unverified , 10/28/18) Objective Vital Signs Last 24 Hour Vital Signs Date Time Temp Pulse Resp B/P (MAP) Pulse Ox O2 Delivery O2 Flow Rate FiO2 01/20/19 08:32 86 112/70 01/20/19 08:00 97.5 95 20 122/76 (91) 94 01/20/19 08:00 Room Air 01/20/19 07:11 95 Room Air 21 01/20/19 07:11 Room Air 21 01/20/19 07:10 86 18 Room Air 21 01/20/19 04:00 97.9 99 20 112/70 (84) 92 01/20/19 04:00 Nasal Cannula 3.0 01/20/19 03:56 99 01/20/19 00:00 97.2 99 20 118/77 (91) 92 01/20/19 00:00 Nasal Cannula 3.0 01/19/19 23:41 97 01/19/19 21:00 110 110/70 01/19/19 20:00 Nasal Cannula 3.0 01/19/19 20:00 97.2 110 20 110/70 (83) 94 01/19/19 19:02 117 01/19/19 16:00 97.9 96 20 121/73 (89) 98 01/19/19 16:00 Room Air 01/19/19 15:07 90 01/19/19 12:00 Nasal Cannula 3.0 01/19/19 12:00 97.5 91 18 146/88 (107) 97 01/19/19 11:51 87 Height (Feet): 5 Height (Inches): 5.00 Weight (Pounds): 114 Respiratory/Chest: lungs clear Cardiovascular: normal rate, regular rhythm, no gallop/murmur Abdomen: soft, non tender Extremities: no edema Laboratory Tests Test 01/20/19 06:00 Sodium Level 134 MMOL/L (136-145) L Potassium Level 3.8 MMOL/L (3.5-5.1) Chloride Level 102 MMOL/L (98-107) Carbon Dioxide Level 27 MMOL/L (21-32) Anion Gap 6 mmol/L (5-15) Blood Urea Nitrogen 4 mg/dL (7-18) L Creatinine 0.7 MG/DL (0.55-1.30) Estimat Glomerular Filtration Rate mL/min (>60) Glucose Level 105 MG/DL (74-106) Calcium Level 7.8 MG/DL (8.5-10.1) L Total Bilirubin 0.2 MG/DL (0.2-1.0) Aspartate Amino Transf (AST/SGOT) 15 U/L (15-37) Alanine Aminotransferase (ALT/SGPT) 15 U/L (12-78) Alkaline Phosphatase 48 U/L (46-116) Total Protein 5.5 G/DL (6.4-8.2) L Albumin 1.4 G/DL (3.4-5.0) L Globulin 4.1 g/dL Albumin/Globulin Ratio 0.3 (1.0-2.7) L Current Medications Medications (Trade) Dose Ordered Sig/Elder Route PRN Reason Start Time Stop Time Status Last Admin Dose Admin Bisacodyl (Dulcolax) 5 mg DAILYPRN PRN ORAL Constipation 01/19/19 17:15 02/18/19 17:14 01/19/19 17:41 Dextrose/ Electrolytes 1,000 ml @ 100 mls/hr Q10H IV 01/13/19 19:00 02/12/19 18:59 01/20/19 00:10 Ertapenem 1 gm/ Sodium Chloride 55 ml @ 110 mls/hr Q24H IVPB 01/18/19 00:00 01/23/19 00:00 01/20/19 00:09 Folic Acid (Folate) 1 mg DAILY ORAL 01/12/19 09:00 02/11/19 08:59 01/20/19 08:31 Furosemide (Lasix) 20 mg DAILY IV 01/20/19 09:00 02/19/19 08:59 01/20/19 08:32 Furosemide (Lasix) 40 mg DAILY IV 01/20/19 09:00 02/19/19 08:59 01/20/19 08:32 Lactobacillus Acidophilus (Culturelle) 1 tab TWICE A DAY ORAL 01/12/19 09:00 02/11/19 08:59 01/20/19 08:32 Levalbuterol HCl (Xopenex) 0.63 mg QIDPRN PRN HHN Shortness of Breath 01/16/19 09:15 01/21/19 09:14 Metoprolol Tartrate (Lopressor) 50 mg Q12HR ORAL 01/20/19 09:00 02/19/19 08:59 01/20/19 08:32 Pantoprazole (Protonix) 40 mg EVERY 12 HOURS IVP 01/16/19 09:15 02/15/19 09:14 01/20/19 08:32 Potassium Chloride (K-Dur) 10 meq DAILY ORAL 01/12/19 09:00 02/11/19 08:59 01/20/19 08:31 Tamsulosin HCl (Flomax) 0.4 mg BEDTIME ORAL 01/11/19 21:00 02/10/19 20:59 01/19/19 21:00 Ernie Barraza MD Jan 20, 2019 10:10
[2019-01-20] MEDS ORDERED: PROTONIX40 M1 IVP (10:57)
--- NOTE | 2019-01-20 11:00 | General Progress Note ---
Assessment/Plan Problem List: (1) CML (chronic myelocytic leukemia) ICD Codes: C92.10 - Chronic myeloid leukemia, BCR/ABL-positive, not having achieved remission SNOMED: 47802597 (2) Left upper lobe pneumonia ICD Codes: J18.1 - Lobar pneumonia, unspecified organism SNOMED: 406267740 Qualifiers: Qualified Codes: J18.1 - Lobar pneumonia, unspecified organism (3) Severe anemia ICD Codes: D64.9 - Anemia, unspecified SNOMED: 213292248 (4) CAD/PA (5) PNEUMONIA (6) Aortic stenosis, severe ICD Codes: I35.0 - Nonrheumatic aortic (valve) stenosis SNOMED: 42884871 Status: stable, progressing Assessment/Plan cont current rx off o2 clinically stable on room air proceed with dc planning after todays dose of iv ertapenem Subjective ROS Limited/Unobtainable: No Constitutional: Reports: malaise, weakness HEENT: Reports: no symptoms Cardiovascular: Reports: no symptoms Respiratory: Reports: no symptoms Gastrointestinal/Abdominal: Reports: no symptoms Genitourinary: Reports: no symptoms Neurologic/Psychiatric: Reports: pre-existing deficit Endocrine: Reports: no symptoms Hematologic/Lymphatic: Reports: anemia Allergies: Coded Allergies: No Known Allergies (Unverified , 10/28/18) All Systems: reviewed and negative except above Subjective no events. stable. on iv ertapenem. cxr yesterday with new chf and effusion. given lasix x 1. on room air. Objective Last 24 Hour Vital Signs Date Time Temp Pulse Resp B/P (MAP) Pulse Ox O2 Delivery O2 Flow Rate FiO2 01/20/19 08:32 86 112/70 01/20/19 08:00 97.5 95 20 122/76 (91) 94 01/20/19 08:00 Room Air 01/20/19 07:39 103 01/20/19 07:11 95 Room Air 21 01/20/19 07:11 Room Air 21 01/20/19 07:10 86 18 Room Air 21 01/20/19 04:00 97.9 99 20 112/70 (84) 92 01/20/19 04:00 Nasal Cannula 3.0 01/20/19 03:56 99 01/20/19 00:00 97.2 99 20 118/77 (91) 92 01/20/19 00:00 Nasal Cannula 3.0 01/19/19 23:41 97 01/19/19 21:00 110 110/70 01/19/19 20:00 Nasal Cannula 3.0 01/19/19 20:00 97.2 110 20 110/70 (83) 94 01/19/19 19:02 117 01/19/19 16:00 97.9 96 20 121/73 (89) 98 01/19/19 16:00 Room Air 01/19/19 15:07 90 01/19/19 12:00 Nasal Cannula 3.0 01/19/19 12:00 97.5 91 18 146/88 (107) 97 01/19/19 11:51 87 Intake and Output 01/19/19 01/20/19 19:00 07:00 Intake Total 1321.7 ml 1238.3 ml Output Total 1350 ml 1700 ml Balance -28.3 ml -461.7 ml Intake Oral 240 ml IV Total 1081.7 ml 1238.3 ml Output Urine Total 1350 ml 1700 ml Laboratory Tests 01/20/19 06:00: Sodium Level 134L, Potassium Level 3.8, Chloride Level 102, Carbon Dioxide Level 27, Anion Gap 6, Blood Urea Nitrogen 4L, Creatinine 0.7, Estimat Glomerular Filtration Rate , Glucose Level 105, Calcium Level 7.8L, Total Bilirubin 0.2, Aspartate Amino Transf (AST/SGOT) 15, Alanine Aminotransferase ( ALT/SGPT) 15, Alkaline Phosphatase 48, Total Protein 5.5L, Albumin 1.4L, Globulin 4.1, Albumin/Globulin Ratio 0.3L Height (Feet): 5 Height (Inches): 5.00 Weight (Pounds): 114 Objective General Appearance: WD/WN, alert Neck: supple Cardiovascular: normal peripheral pulses, normal rate, regular rhythm Respiratory/Chest: chest wall non-tender, lungs clear, normal breath sounds, no respiratory distress, no accessory muscle use Abdomen: normal bowel sounds, non tender, soft, no organomegaly Edema: no edema noted Arm (L), no edema noted Arm (R), no edema noted Leg (L), no edema noted Leg (R), no edema noted Pedal (L), no edema noted Pedal (R), no edema noted Generalized Camron Pearl MD Jan 20, 2019 11:00
--- NOTE | 2019-01-20 11:11 | Surgery Progress Note ---
Surgery Progress Note Subjective Symptoms: improved, tolerating diet, BM Objective Last 24 Hour Vital Signs Date Time Temp Pulse Resp B/P (MAP) Pulse Ox O2 Delivery O2 Flow Rate FiO2 01/20/19 08:32 86 112/70 01/20/19 08:00 97.5 95 20 122/76 (91) 94 01/20/19 08:00 Room Air 01/20/19 07:39 103 01/20/19 07:11 95 Room Air 21 01/20/19 07:11 Room Air 21 01/20/19 07:10 86 18 Room Air 21 01/20/19 04:00 97.9 99 20 112/70 (84) 92 01/20/19 04:00 Nasal Cannula 3.0 01/20/19 03:56 99 01/20/19 00:00 97.2 99 20 118/77 (91) 92 01/20/19 00:00 Nasal Cannula 3.0 01/19/19 23:41 97 01/19/19 21:00 110 110/70 01/19/19 20:00 Nasal Cannula 3.0 01/19/19 20:00 97.2 110 20 110/70 (83) 94 01/19/19 19:02 117 01/19/19 16:00 97.9 96 20 121/73 (89) 98 01/19/19 16:00 Room Air 01/19/19 15:07 90 01/19/19 12:00 Nasal Cannula 3.0 01/19/19 12:00 97.5 91 18 146/88 (107) 97 01/19/19 11:51 87 I&O Intake and Output 01/19/19 01/20/19 19:00 07:00 Intake Total 1321.7 ml 1238.3 ml Output Total 1350 ml 1700 ml Balance -28.3 ml -461.7 ml Intake Oral 240 ml IV Total 1081.7 ml 1238.3 ml Output Urine Total 1350 ml 1700 ml Dressing: other Wound: other Drains: other Respiratory: clear Abdomen: soft, non-tender, non-distended Extremities: no cyanosis Laboratory Tests Test 01/20/19 06:00 Sodium Level 134 MMOL/L (136-145) L Potassium Level 3.8 MMOL/L (3.5-5.1) Chloride Level 102 MMOL/L (98-107) Carbon Dioxide Level 27 MMOL/L (21-32) Anion Gap 6 mmol/L (5-15) Blood Urea Nitrogen 4 mg/dL (7-18) L Creatinine 0.7 MG/DL (0.55-1.30) Estimat Glomerular Filtration Rate mL/min (>60) Glucose Level 105 MG/DL (74-106) Calcium Level 7.8 MG/DL (8.5-10.1) L Total Bilirubin 0.2 MG/DL (0.2-1.0) Aspartate Amino Transf (AST/SGOT) 15 U/L (15-37) Alanine Aminotransferase (ALT/SGPT) 15 U/L (12-78) Alkaline Phosphatase 48 U/L (46-116) Total Protein 5.5 G/DL (6.4-8.2) L Albumin 1.4 G/DL (3.4-5.0) L Globulin 4.1 g/dL Albumin/Globulin Ratio 0.3 (1.0-2.7) L Plan Problems: (1) Decubitus skin ulcer Assessment & Plan: patient presented with multiple skin wounds/decubitus. right hip stage 2/3 decubitus ulcer, tatum wound erythema, no fluctuance, skin breakdown in periphery, no drainage, no odor left hip with erythema right buttock partial thickness skin breakdown without underlying defect right great toe with ischemia and breakdown right heel / Achilles tendon with blood blister Tx Plan: was right hip and right buttock wounds daily with NS, apply skin protectant/ hydrogel, apply foam dressing daily turn q2h air soft mattress heel protectors pillow between legs and under knees will follow with recs thank you (2) UGI bleed Assessment & Plan: anemia on admission hx of prior gastritis and gi bleed trend H/H PPI transfuse prn will monitor thank you Josh Hernandez Jan 20, 2019 11:11
--- NOTE | 2019-01-20 11:58 | NUR ---
Social Service Note Message left for Екатерина at [facility] [phone] for room assignment. Awaiting return call. SW informed patient's t [facility] [phone] of impending dc for today. Patient will dc via [facility] [phone]. Will follow up.
[2019-01-20 12:00] VITALS: BP 118/72
--- NOTE | 2019-01-20 14:06 | NUR ---
NURSE NOTES: Telephone report given to Monique/Garn[facility] of [facility]. Patient is going to room 302-1, family is aware. Patient in stable condition.
--- NOTE | 2019-01-20 15:00 | NUR ---
NURSE NOTES: Bedbath provided by 2 staff. 1 bowel movement noted, condom cath remains inplace. Wound care done per protocol. For discharge today.
--- NOTE | 2019-01-20 16:05 | NUR ---
INTER-FACILITY TRANSFER: Patient transferred to [facility], per Dr. Pearl. Report given to [facility] staff. Patient transferred with no valuables and no medications. No belongings verified upon transfer, belonging list reviewed. Family/ Marcelina Ridley notified of transfer via telephone. Patient remains in stable condition, room air, awake, nonverbal. Wound photos taken per protocol.
[2019-01-20] MEDS ORDERED: NS 275ml ONE ×2 (16:39)
[2019-01-20] MEDS ORDERED: Tubing IV Secondary IV ONE (16:39)
--- NOTE | 2019-01-22 06:15 | Progress Note ---
DATE: 01/20/2019 CARDIOLOGY PROGRESS NOTE SUBJECTIVE: The patient is in no distress. He is saturating adequately on room air. Blood pressure 122/76, pulse 95, and respiratory rate 20. Monitored rhythm, sinus with atrial ectopics. OBJECTIVE: VITAL SIGNS: Blood pressure 112/70, pulse 86 to 103, respiratory rate 18 to 20, and afebrile. LUNGS: Few rhonchi. CARDIAC: Regular rhythm and rate. Normal S1 and S2. ABDOMEN: Soft. EXTREMITIES: No edema. LABORATORY DATA: White count 3.5 and hemoglobin 10.2. Sodium 134, potassium 3.8, BUN 4, and creatinine 0.7. Albumin 1.4. IMPRESSION: 1. Healthcare-acquired pneumonia. 2. Secondary sinus tachycardia. 3. Paroxysmal atrial ectopy. 4. Severe aortic stenosis. 5. CML. 6. Acute on chronic diastolic congestive heart failure, now compensated. 7. Anemia, requiring transfusions. 8. Chronic GI blood loss. PLAN: 1. Maintenance diuretic. 2. Periodic transfusions. 3. Respiratory hygiene. 4. Not a candidate for TAVR. 5. Stable for transfer to shelter facility, but at high risk for rehospitalization due to CML without remission and comorbidities. Arcenio Schulz M.D. DR: MADISON JOB#: [id number] CC:
--- NOTE | 2019-01-23 15:05 | Discharge Summary ---
Discharge Summary Discharge Summary _ DATE OF ADMISSION: 01/11/2019 DATE OF DISCHARGE: 01/20/2019 DISCHARGED BY: Dr. Pearl REASON FOR ADMISSION: 78 years old male with past medical history of chronic myelocytic leukemia, chronic GI bleeding, chronic transfusion dependent anemia, hypertensive heart disease, degenerative aortic valve stenosis, coronary atherosclerosis with history of myocardial infarction, COPD, cerebrovascular disease with dementia, GERD, prostatic hypertrophy, dysphagia, was transferred to emergency room for evaluation due to respiratory distress and hypoxia. Patient was having fevers at the facility and was given Tylenol prior to transfer. Upon arrival patient was tachycardic,hypoxic and tachypneic. Patient had melanotic stool. Hemoglobin 6.3. Sodium 153. BUN 35, creatinine 1.1. Lactic acid 1.2. No leukocytosis. Pro BNP 2100 . Albumin 1.6. Troponin - 0.25. EKG revealed sinus rhythm, no acute ischemic changes Chest x-ray revealed extensive infiltrate in the left lung with high suspicion for pneumonia. Urinalysis revealed no evidence of UTI. Patient subsequently admitted to direct observational unit for further management. CONSULTANTS: residential therapist pulmonary Dr. Mandujano ID specialist Dr. Barraza surgery Dr. Hernandez [facility] COURSE: Patient admitted to direct observational unit. Serial troponin were closely trended. No antiplatelet therapy due to severe anemia and bleeding risk. Patient started on broad-spectrum antibiotics. Blood culture revealed 1 out of 4 Clostridium. Sputum culture revealed E. coli. Patient was treated for E. coli pneumonia. Patient will need to complete treatment at the facility for additional 2 more days of ertapenem. Blood cultures with Clostridium was likely contaminant, as per ID specialist conclusion. Net Trainer closely followed . Troponin were trended down, last troponin - 0.142. Patient was not a candidate for a therapy. Patient was daily reassessed for diuresis. Antianginal therapy initiated based on clinical parameters, including beta- ahsan and nitrates. Patient required maintenance dose of diuretic with close monitoring of volumes and cardiorenal parameters. Per residential therapist, patient was not a candidate for TAVR. Patient had a high risk for rehospitalization secondary to CML without remission and multiple comorbidities. Supplemental oxygen provided as needed to keep pulse oximetry above 92%. Pulmonary toilet provided. Venous duplex bilateral lower extremity revealed no evidence of acute DVT. SCD provided for mechanical prophylaxis of DVT. Patient initially undergone bedside swallow evaluation, which revealed high silent aspiration risk due to left-sided pneumonia and history of recurrent pneumonia. Speech therapist recommended to keep patient n.p.o. and proceed with video swallow evaluation. Patient subsequently undergone video swallow evaluation which was abnormal. Patient noted to have a high risk for silent aspiration. Speech therapist recommended comfort feeding diet with strict aspiration/ reflux precaution and one-to-one feeding. Diet provided as per speech therapist recommendation. Harness Cutter recommendation implemented in plan of care. Hemoglobin and hematocrit were closely monitored with goal to keep hemoglobin above 7. Patient required transfusion of total of 6 units of packed red blood cells. Prior to discharge hemoglobin 10.2, hematocrit 30.7. Renal parameters and electrolytes were closely monitored. Electrolytes corrected as needed. Nephrotoxins were avoided. Prior to discharge sodium 134 ,potassium 3.8. BUN 4, creatinine 0.7. Surgeon followed for multiply skin wounds and decubitus present on admission, including right hip stage III decubitus ulcer. Wound care provided as per surgeon recommendation. Continue wound care at the facility. Supportive are provided. Bowel regimen instituted. Pain management was addressed as needed. Patient clinically stabilized and was ready for transfer back to alf facility for continuation of care. FINAL DIAGNOSES: Healthcare acquired pneumonia with E. coli Dehydration Hypernatremia -resolved Acute and chronic diastolic congestive heart failure Acute myocardial ischemia Possible non-STEMI Severe protein calorie malnutrition Severe aortic stenosis COPD Cerebrovascular disease with dementia Acute on chronic anemia, transfusion dependent CML with chronic anemia and chronic blood loss of unclear source Hypertensive heart disease Right hip stage III decubitus ulcer , present on admission DISCHARGE MEDICATIONS: See Medication Reconciliation list. DISCHARGE INSTRUCTIONS: Patient was discharged to the alf facility. Follow up with medical doctor at the facility. I have been assigned to dictate discharge summary for this account. I was not involved in the patient's management. Dominga Rouse NP Jan 23, 2019 15:05
== END 2019-01-20 16:40 | DRG 177 ==
LOC: EDBD 09:45 → EMR 10:09 → 2W 10:17 → EDBEDREQSVC 13:48 → EDBEDREQ 13:48 → 2W 01-12 10:45
DX: J15.5 Pneumonia due to Escherichia coli (principal); I21.4 Non-ST elevation (NSTEMI) myocardial infarction; L89.213 Pressure ulcer of right hip, stage 3; I50.33 Acute on chronic diastolic (congestive) heart failure; E43 Unspecified severe protein-calorie malnutrition; E87.0 Hyperosmolality and hypernatremia; J44.0 Chronic obstructive pulmonary disease with (acute) lower respiratory infection; Z68.1 Body mass index [BMI] 19.9 or less, adult; K92.1 Melena; C92.10 Chronic myeloid leukemia, BCR/ABL-positive, not having achieved remission; D64.9 Anemia, unspecified; Y95 Nosocomial condition; E86.0 Dehydration; I11.0 Hypertensive heart disease with heart failure; I35.0 Nonrheumatic aortic (valve) stenosis; F03.90 Unspecified dementia, unspecified severity, without behavioral disturbance, psychotic disturbance, mood disturbance, and anxiety; I25.10 Atherosclerotic heart disease of native coronary artery without angina pectoris; N40.0 Benign prostatic hyperplasia without lower urinary tract symptoms; R13.10 Dysphagia, unspecified; I49.49 Other premature depolarization
CPT/HCPCS: 36415; 71045; 74230; 80048; 80053; 80202; 81003; 82550; 83605; 83735; 83880; 84484; 85007; 85025; 85610; 85730; 86710; 86850; 86900; 86901; 86920; 87040; 87070; 87081; 87181; 87205; 93005; 93970; 94640; 94664; 94760; 96361; 96365; 96367; 96368; 96375; 99291; J7620; J8499

== ENCOUNTER 2019-01-23 10:20 | Inpatient (IN) | payer MEDICARE, OTHER ==
[~2019-01-23] VITALS: Ht 172.7 cm; Wt 52.8 kg
--- NOTE | 2019-01-23 08:58 | NUR ---
NURSE NOTES:WOUND CARE NOTES:Pt presented on admission with multiple pressure injuries :Pt is emaciated with contractures . Non-blanchable erythema noted to R and L ears. Partial thickness pressure injury to L scapula.Base of wound moist and viable. Edges flat and adherent to base of wound. Periwound without erythema or induration(L)1cm X(W)0.8cm. Sacral DTPI maroon discoloration ,indurated with dark brown borders.(L)8cm x (W)7.7cm . Incontinence associated dermatitis periwound extending down into both ischial,and scrotal region. Non-blanchable erythema without induration L trochanter (L)2.5cm x (W)1.8cm. Periwound is pink in colour. DTPI R trochanter.Base of wound maroon and is partially opened(L)8cm x (W)9.4cm.Non-blanchable erythema periwound .No exudate noted. Full thickness pressure injury R ischium 10% soft necrosis /10% yellow slough otherwise beefy red with dark brown borders. Non-blanchable erythema periwound. (L)2.7cm x (W)3.9cm.No odor or exudate noted. DTPI R achilles that is partially opened with small amt sanguineous exudate.Base of wound is fluctuant. Opening within DTPI is beefy red. Erythema along borders .Non-blanchable erythema without induration periwound. (L)7.4cm x (W)2cm. Dry brown eschar plantar /lateral R 1st metatarsal head.Periwound without erythema or fluctuance.(L)5cm x(W)1.5cm. DTPI medial L malleolus. Base of wound maroon- indurated with small area centrally that is fluctuant. Non-blanchable erythema without induration periwound(L)1.5cm x (W)1.3cm. Non-blanchable erythema without induration medial R malleolus. Both heels are pink and dry . Tx.Plan:Apply Moisture Barrier Paste to scrotum and buttocks with each perineal care. Apply Moisture barrier to sacrum .Cover with Optifoam drsg Q3days and prn. Apply Cavilon Skin Barrier to R st metatarsal. Cover with Optifoam drsg .Change every 7 days and prn. Apply Cavilon Skin BArrier to L scapula. Cover with Optifoam drsg.Change Q7days and prn. Cleanse R achilles with saline. Apply Therahoney. Apply Cavilon Skin barrier periwound. Cover with Optifoam drsg. Change every 3 days and prn. Cleanse R trochanter and R ischial wounds with Saline .Apply Therahoney. Apply Moisture Barrier periwound. Cover with Optifoam drsg Q3days and prn. Apply Cavilon SKin Barrier to R and L malleoli,( Medial and lateral aspects). Cover each each site with Optifoam drsgs. Change every 7 days and prn. Apply Cavilon Skin Barrier to lateral aspects of both feet .Cover with Optifoam drsgs.Change every 7 days and prn. Maintain Coloplast rings to both earsfor protection.Change prn. APM/MO mattress. Reposition at least every 2hours or as tolerated. Place pillow between knees. Off-load heels with pillow.
[~2019-01-23 10:20] MED LIST changes: +CULTURELLE1 EACH ORAL; +FAMOTIDINE20 MG ORAL; +POLYETHYLENE GL17 GM ORAL; +PROTONIX40 M1 IVP
--- NOTE | 2019-01-23 10:30 | NUR ---
ED Nurse Note: Pt BIBA from [facility] due to SOB since this morning. Pt was sating at 88% upon EMS arrival to SNF. Pt was discharged from this hospital x 3 days ago for PNA. Pt was at the hospital for 5 days and was given atb. Pt arrived at the hospital w/ rectal temp of 100.7F. Skin warm to touch. Non verbal. Pt was sinus tachy upon arrival.
[2019-01-23] MEDS ORDERED: Albuterol ud Inhalation HHN ONE (10:45)
[2019-01-23] MEDS ORDERED: Ertapenem 1 GM in NS 55 ML IVPB ONE (10:45)
[2019-01-23] MEDS ORDERED: Ipratropium 0.02% Inh Soln 2.5ml UD HHN ONE (10:45)
--- NOTE | 2019-01-23 10:48 | NUR ---
ED Nurse Note: RT at the bedside.
[2019-01-23 10:52] VITALS: BP 111/60
--- NOTE | 2019-01-23 10:55 | NUR ---
ED Nurse Note: Gtube site noted on abdomen and congestion noted.
[2019-01-23 10:59] LABS: APPEARANCE,URINE CLEAR; BILIRUBIN, URINE NEGATIVE (NEGATIVE); COLOR,URINE BROWN; GLUCOSE, URINE (UA) NEGATIVE (NEGATIVE); KETONES,URINE 1+ (NEGATIVE); LEUKOCYTE ESTERASE ,URINE 1+ (NEGATIVE); NITRITE,URINE NEGATIVE (NEGATIVE); PH,URINE 6 (4.5-8.0); PROTEIN,URINE 3+ (NEGATIVE); UROBILINOGEN,URINE 4 MG/DL (0.0-1.0)
[2019-01-23] MEDS ORDERED: Levalbuterol Inh UD 1.25mg/0.5ml HHN ONE (11:00)
[2019-01-23 11:09] LABS: ANION GAP 7 mmol/L (5-15); BLOOD UREA NITROGEN 14 mg/dL (7-18); CALCIUM 7.9 MG/DL (8.5-10.1); CARBON DIOXIDE 27 MMOL/L (21-32); CHLORIDE 104 MMOL/L (98-107); CREATININE 0.7 MG/DL (0.55-1.30); POTASSIUM 3.6 MMOL/L (3.5-5.1); SODIUM 138 MMOL/L (136-145)
[2019-01-23 11:19] LABS: ALANINE AMINOTRANSFERASE 13 U/L (12-78); ALBUMIN 1.5 G/DL (3.4-5.0); ALBUMIN/GLOBULIN RATIO 0.3 (1.0-2.7); ALKALINE PHOSPHATASE 65 U/L (46-116); ASPARTATE AMINO TRANSFERASE 13 U/L (15-37); BILIRUBIN,TOTAL 0.4 MG/DL (0.2-1.0)
[2019-01-23 11:27] LABS: HEMATOCRIT 31.1 % (42.0-52.0); HEMOGLOBIN 10.3 G/DL (14.2-18.0); MEAN CORPUSCULAR VOLUME 88 FL (80-99); PLATELET COUNT 199 K/UL (150-450); RED BLOOD COUNT 3.53 M/UL (4.70-6.10); RED CELL DISTRIBUTION WIDTH 15.9 % (11.6-14.8); WHITE BLOOD COUNT 10.5 K/UL (4.8-10.8)
--- NOTE | 2019-01-23 11:39 | NUR ---
ED Nurse Note: Xray at the bedside
--- NOTE | 2019-01-23 12:07 | Diagnostic Imaging Report ---
Indication: Cough Technique: One view of the chest Comparison: 01/19/2019 Findings: Bilateral pleural effusions are again demonstrated, unchanged or perhaps slightly increased. There is interim development of left perihilar consolidation. Generalized interstitial congestion persists, probably stable. Impression: Left perihilar pulmonary infiltrate versus focal airspace edema, new since prior study of 01/19/2019 Generalized interstitial congestion and bilateral pleural effusions,, stable or slightly increased
[2019-01-23 12:37] VITALS: BP 129/84
--- NOTE | 2019-01-23 12:56 | Emergency Room Report ---
History of Present Illness General Chief Complaint: Dyspnea/Respdistress Source: Medical Record Present Illness HPI Patient presents emergency department today with severe respiratory distress. Patient apparently was recently admitted for pneumonia. Patient was discharged. longterm patient began to develop fevers and worsening shortness of breath. Patient was sent back here for further evaluation. On arrival patient appeared weak short of breath. No other complaints are noted. Symptoms noted to be severe.No other modifying factors. No other associated signs and symptoms. No other complaints were noted. Allergies: Coded Allergies: No Known Allergies (Unverified , 10/28/18) Patient History Past Medical History: pneumonia, other - Anemia, leukemia Social History Narrative stays at nursing h Reviewed Nursing Documentation: PMH: Agreed; PSxH: Agreed Nursing Documentation-PMH Past Medical History: No History, Except For Hx Cardiac Problems: Yes - ANEMIA; LEUKEMIA; NONRHEUMATIC AORTIC STENOSIS; UNSPECIFIED HF Hx Hypertension: Yes Hx COPD: Yes - PNA, Hx Cancer: No Hx Gastrointestinal Problems: Yes - dysphagia, BPH, GERD Hx Neurological Problems: Yes - HEMIPLEGIA AND HEMIPARESIS FOLLOWING CEREBRAL INFARCTION Hx Cerebrovascular Accident: Yes Hx Dementia: Yes Hx Aphasia: Yes Hx Weakness: Yes Hx Neurologic Surgery: No Review of Systems All Other Systems: negative except mentioned in HPI Physical Exam Vital Signs Date Time Temp Pulse Resp B/P (MAP) Pulse Ox O2 Delivery O2 Flow Rate FiO2 01/23/19 10:16 112 16 97/53 98 Non-Rebreather 15.0 01/23/19 10:52 98 01/23/19 10:52 100.7 Sp02 EP Interpretation: reviewed, normal General Appearance: alert, moderate distress Head: normocephalic, atraumatic Eyes: bilateral eye normal inspection ENT: normal ENT inspection, hearing grossly normal, normal voice Neck: normal inspection, full range of motion, supple, no bony tend Respiratory: respiratory distress, decreased breath sounds, wheezing, expiration, inspiration Cardiovascular #1: no edema, tachycardia Gastrointestinal: normal inspection, normal bowel sounds, non tender, soft, no guarding, no hernia Genitourinary: no CVA tenderness Musculoskeletal: normal inspection, back normal, normal range of motion Neurologic: normal inspection, alert, responsive Psychiatric: anxious Skin: normal inspection, normal color, no rash Procedures Critical Care Time Critical Care Time Patient had a critical medical condition which untreated could potentially result in life or limb threatening injury. Total critical care time excluding procedures was approximately 45 minutes. Medical Decision Making Diagnostic Impression: Primary Impression: Respiratory distress Additional Impression: PNEUMONIA ER Course Patient presents emergency department today complaining severe shortness of breath. Differential considerations include pneumonia CHF COPD asthma just name a few.Given the severity of the patient's presentation I felt this is a highly complex patient. This patient required extensive workup. Patient's exam is consistent with pneumonia. Chest x-ray shows evidence of pulmonary congestion infiltrate. Patient in the past was placed on antibiotics according to ID. I will start the patient back on the same antibiotic. Case was discussed with Dr. Camron Pearl. Patient will be admitted to [facility] for further treatment. Labs Test 01/23/19 10:20 01/23/19 10:37 White Blood Count 10.5 K/UL (4.8-10.8) Red Blood Count 3.53 M/UL (4.70-6.10) Hemoglobin 10.3 G/DL (14.2-18.0) Hematocrit 31.1 % (42.0-52.0) Mean Corpuscular Volume 88 FL (80-99) Mean Corpuscular Hemoglobin 29.3 PG (27.0-31.0) Mean Corpuscular Hemoglobin Concent 33.2 G/DL (32.0-36.0) Red Cell Distribution Width 15.9 % (11.6-14.8) Platelet Count 199 K/UL (150-450) Mean Platelet Volume 6.2 FL (6.5-10.1) Neutrophils (%) (Auto) % (45.0-75.0) Lymphocytes (%) (Auto) % (20.0-45.0) Monocytes (%) (Auto) % (1.0-10.0) Eosinophils (%) (Auto) % (0.0-3.0) Basophils (%) (Auto) % (0.0-2.0) Differential Total Cells Counted 100 Neutrophils % (Manual) 68 % (45-75) Lymphocytes % (Manual) 14 % (20-45) Monocytes % (Manual) 4 % (1-10) Eosinophils % (Manual) 0 % (0-3) Basophils % (Manual) 0 % (0-2) Band Neutrophils 14 % (0-8) Platelet Estimate Adequate Platelet Morphology Normal Anisocytosis 1+ Urine Color Brown Urine Appearance Clear Urine pH 6 (4.5-8.0) Urine Specific Beverly 1.015 (1.005-1.035) Urine Protein 3+ (NEGATIVE) Urine Glucose (UA) Negative (NEGATIVE) Urine Ketones 1+ (NEGATIVE) Urine Blood Negative (NEGATIVE) Urine Nitrite Negative (NEGATIVE) Urine Bilirubin Negative (NEGATIVE) Urine Urobilinogen 4 MG/DL (0.0-1.0) Urine Leukocyte Esterase 1+ (NEGATIVE) Urine RBC 0 /HPF (0 - 0) Urine WBC 0-2 /HPF (0 - 0) Urine Squamous Epithelial Cells None /LPF (NONE/OCC) Urine Bacteria Occasional /HPF (NONE) Urine Mucus Few /LPF (NONE/OCC) Sodium Level 138 MMOL/L (136-145) Potassium Level 3.6 MMOL/L (3.5-5.1) Chloride Level 104 MMOL/L (98-107) Carbon Dioxide Level 27 MMOL/L (21-32) Anion Gap 7 mmol/L (5-15) Blood Urea Nitrogen 14 mg/dL (7-18) Creatinine 0.7 MG/DL (0.55-1.30) Estimat Glomerular Filtration Rate mL/min (>60) Glucose Level 110 MG/DL (74-106) Calcium Level 7.9 MG/DL (8.5-10.1) Total Bilirubin 0.4 MG/DL (0.2-1.0) Aspartate Amino Transf (AST/SGOT) 13 U/L (15-37) Alanine Aminotransferase (ALT/SGPT) 13 U/L (12-78) Alkaline Phosphatase 65 U/L (46-116) Troponin I 0.017 ng/mL (0.000-0.056) Pro-B-Type Natriuretic Peptide 2470 pg/mL (0-125) Total Protein 6.1 G/DL (6.4-8.2) Albumin 1.5 G/DL (3.4-5.0) Globulin 4.6 g/dL Albumin/Globulin Ratio 0.3 (1.0-2.7) Lipase 44 U/L (73-393) Lactic Acid Level 1.20 mmol/L (0.4-2.0) EKG Diagnostic Results Rate: tachycardiac Rhythm: NSR ST Segments: no acute changes Rhythm Strip Diag. Results EP Interpretation: yes Rate: 120 Rhythm: NSR, no PVC's, no ectopy Chest X-Ray Diagnostic Results Chest X-Ray Diagnostic Results : Chest X-Ray Ordered: No Indication: Shortness of Breath Interpretation: other - Perihilar pna Last Vital Signs Date Time Temp Pulse Resp B/P (MAP) Pulse Ox O2 Delivery O2 Flow Rate FiO2 01/23/19 12:37 100.2 156 20 129/84 99 Nasal Cannula 3.0 01/23/19 11:07 28 Status: improved Disposition: ADMITTED INPATIENT Condition: Serious Referrals: Camron Pearl MD (PCP) Grupo Chowdhury MD Jan 23, 2019 12:56
--- NOTE | 2019-01-23 13:33 | NUR ---
ED Nurse Note: Tried giving report, RN unavailable. Will call back.
--- NOTE | 2019-01-23 13:49 | NUR ---
ED Nurse Note: Gave telephone report to SOCORRO Devi.
--- NOTE | 2019-01-23 14:16 | NUR ---
ED Nurse Note: Pt transferred up to SDU unit. No acute distress noted. Pt did not have belongings.
--- NOTE | 2019-01-23 14:17 | NUR ---
NURSE NOTES: RECEIVED REPORT FROM SOCORRO MURILLO. PATIENT TRANSPORTED VIA GURNEY. HOOKED TO LEARNING COORDINATOR. ON 3L NC. NO SIGNS OF DISTRESS. NPO. THOROUGH SKIN ASSESSMENT DONE. ORIENTED TO ROOM. PATIENT KEPT CLEAN AND DRY. ORIENTED TO ROOM. HEALTH TEACHINGS DONE. CALL LIGHT WITHIN REACH. BED AT LOWEST POSITION. SIDE RAILS UP. WILL CONTINUE TO MONITOR.
--- NOTE | 2019-01-23 15:00 | NUR ---
NURSE NOTES: SEEN BY WOUND CARE NURSE. DRESSINGS DONE. WILL CONTINUE TO MONITOR.
[2019-01-23 16:00] VITALS: BP 95/48
[2019-01-23] MEDS ORDERED: Zosyn 2.25gm inj IV SCH (16:00)
[2019-01-23] MEDS ORDERED: Metoprolol 5mg/5ml Inj IVP SCH (16:15)
--- NOTE | 2019-01-23 18:37 | NUR ---
CASE MANAGEMENT: INITIAL REVIEW 01/23/2019 78 YO Sultana MENDOZA FROM [facility] CC: DYSPNEA PMHx: PNA. ANEMIA. LEUKEMIA. SI:SEPSIS. PNA. T 100.7 HR 112 RR 16 B/P 97/53 SATS 98% ON 15L/NRB GLU 110 CA 7.9 BNP 2470 LIPASE 44 IS: NS BOLUS X1 ERTAPENEM IV X1 DUO NEB HHN X1 LEVALBUTEROL HHN X1 PATIENT ADMITTED TO STEP DOWN UNIT 01/23/2019 @ 1115 DCP: PATIENT TO BE DISCHARGED TO SNF ONCE MEDICALLY CLEARED. PLAN OF CARE: VENOUS DUPLEX Addendum: 01/23/19 at 2043 by Blessing Biswas CM INTERQUAL MET
[2019-01-23] MEDS: D5NS 1,000 ML IV SCH (18:42)
[2019-01-23] MEDS: Vancomycin 750mg/NS 275ml IVPB SCH ×2 (18:42)
--- NOTE | 2019-01-23 19:14 | NUR ---
HAND-OFF: Report given to Gracie Dey RN.
--- NOTE | 2019-01-23 19:15 | NUR ---
NURSE NOTES: Report received from SOCORRO Campbell. Patient seen in bed in semi null position with oxygen 3L/min via NC. sp02 is 98%. Addendum: 01/23/19 at 1930 by Natalia Dey RN NURSE NOTES: Report received from SOCORRO Campbell. Patient seen in bed in semi null position with oxygen 3L/min via NC. sp02 is 98%. Patient is alert, but non verbal at this time. no S/Sx of pain is noted via FLACC scale. IV site to left AC 20 g is intact and is running D5NS at 75cc/hr. Condom cath is in place and is intact. Bed is in lowest position. Call light is within easy reach while in bed., will continue to monitor.
[2019-01-23] MEDS: Albuterol/Ipratropium 3ml neb HHN SCH ×2 (19:33→22:52)
[2019-01-23 20:00] VITALS: BP 122/66
[2019-01-23] MEDS: Zoysn 3.37gm in NS 100ML IVPB SCH (21:07)
[2019-01-24] VITALS: BP 123/60
[2019-01-24] MEDS: Metoprolol Tartrate 10 MG in D5W 55 ML IVPB SCH ×4 (02:52→20:30)
[2019-01-24] MEDS: Albuterol/Ipratropium 3ml neb HHN SCH ×6 (03:14→23:20)
--- NOTE | 2019-01-24 03:30 | Consultation ---
DATE OF CONSULTATION: 01/23/2019 CARDIOLOGY CONSULTATION CONSULTING PHYSICIAN: Arcenio Schulz M.D. REQUESTING PHYSICIAN: Camron Pearl M.D. REASON: Rapid atrial tachyarrhythmias. HISTORY OF PRESENT ILLNESS: This is a 68-year-old male, known to me from prior care, who was recently hospitalized with healthcare-acquired pneumonia and respiratory failure. He was discharged back to a half-way facility less than a week ago. Apparently last evening, he developed fevers and shortness of breath and was transferred back to the emergency room where he was noted to be in septic due to a new respiratory infection. Since admission, he has been pancultured and started on antimicrobials and respiratory hygiene. He continues to have episodes of rapid atrial arrhythmias. PAST MEDICAL HISTORY: Notable for: 1. Severe degenerative aortic valve stenosis, he was turned down for a TAVR procedure due to his comorbidities. 2. Hypertensive heart disease. 3. Paroxysmal atrial fibrillation. 4. Cerebrovascular disease with history of cerebrovascular accident and left-sided weakness. 5. Chronic obstructive pulmonary disease. 6. CML. 7. Chronic GI bleeding and blood loss with transfusion-dependent anemia. 8. He has had extensive GI diagnostic workups and no definitive source of bleeding has been found. ALLERGIES: None. MEDICATIONS: Prior to admission, reviewed and reconciled. FAMILY HISTORY: Noncontributory. SOCIAL HISTORY: Apparently prior smoking history. No alcohol abuse or substance abuse. REVIEW OF SYSTEMS: A 10-point review of systems performed based on extensive review of prior hospitalization records and intermediate chart and pertinent data as outlined above. PHYSICAL EXAMINATION: VITAL SIGNS: Blood pressure 97/53, pulse 112, respirations 16, and temperature 100.7. HEENT: Oropharynx clear. NECK: With accessory muscle use and jugular venous pressure elevation. LUNGS: With coarse breath sounds and rhonchi. CARDIAC: Regular rhythm. Rapid rate. Normal S1, S2 with a fourth heart sound. ABDOMEN: Soft, nontender. EXTREMITIES: Without edema. LABORATORY AND DIAGNOSTIC DATA: White count 10.5, hemoglobin 10.3. Urinalysis with no active sediment. Sodium is 138, potassium 3.6, bicarbonate 27, BUN 14, creatinine 0.7, and glucose 110. Troponin 0.017. Pro-natriuretic peptide 2470. Lactic acid 1.2. EKG, sinus tachycardia, nonspecific ST-T wave changes. Chest x-ray with perihilar pneumonia, monitored rhythm, sinus tachycardia, frequent atrial ectopy, and episodes of SVT, which may be flutter. IMPRESSION: 1. Healthcare-acquired pneumonia. 2. Acute respiratory insufficiency. 3. Paroxysmal bronchospasm. 4. Acute on chronic diastolic congestive heart failure. 5. Severe aortic stenosis. 6. Paroxysmal atrial tachyarrhythmias. 7. History of CML. 8. History of chronic GI bleeding requiring transfusions. 9. Acute myocardial ischemia. RECOMMENDATIONS: 1. Antimicrobials. 2. Bronchodilators. 3. Respiratory hygiene. 4. Limit beta-agonist use. 5. Add diltiazem. 6. DVT prophylaxis. 7. Avoid anti-platelet and anticoagulants due to high bleeding risk. 8. Stress ulcer prophylaxis. 9. Replace electrolytes as needed. 10. Check magnesium level. Arcenio Schulz M.D. DR: JENNIFER JOB#: [id number] CC:
[2019-01-24 04:00] VITALS: BP 132/74
[2019-01-24] MEDS: D5NS 1,000 ML IV SCH ×2 (04:14→18:07)
[2019-01-24] MEDS: Zoysn 3.37gm in NS 100ML IVPB SCH ×3 (05:38→21:22)
--- NOTE | 2019-01-24 07:15 | NUR ---
HAND-OFF: Report given to Adrian Hernandez RN .
--- NOTE | 2019-01-24 07:16 | NUR ---
NURSE NOTES: RECEIVED PATIENT FROM Gracie LOCKE RN. PATIENT IS LYING IN BED, ASLEEP. HOOKED TO TREND INVESTIGATOR. ON 3L NC. NO SIGNS OF DISTRESS. STILL ON NPO EXCEPT MEDS. SKIN ALTERATIONS NOTED. NOTED CONDOM CATH. IV ON R HAND G22 AND L AC G20. IVF RUNNING D5 NS AT 75CC/HR. CALL LIGHT WITHIN REACH. BED AT LOWEST POSITION. SIDE RAILS UP. WILL CONTINUE TO MONITOR.
[2019-01-24 08:00] VITALS: BP 114/71
--- NOTE | 2019-01-24 08:51 | NUR ---
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 CC:DYSPNEA/ RESPIRATORY DISTRESS SINCE MORNING SI:SEPSIS/ PNEUMONIA VS: BP 97/53, P 156, T 100.7, RR 23, SpO2 98 ON 15L O2 NON-REBREATHER Ca 7.9, AST 13, LIPASE 44, GLUCOSE 110, TOTAL PROTEIN 6.1, RBC 3.53, Hgb 10.3, Hct 31.1, RDW 15.9 Lymphocytes 14, Urine Ketones 1+, Urine Protein 3+ CXR Impression: Left perihilar pulmonary infiltrate versus focal airspace edema, new since prior study of 01/19/2019 IS:Atrovent HHN Albuterol HHN Ertapenem 110mls/hr NS IV x2L Levalbuterol HCI HHN SDU Status DC plan: return to [facility]
[2019-01-24] MEDS: Pantoprazole Inj IVP SCH (09:05)
--- NOTE | 2019-01-24 09:43 | General Progress Note ---
Assessment/Plan Problem List: (1) Severe anemia ICD Codes: D64.9 - Anemia, unspecified SNOMED: 213299964 (2) PUD (peptic ulcer disease) ICD Codes: K27.9 - Peptic ulcer, site unspecified, unspecified as acute or chronic, without hemorrhage or perforation SNOMED: 33078502 (3) Altered level of consciousness ICD Codes: R40.4 - Transient alteration of awareness SNOMED: 3932913 (4) CAD/NH (5) CML (chronic myelocytic leukemia) ICD Codes: C92.10 - Chronic myeloid leukemia, BCR/ABL-positive, not having achieved remission SNOMED: 14892031 (6) Aortic stenosis, severe ICD Codes: I35.0 - Nonrheumatic aortic (valve) stenosis SNOMED: 96386155 (7) Pneumonia ICD Codes: J18.9 - Pneumonia SNOMED: 371891115 Status: stable Assessment/Plan cont npo repeat swallow ivf iv abx follow up cultures will d/w family gt again Subjective ROS Limited/Unobtainable: No Constitutional: Reports: malaise, weakness HEENT: Reports: no symptoms Cardiovascular: Reports: no symptoms Respiratory: Reports: cough, shortness of breath Gastrointestinal/Abdominal: Reports: difficulty swallowing Genitourinary: Reports: no symptoms Neurologic/Psychiatric: Reports: pre-existing deficit Endocrine: Reports: no symptoms Hematologic/Lymphatic: Reports: anemia Allergies: Coded Allergies: No Known Allergies (Unverified , 10/28/18) All Systems: reviewed and negative except above Subjective no events. weak. less sob. cxr with new infiltrate. remains npo on ivf Objective Last 24 Hour Vital Signs Date Time Temp Pulse Resp B/P (MAP) Pulse Ox O2 Delivery O2 Flow Rate FiO2 01/24/19 09:38 111 114/71 01/24/19 08:00 Nasal Cannula 3.0 01/24/19 08:00 3.0 01/24/19 08:00 111 23 98 Nasal Cannula 3.0 32 01/24/19 08:00 Nasal Cannula 3.0 32 01/24/19 08:00 98.6 109 18 114/71 (85) 97 01/24/19 08:00 98 Nasal Cannula 3.0 32 01/24/19 07:42 101 22 96 Nasal Cannula 3.0 32 01/24/19 04:00 Nasal Cannula 3.0 01/24/19 04:00 99.1 92 20 132/74 (93) 98 01/24/19 04:00 3.0 01/24/19 03:40 85 01/24/19 03:24 104 20 98 Nasal Cannula 3.0 32 01/24/19 03:14 102 18 96 Nasal Cannula 3.0 32 01/24/19 02:52 125 122/62 01/24/19 00:00 98.9 114 24 123/60 (81) 96 01/24/19 00:00 Nasal Cannula 3.0 01/23/19 23:45 155 01/23/19 23:01 103 20 99 Nasal Cannula 3.0 32 01/23/19 22:52 101 20 97 Nasal Cannula 3.0 32 01/23/19 20:13 Nasal Cannula 3.0 01/23/19 20:00 99.0 105 24 122/66 (84) 99 01/23/19 20:00 3.0 01/23/19 19:46 104 20 99 Nasal Cannula 3.0 32 01/23/19 19:35 103 20 Nasal Cannula 3.0 32 01/23/19 19:33 103 20 96 Nasal Cannula 3.0 32 01/23/19 16:30 136 121/82 01/23/19 16:00 108 01/23/19 16:00 98.1 75 26 95/48 (64) 100 01/23/19 16:00 Nasal Cannula 3.0 01/23/19 14:17 100.0 125 20 113/63 95 Nasal Cannula 3.0 28 01/23/19 14:00 Nasal Cannula 3.0 01/23/19 12:37 100.2 156 20 129/84 99 Nasal Cannula 3.0 01/23/19 11:07 120 22 100 Room Air 2.0 28 01/23/19 11:01 130 24 98 Nasal Cannula 2.0 28 01/23/19 10:52 100.7 118 23 111/60 99 Nasal Cannula 2.0 01/23/19 10:52 130 30 Nasal Cannula 3.0 98 01/23/19 10:16 112 16 97/53 98 Non-Rebreather 15.0 Intake and Output 01/23/19 01/24/19 19:00 07:00 Intake Total 4050 ml 1428.333 ml Output Total 50 ml 400 ml Balance 4000 ml 1028.333 ml Intake IV Total 4050 ml 1428.333 ml Output Urine Total 50 ml 400 ml # Bowel Movements 1 Laboratory Tests 01/23/19 10:20: White Blood Count 10.5, Red Blood Count 3.53L, Hemoglobin 10.3L, Hematocrit 31.1L, Mean Corpuscular Volume 88, Mean Corpuscular Hemoglobin 29.3, Mean Corpuscular Hemoglobin Concent 33.2, Red Cell Distribution Width 15.9H, Platelet Count 199, Mean Platelet Volume 6.2L, Neutrophils (%) (Auto) , Lymphocytes (%) (Auto) , Monocytes (%) (Auto) , Eosinophils (%) (Auto) , Basophils (%) (Auto) , Differential Total Cells Counted 100, Neutrophils % ( Manual) 68, Lymphocytes % (Manual) 14L, Monocytes % (Manual) 4, Eosinophils % ( Manual) 0, Basophils % (Manual) 0, Band Neutrophils 14H, Platelet Estimate Adequate, Platelet Morphology Normal, Anisocytosis 1+, Urine Color Brown, Urine Appearance Clear, Urine pH 6, Urine Specific [place] 1.015, Urine Protein 3+H, Urine Glucose (UA) Negative, Urine Ketones 1+H, Urine Blood Negative, Urine Nitrite Negative, Urine Bilirubin Negative, Urine Urobilinogen 4H, Urine Leukocyte Esterase 1+H, Urine RBC 0, Urine WBC 0-2, Urine Squamous Epithelial Cells None, Urine Bacteria Occasional, Urine Mucus FewH, Sodium Level 138, Potassium Level 3.6, Chloride Level 104, Carbon Dioxide Level 27, Anion Gap 7, Blood Urea Nitrogen 14, Creatinine 0.7, Estimat Glomerular Filtration Rate , Glucose Level 110H, Calcium Level 7.9L, Total Bilirubin 0.4, Aspartate Amino Transf (AST/SGOT) 13L, Alanine Aminotransferase (ALT/SGPT) 13, Alkaline Phosphatase 65, Troponin I 0.017, Pro-B-Type Natriuretic Peptide 2470H, Total Protein 6.1L, Albumin 1.5L, Globulin 4.6, Albumin/Globulin Ratio 0.3L, Lipase 44L 01/23/19 10:37: Lactic Acid Level 1.20 Height (Feet): 5 Height (Inches): 8.00 Weight (Pounds): 115 General Appearance: WD/WN, alert, lethargic, thin Neck: supple Cardiovascular: normal peripheral pulses, normal rate, regular rhythm Respiratory/Chest: rhonchi - bilaterally Abdomen: normal bowel sounds, non tender, soft, no organomegaly Edema: no edema noted Arm (L), no edema noted Arm (R), no edema noted Leg (L), no edema noted Leg (R), no edema noted Pedal (L), no edema noted Pedal (R), no edema noted Generalized Neurologic: motor weakness Camron Pearl MD Jan 24, 2019 09:43
--- NOTE | 2019-01-24 11:25 | Infectious Diseases Prog Note ---
Assessment/Plan Assessment/Plan antibiotics : vancomycin iv, zosyn A 1. e.coli pneumonia recently 2. CLL 3. hypertension 4. aortic stenosis 5. + blood culture with clostridium likely contaminated 6. CVA 7. COPD P 1. continue iv vancomycin, zosyn 2. sputum cultures 3. will follow up cultures Subjective ROS Limited/Unobtainable: Yes Allergies: Coded Allergies: No Known Allergies (Unverified , 10/28/18) Objective Vital Signs Last 24 Hour Vital Signs Date Time Temp Pulse Resp B/P (MAP) Pulse Ox O2 Delivery O2 Flow Rate FiO2 01/24/19 11:14 109 21 99 Nasal Cannula 3.0 32 01/24/19 09:38 111 114/71 01/24/19 08:00 Nasal Cannula 3.0 01/24/19 08:00 3.0 01/24/19 08:00 96 01/24/19 08:00 111 23 98 Nasal Cannula 3.0 32 01/24/19 08:00 Nasal Cannula 3.0 32 01/24/19 08:00 98.6 109 18 114/71 (85) 97 01/24/19 08:00 98 Nasal Cannula 3.0 32 01/24/19 07:42 101 22 96 Nasal Cannula 3.0 32 01/24/19 04:00 Nasal Cannula 3.0 01/24/19 04:00 99.1 92 20 132/74 (93) 98 01/24/19 04:00 3.0 01/24/19 03:40 85 01/24/19 03:24 104 20 98 Nasal Cannula 3.0 32 01/24/19 03:14 102 18 96 Nasal Cannula 3.0 32 01/24/19 02:52 125 122/62 01/24/19 00:00 98.9 114 24 123/60 (81) 96 01/24/19 00:00 Nasal Cannula 3.0 01/23/19 23:45 155 01/23/19 23:01 103 20 99 Nasal Cannula 3.0 32 01/23/19 22:52 101 20 97 Nasal Cannula 3.0 32 01/23/19 20:13 Nasal Cannula 3.0 01/23/19 20:00 99.0 105 24 122/66 (84) 99 01/23/19 20:00 3.0 01/23/19 19:46 104 20 99 Nasal Cannula 3.0 32 01/23/19 19:35 103 20 Nasal Cannula 3.0 32 01/23/19 19:33 103 20 96 Nasal Cannula 3.0 32 01/23/19 16:30 136 121/82 01/23/19 16:00 108 01/23/19 16:00 98.1 75 26 95/48 (64) 100 01/23/19 16:00 Nasal Cannula 3.0 01/23/19 14:17 100.0 125 20 113/63 95 Nasal Cannula 3.0 28 01/23/19 14:00 Nasal Cannula 3.0 01/23/19 12:37 100.2 156 20 129/84 99 Nasal Cannula 3.0 Height (Feet): 5 Height (Inches): 8.00 Weight (Pounds): 115 Respiratory/Chest: lungs clear Cardiovascular: normal rate, regular rhythm, no gallop/murmur Abdomen: soft, non tender Extremities: no edema Current Medications Medications (Trade) Dose Ordered Sig/Elder Route PRN Reason Start Time Stop Time Status Last Admin Dose Admin Albuterol/ Ipratropium (Albuterol/ Ipratropium) 3 ml Q4H HHN 01/23/19 15:15 01/28/19 15:14 01/24/19 11:14 Dextrose/Sodium Chloride 1,000 ml @ 75 mls/hr [id number] IV 01/23/19 15:16 02/22/19 15:15 01/24/19 04:14 Metoprolol Tartrate (Lopressor) 5 mg Q5MIN X 3 IVP 01/23/19 16:15 02/22/19 16:14 01/23/19 16:30 Metoprolol Tartrate 10 mg/ Dextrose 65 ml @ 130 mls/hr Q6H IVPB 01/24/19 03:00 02/23/19 02:59 01/24/19 09:38 Pantoprazole (Protonix) 40 mg DAILY IVP 01/24/19 09:00 02/23/19 08:59 01/24/19 09:05 Piperacillin Sod/ Tazobactam Sod 3.375 gm/Sodium Chloride 110 ml @ 27.5 mls/hr EVERY 8 HOURS IVPB 01/23/19 22:00 01/28/19 21:59 01/24/19 05:38 Vancomycin HCl (Vanco rx to dose) 1 ea DAILY PRN MISC Per rx protocol 01/23/19 15:15 02/22/19 15:14 Vancomycin HCl 750 mg/Sodium Chloride 275 ml @ 183.333 mls/hr Q24H IVPB 01/23/19 17:00 01/28/19 16:59 01/23/19 18:42 Ernie Barraza MD Jan 24, 2019 11:25
[2019-01-24 12:00] VITALS: BP 117/68
--- NOTE | 2019-01-24 13:28 | NUR ---
RD ASSESSMENT & RECOMMENDATIONS SEE CARE ACTIVITY FOR COMPLETE ASSESSMENT DAILY ESTIMATED NEEDS: Needs based on Underweight, 52kg 30-35 kcals/kg 0289-1935 total kcals 1-1.5 g protein/kg 52-78 g total protein 25-30 mL/kg 8357-0732 total fluid mLs NUTRITION DIAGNOSIS: * Increased kcal and protein needs r/t underweight status as evidenced by pt w generalized moderate to severe wasting, BMI underweight per guidelines, 75% of Chloe Body Weight. * Swallowing difficulty R/T dysphagia, h/o CVA as evidenced by pt previously on liquify pureed, NTL per CD MIXER HELPER rec w/ recent adm (dc was 4 days ago). * Altered nutrition related lab values R/T clinical condition as evidenced by elev BNP (2470) CURRENT DIET: NPO PO DIET RECOMMENDATIONS: IF SAFE FOR PO -> Liberalized / Regular diet (texture per CD MIXER HELPER) ENTERAL NUTRITION RECOMMENDATIONS: * Consult RD as needed if non oral feeds are part of POC * ADDITIONAL RECOMMENDATIONS: * CALIBRATED bedscale wt for accurate CBW * Weekly wts given underweight status * Rec WC eval- multiple wound photos * Add Ensure Enlive TID to diet order * CD MIXER HELPER eval for texture
--- NOTE | 2019-01-24 13:28 | Cardiology Report ---
APPROVED REPORT EKG Measurement Heart [id number] Sinus tachycardia Left axis deviation Abnormal ECG
--- NOTE | 2019-01-24 15:15 | Consultation ---
DATE OF CONSULTATION: 01/24/2019 PULMONARY CONSULTATION CONSULTING PHYSICIAN: Hernan Campos M.D. REASON FOR CONSULTATION: Shortness of breath. HISTORY OF PRESENT ILLNESS: The patient is a 78-year-old male, who had recent admission for pneumonia. The patient discharged to half-way facility and developed fever and shortness of breath, transferred back for sepsis and new pneumonia. The patient with congestion. The patient was pancultured and given IV antibiotics. The patient now admitted for further care and management. I was called to evaluate further. Imaging noted and reviewed. ER notes reviewed. The patient now with left perihilar pulmonary infiltrate, which is new since prior to discharge. The patient is unable to give much in the way of history. The patient's chart was reviewed. The patient's ER notes were reviewed. The care discussed with the primary care doctor. PAST MEDICAL HISTORY: Aortic valve stenosis, hypertensive heart disease, pneumonia, paroxysmal atrial fibrillation, CVA with focal left-sided weakness, COPD, CML, and GI bleed. ALLERGIES: Reviewed. MEDICATIONS: Reviewed. FAMILY HISTORY: Noncontributory. SOCIAL HISTORY: Prior smoking history. Nondrinker. Nonsmoker. Currently disabled. REVIEW OF SYSTEMS: Somewhat difficult to obtain. PHYSICAL EXAMINATION: GENERAL: An ill-appearing male, in no acute distress. VITAL SIGNS: Saturations 98% on 3 liters, heart rate 111, temperature 99.1, blood pressure 132/74. HEENT: Oropharynx is moist. Reduced gag. NECK: Otherwise supple. No accessory muscle use. LUNGS: With scattered rhonchi. Moderate air entry. CARDIAC: S1 and S2. Regular rate and rhythm without murmurs, rubs, or gallops. ABDOMEN: Soft, nontender, nondistended. EXTREMITIES: No cyanosis, clubbing, or edema. Focal weakness noted on examination. LABORATORY DATA: Hemoglobin 10, hematocrit is 31.1, white count 10.5. Chemistry, electrolytes overall normal, however, the albumin is 1.5. IMPRESSION: 1. Pneumonia, possibly pulmonary edema vs possible third-spacing. 2. Severe protein-calorie malnutrition. 3. History of CVA. 4. Focal weakness. 5. Concern for aspiration. 6. Evidence of anemia of chronic disease. 7. Recurrent fevers. 8. Respiratory congestion. RECOMMENDATIONS: Supportive care. IV hydration. IV antibiotics. Respiratory care. Nebulized therapy. Follow up x-ray exam. Aspiration precautions and monitor clinically for further changes and interventions. Speech evaluation and we will follow clinically for further changes and attempt to optimize. Wound care and nutrition consultation and DVT prophylaxis. Hernan Campos M.D. DR: OPAL JOB#: [id number] CC: DANNY
[2019-01-24 16:00] VITALS: BP 123/74
[2019-01-24] MEDS: Vancomycin 750mg/NS 275ml IVPB SCH ×2 (17:04)
--- NOTE | 2019-01-24 18:50 | NUR ---
NURSE NOTES: PATIENT KEPT CLEAN AND DRY. NO SIGNS OF DISTRESS. WILL CONTINUE TO MONITOR.
--- NOTE | 2019-01-24 19:01 | NUR ---
HAND-OFF: Report given to Gracie Dey RN.
--- NOTE | 2019-01-24 19:02 | NUR ---
NURSE NOTES: Received report from SOCORRO Campbell. Patient seen in bed in semi null position with oxygen via NC on 3 L/min. S-02 is 98%. PAtient is alert, but non verbal at this time. no S/Sx of pain is noted via FLACC scale. IV site noted to left ac 20g and is intact. Continues with IVF of D5 NS running at 75cc/hr. Condom cath is in place and intact. Bed is in lowest position. Call light is within easy reach while in room. will continue to monitor.
[2019-01-24 20:00] VITALS: BP 119/74
[2019-01-25] VITALS: BP 129/61
[2019-01-25] MEDS: Metoprolol Tartrate 10 MG in D5W 55 ML IVPB SCH ×3 (02:11→15:54)
--- NOTE | 2019-01-25 02:31 | Progress Note ---
DATE: 01/24/2019 SUBJECTIVE: The patient is remaining NPO. Aspiration risk is significant. Family members have not agreed to a feeding tube. The patient has a new aspiration pneumonia. OBJECTIVE: VITAL SIGNS: Vitals 114/71, pulse rate 111, respirations 24, and afebrile. T-max is 100.7. LUNGS: Coarse breath sounds. Scattered rhonchi. HEART: Regular rhythm. Rapid rate. Normal S1 and S2. A 2/6 systolic ejection murmur at the base. EXTREMITIES: Trace edema. IMPRESSION: 1. Sinus rhythm with sinus tachycardia and paroxysmal SVT. 2. Continuing aspiration pneumonia. 3. Dysphagia. 4. Severe aortic stenosis. 5. CML. 6. Chronic GI bleeding. 7. Recurrent anemia, requiring transfusions. 8. Paroxysmal supraventricular tachyarrhythmias. 9. Acute on chronic diastolic congestive heart failure. PLAN: 1. Transfuse if hemoglobin less than 8. 2. Antimicrobials. 3. Respiratory hygiene. 4. Avoid beta-agonist. 5. Continue IV beta-ahsan. 6. Transition to . Arcenio Schulz M.D. DR: ANALISA JOB#: [id number] CC:
[2019-01-25] MEDS: Albuterol/Ipratropium 3ml neb HHN SCH ×6 (03:38→23:36)
[2019-01-25 04:00] VITALS: BP 133/66
[2019-01-25] MEDS: Zoysn 3.37gm in NS 100ML IVPB SCH ×3 (05:12→20:18)
--- NOTE | 2019-01-25 07:14 | NUR ---
HAND-OFF: Report given to SOCORRO Campbell.
--- NOTE | 2019-01-25 07:15 | NUR ---
NURSE NOTES: RECEIVED PATIENT FROM Gracie LOCKE RN. PATIENT IS RESTING IN BED, ASLEEP. HOOKED TO BUSINESS SUPPORT LIAISON. ON 3L NC. NO SIGNS OF DISTRESS. NPO EXCEPT MEDS. SKIN ALTERATIONS NOTED. NOTED CONDOM CATH. IV ON R WRIST G22 AND L AC G20. IVF RUNNING D5 NS AT 75CC/HR. CALL LIGHT WITHIN REACH. BED AT LOWEST POSITION. SIDE RAILS UP. WILL CONTINUE TO MONITOR.
[2019-01-25 08:00] VITALS: BP 126/76
[2019-01-25] MEDS: D5NS 1,000 ML IV SCH (08:00)
--- NOTE | 2019-01-25 08:30 | General Progress Note ---
Assessment/Plan Problem List: (1) Severe anemia ICD Codes: D64.9 - Anemia, unspecified SNOMED: 618844440 (2) PUD (peptic ulcer disease) ICD Codes: K27.9 - Peptic ulcer, site unspecified, unspecified as acute or chronic, without hemorrhage or perforation SNOMED: 67959764 (3) Altered level of consciousness ICD Codes: R40.4 - Transient alteration of awareness SNOMED: 0881163 (4) CAD/[place] (5) CML (chronic myelocytic leukemia) ICD Codes: C92.10 - Chronic myeloid leukemia, BCR/ABL-positive, not having achieved remission SNOMED: 97695330 (6) Aortic stenosis, severe ICD Codes: I35.0 - Nonrheumatic aortic (valve) stenosis SNOMED: 00044959 (7) Pneumonia ICD Codes: J18.9 - Pneumonia SNOMED: 319880169 Status: stable, not improved Assessment/Plan cont npo repeat swallow ivf iv abx follow up cultures will d/w family gt again- previously they declined very poor prognosis family aware Subjective ROS Limited/Unobtainable: No Constitutional: Reports: malaise, weakness HEENT: Reports: no symptoms Cardiovascular: Reports: no symptoms Respiratory: Reports: cough, shortness of breath Gastrointestinal/Abdominal: Reports: difficulty swallowing Genitourinary: Reports: no symptoms Neurologic/Psychiatric: Reports: pre-existing deficit Endocrine: Reports: no symptoms Hematologic/Lymphatic: Reports: no symptoms Allergies: Coded Allergies: No Known Allergies (Unverified , 10/28/18) All Systems: reviewed and negative except above Subjective no events. weak. less sob. o2 nasal cannula. remains npo. on iv abx. Objective Last 24 Hour Vital Signs Date Time Temp Pulse Resp B/P (MAP) Pulse Ox O2 Delivery O2 Flow Rate FiO2 01/25/19 07:40 99 18 98 Nasal Cannula 3.0 32 01/25/19 07:30 81 16 98 Nasal Cannula 3.0 32 01/25/19 07:30 Nasal Cannula 3.0 32 01/25/19 07:30 98 Nasal Cannula 3.0 32 01/25/19 04:00 Nasal Cannula 3.0 01/25/19 04:00 97.6 82 20 133/66 (88) 100 01/25/19 04:00 3.0 3/6/19 03:48 101 20 99 Nasal Cannula 3.0 32 01/25/19 03:38 86 18 97 Nasal Cannula 3.0 32 01/25/19 03:20 83 01/25/19 02:11 88 126/74 01/25/19 00:00 96.8 83 20 129/61 (83) 100 01/25/19 00:00 Nasal Cannula 3.0 01/24/19 23:34 94 20 99 Nasal Cannula 3.0 32 01/24/19 23:30 94 01/24/19 23:20 79 18 98 Nasal Cannula 3.0 32 01/24/19 20:30 112 127/70 01/24/19 20:00 97 01/24/19 20:00 3.0 01/24/19 20:00 Nasal Cannula 3.0 01/24/19 20:00 97.7 112 22 119/74 (89) 95 01/24/19 19:16 104 20 99 Nasal Cannula 3.0 32 01/24/19 19:06 99 Nasal Cannula 3.0 32 01/24/19 19:06 Nasal Cannula 3.0 32 01/24/19 19:05 99 18 97 Nasal Cannula 3.0 32 01/24/19 18:35 98.5 01/24/19 16:00 100.0 119 22 123/74 (90) 95 01/24/19 16:00 3.0 01/24/19 16:00 Nasal Cannula 3.0 01/24/19 15:58 105 117/68 01/24/19 15:48 120 01/24/19 15:10 105 21 97 Nasal Cannula 3.0 32 01/24/19 14:56 98 18 95 Nasal Cannula 3.0 32 01/24/19 12:00 3.0 01/24/19 12:00 Nasal Cannula 3.0 01/24/19 12:00 96.0 105 22 117/68 (84) 96 01/24/19 11:33 97 01/24/19 11:28 118 22 98 Nasal Cannula 3.0 32 01/24/19 11:14 109 21 99 Nasal Cannula 3.0 32 01/24/19 09:38 111 114/71 Intake and Output 01/24/19 01/25/19 19:00 07:00 Intake Total 1356.666 ml 1045.0 ml Output Total 1330 ml 600 ml Balance 26.666 ml 445.0 ml Intake IV Total 1356.666 ml 1045.0 ml Output Urine Total 1330 ml 600 ml Height (Feet): 5 Height (Inches): 8.00 Weight (Pounds): 117 Objective General Appearance: WD/WN, alert, lethargic, thin Neck: supple Cardiovascular: normal peripheral pulses, normal rate, regular rhythm Respiratory/Chest: rhonchi - bilaterally Abdomen: normal bowel sounds, non tender, soft, no organomegaly Edema: no edema noted Arm (L), no edema noted Arm (R), no edema noted Leg (L), no edema noted Leg (R), no edema noted Pedal (L), no edema noted Pedal (R), no edema noted Generalized Neurologic: motor weakness Camron Pearl MD Jan 25, 2019 08:30
[2019-01-25] MEDS: Pantoprazole Inj IVP SCH (09:09)
[2019-01-25 09:13] LABS: BASOPHILS % (AUTO) 0.5 % (0.0-2.0); EOSINOPHILS % (AUTO) 1.1 % (0.0-3.0); HEMATOCRIT 26.5 % (42.0-52.0); HEMOGLOBIN 8.4 G/DL (14.2-18.0); LYMPHOCYTES % (AUTO) 11.4 % (20.0-45.0); MEAN CORPUSCULAR VOLUME 91 FL (80-99); MONOCYTES % (AUTO) 5.1 % (1.0-10.0); NEUTROPHILS % (AUTO) 81.9 % (45.0-75.0); PLATELET COUNT 173 K/UL (150-450); RED BLOOD COUNT 2.92 M/UL (4.70-6.10); RED CELL DISTRIBUTION WIDTH 16.4 % (11.6-14.8); WHITE BLOOD COUNT 7.8 K/UL (4.8-10.8)
[2019-01-25 09:29] LABS: ALANINE AMINOTRANSFERASE 10 U/L (12-78); ALBUMIN 1.2 G/DL (3.4-5.0); ALBUMIN/GLOBULIN RATIO 0.3 (1.0-2.7); ALKALINE PHOSPHATASE 56 U/L (46-116); ANION GAP 9 mmol/L (5-15); ASPARTATE AMINO TRANSFERASE 14 U/L (15-37); BILIRUBIN,TOTAL 0.2 MG/DL (0.2-1.0); BLOOD UREA NITROGEN 8 mg/dL (7-18); CALCIUM 7.6 MG/DL (8.5-10.1); CARBON DIOXIDE 22 MMOL/L (21-32); CHLORIDE 112 MMOL/L (98-107); CREATININE 0.5 MG/DL (0.55-1.30); POTASSIUM 2.9 MMOL/L (3.5-5.1); SODIUM 143 MMOL/L (136-145)
--- NOTE | 2019-01-25 10:47 | NUR ---
RADIOLOGY DEPT CHEST X-RAY DONE.-P.DYE
[2019-01-25 12:00] VITALS: BP 124/67
--- NOTE | 2019-01-25 12:00 | Infectious Diseases Prog Note ---
Assessment/Plan Assessment/Plan A: 1. E.coli pneumonia recently 2. CLL 3. hypertension 4. aortic stenosis 5. + blood culture with clostridium likely contaminated 6. CVA 7. COPD P 1. continue iv vancomycin, Zosyn 2. will follow up cultures Subjective ROS Limited/Unobtainable: Yes Constitutional: Reports: no symptoms Allergies: Coded Allergies: No Known Allergies (Unverified , 10/28/18) Objective Vital Signs Last 24 Hour Vital Signs Date Time Temp Pulse Resp B/P (MAP) Pulse Ox O2 Delivery O2 Flow Rate FiO2 01/25/19 11:22 81 16 96 Nasal Cannula 3.0 32 01/25/19 09:08 99 126/76 01/25/19 08:00 99 01/25/19 08:00 97.6 99 15 126/76 (93) 98 01/25/19 08:00 Nasal Cannula 3.0 01/25/19 08:00 3.0 01/25/19 07:40 99 18 98 Nasal Cannula 3.0 32 01/25/19 07:30 81 16 98 Nasal Cannula 3.0 32 01/25/19 07:30 Nasal Cannula 3.0 32 01/25/19 07:30 98 Nasal Cannula 3.0 32 01/25/19 04:00 Nasal Cannula 3.0 01/25/19 04:00 97.6 82 20 133/66 (88) 100 01/25/19 04:00 3.0 01/25/19 03:48 101 20 99 Nasal Cannula 3.0 32 01/25/19 03:38 86 18 97 Nasal Cannula 3.0 32 01/25/19 03:20 83 01/25/19 02:11 88 126/74 01/25/19 00:00 96.8 83 20 129/61 (83) 100 01/25/19 00:00 Nasal Cannula 3.0 01/24/19 23:34 94 20 99 Nasal Cannula 3.0 32 01/24/19 23:30 94 01/24/19 23:20 79 18 98 Nasal Cannula 3.0 32 01/24/19 20:30 112 127/70 01/24/19 20:00 97 01/24/19 20:00 3.0 01/24/19 20:00 Nasal Cannula 3.0 01/24/19 20:00 97.7 112 22 119/74 (89) 95 01/24/19 19:16 104 20 99 Nasal Cannula 3.0 32 01/24/19 19:06 99 Nasal Cannula 3.0 32 01/24/19 19:06 Nasal Cannula 3.0 32 01/24/19 19:05 99 18 97 Nasal Cannula 3.0 32 01/24/19 18:35 98.5 01/24/19 16:00 100.0 119 22 123/74 (90) 95 01/24/19 16:00 3.0 01/24/19 16:00 Nasal Cannula 3.0 01/24/19 15:58 105 117/68 01/24/19 15:48 120 01/24/19 15:10 105 21 97 Nasal Cannula 3.0 32 01/24/19 14:56 98 18 95 Nasal Cannula 3.0 32 01/24/19 12:00 3.0 01/24/19 12:00 Nasal Cannula 3.0 01/24/19 12:00 96.0 105 22 117/68 (84) 96 Height (Feet): 5 Height (Inches): 8.00 Weight (Pounds): 117 General Appearance: cachetic HEENT: mucous membranes moist Respiratory/Chest: lungs clear Cardiovascular: normal rate Abdomen: soft, non tender Extremities: no edema Neurologic/Psychiatric: alert, responsive Microbiology Date/Time Source Procedure Growth Status 01/23/19 10:33 Blood Blood Culture - Preliminary NO GROWTH AFTER 24 HOURS Resulted 01/23/19 10:20 Blood Blood Culture - Preliminary NO GROWTH AFTER 24 HOURS Resulted 01/23/19 11:42 Nasal Nares MRSA Culture - Final Staphylococcus Aureus - Mrsa Complete 01/23/19 11:42 Rectum VRE Culture - Final Enterococcus Faecium - Vre Complete Laboratory Tests Test 01/25/19 08:50 White Blood Count 7.8 K/UL (4.8-10.8) Red Blood Count 2.92 M/UL (4.70-6.10) L Hemoglobin 8.4 G/DL (14.2-18.0) L Hematocrit 26.5 % (42.0-52.0) L Mean Corpuscular Volume 91 FL (80-99) Mean Corpuscular Hemoglobin 28.9 PG (27.0-31.0) Mean Corpuscular Hemoglobin Concent 31.9 G/DL (32.0-36.0) L Red Cell Distribution Width 16.4 % (11.6-14.8) H Platelet Count 173 K/UL (150-450) Mean Platelet Volume 6.5 FL (6.5-10.1) Neutrophils (%) (Auto) 81.9 % (45.0-75.0) H Lymphocytes (%) (Auto) 11.4 % (20.0-45.0) L Monocytes (%) (Auto) 5.1 % (1.0-10.0) Eosinophils (%) (Auto) 1.1 % (0.0-3.0) Basophils (%) (Auto) 0.5 % (0.0-2.0) Sodium Level 143 MMOL/L (136-145) Potassium Level 2.9 MMOL/L (3.5-5.1) L Chloride Level 112 MMOL/L (98-107) H Carbon Dioxide Level 22 MMOL/L (21-32) Anion Gap 9 mmol/L (5-15) Blood Urea Nitrogen 8 mg/dL (7-18) Creatinine 0.5 MG/DL (0.55-1.30) L Estimat Glomerular Filtration Rate mL/min (>60) Glucose Level 113 MG/DL (74-106) H Calcium Level 7.6 MG/DL (8.5-10.1) L Total Bilirubin 0.2 MG/DL (0.2-1.0) Aspartate Amino Transf (AST/SGOT) 14 U/L (15-37) L Alanine Aminotransferase (ALT/SGPT) 10 U/L (12-78) L Alkaline Phosphatase 56 U/L (46-116) Total Protein 5.3 G/DL (6.4-8.2) L Albumin 1.2 G/DL (3.4-5.0) L Globulin 4.1 g/dL Albumin/Globulin Ratio 0.3 (1.0-2.7) L Current Medications Medications (Trade) Dose Ordered Sig/Elder Route PRN Reason Start Time Stop Time Status Last Admin Dose Admin Acetaminophen (Tylenol) 650 mg Q4H PRN ORAL Mild Pain/Temp > 100.5 01/24/19 17:30 02/23/19 17:29 01/24/19 18:05 Albuterol/ Ipratropium (Albuterol/ Ipratropium) 3 ml Q4H HHN 01/23/19 15:15 01/28/19 15:14 01/25/19 11:22 Dextrose/Sodium Chloride 1,000 ml @ 75 mls/hr [id number] IV 01/23/19 15:16 02/22/19 15:15 01/25/19 08:00 Metoprolol Tartrate 10 mg/ Dextrose 65 ml @ 130 mls/hr Q6H IVPB 01/24/19 03:00 02/23/19 02:59 01/25/19 09:08 Pantoprazole (Protonix) 40 mg DAILY IVP 01/24/19 09:00 02/23/19 08:59 01/25/19 09:09 Piperacillin Sod/ Tazobactam Sod 3.375 gm/Sodium Chloride 110 ml @ 27.5 mls/hr EVERY 8 HOURS IVPB 01/23/19 22:00 01/28/19 21:59 01/25/19 05:12 Potassium Chloride (K-Dur) 40 meq ONCE ORAL 01/25/19 10:45 01/25/19 12:30 01/25/19 11:41 Vancomycin HCl (Vanco rx to dose) 1 ea DAILY PRN MISC Per rx protocol 01/23/19 15:15 02/22/19 15:14 Vancomycin HCl 750 mg/Sodium Chloride 275 ml @ 183.333 mls/hr Q24H IVPB 01/23/19 17:00 01/28/19 16:59 01/24/19 17:04 Mike Lazcano MD Jan 25, 2019 12:00
--- NOTE | 2019-01-25 13:02 | NUR ---
ST/SWALLOW NOTES: SEE SWALLOW EVAL IN ST CARE ACTIVITY SECTION: REFERRED BY DR STYLES: DYSPHAGIA RISK FACTORS FOR THIS 78 Y.O. URUGUAYAN-SPEAKING MALE: ACUTE PNA (HAD L PNA DURING LAST ADMIT 01/11 AT [facility]), RESP DISTRESS, DYSPNEA, WEAK. CXR NOW HAS L PERIHILAR INFILTRATE VS. FOCAL AIRSPACE EDEMA PER RADIO. PER ER MD HAS PNA H/O DYSPHAGIA, DEMENTIA, CVA, GIB/GERD, COPD, LEUKEMIA, HYPOXIA, RESP DISTRESS, MDD, HTN, CARDIAC FAILURE. HAD PRIOR ADMIT TO [facility] 01/11 AND COMPLETED 01/17/19 MOD BARIUM SWALLOW STUDY, SEE FULL REPORT TO FOLLOW.ON ROOM AIR AND RN MONITORING VITALS WHICH WERE STABLE. HAS A WEAK SPON COUGH W/O PO X ONE. NONVERBAL BUT DID TRY TO MOUTHE WORDS MIN TO NO VOICE. VARIABLE FOLLOWING COMMANDS AND POOR EYE CONTACT. ST SPOKE URUGUAYAN TO PATIENT DURING STUDY. TENDS TO LEAN TO THE LEFT AND SEEN IN LATERAL/OBLIQUE VIEW 4:49 TIME FOR STUDY. 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 APPEARED SOB ON ROOM AIR BUT VITALS STABLE DURING THE STUDY. LEVELS 2 AND 3 ON THE DYSPHAGIA OUTCOME SEVERITY SCALE ([place]) SINCE FAMILY WANTS HIM TO EAT FOR QUALITY OF LIFE NO ASPIRATION BUT HAS SIGNIFICANT RISK AND DEEP LARYNGEAL PENETRATION (LP) WITH MANY CONSISTENCIES. RISK FOR CHRONIC TRACE ASPIRATION ON ALL CONSISTENCIES DUE TO DELAYED SWALLOW AND OROPHARYNGEAL DYSMOTILITY WITH POOR SENSATION FOR OROPHARYNGEAL RESIDUE. THIN LIQUIDS TSP - NO ASP NO LP BUT SOME RISK AFTER SWALLOW WITH MIN RESIDUE IN PHARYNX CUP - DEEP TRACE LARYNGEAL PENETRATION ABOVE VOCAL FOLDS NOT EJECTED DUE TO DELAYED SWALLOW AND LATE CLOSURE OF LARYNGEAL VESTIBULE (LVC), AND REDUCED HYOLARYNGEAL EXCURSION STRAW SEQUENTIAL AND CUP WASH (AFTER PUDDING)- DEEPER TRACE LP CONTACTED VOCAL FOLDS NOT EJECTED DUE TO INCOMPLETE AND LATE LVC AND REDUCED HYOLARYNGEAL EXCURSION. NECTAR THICK LIQUIDS TSP - NO ASP/LP CUP AND STRAW SEQUENTIAL - TRACE DEEP LP TO LEVEL OF VOCAL FOLDS NO EJECTION DUE TO DELAYED SWALLOW, LATE/INCOMPLETE CLOSURE OF LARYNGEAL VESTIBULE. HONEY THICK LIQUID AND PUREED TSP NO ASP BUT HAD HIGH RISK DUE TO MILD ORAL AND MOD-SEVERE VALLECULAR/PYRIFORM SINUS RESIDUE AFTER THE SWALLOW, DID NOT CLEAR COMPLETELY WITH MAX CUES TO SWALLOW AGAIN HAD DENTITION BUT TOO UNSAFE FOR MASTICATED SOLIDS AND TIME CONSTRAINTS ESOPHAGEAL PHASE LIMITED VIEW AND SHOULDER OBSTRUCTION BUT GROSSLY FUNCTIONAL ON PROTONIX SEE FULL REPORT FOR ALL DEFICITS. TRIAL TX LIMITED: VARIABLE WITH SECOND SWALLOW, SOME CLEARANCE WITH THIN LIQ WASH BUT LP OCCURRED, NEEDS MORE TIMES SAFEST WITH TSP NECTAR THICK LIQUIDS 2 SWALLOW EDUCATED/TRAINED DORY QUIÑONES IN POSTED AND UPDATED ASP REFLUX PREC RECOMMENDATIONS: CONTINUE WITH PO INTAKE SINCE PATIENT'S FAMILY WANTS PO FOR QUALITY OF LIFE, D/W DR STYLES WHO AGREES SINCE PT TAKES 100% OF DIET. SUCTION PRN. WILL DOWNGRADE TO [facility] LIQUIFIED PUREED LIKE NECTAR THICK SOUP DIET/LIQUIDS WITH UPDATED AND POSTED ASPIRATION AND REFLUX PRECAUTIONS AND 1 TO 1 FEEDING. DYSPHAGIA MANAGEMENT AND TX TO CONTINUE (SEE FULL REPORT) D/W RN, ELAINE, DTR, AND DR STYLES PATIENT NONVERBAL MOSTLY AND CONFUSED. Consider alternate methods of intake PO Diet Other Methods of Intake COMFORT FEEDING DIET PER REPORT CURRENTLY ON [place] AND ON 3 LITERS O2. NPO EXCEPT MEDS/ICE CHIPS NO PROBLEM WHEN MEDS CRUSHED WITH PUREED PER RN. WAS ON [facility] LIQUIFIED PUREED LIKE NECTAR THICK SOUP TSP ONLY AT [facility] ON [facility] PUREED/NECTAR THICK LIQ AT [facility] GOOD INTAKE AT [facility] ? SNF ALERT AND ABLE TO SAY HE WAS BORN IN [facility], TO SPAN-SPEAK ST. HAS ADVANCE DIRECTIVE FAMILY DOES NOT WANT TF ONLY PO FOR QUALITY OF LIFE. INITIAL IMPRESSIONS: PERSISTENT S/S OF OROPHARYNGEAL DYSPHAGIA WITH HIGH RISK FOR SILENT ASPIRATION BUT GROSSLY FUNCTIONAL SWALLOW WITH TSP NECTAR THICK LIQUIDS. DID NOT COUGH AT ALL TO COMMAND NOR WITH PO (CONFUSED) FAIR TONGUE LIP MOVEMENTS/STRENGTH FAIR HYOLARYNGEAL EXCURSION AND NO ORAL RESIDUE. NEEDED CUES FOR 2ND SWALLOW (NEEDED TO CLEAR PHARYNGEAL RESIDUE DURING PRIOR VIDEO). HOLD ON OTHER PO TRIALS SINCE HONEY THICK LIQ AND PUREED AND THIN LIQ NOT VERY SAFE DURING VIDEO 01/17/19. PERSISTENT RISK FOR AT LEAST TRACE SILENT ASP LIKELY ON ALL CONSISTENCIES BUT SAFEST ON TSP NECTAR THICK LIQ GIVEN PRIOR VIDEO RECOMMENDATIONS: GIVEN THAT PATIENT AND HIS FAMILY WANT HIM TO CONTINUE TO HAVE PO FOR QUALITY OF LIFE (NO TUBE FEEDINGS), CONSIDER INITIATING [facility] LIQUIFIED PUREED LIKE NECTAR THICK SOUP DIET AND NECTAR THICK LIQ ONLY VIA TSP. EDUCATED RN/DTR VIA PHONE REGARDING ASP AND REFLUX PREC AND RECOMMENDATIONS POSTED ASP/REFLUX PRECAUTIONS PER RD, [facility] PRIOR DIET FINE UNTIL THEY ASSESS TOMORROW.
--- NOTE | 2019-01-25 13:10 | Pulmonology Progress Note ---
Assessment/Plan Assessment/Plan PULMONARY PROGRESS NOTE HISTORY OF PRESENT ILLNESS: The patient is a 78-year-old male, who had recent admission for pneumonia. The [facility] and developed fever and shortness of breath, transferred back for sepsis and new pneumonia. The patient with congestion. The patient was pancultured and given IV antibiotics. The patient now admitted for further care and management. I was called to evaluate further. Imaging noted and reviewed. ER notes reviewed. The patient now with left perihilar pulmonary infiltrate, which is new since prior to discharge. The patient is unable to give much in the way of history. The patient's chart was reviewed. The patient's ER notes were reviewed. The care discussed with the primary care doctor. Stable overnight PAST MEDICAL HISTORY: Aortic valve stenosis, hypertensive heart disease, pneumonia, paroxysmal atrial fibrillation, CVA with focal left-sided weakness, COPD, CML, and GI bleed. ALLERGIES: Reviewed. MEDICATIONS: Reviewed. FAMILY HISTORY: Noncontributory. SOCIAL HISTORY: Prior smoking history. Nondrinker. Nonsmoker. Currently disabled. REVIEW OF SYSTEMS: Nor available PHYSICAL EXAMINATION: GENERAL: An ill-appearing male, in no acute distress. VITAL SIGNS NOTED HEENT: Oropharynx is moist. Reduced gag. NECK: Otherwise supple. No accessory muscle use. LUNGS: With scattered rhonchi. Moderate air entry. CARDIAC: S1 and S2. Regular rate and rhythm without murmurs, rubs, or gallops. ABDOMEN: Soft, nontender, nondistended. EXTREMITIES: No cyanosis, clubbing, or edema. Focal weakness noted on examination. LABORATORY DATA: Hemoglobin 10, hematocrit is 31.1, white count 10.5. Chemistry, electrolytes overall normal, however, the albumin is 1.5. IMPRESSION: 1. Pneumonia, possibly pulmonary edema. 2. Severe protein-calorie malnutrition. 3. History of CVA. 4. Focal weakness. 5. Concern for aspiration. 6. Evidence of anemia of chronic disease. 7. Recurrent fevers. 8. Respiratory congestion. RECOMMENDATIONS: Supportive care. Cautious IV hydration. IV antibiotics. Respiratory care. Nebulized therapy. Follow up x-ray exam. Aspiration precautions and monitor clinically for further changes and interventions. Speech evaluation and we will follow clinically for further changes and attempt to optimize. Wound care and nutrition consultation and DVT prophylaxis. Subjective ROS Limited/Unobtainable: No Allergies: Coded Allergies: No Known Allergies (Unverified , 10/28/18) Objective Last 24 Hour Vital Signs Date Time Temp Pulse Resp B/P (MAP) Pulse Ox O2 Delivery O2 Flow Rate FiO2 01/25/19 12:00 Nasal Cannula 3.0 01/25/19 12:00 98.0 86 17 124/67 (86) 94 01/25/19 11:22 81 16 96 Nasal Cannula 3.0 32 01/25/19 09:08 99 126/76 01/25/19 08:00 99 01/25/19 08:00 97.6 99 15 126/76 (93) 98 01/25/19 08:00 Nasal Cannula 3.0 01/25/19 08:00 3.0 01/25/19 07:40 99 18 98 Nasal Cannula 3.0 32 01/25/19 07:30 81 16 98 Nasal Cannula 3.0 32 01/25/19 07:30 Nasal Cannula 3.0 32 01/25/19 07:30 98 Nasal Cannula 3.0 32 01/25/19 04:00 Nasal Cannula 3.0 01/25/19 04:00 97.6 82 20 133/66 (88) 100 01/25/19 04:00 3.0 01/25/19 03:48 101 20 99 Nasal Cannula 3.0 32 01/25/19 03:38 86 18 97 Nasal Cannula 3.0 32 01/25/19 03:20 83 01/25/19 02:11 88 126/74 01/25/19 00:00 96.8 83 20 129/61 (83) 100 01/25/19 00:00 Nasal Cannula 3.0 01/24/19 23:34 94 20 99 Nasal Cannula 3.0 32 01/24/19 23:30 94 01/24/19 23:20 79 18 98 Nasal Cannula 3.0 32 01/24/19 20:30 112 127/70 01/24/19 20:00 97 01/24/19 20:00 3.0 01/24/19 20:00 Nasal Cannula 3.0 01/24/19 20:00 97.7 112 22 119/74 (89) 95 01/24/19 19:16 104 20 99 Nasal Cannula 3.0 32 01/24/19 19:06 99 Nasal Cannula 3.0 32 01/24/19 19:06 Nasal Cannula 3.0 32 01/24/19 19:05 99 18 97 Nasal Cannula 3.0 32 01/24/19 18:35 98.5 01/24/19 16:00 100.0 119 22 123/74 (90) 95 01/24/19 16:00 3.0 01/24/19 16:00 Nasal Cannula 3.0 01/24/19 15:58 105 117/68 01/24/19 15:48 120 01/24/19 15:10 105 21 97 Nasal Cannula 3.0 32 01/24/19 14:56 98 18 95 Nasal Cannula 3.0 32 Intake and Output 01/24/19 01/25/19 19:00 07:00 Intake Total 1356.666 ml 1072.5 ml Output Total 1330 ml 600 ml Balance 26.666 ml 472.5 ml Intake IV Total 1356.666 ml 1072.5 ml Output Urine Total 1330 ml 600 ml Microbiology Date/Time Source Procedure Growth Status 01/23/19 10:33 Blood Blood Culture - Preliminary NO GROWTH AFTER 24 HOURS Resulted 01/23/19 10:20 Blood Blood Culture - Preliminary NO GROWTH AFTER 24 HOURS Resulted 01/23/19 11:42 Nasal Nares MRSA Culture - Final Staphylococcus Aureus - Mrsa Complete 01/23/19 11:42 Rectum VRE Culture - Final Enterococcus Faecium - Vre Complete Laboratory Tests 01/25/19 08:50: White Blood Count 7.8, Red Blood Count 2.92L, Hemoglobin 8.4L, Hematocrit 26.5L , Mean Corpuscular Volume 91, Mean Corpuscular Hemoglobin 28.9, Mean Corpuscular Hemoglobin Concent 31.9L, Red Cell Distribution Width 16.4H, Platelet Count 173, Mean Platelet Volume 6.5, Neutrophils (%) (Auto) 81.9H, Lymphocytes (%) (Auto) 11.4L, Monocytes (%) (Auto) 5.1, Eosinophils (%) (Auto) 1.1, Basophils (%) (Auto) 0.5, Sodium Level 143, Potassium Level 2.9L, Chloride Level 112H, Carbon Dioxide Level 22, Anion Gap 9, Blood Urea Nitrogen 8, Creatinine 0.5L, Estimat Glomerular Filtration Rate , Glucose Level 113H, Calcium Level 7.6L, Total Bilirubin 0.2, Aspartate Amino Transf (AST/SGOT) 14L, Alanine Aminotransferase (ALT/SGPT) 10L, Alkaline Phosphatase 56, Total Protein 5.3L, Albumin 1.2L, Globulin 4.1, Albumin/Globulin Ratio 0.3L Current Medications Medications (Trade) Dose Ordered Sig/Elder Route PRN Reason Start Time Stop Time Status Last Admin Dose Admin Acetaminophen (Tylenol) 650 mg Q4H PRN ORAL Mild Pain/Temp > 100.5 01/24/19 17:30 02/23/19 17:29 01/24/19 18:05 Albuterol/ Ipratropium (Albuterol/ Ipratropium) 3 ml Q4H HHN 01/23/19 15:15 01/28/19 15:14 01/25/19 11:22 Dextrose/Sodium Chloride 1,000 ml @ 75 mls/hr [id number] IV 01/23/19 15:16 02/22/19 15:15 01/25/19 08:00 Metoprolol Tartrate 10 mg/ Dextrose 65 ml @ 130 mls/hr Q6H IVPB 01/24/19 03:00 02/23/19 02:59 01/25/19 09:08 Pantoprazole (Protonix) 40 mg DAILY IVP 01/24/19 09:00 02/23/19 08:59 01/25/19 09:09 Piperacillin Sod/ Tazobactam Sod 3.375 gm/Sodium Chloride 110 ml @ 27.5 mls/hr EVERY 8 HOURS IVPB 01/23/19 22:00 01/28/19 21:59 01/25/19 05:12 Vancomycin HCl (Vanco rx to dose) 1 ea DAILY PRN MISC Per rx protocol 01/23/19 15:15 02/22/19 15:14 Vancomycin HCl 750 mg/Sodium Chloride 275 ml @ 183.333 mls/hr Q24H IVPB 01/23/19 17:00 01/28/19 16:59 01/24/19 17:04 Arcenio Mandujano MD Jan 25, 2019 13:10
--- NOTE | 2019-01-25 13:33 | Consultation ---
History of Present Illness General Date patient seen: Jan 25, 2019 Chief Complaint: Dyspnea/Respdistress Reason for Consultation: wound Present Illness HPI 78 year old male with multiple medical comorbidities currently under medical care and management. on admission noted to have multiple wounds requiring care. surgery called to evaluate and assist with care/management. patient seen , chart reviewed, patient examined. Allergies: Coded Allergies: No Known Allergies (Unverified , 10/28/18) Medication History Scheduled Ascorbic Acid* (Vitamin C*), 500 MG ORAL DAILY, (Reported) Aspirin* (Aspir 81*), 81 MG ORAL DAILY, (Reported) Baclofen* (Baclofen*), 5 MG ORAL THREE TIMES A DAY, (Reported) Bisacodyl (Bisacodyl), 10 MG RC NEEDED, (Reported) Citalopram Hydrobromide* (Celexa*), 10 MG ORAL DAILY, (Reported) Dasatinib (Sprycel), 100 MG PO DAILY, (Reported) Docusate Sodium* (Docusate Sodium*), 100 MG ORAL DAILY, (Reported) Famotidine (Famotidine), 20 MG ORAL DAILY, (Reported) Ferrous Sulfate* (Ferrous Sulfate*), 325 MG ORAL THREE TIMES A DAY, (Reported) Folic Acid* (Folic Acid*), 1 MG ORAL DAILY, (Reported) Lactobacillus Rhamnosus Gg (Culturelle), 1 EACH PO BID, (Reported) Lactobacillus Rhamnosus Gg* (Culturelle*), 1 CAP ORAL BID, (Reported) Magnesium Hydroxide* (Milk Of Magnesia*), 30 ML ORAL DAILY, (Reported) Omeprazole Magnesium (Prilosec Otc), 20 MG ORAL DAILY, (Reported) Pantoprazole* (Protonix*), 40 MG IVP EVERY 12 HOURS Tamsulosin Hcl (Tamsulosin Hcl*), 0.4 MG ORAL BEDTIME, (Reported) Tamsulosin Hcl (Tamsulosin Hcl*), 0.4 MG ORAL BEDTIME, (Reported) Scheduled PRN Acetaminophen* (Acetaminophen 325MG Tablet*), 650 MG ORAL Q4H PRN for Mild Pain/ Temp > 100.5, (Reported) Polyethylene Glycol 3350* (Polyethylene Glycol 3350*), 17 GM ORAL BEDTIME PRN for Constipation, (Reported) Patient History History Provided By: Medical Record, PMD Healthcare decision maker MIRIAM JAY Resuscitation status Full Code Advanced Directive on File Yes Past Medical/Surgical History Past Medical/Surgical History: (1) Gastric ulcer (2) Gastritis (3) UGIB (upper gastrointestinal bleed) (4) Decubitus skin ulcer (5) Respiratory distress (6) PUD (peptic ulcer disease) (7) Altered level of consciousness (8) Severe anemia (9) CML (chronic myelocytic leukemia) (10) Pneumonia (11) Aortic stenosis, severe (12) CAD/WA Review of Systems ROS Narrative cannot obtain given medical condition Physical Exam General Appearance: no apparent distress Lines, tubes and drains: other HEENT: other Neck: normal inspection Respiratory/Chest: no respiratory distress, no accessory muscle use Cardiovascular/Chest: normal rate Abdomen: soft, no organomegaly, no mass Extremities: other Skin Exam: other Neurologic: alert Last 24 Hour Vital Signs Date Time Temp Pulse Resp B/P (MAP) Pulse Ox O2 Delivery O2 Flow Rate FiO2 01/25/19 12:00 Nasal Cannula 3.0 01/25/19 12:00 98.0 86 17 124/67 (86) 94 01/25/19 11:22 81 16 96 Nasal Cannula 3.0 32 01/25/19 09:08 99 126/76 01/25/19 08:00 99 01/25/19 08:00 97.6 99 15 126/76 (93) 98 01/25/19 08:00 Nasal Cannula 3.0 01/25/19 08:00 3.0 01/25/19 07:40 99 18 98 Nasal Cannula 3.0 32 01/25/19 07:30 81 16 98 Nasal Cannula 3.0 32 01/25/19 07:30 Nasal Cannula 3.0 32 01/25/19 07:30 98 Nasal Cannula 3.0 32 01/25/19 04:00 Nasal Cannula 3.0 01/25/19 04:00 97.6 82 20 133/66 (88) 100 01/25/19 04:00 3.0 01/25/19 03:48 101 20 99 Nasal Cannula 3.0 32 01/25/19 03:38 86 18 97 Nasal Cannula 3.0 32 01/25/19 03:20 83 01/25/19 02:11 88 126/74 01/25/19 00:00 96.8 83 20 129/61 (83) 100 01/25/19 00:00 Nasal Cannula 3.0 01/24/19 23:34 94 20 99 Nasal Cannula 3.0 32 01/24/19 23:30 94 01/24/19 23:20 79 18 98 Nasal Cannula 3.0 32 01/24/19 20:30 112 127/70 01/24/19 20:00 97 01/24/19 20:00 3.0 01/24/19 20:00 Nasal Cannula 3.0 01/24/19 20:00 97.7 112 22 119/74 (89) 95 01/24/19 19:16 104 20 99 Nasal Cannula 3.0 32 01/24/19 19:06 99 Nasal Cannula 3.0 32 01/24/19 19:06 Nasal Cannula 3.0 32 01/24/19 19:05 99 18 97 Nasal Cannula 3.0 32 01/24/19 18:35 98.5 01/24/19 16:00 100.0 119 22 123/74 (90) 95 01/24/19 16:00 3.0 01/24/19 16:00 Nasal Cannula 3.0 01/24/19 15:58 105 117/68 01/24/19 15:48 120 01/24/19 15:10 105 21 97 Nasal Cannula 3.0 32 01/24/19 14:56 98 18 95 Nasal Cannula 3.0 32 Intake and Output 01/24/19 01/25/19 19:00 07:00 Intake Total 1356.666 ml 1072.5 ml Output Total 1330 ml 600 ml Balance 26.666 ml 472.5 ml Intake IV Total 1356.666 ml 1072.5 ml Output Urine Total 1330 ml 600 ml Laboratory Tests Test 01/25/19 08:50 White Blood Count 7.8 K/UL (4.8-10.8) Red Blood Count 2.92 M/UL (4.70-6.10) L Hemoglobin 8.4 G/DL (14.2-18.0) L Hematocrit 26.5 % (42.0-52.0) L Mean Corpuscular Volume 91 FL (80-99) Mean Corpuscular Hemoglobin 28.9 PG (27.0-31.0) Mean Corpuscular Hemoglobin Concent 31.9 G/DL (32.0-36.0) L Red Cell Distribution Width 16.4 % (11.6-14.8) H Platelet Count 173 K/UL (150-450) Mean Platelet Volume 6.5 FL (6.5-10.1) Neutrophils (%) (Auto) 81.9 % (45.0-75.0) H Lymphocytes (%) (Auto) 11.4 % (20.0-45.0) L Monocytes (%) (Auto) 5.1 % (1.0-10.0) Eosinophils (%) (Auto) 1.1 % (0.0-3.0) Basophils (%) (Auto) 0.5 % (0.0-2.0) Sodium Level 143 MMOL/L (136-145) Potassium Level 2.9 MMOL/L (3.5-5.1) L Chloride Level 112 MMOL/L (98-107) H Carbon Dioxide Level 22 MMOL/L (21-32) Anion Gap 9 mmol/L (5-15) Blood Urea Nitrogen 8 mg/dL (7-18) Creatinine 0.5 MG/DL (0.55-1.30) L Estimat Glomerular Filtration Rate mL/min (>60) Glucose Level 113 MG/DL (74-106) H Calcium Level 7.6 MG/DL (8.5-10.1) L Total Bilirubin 0.2 MG/DL (0.2-1.0) Aspartate Amino Transf (AST/SGOT) 14 U/L (15-37) L Alanine Aminotransferase (ALT/SGPT) 10 U/L (12-78) L Alkaline Phosphatase 56 U/L (46-116) Total Protein 5.3 G/DL (6.4-8.2) L Albumin 1.2 G/DL (3.4-5.0) L Globulin 4.1 g/dL Albumin/Globulin Ratio 0.3 (1.0-2.7) L Height (Feet): 5 Height (Inches): 8.00 Weight (Pounds): 117 Medications Current Medications Medications (Trade) Dose Ordered Sig/Elder Route PRN Reason Start Time Stop Time Status Last Admin Dose Admin Acetaminophen (Tylenol) 650 mg Q4H PRN ORAL Mild Pain/Temp > 100.5 01/24/19 17:30 02/23/19 17:29 01/24/19 18:05 Albuterol/ Ipratropium (Albuterol/ Ipratropium) 3 ml Q4H HHN 01/23/19 15:15 01/28/19 15:14 01/25/19 11:22 Dextrose/Sodium Chloride 1,000 ml @ 75 mls/hr [id number] IV 01/23/19 15:16 02/22/19 15:15 01/25/19 08:00 Metoprolol Tartrate 10 mg/ Dextrose 65 ml @ 130 mls/hr Q6H IVPB 01/24/19 03:00 02/23/19 02:59 01/25/19 09:08 Pantoprazole (Protonix) 40 mg DAILY IVP 01/24/19 09:00 02/23/19 08:59 01/25/19 09:09 Piperacillin Sod/ Tazobactam Sod 3.375 gm/Sodium Chloride 110 ml @ 27.5 mls/hr EVERY 8 HOURS IVPB 01/23/19 22:00 01/28/19 21:59 01/25/19 05:12 Vancomycin HCl (Vanco rx to dose) 1 ea DAILY PRN MISC Per rx protocol 01/23/19 15:15 02/22/19 15:14 Vancomycin HCl 750 mg/Sodium Chloride 275 ml @ 183.333 mls/hr Q24H IVPB 01/23/19 17:00 01/28/19 16:59 01/24/19 17:04 Assessment/Plan Problem List: (1) Decubitus skin ulcer Assessment & Plan: Pt presented on admission with multiple pressure injuries. Pt is emaciated with contractures . Non-blanchable erythema noted to R and L ears. Partial thickness pressure injury to L scapula.Base of wound moist and viable. Edges flat and adherent to base of wound. Periwound without erythema or induration(L)1cm X(W)0.8cm. Sacral DTPI maroon discoloration ,indurated with dark brown borders.(L)8cm x (W) 7.7cm . Incontinence associated dermatitis periwound extending down into both ischial,and scrotal region. Non-blanchable erythema without induration L trochanter (L)2.5cm x (W)1.8cm. Periwound is pink in colour. DTPI R trochanter.Base of wound maroon and is partially opened(L)8cm x (W) 9.4cm.Non-blanchable erythema periwound .No exudate noted. Full thickness pressure injury R ischium 10% soft necrosis /10% yellow slough otherwise beefy red with dark brown borders. Non-blanchable erythema periwound. (L)2.7cm x (W)3.9cm.No odor or exudate noted. DTPI R achilles that is partially opened with small amt sanguineous exudate.Base of wound is fluctuant. Opening within DTPI is beefy red. Erythema along borders .Non-blanchable erythema without induration periwound. (L)7.4cm x (W)2cm. Dry brown eschar plantar /lateral R 1st metatarsal head.Periwound without erythema or fluctuance.(L)5cm x(W)1.5cm. DTPI medial L malleolus. Base of wound maroon- indurated with small area centrally that is fluctuant. Non-blanchable erythema without induration periwound(L)1.5cm x (W)1.3cm. Non-blanchable erythema without induration medial R malleolus. Both heels are pink and dry . Tx.Plan: Apply Moisture Barrier Paste to scrotum and buttocks with each perineal care. Apply Moisture barrier to sacrum .Cover with Optifoam drsg Q3days and prn. Apply Cavilon Skin Barrier to R st metatarsal. Cover with Optifoam drsg .Change every 7 days and prn. Apply Cavilon Skin BArrier to L scapula. Cover with Optifoam drsg.Change Q7days and prn. Cleanse R achilles with saline. Apply Therahoney. Apply Cavilon Skin barrier periwound. Cover with Optifoam drsg. Change every 3 days and prn. Cleanse R trochanter and R ischial wounds with Saline .Apply Therahoney. Apply Moisture Barrier periwound. Cover with Optifoam drsg Q3days and prn. Apply Cavilon SKin Barrier to R and L malleoli,( Medial and lateral aspects). Cover each each site with Optifoam drsgs. Change every 7 days and prn. Apply Cavilon Skin Barrier to lateral aspects of both feet .Cover with Optifoam drsgs.Change every 7 days and prn. Maintain Coloplast rings to both ears for protection.Change prn. APM/MO mattress. Reposition at least every 2hours or as tolerated. Place pillow between knees. Off-load heels with pillow. ICD Codes: L89.90 - Pressure ulcer of unspecified site, unspecified stage SNOMED: [id number] Josh Hernandez Jan 25, 2019 13:33
--- NOTE | 2019-01-25 14:32 | Diagnostic Imaging Report ---
Indication: Shortness of breath Technique: One view of the chest Comparison: 01/23/2019 Findings: Increasingly dense consolidation is seen in the left perihilar region. There is suggestion of increased hazy opacity in the right mid and lower lung. Overall interstitial edema persists. The heart remains enlarged. There is persistent retrocardiac consolidation. Impression: Increasing dense consolidation, likely pneumonia, in the left perihilar region. Increasing right mid and lower lung hazy opacity, likely pleural fluid. Stable retrocardiac consolidation and generalized interstitial edema
[2019-01-25 16:00] VITALS: BP 126/77
[2019-01-25] MEDS: Vancomycin 750mg/NS 275ml IVPB SCH ×2 (16:43)
--- NOTE | 2019-01-25 18:02 | NUR ---
NURSE NOTES: PATIENT KEPT CLEAN AND DRY. STARTED ON DIET. NO SIGNS OF DISTRESS. WILL CONTINUE TO MONITOR.
--- NOTE | 2019-01-25 19:01 | NUR ---
HAND-OFF: Report given to Gracie Dey RN.
--- NOTE | 2019-01-25 19:04 | NUR ---
NURSE NOTES: Patient seen in bed in semi null position. Alert, but non verbal. continues on oxygen via NC 3L/min. Sp02 98%. No S/Sx of pain noted via FLACC scale. IV site is to right upper arm 22 g and left hand 22g, both is intact. Continues on IVF of D5NS at 75cc/hr. Condom cath is in place and is intact. Bed is in lowest position. call light is within easy reach while in bed. will continue to monitor.
--- NOTE | 2019-01-25 19:57 | NUR ---
CASE MANAGEMENT: REVIEW SI: PNA . 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
[2019-01-25 20:00] VITALS: BP 114/71
[2019-01-25] MEDS: Metoprolol Tartrate 50mg tab ORAL SCH (20:19)
--- NOTE | 2019-01-25 23:46 | Progress Note ---
DATE: 01/25/2019 CARDIOLOGY PROGRESS NOTE: SUBJECTIVE: Still with congestion. Episodes of rapid heart rate. Family has declined feeding tube. The patient remains NPO. PHYSICAL EXAMINATION: VITAL SIGNS: Blood pressure 133/66, pulse 82, respirations 20. LUNGS: Coarse breath sounds. Scattered rhonchi. HEART: Regular rhythm and rate. Normal S1, S2. ABDOMEN: Soft. EXTREMITIES: Trace edema. LABORATORY DATA: White count 7.8, hemoglobin 8.4. Potassium 2.9, BUN 8, creatinine 0.5. IMPRESSION: 1. Hypokalemia. 2. Aspiration pneumonia. 3. Dysphagia. 4. Acute respiratory insufficiency. 5. Severe aortic stenosis. 6. Acute on chronic diastolic congestive heart failure. PLAN: 1. Replace potassium. 2. Check magnesium. 3. Antibiotics. 4. Respiratory hygiene. 5. Beta-blockade. 6. IV route until able to tolerate p.o. intake or has other enteral access. Arcenio Schulz M.D. DR: KARISSA JOB#: [id number] CC:
[2019-01-26] VITALS: BP 145/68
[2019-01-26] MEDS: Albuterol/Ipratropium 3ml neb HHN SCH ×6 (03:20→22:47)
[2019-01-26 04:00] VITALS: BP 119/83
[2019-01-26 05:45] LABS: EOSINOPHILS % (AUTO) 2.5 % (0.0-3.0); HEMATOCRIT 25.2 % (42.0-52.0); HEMOGLOBIN 8.2 G/DL (14.2-18.0); LYMPHOCYTES % (AUTO) 16.9 % (20.0-45.0); MEAN CORPUSCULAR VOLUME 90 FL (80-99); MONOCYTES % (AUTO) 7.3 % (1.0-10.0); NEUTROPHILS % (AUTO) 72.2 % (45.0-75.0); PLATELET COUNT 163 K/UL (150-450); RED BLOOD COUNT 2.81 M/UL (4.70-6.10); RED CELL DISTRIBUTION WIDTH 16.3 % (11.6-14.8); WHITE BLOOD COUNT 5.3 K/UL (4.8-10.8)
[2019-01-26] MEDS: Zoysn 3.37gm in NS 100ML IVPB SCH (05:47)
[2019-01-26 06:23] LABS: ALANINE AMINOTRANSFERASE 13 U/L (12-78); ALBUMIN 1.2 G/DL (3.4-5.0); ALBUMIN/GLOBULIN RATIO 0.3 (1.0-2.7); ALKALINE PHOSPHATASE 57 U/L (46-116); ANION GAP 8 mmol/L (5-15); ASPARTATE AMINO TRANSFERASE 13 U/L (15-37); BILIRUBIN,TOTAL 0.3 MG/DL (0.2-1.0); BLOOD UREA NITROGEN 5 mg/dL (7-18); CALCIUM 7.8 MG/DL (8.5-10.1); CARBON DIOXIDE 24 MMOL/L (21-32); CHLORIDE 110 MMOL/L (98-107); CREATININE 0.5 MG/DL (0.55-1.30); POTASSIUM 3.1 MMOL/L (3.5-5.1); SODIUM 142 MMOL/L (136-145)
--- NOTE | 2019-01-26 06:37 | NUR ---
NURSE NOTES: Potassium level noted 3.1 low, paged Dr. Pearl, currently awaiting for call back.
--- NOTE | 2019-01-26 07:13 | NUR ---
HAND-OFF: Report given to SOCORRO Hill.
--- NOTE | 2019-01-26 07:14 | NUR ---
NURSE NOTES: RECEIVED PATIENT FROM Gracie LOCKE RN. PATIENT IS RESTING IN BED, AWAKE. HOOKED TO DINING ROOM TABLES SET UP ATTENDANT. ON 3L NC. NO SIGNS OF DISTRESS. SKIN ALTERATIONS NOTED. NOTED CONDOM CATH. IV ON R UA G22 AND L HAND G22, SL. CALL LIGHT WITHIN REACH. BED AT LOWEST POSITION. SIDE RAILS UP. WILL CONTINUE TO MONITOR
[2019-01-26 08:00] VITALS: BP 110/78
[2019-01-26] MEDS: Metoprolol Tartrate 50mg tab ORAL SCH ×2 (08:27→22:02)
[2019-01-26] MEDS: Pantoprazole Inj IVP SCH (08:27)
--- NOTE | 2019-01-26 08:48 | Pulmonology Progress Note ---
Assessment/Plan Assessment/Plan IMPRESSION: 1. Pneumonia, possibly pulmonary edema (worsening) 2. Severe protein-calorie malnutrition. 3. History of CVA. 4. Focal weakness. 5. Concern for aspiration. 6. Evidence of anemia of chronic disease. 7. Recurrent fevers. 8. Respiratory congestion. PLAN recheck cxr respiratory care check BNP dc fluids aspiration precautions IV antibiotics still acute impression, plan, and exam edited and reviewed in detail care discussed with RN Subjective Allergies: Coded Allergies: No Known Allergies (Unverified , 10/28/18) Subjective care noted confused some congestion Objective Last 24 Hour Vital Signs Date Time Temp Pulse Resp B/P (MAP) Pulse Ox O2 Delivery O2 Flow Rate FiO2 01/26/19 08:27 88 119/83 01/26/19 08:12 Nasal Cannula 3.0 32 01/26/19 08:11 98 Nasal Cannula 3.0 32 01/26/19 08:11 88 15 98 Nasal Cannula 3.0 32 01/26/19 08:00 98.6 89 16 110/78 (89) 100 01/26/19 08:00 Nasal Cannula 3.0 01/26/19 04:00 Nasal Cannula 3.0 01/26/19 04:00 98.5 99 23 119/83 (95) 99 01/26/19 03:32 104 01/26/19 03:30 87 18 99 Nasal Cannula 3.0 32 01/26/19 03:20 87 18 99 Nasal Cannula 3.0 32 01/26/19 00:00 98.4 87 24 145/68 (93) 98 01/26/19 00:00 Nasal Cannula 3.0 01/25/19 23:46 86 18 99 Nasal Cannula 3.0 32 01/25/19 23:36 86 18 97 Nasal Cannula 3.0 32 01/25/19 23:24 87 01/25/19 20:19 90 120/77 01/25/19 20:03 88 18 99 Nasal Cannula 3.0 32 01/25/19 20:00 Nasal Cannula 3.0 01/25/19 20:00 98.1 94 24 114/71 (85) 99 01/25/19 19:53 96 Nasal Cannula 3.0 32 01/25/19 19:53 88 18 96 Nasal Cannula 3.0 32 01/25/19 19:53 Nasal Cannula 3.0 32 01/25/19 19:35 91 01/25/19 16:00 98.3 102 17 126/77 (93) 100 01/25/19 16:00 Nasal Cannula 3.0 01/25/19 16:00 100 01/25/19 15:56 99 18 92 Nasal Cannula 3.0 32 01/25/19 15:54 123 124/67 01/25/19 15:46 75 16 96 Nasal Cannula 3.0 32 01/25/19 12:00 Nasal Cannula 3.0 01/25/19 12:00 123 01/25/19 12:00 98.0 86 17 124/67 (86) 94 01/25/19 11:32 99 18 92 Nasal Cannula 3.0 32 01/25/19 11:22 81 16 96 Nasal Cannula 3.0 32 01/25/19 09:08 99 126/76 Intake and Output 01/25/19 01/26/19 19:00 07:00 Intake Total 1348.333 ml 160.0 ml Output Total 450 ml 550 ml Balance 898.333 ml -390.0 ml Intake Oral 120 ml 50 ml IV Total 1228.333 ml 110.0 ml Output Urine Total 450 ml 550 ml Objective GENERAL: An ill-appearing male, in no acute distress. HEENT: Oropharynx is moist. Reduced gag. NECK: Otherwise supple. No accessory muscle use. LUNGS: With scattered rhonchi. Moderate air entry. reduced CARDIAC: S1 and S2. Regular rate and rhythm without murmurs, rubs, or gallops. ABDOMEN: Soft, nontender, nondistended. EXTREMITIES: No cyanosis, clubbing, or edema. Focal weakness noted on examination. Microbiology Date/Time Source Procedure Growth Status 01/23/19 10:33 Blood Blood Culture - Preliminary NO GROWTH AFTER 48 HOURS Resulted 01/23/19 10:20 Blood Blood Culture - Preliminary NO GROWTH AFTER 48 HOURS Resulted 01/24/19 16:00 Sputum Gram Stain - Final Resulted 01/24/19 16:00 Sputum Culture - Preliminary Staphylococcus Aureus Resulted 01/23/19 11:42 Nasal Nares MRSA Culture - Final Staphylococcus Aureus - Mrsa Complete 01/23/19 11:42 Rectum VRE Culture - Final Enterococcus Faecium - Vre Complete Laboratory Tests 01/25/19 08:50: White Blood Count 7.8, Red Blood Count 2.92L, Hemoglobin 8.4L, Hematocrit 26.5L , Mean Corpuscular Volume 91, Mean Corpuscular Hemoglobin 28.9, Mean Corpuscular Hemoglobin Concent 31.9L, Red Cell Distribution Width 16.4H, Platelet Count 173, Mean Platelet Volume 6.5, Neutrophils (%) (Auto) 81.9H, Lymphocytes (%) (Auto) 11.4L, Monocytes (%) (Auto) 5.1, Eosinophils (%) (Auto) 1.1, Basophils (%) (Auto) 0.5, Sodium Level 143, Potassium Level 2.9L, Chloride Level 112H, Carbon Dioxide Level 22, Anion Gap 9, Blood Urea Nitrogen 8, Creatinine 0.5L, Estimat Glomerular Filtration Rate , Glucose Level 113H, Calcium Level 7.6L, Total Bilirubin 0.2, Aspartate Amino Transf (AST/SGOT) 14L, Alanine Aminotransferase (ALT/SGPT) 10L, Alkaline Phosphatase 56, Total Protein 5.3L, Albumin 1.2L, Globulin 4.1, Albumin/Globulin Ratio 0.3L 01/26/19 04:15: White Blood Count 5.3, Red Blood Count 2.81L, Hemoglobin 8.2L, Hematocrit 25.2L , Mean Corpuscular Volume 90, Mean Corpuscular Hemoglobin 29.3, Mean Corpuscular Hemoglobin Concent 32.6, Red Cell Distribution Width 16.3H, Platelet Count 163, Mean Platelet Volume 6.7, Neutrophils (%) (Auto) 72.2, Lymphocytes (%) (Auto) 16.9L, Monocytes (%) (Auto) 7.3, Eosinophils (%) (Auto) 2.5, Basophils (%) (Auto) 1.0, Sodium Level 142, Potassium Level 3.1L, Chloride Level 110H, Carbon Dioxide Level 24, Anion Gap 8, Blood Urea Nitrogen 5L, Creatinine 0.5L, Estimat Glomerular Filtration Rate , Glucose Level 85, Calcium Level 7.8L, Total Bilirubin 0.3, Aspartate Amino Transf (AST/SGOT) 13L, Alanine Aminotransferase (ALT/SGPT) 13, Alkaline Phosphatase 57, Total Protein 5.3L, Albumin 1.2L, Globulin 4.1, Albumin/Globulin Ratio 0.3L, Magnesium Level 1.7L, Pro-B-Type Natriuretic Peptide 6272H Current Medications Medications (Trade) Dose Ordered Sig/Elder Route PRN Reason Start Time Stop Time Status Last Admin Dose Admin Acetaminophen (Tylenol) 650 mg Q4H PRN ORAL Mild Pain/Temp > 100.5 01/24/19 17:30 02/23/19 17:29 01/24/19 18:05 Albuterol/ Ipratropium (Albuterol/ Ipratropium) 3 ml Q4H HHN 01/23/19 15:15 01/28/19 15:14 01/26/19 08:11 Metoprolol Tartrate (Lopressor) 50 mg Q12HR ORAL 01/25/19 21:00 02/24/19 20:59 01/26/19 08:27 Pantoprazole (Protonix) 40 mg DAILY IVP 01/24/19 09:00 02/23/19 08:59 01/26/19 08:27 Piperacillin Sod/ Tazobactam Sod 3.375 gm/Sodium Chloride 110 ml @ 27.5 mls/hr EVERY 8 HOURS IVPB 01/23/19 22:00 01/28/19 21:59 01/26/19 05:47 Vancomycin HCl (Vanco rx to dose) 1 ea DAILY PRN MISC Per rx protocol 01/23/19 15:15 02/22/19 15:14 Vancomycin HCl 750 mg/Sodium Chloride 275 ml @ 183.333 mls/hr Q24H IVPB 01/23/19 17:00 01/28/19 16:59 01/25/19 16:43 Hernan Campos MD Jan 26, 2019 08:48
--- NOTE | 2019-01-26 08:49 | General Progress Note ---
Assessment/Plan Problem List: (1) Severe anemia ICD Codes: D64.9 - Anemia, unspecified SNOMED: 976608458 (2) PUD (peptic ulcer disease) ICD Codes: K27.9 - Peptic ulcer, site unspecified, unspecified as acute or chronic, without hemorrhage or perforation SNOMED: 86790692 (3) Altered level of consciousness ICD Codes: R40.4 - Transient alteration of awareness SNOMED: 4713368 (4) CAD/OR (5) CML (chronic myelocytic leukemia) ICD Codes: C92.10 - Chronic myeloid leukemia, BCR/ABL-positive, not having achieved remission SNOMED: 17501715 (6) Aortic stenosis, severe ICD Codes: I35.0 - Nonrheumatic aortic (valve) stenosis SNOMED: 43405408 (7) Pneumonia ICD Codes: J18.9 - Pneumonia SNOMED: 859382929 Status: stable Assessment/Plan cont po with caution speech rx ivf- dcd iv abx follow up cultures lasix x 1 monitor cxr replace lytes will d/w family gt again- previously they declined very poor prognosis family aware Subjective ROS Limited/Unobtainable: No Constitutional: Reports: malaise, weakness HEENT: Reports: no symptoms Cardiovascular: Reports: no symptoms Respiratory: Reports: cough, shortness of breath Gastrointestinal/Abdominal: Reports: difficulty swallowing Genitourinary: Reports: no symptoms Neurologic/Psychiatric: Reports: pre-existing deficit Endocrine: Reports: no symptoms Hematologic/Lymphatic: Reports: anemia Allergies: Coded Allergies: No Known Allergies (Unverified , 10/28/18) All Systems: reviewed and negative except above Subjective no events. weak. less sob. o2 nasal cannula. started on diet. off ivf. cxr slightly worse. Objective Last 24 Hour Vital Signs Date Time Temp Pulse Resp B/P (MAP) Pulse Ox O2 Delivery O2 Flow Rate FiO2 01/26/19 08:27 88 119/83 01/26/19 08:12 Nasal Cannula 3.0 32 01/26/19 08:11 98 Nasal Cannula 3.0 32 01/26/19 08:11 88 15 98 Nasal Cannula 3.0 32 01/26/19 08:00 98.6 89 16 110/78 (89) 100 01/26/19 08:00 Nasal Cannula 3.0 01/26/19 04:00 Nasal Cannula 3.0 01/26/19 04:00 98.5 99 23 119/83 (95) 99 01/26/19 03:32 104 01/26/19 03:30 87 18 99 Nasal Cannula 3.0 32 01/26/19 03:20 87 18 99 Nasal Cannula 3.0 32 01/26/19 00:00 98.4 87 24 145/68 (93) 98 01/26/19 00:00 Nasal Cannula 3.0 01/25/19 23:46 86 18 99 Nasal Cannula 3.0 32 01/25/19 23:36 86 18 97 Nasal Cannula 3.0 32 01/25/19 23:24 87 01/25/19 20:19 90 120/77 01/25/19 20:03 88 18 99 Nasal Cannula 3.0 32 01/25/19 20:00 Nasal Cannula 3.0 01/25/19 20:00 98.1 94 24 114/71 (85) 99 01/25/19 19:53 96 Nasal Cannula 3.0 32 01/25/19 19:53 88 18 96 Nasal Cannula 3.0 32 01/25/19 19:53 Nasal Cannula 3.0 32 01/25/19 19:35 91 01/25/19 16:00 98.3 102 17 126/77 (93) 100 01/25/19 16:00 Nasal Cannula 3.0 01/25/19 16:00 100 01/25/19 15:56 99 18 92 Nasal Cannula 3.0 32 01/25/19 15:54 123 124/67 01/25/19 15:46 75 16 96 Nasal Cannula 3.0 32 01/25/19 12:00 Nasal Cannula 3.0 01/25/19 12:00 123 01/25/19 12:00 98.0 86 17 124/67 (86) 94 01/25/19 11:32 99 18 92 Nasal Cannula 3.0 32 01/25/19 11:22 81 16 96 Nasal Cannula 3.0 32 01/25/19 09:08 99 126/76 Intake and Output 01/25/19 01/26/19 19:00 07:00 Intake Total 1348.333 ml 160.0 ml Output Total 450 ml 550 ml Balance 898.333 ml -390.0 ml Intake Oral 120 ml 50 ml IV Total 1228.333 ml 110.0 ml Output Urine Total 450 ml 550 ml Laboratory Tests 01/25/19 08:50: White Blood Count 7.8, Red Blood Count 2.92L, Hemoglobin 8.4L, Hematocrit 26.5L , Mean Corpuscular Volume 91, Mean Corpuscular Hemoglobin 28.9, Mean Corpuscular Hemoglobin Concent 31.9L, Red Cell Distribution Width 16.4H, Platelet Count 173, Mean Platelet Volume 6.5, Neutrophils (%) (Auto) 81.9H, Lymphocytes (%) (Auto) 11.4L, Monocytes (%) (Auto) 5.1, Eosinophils (%) (Auto) 1.1, Basophils (%) (Auto) 0.5, Sodium Level 143, Potassium Level 2.9L, Chloride Level 112H, Carbon Dioxide Level 22, Anion Gap 9, Blood Urea Nitrogen 8, Creatinine 0.5L, Estimat Glomerular Filtration Rate , Glucose Level 113H, Calcium Level 7.6L, Total Bilirubin 0.2, Aspartate Amino Transf (AST/SGOT) 14L, Alanine Aminotransferase (ALT/SGPT) 10L, Alkaline Phosphatase 56, Total Protein 5.3L, Albumin 1.2L, Globulin 4.1, Albumin/Globulin Ratio 0.3L 01/26/19 04:15: White Blood Count 5.3, Red Blood Count 2.81L, Hemoglobin 8.2L, Hematocrit 25.2L , Mean Corpuscular Volume 90, Mean Corpuscular Hemoglobin 29.3, Mean Corpuscular Hemoglobin Concent 32.6, Red Cell Distribution Width 16.3H, Platelet Count 163, Mean Platelet Volume 6.7, Neutrophils (%) (Auto) 72.2, Lymphocytes (%) (Auto) 16.9L, Monocytes (%) (Auto) 7.3, Eosinophils (%) (Auto) 2.5, Basophils (%) (Auto) 1.0, Sodium Level 142, Potassium Level 3.1L, Chloride Level 110H, Carbon Dioxide Level 24, Anion Gap 8, Blood Urea Nitrogen 5L, Creatinine 0.5L, Estimat Glomerular Filtration Rate , Glucose Level 85, Calcium Level 7.8L, Total Bilirubin 0.3, Aspartate Amino Transf (AST/SGOT) 13L, Alanine Aminotransferase (ALT/SGPT) 13, Alkaline Phosphatase 57, Total Protein 5.3L, Albumin 1.2L, Globulin 4.1, Albumin/Globulin Ratio 0.3L, Magnesium Level 1.7L, Pro-B-Type Natriuretic Peptide 6272H Height (Feet): 5 Height (Inches): 8.00 Weight (Pounds): 117 Objective General Appearance: WD/WN, alert, lethargic, thin Neck: supple Cardiovascular: normal peripheral pulses, normal rate, regular rhythm Respiratory/Chest: rhonchi - bilaterally Abdomen: normal bowel sounds, non tender, soft, no organomegaly Edema: no edema noted Arm (L), no edema noted Arm (R), no edema noted Leg (L), no edema noted Leg (R), no edema noted Pedal (L), no edema noted Pedal (R), no edema noted Generalized Neurologic: motor weakness Camron Pearl MD Jan 26, 2019 08:49
--- NOTE | 2019-01-26 10:11 | NUR ---
RADIOLOGY DEPT CHEST X-RAY DONE.-P.DYE
--- NOTE | 2019-01-26 10:21 | Infectious Diseases Prog Note ---
Assessment/Plan Assessment/Plan antibiotics : vancomycin iv, zosyn A 1. staph aureus pneumonia 2. CLL 3. hypertension 4. aortic stenosis 5. CVA 6. COPD P 1. continue iv vancomycin, 2. d/c zosyn 3. will follow up cultures Subjective ROS Limited/Unobtainable: Yes Allergies: Coded Allergies: No Known Allergies (Unverified , 10/28/18) Objective Vital Signs Last 24 Hour Vital Signs Date Time Temp Pulse Resp B/P (MAP) Pulse Ox O2 Delivery O2 Flow Rate FiO2 01/26/19 08:27 88 119/83 01/26/19 08:12 Nasal Cannula 3.0 32 01/26/19 08:11 98 Nasal Cannula 3.0 32 01/26/19 08:11 88 15 98 Nasal Cannula 3.0 32 01/26/19 08:00 98.6 89 16 110/78 (89) 100 01/26/19 08:00 Nasal Cannula 3.0 01/26/19 08:00 91 01/26/19 04:00 Nasal Cannula 3.0 01/26/19 04:00 98.5 99 23 119/83 (95) 99 01/26/19 03:32 104 01/26/19 03:30 87 18 99 Nasal Cannula 3.0 32 01/26/19 03:20 87 18 99 Nasal Cannula 3.0 32 01/26/19 00:00 98.4 87 24 145/68 (93) 98 01/26/19 00:00 Nasal Cannula 3.0 01/25/19 23:46 86 18 99 Nasal Cannula 3.0 32 01/25/19 23:36 86 18 97 Nasal Cannula 3.0 32 01/25/19 23:24 87 01/25/19 20:19 90 120/77 01/25/19 20:03 88 18 99 Nasal Cannula 3.0 32 01/25/19 20:00 Nasal Cannula 3.0 01/25/19 20:00 98.1 94 24 114/71 (85) 99 01/25/19 19:53 96 Nasal Cannula 3.0 32 01/25/19 19:53 88 18 96 Nasal Cannula 3.0 32 01/25/19 19:53 Nasal Cannula 3.0 32 01/25/19 19:35 91 01/25/19 16:00 98.3 102 17 126/77 (93) 100 01/25/19 16:00 Nasal Cannula 3.0 01/25/19 16:00 100 01/25/19 15:56 99 18 92 Nasal Cannula 3.0 32 01/25/19 15:54 123 124/67 01/25/19 15:46 75 16 96 Nasal Cannula 3.0 32 01/25/19 12:00 Nasal Cannula 3.0 01/25/19 12:00 123 01/25/19 12:00 98.0 86 17 124/67 (86) 94 01/25/19 11:32 99 18 92 Nasal Cannula 3.0 32 01/25/19 11:22 81 16 96 Nasal Cannula 3.0 32 Height (Feet): 5 Height (Inches): 8.00 Weight (Pounds): 117 Respiratory/Chest: lungs clear Cardiovascular: normal rate, regular rhythm, no gallop/murmur Abdomen: soft, non tender Extremities: no edema Microbiology Date/Time Source Procedure Growth Status 01/23/19 10:33 Blood Blood Culture - Preliminary NO GROWTH AFTER 48 HOURS Resulted 01/24/19 16:00 Sputum Gram Stain - Final Resulted 01/24/19 16:00 Sputum Culture - Preliminary Staphylococcus Aureus Resulted 01/23/19 11:42 Nasal Nares MRSA Culture - Final Staphylococcus Aureus - Mrsa Complete 01/23/19 11:42 Rectum VRE Culture - Final Enterococcus Faecium - Vre Complete Laboratory Tests Test 01/26/19 04:15 White Blood Count 5.3 K/UL (4.8-10.8) Red Blood Count 2.81 M/UL (4.70-6.10) L Hemoglobin 8.2 G/DL (14.2-18.0) L Hematocrit 25.2 % (42.0-52.0) L Mean Corpuscular Volume 90 FL (80-99) Mean Corpuscular Hemoglobin 29.3 PG (27.0-31.0) Mean Corpuscular Hemoglobin Concent 32.6 G/DL (32.0-36.0) Red Cell Distribution Width 16.3 % (11.6-14.8) H Platelet Count 163 K/UL (150-450) Mean Platelet Volume 6.7 FL (6.5-10.1) Neutrophils (%) (Auto) 72.2 % (45.0-75.0) Lymphocytes (%) (Auto) 16.9 % (20.0-45.0) L Monocytes (%) (Auto) 7.3 % (1.0-10.0) Eosinophils (%) (Auto) 2.5 % (0.0-3.0) Basophils (%) (Auto) 1.0 % (0.0-2.0) Sodium Level 142 MMOL/L (136-145) Potassium Level 3.1 MMOL/L (3.5-5.1) L Chloride Level 110 MMOL/L (98-107) H Carbon Dioxide Level 24 MMOL/L (21-32) Anion Gap 8 mmol/L (5-15) Blood Urea Nitrogen 5 mg/dL (7-18) L Creatinine 0.5 MG/DL (0.55-1.30) L Estimat Glomerular Filtration Rate mL/min (>60) Glucose Level 85 MG/DL (74-106) Calcium Level 7.8 MG/DL (8.5-10.1) L Magnesium Level 1.7 MG/DL (1.8-2.4) L Total Bilirubin 0.3 MG/DL (0.2-1.0) Aspartate Amino Transf (AST/SGOT) 13 U/L (15-37) L Alanine Aminotransferase (ALT/SGPT) 13 U/L (12-78) Alkaline Phosphatase 57 U/L (46-116) Pro-B-Type Natriuretic Peptide 6272 pg/mL (0-125) H Total Protein 5.3 G/DL (6.4-8.2) L Albumin 1.2 G/DL (3.4-5.0) L Globulin 4.1 g/dL Albumin/Globulin Ratio 0.3 (1.0-2.7) L Current Medications Medications (Trade) Dose Ordered Sig/Elder Route PRN Reason Start Time Stop Time Status Last Admin Dose Admin Acetaminophen (Tylenol) 650 mg Q4H PRN ORAL Mild Pain/Temp > 100.5 01/24/19 17:30 02/23/19 17:29 01/24/19 18:05 Albuterol/ Ipratropium (Albuterol/ Ipratropium) 3 ml Q4H HHN 01/23/19 15:15 01/28/19 15:14 01/26/19 08:11 Magnesium Sulfate 100 ml @ 100 mls/hr Q1H IVPB 01/26/19 09:00 01/26/19 10:59 01/26/19 10:00 Metoprolol Tartrate (Lopressor) 50 mg Q12HR ORAL 01/25/19 21:00 02/24/19 20:59 01/26/19 08:27 Pantoprazole (Protonix) 40 mg DAILY IVP 01/24/19 09:00 02/23/19 08:59 01/26/19 08:27 Piperacillin Sod/ Tazobactam Sod 3.375 gm/Sodium Chloride 110 ml @ 27.5 mls/hr EVERY 8 HOURS IVPB 01/23/19 22:00 01/28/19 21:59 01/26/19 05:47 Potassium Chloride (K-Dur) 40 meq ONCE ORAL 01/26/19 09:54 01/26/19 10:54 01/26/19 10:00 Potassium Chloride (K-Dur) 40 meq ONCE ORAL 01/26/19 12:00 01/26/19 13:00 Vancomycin HCl (Vanco rx to dose) 1 ea DAILY PRN MISC Per rx protocol 01/23/19 15:15 02/22/19 15:14 Vancomycin HCl 750 mg/Sodium Chloride 275 ml @ 183.333 mls/hr Q24H IVPB 01/23/19 17:00 01/28/19 16:59 01/25/19 16:43 Ernie Barraza MD Jan 26, 2019 10:21
--- NOTE | 2019-01-26 10:29 | NUR ---
NURSE NOTES: SEEN AND EXAMINED BY DR STYLES AND DR RIDER WITH NEW ORDERS MADE AND CARRIED OUT. NO SIGNS OF DISTRESS. WILL CONTINUE TO MONITOR.
--- NOTE | 2019-01-26 11:31 | Diagnostic Imaging Report ---
Indication: Shortness of breath Technique: One view of the chest Comparison: 01/25/2019 Findings: Dense left perihilar consolidation, hazy bilateral mid and lower lung opacities persist, unchanged. The heart remains enlarged. Findings are unchanged. Impression: Unchanged, over one day, findings as above.
[2019-01-26 12:00] VITALS: BP 114/85
--- NOTE | 2019-01-26 14:00 | NUR ---
NURSE NOTES: DRESSINGS CHANGED FOR SACRAL AND LEFT BUTTOCKS. WILL CONTINUE TO MONITOR.
[2019-01-26 16:00] VITALS: BP 120/72
--- NOTE | 2019-01-26 17:12 | NUR ---
NURSE NOTES: PATIENT KEPT CLEAN AND DRY. ON OVERLAY MATTRESS NOW. WILL CONTINUE TO MONITOR.
[2019-01-26] MEDS ORDERED: Vancomycin 750mg/NS 275ml IVPB SCH ×2 (17:45)
[2019-01-26] MEDS: Vancomycin 750mg/NS 275ml IVPB SCH ×2 (18:30)
--- NOTE | 2019-01-26 19:12 | NUR ---
HAND-OFF: Report given to Ramya Samuels RN.
--- NOTE | 2019-01-26 19:13 | NUR ---
NURSE NOTES: Received bedside report from SOCORRO Campbell.Patient stable,open eyes,Filipino speaking only,SR on cafeteria monitor,tolerated N/C with 3L/min,1:1 feeding with BARRERA and liquid puree diet,BS active in all quadrants,contracted on BLE,IV asymptomatic,intact on ANIBAL and L/hand G 22 SL,bed secured,call light within a reach,willm continue to monitor and follow POC.
[2019-01-26 20:00] VITALS: BP 126/82
[2019-01-27] VITALS (7 sets, daily range): BP systolic 99–147; BP diastolic 63–83
--- NOTE | 2019-01-27 00:38 | NUR ---
NURSE NOTES: has been notified regarding changed of patient's condition.Patient had an episode of V-tach 5-6 beats and PSVT,latest V/S is WNL,B/P 129/73 HR78,charge nurse aware.
--- NOTE | 2019-01-27 01:37 | NUR ---
NURSE NOTES: aware regarding patient's condition,no orders received.
[2019-01-27] MEDS: Albuterol/Ipratropium 3ml neb HHN SCH ×6 (04:10→22:50)
[2019-01-27] MEDS: Vancomycin 750mg/NS 275ml IVPB SCH ×4 (05:59→17:22)
[2019-01-27 06:23] LABS: ALANINE AMINOTRANSFERASE 9 U/L (12-78); ALBUMIN 1.4 G/DL (3.4-5.0); ALBUMIN/GLOBULIN RATIO 0.3 (1.0-2.7); ALKALINE PHOSPHATASE 62 U/L (46-116); ANION GAP 8 mmol/L (5-15); ASPARTATE AMINO TRANSFERASE 13 U/L (15-37); BILIRUBIN,TOTAL 0.4 MG/DL (0.2-1.0); BLOOD UREA NITROGEN 6 mg/dL (7-18); CALCIUM 7.8 MG/DL (8.5-10.1); CARBON DIOXIDE 25 MMOL/L (21-32); CHLORIDE 103 MMOL/L (98-107); CREATININE 0.5 MG/DL (0.55-1.30); POTASSIUM 3.4 MMOL/L (3.5-5.1); SODIUM 136 MMOL/L (136-145)
--- NOTE | 2019-01-27 07:08 | NUR ---
HAND-OFF: Report given to Stephanie Helton RN,Patient stable.
--- NOTE | 2019-01-27 07:42 | NUR ---
NURSE NOTES: Report received from SOCORRO Cole. Observed patient in bed. Awake but non-verbal. Open eyes spontaneously. No s/s of pain at this time. IV sites are infiltrated on left hand and right upper arm. Patient's gown was wet because IV was leaking. Will attempt to insert new IV. Receiving 3L of oxygen via N/C with no distress noted. Condom cath intact and draining well. Bed in lowest position. Call light within reach. Will continue to monitor.
--- NOTE | 2019-01-27 07:54 | NUR ---
NURSE NOTES: Called and left message to Dr. Pearl regarding low potassium level. Awaiting for call back.
[2019-01-27] MEDS: Pantoprazole Inj IVP SCH (08:58)
[2019-01-27] MEDS: Metoprolol Tartrate 50mg tab ORAL SCH ×2 (08:59→21:26)
--- NOTE | 2019-01-27 09:09 | NUR ---
RADIOLOGY DEPT CHEST X-RAY DONE.-P.DYE
--- NOTE | 2019-01-27 09:59 | NUR ---
RD ASSESSMENT & RECOMMENDATIONS SEE CARE ACTIVITY FOR COMPLETE ASSESSMENT DAILY ESTIMATED NEEDS: Needs based on Underweight, wound 52kg 30-35 kcals/kg 9650-7610 total kcals 1.25-2 g protein/kg 65-104 g total protein 25-30 mL/kg 4586-6997 total fluid mLs NUTRITION DIAGNOSIS: * Increased kcal and protein needs r/t underweight status as evidenced by pt w generalized moderate to severe wasting, BMI underweight per guidelines, 75% of D[place]key Body Weight. * Swallowing difficulty R/T dysphagia, h/o CVA as evidenced by HOUSE DIRECTOR eval, recs for liquify pureed, NTL w/ poor po intake. * Altered nutrition related lab values R/T clinical condition as evidenced by elev BNP (2470-> 7608) CURRENT DIET: BARRERA liquify puree/ NTL PO DIET RECOMMENDATIONS: IF SAFE FOR PO -> Liberalized / Regular diet (texture per HOUSE DIRECTOR) ENTERAL NUTRITION RECOMMENDATIONS (If part of POC): Osmolite 1.5 @50ml/hr x24 hrs + Prosource x1 daily to provide 1200ml, 1800 kcal, 75g + 11g prot, 914ml free H2O - If non oral feeds are part of POC, rec to obtain GI access, start Osmolite 1.5 @20ml for 6-8 hrs - Advance as tolerated 10ml q4-6 hrs to goal - Add PROSOURCE 1 pack daily to better meet est prot needs - Flush per MD/ HOB over 30 degrees ADDITIONAL RECOMMENDATIONS: * CALIBRATED bedscale wt for accurate CBW * Weekly wts given underweight status * WOUND CARE: add LESTER BID + MVI x1 + VIT C 250mg BID * Add Ensure Enlive TID to diet order * TF / NONORAL FEEDING RECS ABOVE OF PART OF POC *
--- NOTE | 2019-01-27 10:31 | Infectious Diseases Prog Note ---
Assessment/Plan Assessment/Plan antibiotics : vancomycin iv A 1. MRSA pneumonia 2. CLL 3. hypertension 4. aortic stenosis 5. CVA 6. COPD P 1. continue iv vancomycin in hospital 2. po doxycycline on discharge 5 more days 3. will follow up cultures Subjective ROS Limited/Unobtainable: Yes Allergies: Coded Allergies: No Known Allergies (Unverified , 10/28/18) Objective Vital Signs Last 24 Hour Vital Signs Date Time Temp Pulse Resp B/P (MAP) Pulse Ox O2 Delivery O2 Flow Rate FiO2 01/27/19 08:59 99 137/83 01/27/19 08:00 92 01/27/19 08:00 97.6 99 19 137/83 (101) 96 01/27/19 07:28 89 24 99 Nasal Cannula 2.0 28 01/27/19 07:20 98 22 96 Nasal Cannula 3.0 32 01/27/19 07:00 96 Nasal Cannula 3.0 32 01/27/19 07:00 Nasal Cannula 3.0 32 01/27/19 04:00 98.4 94 20 147/82 (103) 99 01/27/19 04:00 Nasal Cannula 3.0 01/27/19 03:59 91 18 99 Nasal Cannula 2.0 28 01/27/19 03:49 93 20 96 Nasal Cannula 2.0 28 01/27/19 03:35 92 01/27/19 00:00 Nasal Cannula 3.0 01/27/19 00:00 98.0 98 20 129/73 (91) 99 01/26/19 23:34 124 01/26/19 23:25 114 01/26/19 22:56 90 18 97 Nasal Cannula 2.0 28 01/26/19 22:46 88 20 96 Nasal Cannula 2.0 28 01/26/19 22:02 97 126/82 01/26/19 20:20 97 Nasal Cannula 3.0 32 01/26/19 20:20 Nasal Cannula 01/26/19 20:20 Nasal Cannula 3.0 32 01/26/19 20:20 Nasal Cannula 01/26/19 20:00 97.7 97 20 126/82 (97) 99 01/26/19 20:00 Nasal Cannula 3.0 01/26/19 19:10 95 01/26/19 16:00 Nasal Cannula 3.0 01/26/19 16:00 93 01/26/19 16:00 98.2 99 17 120/72 (88) 98 01/26/19 15:29 72 18 100 Nasal Cannula 3.0 32 01/26/19 15:17 75 18 100 Nasal Cannula 3.0 32 01/26/19 12:08 88 18 97 Nasal Cannula 3.0 32 01/26/19 12:00 94 01/26/19 12:00 98.4 98 17 114/85 (95) 97 01/26/19 12:00 Nasal Cannula 3.0 01/26/19 11:58 89 18 95 Nasal Cannula 3.0 32 Height (Feet): 5 Height (Inches): 8.00 Weight (Pounds): 117 Respiratory/Chest: lungs clear Cardiovascular: normal rate, regular rhythm, no gallop/murmur Abdomen: soft, non tender Extremities: no edema Microbiology Date/Time Source Procedure Growth Status 01/24/19 16:00 Sputum Gram Stain - Final Complete 01/24/19 16:00 Sputum Culture - Final Staphylococcus Aureus - Mrsa Starla Albicans Complete Laboratory Tests Test 01/26/19 16:00 01/27/19 03:55 Vancomycin Level Trough 5.8 ug/mL (5.0-12.0) Sodium Level 136 MMOL/L (136-145) Potassium Level 3.4 MMOL/L (3.5-5.1) L Chloride Level 103 MMOL/L (98-107) Carbon Dioxide Level 25 MMOL/L (21-32) Anion Gap 8 mmol/L (5-15) Blood Urea Nitrogen 6 mg/dL (7-18) L Creatinine 0.5 MG/DL (0.55-1.30) L Estimat Glomerular Filtration Rate mL/min (>60) Glucose Level 74 MG/DL (74-106) Calcium Level 7.8 MG/DL (8.5-10.1) L Magnesium Level 1.9 MG/DL (1.8-2.4) Total Bilirubin 0.4 MG/DL (0.2-1.0) Aspartate Amino Transf (AST/SGOT) 13 U/L (15-37) L Alanine Aminotransferase (ALT/SGPT) 9 U/L (12-78) L Alkaline Phosphatase 62 U/L (46-116) Pro-B-Type Natriuretic Peptide 7608 pg/mL (0-125) H Total Protein 5.8 G/DL (6.4-8.2) L Albumin 1.4 G/DL (3.4-5.0) L Globulin 4.4 g/dL Albumin/Globulin Ratio 0.3 (1.0-2.7) L Current Medications Medications (Trade) Dose Ordered Sig/Elder Route PRN Reason Start Time Stop Time Status Last Admin Dose Admin Acetaminophen (Tylenol) 650 mg Q4H PRN ORAL Mild Pain/Temp > 100.5 01/24/19 17:30 02/23/19 17:29 01/24/19 18:05 Albuterol/ Ipratropium (Albuterol/ Ipratropium) 3 ml Q4H HHN 01/23/19 15:15 01/28/19 15:14 01/27/19 07:15 Metoprolol Tartrate (Lopressor) 50 mg Q12HR ORAL 01/25/19 21:00 02/24/19 20:59 01/27/19 08:59 Pantoprazole (Protonix) 40 mg DAILY IVP 01/24/19 09:00 02/23/19 08:59 01/27/19 08:58 Vancomycin HCl (Vanco rx to dose) 1 ea DAILY PRN MISC Per rx protocol 01/23/19 15:15 02/22/19 15:14 Vancomycin HCl 750 mg/Sodium Chloride 275 ml @ 183.333 mls/hr Q12HR@0600,1800 IVPB 01/26/19 18:00 01/31/19 17:44 01/27/19 05:59 Ernie Barraza MD Jan 27, 2019 10:31
--- NOTE | 2019-01-27 10:50 | Diagnostic Imaging Report ---
Indication: Shortness of breath Technique: One view of the chest Comparison: 01/26/2019 Findings: Left perihilar dense consolidation, bilateral generalized interstitial and airspace edema, bilateral pleural effusions persist, probably overall unchanged. The heart is enlarged. Impression: Unchanged, over one day, findings as above.
--- NOTE | 2019-01-27 15:03 | NUR ---
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 SEPSIS VS: BP 115/63 P 99, T 97.6, RR 24, SpO2 99 on 2.0 NC FiO2 28 [id number] Pept 7608 CXR Findings: Left perihilar dense consolidation, bilateral generalized interstitial and airspace edema, bilateral pleural effusions persist, probably overall unchanged. The heart is enlarged. IS:Vancomycin IVPB Metoprolol Pantoprazole Albuterol SDU STATUS
--- NOTE | 2019-01-27 15:14 | NUR ---
NURSE NOTES: Informed Dr. Pearl that patient hasn't have bowel movement for 4 days and patient is not eating well. Intake is 20-50% only. MD said he will putting orders later. Will follow up.
--- NOTE | 2019-01-27 15:16 | NUR ---
NURSE NOTES: Dr. Pearl called back and told me that he will order some for potassium later.
--- NOTE | 2019-01-27 16:06 | General Progress Note ---
Assessment/Plan Problem List: (1) Severe anemia ICD Codes: D64.9 - Anemia, unspecified SNOMED: 865383841 (2) PUD (peptic ulcer disease) ICD Codes: K27.9 - Peptic ulcer, site unspecified, unspecified as acute or chronic, without hemorrhage or perforation SNOMED: 37729484 (3) Altered level of consciousness ICD Codes: R40.4 - Transient alteration of awareness SNOMED: 4544873 (4) CAD/NM (5) CML (chronic myelocytic leukemia) ICD Codes: C92.10 - Chronic myeloid leukemia, BCR/ABL-positive, not having achieved remission SNOMED: 51534637 (6) Aortic stenosis, severe ICD Codes: I35.0 - Nonrheumatic aortic (valve) stenosis SNOMED: 66314925 (7) Pneumonia ICD Codes: J18.9 - Pneumonia SNOMED: 892328702 Status: stable, progressing Assessment/Plan cont po with caution speech rx encourage pos asp precautions ivf- dcd iv abx follow up cultures lasix x 1 replace k monitor cxr replace lytes will d/w family gt again- previously they declined very poor prognosis family aware Subjective ROS Limited/Unobtainable: No Constitutional: Reports: malaise, weakness HEENT: Reports: no symptoms Cardiovascular: Reports: no symptoms Respiratory: Reports: cough, shortness of breath Gastrointestinal/Abdominal: Reports: difficulty swallowing, poor fluid intake Genitourinary: Reports: no symptoms Neurologic/Psychiatric: Reports: pre-existing deficit Endocrine: Reports: no symptoms Hematologic/Lymphatic: Reports: anemia Allergies: Coded Allergies: No Known Allergies (Unverified , 10/28/18) All Systems: reviewed and negative except above Subjective no events. weak. less sob. o2 nasal cannula. started on diet. off ivf. cxr slightly worse- increased infiltrate/chf Objective Last 24 Hour Vital Signs Date Time Temp Pulse Resp B/P (MAP) Pulse Ox O2 Delivery O2 Flow Rate FiO2 01/27/19 15:09 92 20 99 Nasal Cannula 2.0 28 01/27/19 15:00 98 22 97 Nasal Cannula 3.0 32 01/27/19 12:00 95 01/27/19 12:00 98.5 95 18 115/63 (80) 100 01/27/19 12:00 Nasal Cannula 3.0 01/27/19 11:29 88 22 98 Nasal Cannula 2.0 28 01/27/19 11:20 91 20 97 Nasal Cannula 3.0 32 01/27/19 08:59 99 137/83 01/27/19 08:00 Nasal Cannula 3.0 01/27/19 08:00 92 01/27/19 08:00 97.6 99 19 137/83 (101) 96 01/27/19 07:28 89 24 99 Nasal Cannula 2.0 28 01/27/19 07:20 98 22 96 Nasal Cannula 3.0 32 01/27/19 07:00 96 Nasal Cannula 3.0 32 01/27/19 07:00 Nasal Cannula 3.0 32 01/27/19 04:00 98.4 94 20 147/82 (103) 99 01/27/19 04:00 Nasal Cannula 3.0 01/27/19 03:59 91 18 99 Nasal Cannula 2.0 28 01/27/19 03:49 93 20 96 Nasal Cannula 2.0 28 01/27/19 03:35 92 01/27/19 00:00 Nasal Cannula 3.0 01/27/19 00:00 98.0 98 20 129/73 (91) 99 01/26/19 23:34 124 01/26/19 23:25 114 01/26/19 22:56 90 18 97 Nasal Cannula 2.0 28 01/26/19 22:46 88 20 96 Nasal Cannula 2.0 28 01/26/19 22:02 97 126/82 01/26/19 20:20 97 Nasal Cannula 3.0 32 01/26/19 20:20 Nasal Cannula 01/26/19 20:20 Nasal Cannula 3.0 32 01/26/19 20:20 Nasal Cannula 01/26/19 20:00 97.7 97 20 126/82 (97) 99 01/26/19 20:00 Nasal Cannula 3.0 01/26/19 19:10 95 Intake and Output 01/26/19 01/27/19 19:00 07:00 Intake Total 674.166 ml 183.335 ml Output Total 2600 ml 1500 ml Balance -1925.834 ml -1316.665 ml Intake Oral 300 ml IV Total 374.166 ml 183.335 ml Output Urine Total 2600 ml 1500 ml Laboratory Tests 01/27/19 03:55: Sodium Level 136, Potassium Level 3.4L, Chloride Level 103, Carbon Dioxide Level 25, Anion Gap 8, Blood Urea Nitrogen 6L, Creatinine 0.5L, Estimat Glomerular Filtration Rate , Glucose Level 74, Calcium Level 7.8L, Magnesium Level 1.9, Total Bilirubin 0.4, Aspartate Amino Transf (AST/SGOT) 13L, Alanine Aminotransferase (ALT/SGPT) 9L, Alkaline Phosphatase 62, Pro-B-Type Natriuretic Peptide 7608H, Total Protein 5.8L, Albumin 1.4L, Globulin 4.4, Albumin/Globulin Ratio 0.3L Height (Feet): 5 Height (Inches): 8.00 Weight (Pounds): 117 Objective General Appearance: WD/WN, alert, lethargic, thin Neck: supple Cardiovascular: normal peripheral pulses, normal rate, regular rhythm Respiratory/Chest: rhonchi - bilaterally Abdomen: normal bowel sounds, non tender, soft, no organomegaly Edema: no edema noted Arm (L), no edema noted Arm (R), no edema noted Leg (L), no edema noted Leg (R), no edema noted Pedal (L), no edema noted Pedal (R), no edema noted Generalized Neurologic: motor weakness Camron Pearl MD Jan 27, 2019 16:06
--- NOTE | 2019-01-27 19:09 | Pulmonology Progress Note ---
Assessment/Plan Assessment/Plan PULMONARY PROGRESS NOTE HISTORY OF PRESENT ILLNESS: The patient is a 78-year-old male, who had recent admission for pneumonia. The patient discharged to halfway facility and developed fever and shortness of breath, transferred back for sepsis and new pneumonia. The patient with congestion. The patient was pancultured and given IV antibiotics. The patient now admitted for further care and management. I was called to evaluate further. Imaging noted and reviewed. ER notes reviewed. The patient now with left perihilar pulmonary infiltrate, which is new since prior to discharge. The patient is unable to give much in the way of history. The patient's chart was reviewed. The patient's ER notes were reviewed. The care discussed with the primary care doctor. Stable overnight PAST MEDICAL HISTORY: Aortic valve stenosis, hypertensive heart disease, pneumonia, paroxysmal atrial fibrillation, CVA with focal left-sided weakness, COPD, CML, and GI bleed. ALLERGIES: Reviewed. MEDICATIONS: Reviewed. FAMILY HISTORY: Noncontributory. SOCIAL HISTORY: Prior smoking history. Nondrinker. Nonsmoker. Currently disabled. REVIEW OF SYSTEMS: Nor available PHYSICAL EXAMINATION: GENERAL: An ill-appearing male, in no acute distress. VITAL SIGNS NOTED HEENT: Oropharynx is moist. Reduced gag. NECK: Otherwise supple. No accessory muscle use. LUNGS: With scattered rhonchi. Moderate air entry. CARDIAC: S1 and S2. Regular rate and rhythm without murmurs, rubs, or gallops. ABDOMEN: Soft, nontender, nondistended. EXTREMITIES: No cyanosis, clubbing, or edema. Focal weakness noted on examination. LABORATORY DATA: Hemoglobin 10, hematocrit is 31.1, white count 10.5. Chemistry, electrolytes overall normal, however, the albumin is 1.5. IMPRESSION: 1. Pneumonia, possibly pulmonary edema. 2. Severe protein-calorie malnutrition. 3. History of CVA. 4. Focal weakness. 5. Concern for aspiration. 6. Evidence of anemia of chronic disease. 7. Recurrent fevers. 8. Respiratory congestion. RECOMMENDATIONS: Supportive care. Cautious IV hydration. IV antibiotics. Respiratory care. Nebulized therapy. Follow up x-ray exam. Aspiration precautions and monitor clinically for further changes and interventions. Speech evaluation and we will follow clinically for further changes and attempt to optimize. Wound care and nutrition consultation and DVT prophylaxis. Subjective ROS Limited/Unobtainable: No Allergies: Coded Allergies: No Known Allergies (Unverified , 10/28/18) Objective Last 24 Hour Vital Signs Date Time Temp Pulse Resp B/P (MAP) Pulse Ox O2 Delivery O2 Flow Rate FiO2 01/27/19 16:00 Nasal Cannula 3.0 01/27/19 16:00 100 01/27/19 16:00 97.7 100 17 99/66 (77) 96 01/27/19 15:09 92 20 99 Nasal Cannula 2.0 28 01/27/19 15:00 98 22 97 Nasal Cannula 3.0 32 01/27/19 12:00 95 01/27/19 12:00 98.5 95 18 115/63 (80) 100 01/27/19 12:00 Nasal Cannula 3.0 01/27/19 11:29 88 22 98 Nasal Cannula 2.0 28 01/27/19 11:20 91 20 97 Nasal Cannula 3.0 32 01/27/19 08:59 99 137/83 01/27/19 08:00 Nasal Cannula 3.0 01/27/19 08:00 92 01/27/19 08:00 97.6 99 19 137/83 (101) 96 01/27/19 07:28 89 24 99 Nasal Cannula 2.0 28 01/27/19 07:20 98 22 96 Nasal Cannula 3.0 32 01/27/19 07:00 96 Nasal Cannula 3.0 32 01/27/19 07:00 Nasal Cannula 3.0 32 01/27/19 04:00 98.4 94 20 147/82 (103) 99 01/27/19 04:00 Nasal Cannula 3.0 01/27/19 03:59 91 18 99 Nasal Cannula 2.0 28 01/27/19 03:49 93 20 96 Nasal Cannula 2.0 28 01/27/19 03:35 92 01/27/19 00:00 Nasal Cannula 3.0 01/27/19 00:00 98.0 98 20 129/73 (91) 99 01/26/19 23:34 124 01/26/19 23:25 114 01/26/19 22:56 90 18 97 Nasal Cannula 2.0 28 01/26/19 22:46 88 20 96 Nasal Cannula 2.0 28 01/26/19 22:02 97 126/82 01/26/19 20:20 97 Nasal Cannula 3.0 32 01/26/19 20:20 Nasal Cannula 3/7/19 20:20 Nasal Cannula 3.0 32 01/26/19 20:20 Nasal Cannula 01/26/19 20:00 97.7 97 20 126/82 (97) 99 01/26/19 20:00 Nasal Cannula 3.0 01/26/19 19:10 95 Intake and Output 01/26/19 01/27/19 19:00 07:00 Intake Total 674.166 ml 183.335 ml Output Total 2600 ml 1500 ml Balance -1925.834 ml -1316.665 ml Intake Oral 300 ml IV Total 374.166 ml 183.335 ml Output Urine Total 2600 ml 1500 ml Laboratory Tests 01/27/19 03:55: Sodium Level 136, Potassium Level 3.4L, Chloride Level 103, Carbon Dioxide Level 25, Anion Gap 8, Blood Urea Nitrogen 6L, Creatinine 0.5L, Estimat Glomerular Filtration Rate , Glucose Level 74, Calcium Level 7.8L, Magnesium Level 1.9, Total Bilirubin 0.4, Aspartate Amino Transf (AST/SGOT) 13L, Alanine Aminotransferase (ALT/SGPT) 9L, Alkaline Phosphatase 62, Pro-B-Type Natriuretic Peptide 7608H, Total Protein 5.8L, Albumin 1.4L, Globulin 4.4, Albumin/Globulin Ratio 0.3L Current Medications Medications (Trade) Dose Ordered Sig/Elder Route PRN Reason Start Time Stop Time Status Last Admin Dose Admin Acetaminophen (Tylenol) 650 mg Q4H PRN ORAL Mild Pain/Temp > 100.5 01/24/19 17:30 02/23/19 17:29 01/24/19 18:05 Albuterol/ Ipratropium (Albuterol/ Ipratropium) 3 ml Q4H HHN 01/23/19 15:15 01/28/19 15:14 01/27/19 15:16 Metoprolol Tartrate (Lopressor) 50 mg Q12HR ORAL 01/25/19 21:00 02/24/19 20:59 01/27/19 08:59 Pantoprazole (Protonix) 40 mg DAILY IVP 01/24/19 09:00 02/23/19 08:59 01/27/19 08:58 Vancomycin HCl (Vanco rx to dose) 1 ea DAILY PRN MISC Per rx protocol 01/23/19 15:15 02/22/19 15:14 Vancomycin HCl 750 mg/Sodium Chloride 275 ml @ 183.333 mls/hr Q12HR@0600,1800 IVPB 01/26/19 18:00 01/31/19 17:44 01/27/19 17:22 Arcenio Mandujano MD Jan 27, 2019 19:09
--- NOTE | 2019-01-27 19:15 | NUR ---
HAND-OFF: Report given to SOCORRO Cali. Pt in stable condition. Informed Viraj to follow up with Dr. Pearl regarding lack of IV fluids. Addendum: 01/27/19 at 1917 by Joan Velez RN Late Entry: Also informed Viraj to follow up with Dr. Pearl about need for stool softener order.
[2019-01-27] MEDS ORDERED: D5NS 1000ml IV ONE (19:57)
[2019-01-27] MEDS ORDERED: Tubing IV Secondary IV ONE (19:57)
[2019-01-27] MEDS ORDERED: NS 275ml ONE (19:57)
[2019-01-28] VITALS: BP 107/60
--- NOTE | 2019-01-28 02:00 | NUR ---
NURSE NOTES: Observed pt lying on the bed, awake. No signs of pain and distress noted. Sponge bath done and sacrum area cleaned and calazime and cavilon applied and covered with optifoam. Oral care and reposition done. Will continue to monitor.
[2019-01-28] MEDS: Albuterol/Ipratropium 3ml neb HHN SCH ×3 (03:25→11:29)
[2019-01-28 04:00] VITALS: BP 108/70
[2019-01-28] MEDS: Vancomycin 750mg/NS 275ml IVPB SCH ×2 (06:24)
--- NOTE | 2019-01-28 07:39 | NUR ---
HAND-OFF: Report given to SOCORRO Zhang. No acute distress noted at this time.
--- NOTE | 2019-01-28 07:40 | NUR ---
NURSE NOTES: Report received from Viraj Osman RN.Pt sleeping in bed ,noted no resp distress ,on 3LNC,no signs of pain or discomfort,SR on the monitor,condom cath in placed,IV site to RW intact,skin warm and dry,SR up x2 HOB elevated,bed lock in lowest position,will continue with plans of care.
[2019-01-28 08:00] VITALS: BP 100/64
[2019-01-28] MEDS: Metoprolol Tartrate 50mg tab ORAL SCH ×2 (09:28→20:40)
[2019-01-28] MEDS: Pantoprazole Inj IVP SCH (09:28)
--- NOTE | 2019-01-28 11:31 | General Progress Note ---
Assessment/Plan Problem List: (1) Severe anemia ICD Codes: D64.9 - Anemia, unspecified SNOMED: 372077063 (2) PUD (peptic ulcer disease) ICD Codes: K27.9 - Peptic ulcer, site unspecified, unspecified as acute or chronic, without hemorrhage or perforation SNOMED: 12673369 (3) Altered level of consciousness ICD Codes: R40.4 - Transient alteration of awareness SNOMED: 9501264 (4) CAD/AR (5) CML (chronic myelocytic leukemia) ICD Codes: C92.10 - Chronic myeloid leukemia, BCR/ABL-positive, not having achieved remission SNOMED: 74372973 (6) Aortic stenosis, severe ICD Codes: I35.0 - Nonrheumatic aortic (valve) stenosis SNOMED: 00051846 (7) Pneumonia ICD Codes: J18.9 - Pneumonia SNOMED: 934861306 Status: stable, progressing Assessment/Plan cont po with caution speech rx encourage pos asp precautions ivf- dcd iv abx follow up cultures lasix x 1 replace k monitor cxr replace lytes will d/w family gt again- previously they declined very poor prognosis family aware Subjective ROS Limited/Unobtainable: Yes Constitutional: Reports: malaise, weakness HEENT: Reports: no symptoms Cardiovascular: Reports: no symptoms Respiratory: Reports: shortness of breath Gastrointestinal/Abdominal: Reports: difficulty swallowing Genitourinary: Reports: no symptoms Neurologic/Psychiatric: Reports: pre-existing deficit Endocrine: Reports: no symptoms Hematologic/Lymphatic: Reports: anemia Allergies: Coded Allergies: No Known Allergies (Unverified , 10/28/18) All Systems: reviewed and negative except above Subjective no events. weak. less sob. o2 nasal cannula. started on diet. off ivf. cxr same - dense infiltrate Objective Last 24 Hour Vital Signs Date Time Temp Pulse Resp B/P (MAP) Pulse Ox O2 Delivery O2 Flow Rate FiO2 01/28/19 09:28 97 100/64 01/28/19 08:10 Nasal Cannula 4.0 36 01/28/19 08:09 97 Nasal Cannula 4.0 36 01/28/19 08:00 Nasal Cannula 3.0 01/28/19 08:00 97.9 97 20 100/64 (76) 97 01/28/19 08:00 90 01/28/19 07:39 92 20 98 Nasal Cannula 4.0 36 01/28/19 07:26 95 20 97 Nasal Cannula 3.0 32 01/28/19 04:00 98.5 95 20 108/70 (83) 100 01/28/19 04:00 102 01/28/19 04:00 Nasal Cannula 3.0 01/28/19 03:33 90 18 98 Nasal Cannula 4.0 36 01/28/19 03:25 86 22 99 Nasal Cannula 4.0 36 01/28/19 00:00 106 01/28/19 00:00 98.4 107 20 107/60 (76) 96 01/28/19 00:00 Nasal Cannula 3.0 01/27/19 22:58 108 20 94 Nasal Cannula 4.0 36 01/27/19 22:50 106 20 94 Nasal Cannula 4.0 36 01/27/19 21:26 110 115/70 01/27/19 20:00 Nasal Cannula 3.0 01/27/19 20:00 107 01/27/19 20:00 97.3 110 20 115/70 (85) 93 01/27/19 19:48 100 20 95 Nasal Cannula 4.0 36 01/27/19 19:40 Nasal Cannula 3.0 32 01/27/19 19:40 94 20 96 Nasal Cannula 3.0 32 01/27/19 19:40 96 Nasal Cannula 3.0 32 01/27/19 16:30 120/76 (91) 01/27/19 16:00 Nasal Cannula 3.0 01/27/19 16:00 100 01/27/19 16:00 97.7 100 17 99/66 (77) 96 01/27/19 15:09 92 20 99 Nasal Cannula 2.0 28 01/27/19 15:00 98 22 97 Nasal Cannula 3.0 32 01/27/19 12:00 95 01/27/19 12:00 98.5 95 18 115/63 (80) 100 01/27/19 12:00 Nasal Cannula 3.0 Intake and Output 01/27/19 01/28/19 19:00 07:00 Intake Total 846.666 ml Output Total 950 ml 750 ml Balance -103.334 ml -750 ml Intake Oral 480 ml IV Total 366.666 ml Output Urine Total 950 ml 750 ml Laboratory Tests 01/28/19 04:50: Vancomycin Level Trough 11.8 Height (Feet): 5 Height (Inches): 8.00 Weight (Pounds): 117 Objective General Appearance: WD/WN, alert, lethargic, thin Neck: supple Cardiovascular: normal peripheral pulses, normal rate, regular rhythm Respiratory/Chest: rhonchi - bilaterally Abdomen: normal bowel sounds, non tender, soft, no organomegaly Edema: no edema noted Arm (L), no edema noted Arm (R), no edema noted Leg (L), no edema noted Leg (R), no edema noted Pedal (L), no edema noted Pedal (R), no edema noted Generalized Neurologic: motor weakness Camron Pearl MD Jan 28, 2019 11:31
[2019-01-28 12:00] VITALS: BP 115/63
--- NOTE | 2019-01-28 12:00 | NUR ---
NURSE NOTES: Pt resting in bed noted no distress,no signs of chest pain presented,cardiac rhythm showing Stach 140 then converts to SR low 100 in and out not sustained.Dr Pearl informed by Caesar hanna RN.
[2019-01-28 12:50] LABS: ALANINE AMINOTRANSFERASE 12 U/L (12-78); ALBUMIN 1.3 G/DL (3.4-5.0); ALBUMIN/GLOBULIN RATIO 0.3 (1.0-2.7); ALKALINE PHOSPHATASE 60 U/L (46-116); ANION GAP 4 mmol/L (5-15); ASPARTATE AMINO TRANSFERASE 12 U/L (15-37); BILIRUBIN,TOTAL 0.2 MG/DL (0.2-1.0); BLOOD UREA NITROGEN 9 mg/dL (7-18); CALCIUM 7.8 MG/DL (8.5-10.1); CARBON DIOXIDE 30 MMOL/L (21-32); CHLORIDE 105 MMOL/L (98-107); CREATININE 0.6 MG/DL (0.55-1.30); POTASSIUM 4.2 MMOL/L (3.5-5.1); SODIUM 139 MMOL/L (136-145)
[2019-01-28 12:57] LABS: BASOPHILS % (AUTO) 0.8 % (0.0-2.0); EOSINOPHILS % (AUTO) 1.1 % (0.0-3.0); HEMATOCRIT 29.3 % (42.0-52.0); HEMOGLOBIN 9.3 G/DL (14.2-18.0); LYMPHOCYTES % (AUTO) 16.2 % (20.0-45.0); MEAN CORPUSCULAR VOLUME 89 FL (80-99); MONOCYTES % (AUTO) 7.3 % (1.0-10.0); NEUTROPHILS % (AUTO) 74.6 % (45.0-75.0); PLATELET COUNT 174 K/UL (150-450); RED CELL DISTRIBUTION WIDTH 16.1 % (11.6-14.8); WHITE BLOOD COUNT 5.9 K/UL (4.8-10.8)
--- NOTE | 2019-01-28 13:30 | Pulmonology Progress Note ---
Assessment/Plan Assessment/Plan PULMONARY PROGRESS NOTE HISTORY OF PRESENT ILLNESS: The patient is a 78-year-old male, who had recent admission for pneumonia. [facility] and developed fever and shortness of breath, transferred back for sepsis and new pneumonia. The patient with congestion. The patient was pancultured and given IV antibiotics. The patient now admitted for further care and management. I was called to evaluate further. Imaging noted and reviewed. ER notes reviewed. The patient now with left perihilar pulmonary infiltrate, which is new since prior to discharge. The patient is unable to give much in the way of history. The patient's chart was reviewed. The patient's ER notes were reviewed. The care discussed with the primary care doctor. Stable overnight PAST MEDICAL HISTORY: Aortic valve stenosis, hypertensive heart disease, pneumonia, paroxysmal atrial fibrillation, CVA with focal left-sided weakness, COPD, CML, and GI bleed. ALLERGIES: Reviewed. MEDICATIONS: Reviewed. FAMILY HISTORY: Noncontributory. SOCIAL HISTORY: Prior smoking history. Nondrinker. Nonsmoker. Currently disabled. REVIEW OF SYSTEMS: Nor available PHYSICAL EXAMINATION: GENERAL: An ill-appearing male, in no acute distress. VITAL SIGNS NOTED HEENT: Oropharynx is moist. Reduced gag. NECK: Otherwise supple. No accessory muscle use. LUNGS: With scattered rhonchi. Moderate air entry. CARDIAC: S1 and S2. Regular rate and rhythm without murmurs, rubs, or gallops. ABDOMEN: Soft, nontender, nondistended. EXTREMITIES: No cyanosis, clubbing, or edema. Focal weakness noted on examination. LABORATORY DATA: Hemoglobin 10, hematocrit is 31.1, white count 10.5. Chemistry, electrolytes overall normal, however, the albumin is 1.5. IMPRESSION: 1. Pneumonia, possibly pulmonary edema. 2. Severe protein-calorie malnutrition. 3. History of CVA. 4. Focal weakness. 5. Concern for aspiration. 6. Evidence of anemia of chronic disease. 7. Recurrent fevers. 8. Respiratory congestion. RECOMMENDATIONS: Supportive care. Cautious IV hydration. IV antibiotics. Respiratory care. Nebulized therapy. Follow up x-ray exam. Aspiration precautions and monitor clinically for further changes and interventions. Speech evaluation and we will follow clinically for further changes and attempt to optimize. Wound care and nutrition consultation and DVT prophylaxis. Subjective ROS Limited/Unobtainable: No Allergies: Coded Allergies: No Known Allergies (Unverified , 10/28/18) Objective Last 24 Hour Vital Signs Date Time Temp Pulse Resp B/P (MAP) Pulse Ox O2 Delivery O2 Flow Rate FiO2 01/28/19 11:32 83 20 Nasal Cannula 3.0 32 01/28/19 11:29 83 20 98 Nasal Cannula 3.0 32 01/28/19 09:28 97 100/64 01/28/19 08:10 Nasal Cannula 4.0 36 01/28/19 08:09 97 Nasal Cannula 4.0 36 01/28/19 08:00 Nasal Cannula 3.0 01/28/19 08:00 97.9 97 20 100/64 (76) 97 01/28/19 08:00 90 01/28/19 07:39 92 20 98 Nasal Cannula 4.0 36 01/28/19 07:26 95 20 97 Nasal Cannula 3.0 32 01/28/19 04:00 98.5 95 20 108/70 (83) 100 01/28/19 04:00 102 01/28/19 04:00 Nasal Cannula 3.0 01/28/19 03:33 90 18 98 Nasal Cannula 4.0 36 01/28/19 03:25 86 22 99 Nasal Cannula 4.0 36 01/28/19 00:00 106 01/28/19 00:00 98.4 107 20 107/60 (76) 96 01/28/19 00:00 Nasal Cannula 3.0 01/27/19 22:58 108 20 94 Nasal Cannula 4.0 36 01/27/19 22:50 106 20 94 Nasal Cannula 4.0 36 01/27/19 21:26 110 115/70 01/27/19 20:00 Nasal Cannula 3.0 01/27/19 20:00 107 01/27/19 20:00 97.3 110 20 115/70 (85) 93 01/27/19 19:48 100 20 95 Nasal Cannula 4.0 36 01/27/19 19:40 Nasal Cannula 3.0 32 01/27/19 19:40 94 20 96 Nasal Cannula 3.0 32 01/27/19 19:40 96 Nasal Cannula 3.0 32 01/27/19 16:30 120/76 (91) 01/27/19 16:00 Nasal Cannula 3.0 01/27/19 16:00 100 01/27/19 16:00 97.7 100 17 99/66 (77) 96 01/27/19 15:09 92 20 99 Nasal Cannula 2.0 28 01/27/19 15:00 98 22 97 Nasal Cannula 3.0 32 Intake and Output 01/27/19 01/28/19 19:00 07:00 Intake Total 846.666 ml Output Total 950 ml 750 ml Balance -103.334 ml -750 ml Intake Oral 480 ml IV Total 366.666 ml Output Urine Total 950 ml 750 ml Laboratory Tests 01/28/19 04:50: White Blood Count 5.9, Red Blood Count 3.30L, Hemoglobin 9.3L, Hematocrit 29.3L , Mean Corpuscular Volume 89, Mean Corpuscular Hemoglobin 28.2, Mean Corpuscular Hemoglobin Concent 31.8L, Red Cell Distribution Width 16.1H, Platelet Count 174, Mean Platelet Volume 5.5L, Neutrophils (%) (Auto) 74.6, Lymphocytes (%) (Auto) 16.2L, Monocytes (%) (Auto) 7.3, Eosinophils (%) (Auto) 1.1, Basophils (%) (Auto) 0.8, Sodium Level 139, Potassium Level 4.2, Chloride Level 105, Carbon Dioxide Level 30, Anion Gap 4L, Blood Urea Nitrogen 9, Creatinine 0.6, Estimat Glomerular Filtration Rate , Glucose Level 100, Calcium Level 7.8L, Total Bilirubin 0.2, Aspartate Amino Transf (AST/SGOT) 12L, Alanine Aminotransferase (ALT/SGPT) 12, Alkaline Phosphatase 60, Total Protein 5.7L, Albumin 1.3L, Globulin 4.4, Albumin/Globulin Ratio 0.3L, Vancomycin Level Trough 11.8 Current Medications Medications (Trade) Dose Ordered Sig/Elder Route PRN Reason Start Time Stop Time Status Last Admin Dose Admin Acetaminophen (Tylenol) 650 mg Q4H PRN ORAL Mild Pain/Temp > 100.5 01/24/19 17:30 02/23/19 17:29 01/24/19 18:05 Albuterol/ Ipratropium (Albuterol/ Ipratropium) 3 ml Q4H HHN 01/23/19 15:15 01/28/19 15:14 01/28/19 11:29 Metoprolol Tartrate (Lopressor) 50 mg Q12HR ORAL 01/25/19 21:00 02/24/19 20:59 01/28/19 09:28 Pantoprazole (Protonix) 40 mg DAILY IVP 01/24/19 09:00 02/23/19 08:59 01/28/19 09:28 Vancomycin HCl (Vanco rx to dose) 1 ea DAILY PRN MISC Per rx protocol 01/23/19 15:15 02/22/19 15:14 Vancomycin HCl 1 gm/Dextrose 275 ml @ 183.708 mls/hr Q12HR@0500,1700 IVPB 01/28/19 17:00 02/02/19 16:59 Arcenio Mandujano MD Jan 28, 2019 13:30
--- NOTE | 2019-01-28 14:49 | Surgery Progress Note ---
Surgery Progress Note Subjective Additional Comments no acute events. exam unchanged. stable. labs noted Objective Last 24 Hour Vital Signs Date Time Temp Pulse Resp B/P (MAP) Pulse Ox O2 Delivery O2 Flow Rate FiO2 01/28/19 12:00 97.9 90 18 115/63 (80) 100 01/28/19 12:00 86 01/28/19 11:41 88 20 98 Nasal Cannula 4.0 36 01/28/19 11:32 83 20 Nasal Cannula 3.0 32 01/28/19 11:29 83 20 98 Nasal Cannula 3.0 32 01/28/19 09:28 97 100/64 01/28/19 08:10 Nasal Cannula 4.0 36 01/28/19 08:09 97 Nasal Cannula 4.0 36 01/28/19 08:00 Nasal Cannula 3.0 01/28/19 08:00 97.9 97 20 100/64 (76) 97 01/28/19 08:00 90 01/28/19 07:39 92 20 98 Nasal Cannula 4.0 36 01/28/19 07:26 95 20 97 Nasal Cannula 3.0 32 01/28/19 04:00 98.5 95 20 108/70 (83) 100 01/28/19 04:00 102 01/28/19 04:00 Nasal Cannula 3.0 01/28/19 03:33 90 18 98 Nasal Cannula 4.0 36 01/28/19 03:25 86 22 99 Nasal Cannula 4.0 36 01/28/19 00:00 106 01/28/19 00:00 98.4 107 20 107/60 (76) 96 01/28/19 00:00 Nasal Cannula 3.0 01/27/19 22:58 108 20 94 Nasal Cannula 4.0 36 01/27/19 22:50 106 20 94 Nasal Cannula 4.0 36 01/27/19 21:26 110 115/70 01/27/19 20:00 Nasal Cannula 3.0 01/27/19 20:00 107 01/27/19 20:00 97.3 110 20 115/70 (85) 93 01/27/19 19:48 100 20 95 Nasal Cannula 4.0 36 01/27/19 19:40 Nasal Cannula 3.0 32 01/27/19 19:40 94 20 96 Nasal Cannula 3.0 32 01/27/19 19:40 96 Nasal Cannula 3.0 32 01/27/19 16:30 120/76 (91) 01/27/19 16:00 Nasal Cannula 3.0 01/27/19 16:00 100 01/27/19 16:00 97.7 100 17 99/66 (77) 96 01/27/19 15:09 92 20 99 Nasal Cannula 2.0 28 01/27/19 15:00 98 22 97 Nasal Cannula 3.0 32 I&O Intake and Output 01/27/19 01/28/19 19:00 07:00 Intake Total 846.666 ml Output Total 950 ml 750 ml Balance -103.334 ml -750 ml Intake Oral 480 ml IV Total 366.666 ml Output Urine Total 950 ml 750 ml Dressing: saturated Wound: other Cardiovascular: RSR Respiratory: clear Abdomen: soft, non-tender, non-distended Extremities: other Laboratory Tests Test 01/28/19 04:50 White Blood Count 5.9 K/UL (4.8-10.8) Red Blood Count 3.30 M/UL (4.70-6.10) L Hemoglobin 9.3 G/DL (14.2-18.0) L Hematocrit 29.3 % (42.0-52.0) L Mean Corpuscular Volume 89 FL (80-99) Mean Corpuscular Hemoglobin 28.2 PG (27.0-31.0) Mean Corpuscular Hemoglobin Concent 31.8 G/DL (32.0-36.0) L Red Cell Distribution Width 16.1 % (11.6-14.8) H Platelet Count 174 K/UL (150-450) Mean Platelet Volume 5.5 FL (6.5-10.1) L Neutrophils (%) (Auto) 74.6 % (45.0-75.0) Lymphocytes (%) (Auto) 16.2 % (20.0-45.0) L Monocytes (%) (Auto) 7.3 % (1.0-10.0) Eosinophils (%) (Auto) 1.1 % (0.0-3.0) Basophils (%) (Auto) 0.8 % (0.0-2.0) Sodium Level 139 MMOL/L (136-145) Potassium Level 4.2 MMOL/L (3.5-5.1) Chloride Level 105 MMOL/L (98-107) Carbon Dioxide Level 30 MMOL/L (21-32) Anion Gap 4 mmol/L (5-15) L Blood Urea Nitrogen 9 mg/dL (7-18) Creatinine 0.6 MG/DL (0.55-1.30) Estimat Glomerular Filtration Rate mL/min (>60) Glucose Level 100 MG/DL (74-106) Calcium Level 7.8 MG/DL (8.5-10.1) L Total Bilirubin 0.2 MG/DL (0.2-1.0) Aspartate Amino Transf (AST/SGOT) 12 U/L (15-37) L Alanine Aminotransferase (ALT/SGPT) 12 U/L (12-78) Alkaline Phosphatase 60 U/L (46-116) Total Protein 5.7 G/DL (6.4-8.2) L Albumin 1.3 G/DL (3.4-5.0) L Globulin 4.4 g/dL Albumin/Globulin Ratio 0.3 (1.0-2.7) L Vancomycin Level Trough 11.8 ug/mL (5.0-12.0) Plan Problems: (1) Decubitus skin ulcer Assessment & Plan: Pt presented on admission with multiple pressure injuries. Pt is emaciated with contractures . Non-blanchable erythema noted to R and L ears. Partial thickness pressure injury to L scapula.Base of wound moist and viable. Edges flat and adherent to base of wound. Periwound without erythema or induration(L)1cm X(W)0.8cm. Sacral DTPI maroon discoloration ,indurated with dark brown borders.(L)8cm x (W) 7.7cm . Incontinence associated dermatitis periwound extending down into both ischial,and scrotal region. Non-blanchable erythema without induration L trochanter (L)2.5cm x (W)1.8cm. Periwound is pink in colour. DTPI R trochanter.Base of wound maroon and is partially opened(L)8cm x (W) 9.4cm.Non-blanchable erythema periwound .No exudate noted. Full thickness pressure injury R ischium 10% soft necrosis /10% yellow slough otherwise beefy red with dark brown borders. Non-blanchable erythema periwound. (L)2.7cm x (W)3.9cm.No odor or exudate noted. DTPI R achilles that is partially opened with small amt sanguineous exudate.Base of wound is fluctuant. Opening within DTPI is beefy red. Erythema along borders .Non-blanchable erythema without induration periwound. (L)7.4cm x (W)2cm. Dry brown eschar plantar /lateral R 1st metatarsal head.Periwound without erythema or fluctuance.(L)5cm x(W)1.5cm. DTPI medial L malleolus. Base of wound maroon- indurated with small area centrally that is fluctuant. Non-blanchable erythema without induration periwound(L)1.5cm x (W)1.3cm. Non-blanchable erythema without induration medial R malleolus. Both heels are pink and dry . Tx.Plan: Apply Moisture Barrier Paste to scrotum and buttocks with each perineal care. Apply Moisture barrier to sacrum .Cover with Optifoam drsg Q3days and prn. Apply Cavilon Skin Barrier to R st metatarsal. Cover with Optifoam drsg .Change every 7 days and prn. Apply Cavilon Skin BArrier to L scapula. Cover with Optifoam drsg.Change Q7days and prn. Cleanse R achilles with saline. Apply Therahoney. Apply Cavilon Skin barrier periwound. Cover with Optifoam drsg. Change every 3 days and prn. Cleanse R trochanter and R ischial wounds with Saline .Apply Therahoney. Apply Moisture Barrier periwound. Cover with Optifoam drsg Q3days and prn. Apply Cavilon SKin Barrier to R and L malleoli,( Medial and lateral aspects). Cover each each site with Optifoam drsgs. Change every 7 days and prn. Apply Cavilon Skin Barrier to lateral aspects of both feet .Cover with Optifoam drsgs.Change every 7 days and prn. Maintain Coloplast rings to both ears for protection.Change prn. APM/MO mattress. Reposition at least every 2hours or as tolerated. Place pillow between knees. Off-load heels with pillow. Josh Hernandez Jan 28, 2019 14:49
[2019-01-28 16:00] VITALS: BP 135/78
--- NOTE | 2019-01-28 16:00 | NUR ---
NURSE NOTES: Pt resting in bed ,no distress noted,bed bath given,photos taken and uploaded.
[2019-01-28] MEDS: Vancomycin 1gm/D5W 275ml IVPB SCH ×2 (17:26)
--- NOTE | 2019-01-28 17:30 | NUR ---
DR gross notefied about heart rate increase to 145 then drop to 100/m . STATE PT. CAN TRANSFER TO [facility].
--- NOTE | 2019-01-28 19:21 | NUR ---
HAND-OFF: Report given to Heather Bella RN..
--- NOTE | 2019-01-28 19:22 | NUR ---
NURSE NOTES: Endorsement received from SOCORRO Zhang. Patient opens eyes spontaneously. On 3 LPM oxygen per nasal cannula. No shortness of breath. With condom catheter connected to urimeter. Right wrist g22 IV heplock. Head of bed kept elevated. Bed locked and in low position. Call light within reach. Bed alarm on.
[2019-01-28] MEDS ORDERED: NS 275ml ONE (19:50)
[2019-01-28 20:00] VITALS: BP 130/70
[2019-01-29] VITALS: BP 114/70
--- NOTE | 2019-01-29 | NUR ---
NURSE NOTES: No pain or discomfort. No shortness of breath. Secretions suctioned nasotracheal, noted with white thick secretions. Bed bath, oral care done.
[2019-01-29 04:00] VITALS: BP 106/76
[2019-01-29] MEDS: Vancomycin 1gm/D5W 275ml IVPB SCH ×4 (05:16→17:42)
--- NOTE | 2019-01-29 07:20 | NUR ---
HAND-OFF: Report given to Leatha Arellano RN.
--- NOTE | 2019-01-29 07:25 | NUR ---
NURSE NOTES: Report received from Torrie Sims RN.pt awake,noted no resp distress,sitting up on bed for breakfast, pt is a feeder 1:1,on 2L NC ,no signs of pain or discomfort,SR on the monitor,IV site to RW intact ,skin warm and dry,with condom cath draining yellow urine,SR up x2 HOB elevated ,bed lock in lowest position,will continue with plans of care. Addendum: 01/29/19 at 1151 by ANDRAE ANGULO RN Report received from Heather Bella RN.
[2019-01-29 08:00] VITALS: BP 102/60
[2019-01-29] MEDS: Metoprolol Tartrate 50mg tab ORAL SCH ×2 (09:18→21:56)
[2019-01-29] MEDS: Pantoprazole Inj IVP SCH (09:18)
--- NOTE | 2019-01-29 10:38 | Infectious Diseases Prog Note ---
Assessment/Plan Assessment/Plan A: 1. MRSA pneumonia 2. CLL 3. hypertension 4. aortic stenosis 5. + blood culture with clostridium likely contaminated 6. CVA 7. COPD P 1. continue iv vancomycin, 2. At time of discharge PO Doxycycline Subjective ROS Limited/Unobtainable: Yes Allergies: Coded Allergies: No Known Allergies (Unverified , 10/28/18) Objective Vital Signs Last 24 Hour Vital Signs Date Time Temp Pulse Resp B/P (MAP) Pulse Ox O2 Delivery O2 Flow Rate FiO2 01/29/19 09:18 85 102/60 01/29/19 08:00 Nasal Cannula 3.0 01/29/19 08:00 98.0 85 20 102/60 (74) 98 01/29/19 08:00 89 01/29/19 04:00 Nasal Cannula 3.0 01/29/19 04:00 147 01/29/19 04:00 98.3 100 20 106/76 (86) 97 01/29/19 00:00 Nasal Cannula 3.0 01/29/19 00:00 83 01/29/19 00:00 98.1 100 20 114/70 (85) 98 01/28/19 20:40 102 130/70 01/28/19 20:00 106 01/28/19 20:00 98.7 102 18 130/70 (90) 97 01/28/19 20:00 Nasal Cannula 3.0 01/28/19 16:00 Nasal Cannula 3.0 01/28/19 16:00 97.3 105 20 135/78 (97) 96 105 01/28/19 16:00 107 01/28/19 12:00 97.9 90 18 115/63 (80) 100 01/28/19 12:00 Nasal Cannula 3.0 01/28/19 12:00 86 01/28/19 11:41 88 20 98 Nasal Cannula 4.0 36 01/28/19 11:32 83 20 Nasal Cannula 3.0 32 01/28/19 11:29 83 20 98 Nasal Cannula 3.0 32 Height (Feet): 5 Height (Inches): 8.00 Weight (Pounds): 117 General Appearance: cachetic HEENT: mucous membranes moist Respiratory/Chest: other - few rhonchi, Oxygen by nasal cannula Cardiovascular: normal rate Abdomen: soft, non tender Extremities: no edema Skin: ulcers, other - multiple pressure ulcers Neurologic/Psychiatric: unresponsiveness Current Medications Medications (Trade) Dose Ordered Sig/Elder Route PRN Reason Start Time Stop Time Status Last Admin Dose Admin Acetaminophen (Tylenol) 650 mg Q4H PRN ORAL Mild Pain/Temp > 100.5 01/24/19 17:30 02/23/19 17:29 01/24/19 18:05 Metoprolol Tartrate (Lopressor) 50 mg Q12HR ORAL 01/25/19 21:00 02/24/19 20:59 01/29/19 09:18 Pantoprazole (Protonix) 40 mg DAILY IVP 01/24/19 09:00 02/23/19 08:59 01/29/19 09:18 Vancomycin HCl (Vanco rx to dose) 1 ea DAILY PRN MISC Per rx protocol 01/23/19 15:15 02/22/19 15:14 Vancomycin HCl 1 gm/Dextrose 275 ml @ 183.708 mls/hr Q12HR@0500,1700 IVPB 01/28/19 17:00 02/02/19 16:59 01/29/19 05:16 Mike Lazcano MD Jan 29, 2019 10:38
[2019-01-29 12:00] VITALS: BP 110/61
--- NOTE | 2019-01-29 12:00 | NUR ---
NURSE NOTES: Pt resting in bed noted no c/o pain ,still with irregular HR,SR 88 then Stach 144/min but not sustaining,pt asymptomatic.
--- NOTE | 2019-01-29 12:09 | General Progress Note ---
Assessment/Plan Problem List: (1) Severe anemia ICD Codes: D64.9 - Anemia, unspecified SNOMED: 579174010 (2) PUD (peptic ulcer disease) ICD Codes: K27.9 - Peptic ulcer, site unspecified, unspecified as acute or chronic, without hemorrhage or perforation SNOMED: 05502262 (3) Altered level of consciousness ICD Codes: R40.4 - Transient alteration of awareness SNOMED: 8197731 (4) CAD/[place] (5) CML (chronic myelocytic leukemia) ICD Codes: C92.10 - Chronic myeloid leukemia, BCR/ABL-positive, not having achieved remission SNOMED: 69153664 (6) Aortic stenosis, severe ICD Codes: I35.0 - Nonrheumatic aortic (valve) stenosis SNOMED: 14099014 (7) Pneumonia ICD Codes: J18.9 - Pneumonia SNOMED: 962260389 Status: stable, progressing Assessment/Plan cont po with caution speech rx encourage pos asp precautions ivf- dcd iv abx follow up cultures prn diuresis monitor cxr replace lytes will d/w family gt again- previously they declined very poor prognosis family aware Subjective ROS Limited/Unobtainable: Yes Constitutional: Reports: malaise, weakness HEENT: Reports: no symptoms Cardiovascular: Reports: no symptoms Respiratory: Reports: cough Gastrointestinal/Abdominal: Reports: difficulty swallowing, poor fluid intake Genitourinary: Reports: no symptoms Neurologic/Psychiatric: Reports: no symptoms Endocrine: Reports: no symptoms Hematologic/Lymphatic: Reports: anemia Allergies: Coded Allergies: No Known Allergies (Unverified , 10/28/18) All Systems: reviewed and negative except above Subjective no events. weak. less sob. o2 nasal cannula. started on diet. off ivf. cxr same - dense infiltrate po intake less than 30% Objective Last 24 Hour Vital Signs Date Time Temp Pulse Resp B/P (MAP) Pulse Ox O2 Delivery O2 Flow Rate FiO2 01/29/19 09:18 85 102/60 01/29/19 08:00 Nasal Cannula 3.0 01/29/19 08:00 98.0 85 20 102/60 (74) 98 01/29/19 08:00 89 01/29/19 06:38 Nasal Cannula 3.0 32 01/29/19 06:38 98 Nasal Cannula 3.0 32 01/29/19 04:00 Nasal Cannula 3.0 01/29/19 04:00 147 01/29/19 04:00 98.3 100 20 106/76 (86) 97 01/29/19 00:00 Nasal Cannula 3.0 01/29/19 00:00 83 01/29/19 00:00 98.1 100 20 114/70 (85) 98 01/28/19 20:40 102 130/70 01/28/19 20:00 106 01/28/19 20:00 98.7 102 18 130/70 (90) 97 01/28/19 20:00 Nasal Cannula 3.0 01/28/19 16:00 Nasal Cannula 3.0 01/28/19 16:00 97.3 105 20 135/78 (97) 96 105 01/28/19 16:00 107 Intake and Output 01/28/19 01/29/19 19:00 07:00 Intake Total 300 ml Output Total 1000 ml 500 ml Balance -700 ml -500 ml Intake Oral 300 ml Output Urine Total 1000 ml 500 ml Height (Feet): 5 Height (Inches): 8.00 Weight (Pounds): 117 Objective General Appearance: WD/WN, alert, lethargic, thin Neck: supple Cardiovascular: normal peripheral pulses, normal rate, regular rhythm Respiratory/Chest: rhonchi - bilaterally Abdomen: normal bowel sounds, non tender, soft, no organomegaly Edema: no edema noted Arm (L), no edema noted Arm (R), no edema noted Leg (L), no edema noted Leg (R), no edema noted Pedal (L), no edema noted Pedal (R), no edema noted Generalized Neurologic: motor weakness Camron Pearl MD Jan 29, 2019 12:09
--- NOTE | 2019-01-29 14:20 | Pulmonology Progress Note ---
Assessment/Plan Assessment/Plan PULMONARY PROGRESS NOTE HISTORY OF PRESENT ILLNESS: The patient is a 78-year-old male, who had recent admission for pneumonia. The patient discharged to nursing home facility and developed fever and shortness of breath, transferred back for sepsis and new pneumonia. The patient with congestion. The patient was pancultured and given IV antibiotics. The patient now admitted for further care and management. I was called to evaluate further. Imaging noted and reviewed. ER notes reviewed. The patient now with left perihilar pulmonary infiltrate, which is new since prior to discharge. The patient is unable to give much in the way of history. The patient's chart was reviewed. Stable overnight PAST MEDICAL HISTORY: Aortic valve stenosis, hypertensive heart disease, pneumonia, paroxysmal atrial fibrillation, CVA with focal left-sided weakness, COPD, CML, and GI bleed. ALLERGIES: Reviewed. MEDICATIONS: Reviewed. FAMILY HISTORY: Noncontributory. SOCIAL HISTORY: Prior smoking history. Nondrinker. Nonsmoker. Currently disabled. REVIEW OF SYSTEMS: Nor available PHYSICAL EXAMINATION: GENERAL: An ill-appearing male, in no acute distress. VITAL SIGNS NOTED HEENT: Oropharynx is moist. Reduced gag. NECK: Otherwise supple. No accessory muscle use. LUNGS: With scattered rhonchi. Moderate air entry. CARDIAC: S1 and S2. Regular rate and rhythm without murmurs, rubs, or gallops. ABDOMEN: Soft, nontender, nondistended. EXTREMITIES: No cyanosis, clubbing, or edema. Focal weakness noted on examination. LABORATORY DATA: Hemoglobin 10, hematocrit is 31.1, white count 10.5. Chemistry, electrolytes overall normal, however, the albumin is 1.5. IMPRESSION: 1. Pneumonia, possibly pulmonary edema. 2. Severe protein-calorie malnutrition. 3. History of CVA. 4. Focal weakness. 5. Concern for aspiration. 6. Evidence of anemia of chronic disease. 7. Recurrent fevers. 8. Respiratory congestion. RECOMMENDATIONS: Supportive care. Cautious IV hydration. IV antibiotics. Respiratory care. Nebulized therapy. Follow up x-ray exam. Aspiration precautions and monitor clinically for further changes and interventions. Speech evaluation and we will follow clinically for further changes and attempt to optimize. Wound care and nutrition consultation and DVT prophylaxis. Subjective ROS Limited/Unobtainable: No Allergies: Coded Allergies: No Known Allergies (Unverified , 10/28/18) Objective Last 24 Hour Vital Signs Date Time Temp Pulse Resp B/P (MAP) Pulse Ox O2 Delivery O2 Flow Rate FiO2 01/29/19 12:00 97.9 89 18 110/61 (77) 99 01/29/19 12:00 Nasal Cannula 3.0 01/29/19 09:18 85 102/60 01/29/19 08:00 Nasal Cannula 3.0 01/29/19 08:00 98.0 85 20 102/60 (74) 98 01/29/19 08:00 89 01/29/19 06:38 Nasal Cannula 3.0 32 01/29/19 06:38 98 Nasal Cannula 3.0 32 01/29/19 04:00 Nasal Cannula 3.0 01/29/19 04:00 147 01/29/19 04:00 98.3 100 20 106/76 (86) 97 01/29/19 00:00 Nasal Cannula 3.0 01/29/19 00:00 83 01/29/19 00:00 98.1 100 20 114/70 (85) 98 01/28/19 20:40 102 130/70 01/28/19 20:00 106 01/28/19 20:00 98.7 102 18 130/70 (90) 97 01/28/19 20:00 Nasal Cannula 3.0 01/28/19 16:00 Nasal Cannula 3.0 01/28/19 16:00 97.3 105 20 135/78 (97) 96 105 01/28/19 16:00 107 Intake and Output 01/28/19 01/29/19 19:00 07:00 Intake Total 300 ml Output Total 1000 ml 500 ml Balance -700 ml -500 ml Intake Oral 300 ml Output Urine Total 1000 ml 500 ml Current Medications Medications (Trade) Dose Ordered Sig/Elder Route PRN Reason Start Time Stop Time Status Last Admin Dose Admin Acetaminophen (Tylenol) 650 mg Q4H PRN ORAL Mild Pain/Temp > 100.5 01/24/19 17:30 02/23/19 17:29 01/24/19 18:05 Metoprolol Tartrate (Lopressor) 50 mg Q12HR ORAL 01/25/19 21:00 02/24/19 20:59 01/29/19 09:18 Pantoprazole (Protonix) 40 mg DAILY IVP 01/24/19 09:00 02/23/19 08:59 01/29/19 09:18 Vancomycin HCl (Vanco rx to dose) 1 ea DAILY PRN MISC Per rx protocol 01/23/19 15:15 02/22/19 15:14 Vancomycin HCl 1 gm/Dextrose 275 ml @ 183.708 mls/hr Q12HR@0500,1700 IVPB 01/28/19 17:00 02/02/19 16:59 01/29/19 05:16 Arcenio Mandujano MD Jan 29, 2019 14:20
[2019-01-29 16:00] VITALS: BP 100/61
--- NOTE | 2019-01-29 19:37 | NUR ---
HAND-OFF: Report given to Viraj Osman RN.
--- NOTE | 2019-01-29 19:40 | NUR ---
NURSE NOTES: Observed pt lying on the bed. No signs of pain noted. SR with manager cardiac cath. On 3L NC, with no signs of SOB. Current IV infiltrated, will start another IV. Bed in the lowest position. Side rails up x3. Will continue to monitor.
[2019-01-29 20:00] VITALS: BP 124/75
[2019-01-30] VITALS: BP 130/70
[2019-01-30 04:00] VITALS: BP 115/80
[2019-01-30 04:47] LABS: BASOPHILS % (AUTO) 1.2 % (0.0-2.0); EOSINOPHILS % (AUTO) 3.5 % (0.0-3.0); HEMATOCRIT 27.3 % (42.0-52.0); HEMOGLOBIN 8.7 G/DL (14.2-18.0); LYMPHOCYTES % (AUTO) 21.1 % (20.0-45.0); MEAN CORPUSCULAR VOLUME 89 FL (80-99); MONOCYTES % (AUTO) 9.1 % (1.0-10.0); NEUTROPHILS % (AUTO) 65.1 % (45.0-75.0); PLATELET COUNT 164 K/UL (150-450); RED BLOOD COUNT 3.07 M/UL (4.70-6.10); RED CELL DISTRIBUTION WIDTH 16.1 % (11.6-14.8); WHITE BLOOD COUNT 4.5 K/UL (4.8-10.8)
[2019-01-30 05:15] LABS: ALANINE AMINOTRANSFERASE 10 U/L (12-78); ALBUMIN 1.3 G/DL (3.4-5.0); ALBUMIN/GLOBULIN RATIO 0.3 (1.0-2.7); ALKALINE PHOSPHATASE 55 U/L (46-116); ANION GAP 3 mmol/L (5-15); ASPARTATE AMINO TRANSFERASE 11 U/L (15-37); BILIRUBIN,TOTAL 0.3 MG/DL (0.2-1.0); BLOOD UREA NITROGEN 7 mg/dL (7-18); CALCIUM 7.8 MG/DL (8.5-10.1); CARBON DIOXIDE 30 MMOL/L (21-32); CHLORIDE 103 MMOL/L (98-107); CREATININE 0.7 MG/DL (0.55-1.30); POTASSIUM 3.5 MMOL/L (3.5-5.1); SODIUM 136 MMOL/L (136-145)
--- NOTE | 2019-01-30 07:30 | NUR ---
NURSE NOTES: Received report from SOCORRO Osman. Patient is resting in bed in stable condition. No s/sx of SOB, breathing is even and unlabored. Observed no presence of pain or discomfort at this time. Bed is in lowest position, brakes engaged. Call light is kept within easy reach. Will continue to monitor patient.
--- NOTE | 2019-01-30 07:33 | NUR ---
HAND-OFF: Report given to SOCORRO Rodriguez.
--- NOTE | 2019-01-30 07:37 | General Progress Note ---
Assessment/Plan Problem List: (1) Severe anemia ICD Codes: D64.9 - Anemia, unspecified SNOMED: 195084831 (2) PUD (peptic ulcer disease) ICD Codes: K27.9 - Peptic ulcer, site unspecified, unspecified as acute or chronic, without hemorrhage or perforation SNOMED: 60968537 (3) Altered level of consciousness ICD Codes: R40.4 - Transient alteration of awareness SNOMED: 7871993 (4) CAD/[place] (5) CML (chronic myelocytic leukemia) ICD Codes: C92.10 - Chronic myeloid leukemia, BCR/ABL-positive, not having achieved remission SNOMED: 80350535 (6) Aortic stenosis, severe ICD Codes: I35.0 - Nonrheumatic aortic (valve) stenosis SNOMED: 43018114 (7) Pneumonia ICD Codes: J18.9 - Pneumonia SNOMED: 634688447 Status: stable Assessment/Plan cont po with caution speech rx encourage pos asp precautions iv abx follow up cultures prn diuresis monitor cxr replace lytes will d/w family gt again- previously they declined very poor prognosis family aware added appetite stimulant Subjective ROS Limited/Unobtainable: No Constitutional: Reports: malaise, weakness HEENT: Reports: no symptoms Cardiovascular: Reports: no symptoms Respiratory: Reports: cough, shortness of breath, sputum Gastrointestinal/Abdominal: Reports: difficulty swallowing, poor appetite Genitourinary: Reports: no symptoms Neurologic/Psychiatric: Reports: pre-existing deficit Endocrine: Reports: no symptoms Hematologic/Lymphatic: Reports: no symptoms Allergies: Coded Allergies: No Known Allergies (Unverified , 10/28/18) All Systems: reviewed and negative except above Subjective no events. weak. less sob. still has some congested. o2 nasal cannula. started on diet. off ivf. cxr same- dense infiltrate po intake less than 30%. labs reviewed Objective Last 24 Hour Vital Signs Date Time Temp Pulse Resp B/P (MAP) Pulse Ox O2 Delivery O2 Flow Rate FiO2 01/30/19 04:00 89 01/30/19 04:00 97.2 110 20 115/80 (92) 100 01/30/19 00:00 87 01/30/19 00:00 97.7 104 20 130/70 (90) 99 01/29/19 21:56 93 Nasal Cannula 3.0 32 01/29/19 21:56 Nasal Cannula 3.0 32 01/29/19 21:56 88 124/75 01/29/19 21:00 Nasal Cannula 3.0 01/29/19 20:00 97.5 88 20 124/75 (91) 94 01/29/19 20:00 86 01/29/19 20:00 Nasal Cannula 3.0 01/29/19 16:00 Nasal Cannula 3.0 01/29/19 16:00 91 01/29/19 16:00 98.1 87 16 100/61 (74) 97 01/29/19 12:00 92 01/29/19 12:00 97.9 89 18 110/61 (77) 99 01/29/19 12:00 Nasal Cannula 3.0 01/29/19 09:18 85 102/60 01/29/19 08:00 Nasal Cannula 3.0 01/29/19 08:00 98.0 85 20 102/60 (74) 98 01/29/19 08:00 89 Intake and Output 01/29/19 01/30/19 18:59 06:59 Intake Total 480 ml 515 ml Output Total 400 ml 500 ml Balance 80 ml 15 ml Intake Oral 480 ml 240 ml IV Total 275 ml Output Urine Total 400 ml 500 ml Laboratory Tests 01/30/19 03:10: White Blood Count 4.5L, Red Blood Count 3.07L, Hemoglobin 8.7L, Hematocrit 27.3L , Mean Corpuscular Volume 89, Mean Corpuscular Hemoglobin 28.5, Mean Corpuscular Hemoglobin Concent 32.0, Red Cell Distribution Width 16.1H, Platelet Count 164, Mean Platelet Volume 6.7, Neutrophils (%) (Auto) 65.1, Lymphocytes (%) (Auto) 21.1, Monocytes (%) (Auto) 9.1, Eosinophils (%) (Auto) 3.5H, Basophils (%) (Auto) 1.2, Sodium Level 136, Potassium Level 3.5, Chloride Level 103, Carbon Dioxide Level 30, Anion Gap 3L, Blood Urea Nitrogen 7, Creatinine 0.7, Estimat Glomerular Filtration Rate , Glucose Level 89, Calcium Level 7.8L, Total Bilirubin 0.3, Aspartate Amino Transf (AST/SGOT) 11L, Alanine Aminotransferase (ALT/SGPT) 10L, Alkaline Phosphatase 55, Total Protein 5.5L, Albumin 1.3L, Globulin 4.2, Albumin/Globulin Ratio 0.3L, Vancomycin Level Trough 23.9H Height (Feet): 5 Height (Inches): 8.00 Weight (Pounds): 117 Objective General Appearance: WD/WN, alert, lethargic, thin Neck: supple Cardiovascular: normal peripheral pulses, normal rate, regular rhythm Respiratory/Chest: rhonchi - bilaterally Abdomen: normal bowel sounds, non tender, soft, no organomegaly Edema: no edema noted Arm (L), no edema noted Arm (R), no edema noted Leg (L), no edema noted Leg (R), no edema noted Pedal (L), no edema noted Pedal (R), no edema noted Generalized Neurologic: motor weakness Camron Pearl MD Jan 30, 2019 07:37
[2019-01-30 08:00] VITALS: BP 122/74
[2019-01-30] MEDS: Megace 400mg/10ml Susp ORAL SCH ×2 (08:47→17:17)
[2019-01-30] MEDS: Pantoprazole Inj IVP SCH (08:47)
[2019-01-30] MEDS: Metoprolol Tartrate 50mg tab ORAL SCH ×2 (08:47→20:53)
--- NOTE | 2019-01-30 08:59 | Pulmonology Progress Note ---
Assessment/Plan Assessment/Plan IMPRESSION: 1. Pneumonia, possibly pulmonary edema (worsening) 2. Severe protein-calorie malnutrition. 3. History of CVA. 4. Focal weakness. 5. Concern for aspiration. 6. Evidence of anemia of chronic disease. 7. Recurrent fevers. 8. Respiratory congestion. 9. pulmonary edema PLAN recheck cxr- still with edema respiratory care monitor BNP monitor fluid intake aspiration precautions IV antibiotics consider tele impression, plan, and exam edited and reviewed in detail care discussed with RN Subjective Allergies: Coded Allergies: No Known Allergies (Unverified , 10/28/18) Subjective care noted confused still with some congestion Objective Last 24 Hour Vital Signs Date Time Temp Pulse Resp B/P (MAP) Pulse Ox O2 Delivery O2 Flow Rate FiO2 01/30/19 08:47 90 122/74 01/30/19 04:00 89 01/30/19 04:00 97.2 110 20 115/80 (92) 100 01/30/19 00:00 87 01/30/19 00:00 97.7 104 20 130/70 (90) 99 01/29/19 21:56 93 Nasal Cannula 3.0 32 01/29/19 21:56 Nasal Cannula 3.0 32 01/29/19 21:56 88 124/75 01/29/19 21:00 Nasal Cannula 3.0 01/29/19 20:00 97.5 88 20 124/75 (91) 94 01/29/19 20:00 86 01/29/19 20:00 Nasal Cannula 3.0 01/29/19 16:00 Nasal Cannula 3.0 01/29/19 16:00 91 01/29/19 16:00 98.1 87 16 100/61 (74) 97 01/29/19 12:00 92 01/29/19 12:00 97.9 89 18 110/61 (77) 99 01/29/19 12:00 Nasal Cannula 3.0 01/29/19 09:18 85 102/60 Intake and Output 01/29/19 01/30/19 18:59 06:59 Intake Total 480 ml 515 ml Output Total 400 ml 500 ml Balance 80 ml 15 ml Intake Oral 480 ml 240 ml IV Total 275 ml Output Urine Total 400 ml 500 ml Objective GENERAL: An ill-appearing male, in no acute distress. HEENT: Oropharynx is moist. Reduced gag. NECK: Otherwise supple. No accessory muscle use. LUNGS: With occasional rhonchi. Moderate air entry. reduced CARDIAC: S1 and S2. Regular rate and rhythm without murmurs, rubs, or gallops. ABDOMEN: Soft, nontender, nondistended. EXTREMITIES: No cyanosis, clubbing, or edema. Focal weakness noted on examination. Laboratory Tests 01/30/19 03:10: White Blood Count 4.5L, Red Blood Count 3.07L, Hemoglobin 8.7L, Hematocrit 27.3L , Mean Corpuscular Volume 89, Mean Corpuscular Hemoglobin 28.5, Mean Corpuscular Hemoglobin Concent 32.0, Red Cell Distribution Width 16.1H, Platelet Count 164, Mean Platelet Volume 6.7, Neutrophils (%) (Auto) 65.1, Lymphocytes (%) (Auto) 21.1, Monocytes (%) (Auto) 9.1, Eosinophils (%) (Auto) 3.5H, Basophils (%) (Auto) 1.2, Sodium Level 136, Potassium Level 3.5, Chloride Level 103, Carbon Dioxide Level 30, Anion Gap 3L, Blood Urea Nitrogen 7, Creatinine 0.7, Estimat Glomerular Filtration Rate , Glucose Level 89, Calcium Level 7.8L, Total Bilirubin 0.3, Aspartate Amino Transf (AST/SGOT) 11L, Alanine Aminotransferase (ALT/SGPT) 10L, Alkaline Phosphatase 55, Total Protein 5.5L, Albumin 1.3L, Globulin 4.2, Albumin/Globulin Ratio 0.3L, Vancomycin Level Trough 23.9H Current Medications Medications (Trade) Dose Ordered Sig/Elder Route PRN Reason Start Time Stop Time Status Last Admin Dose Admin Acetaminophen (Tylenol) 650 mg Q4H PRN ORAL Mild Pain/Temp > 100.5 01/24/19 17:30 02/23/19 17:29 01/24/19 18:05 Megestrol Acetate (Megace) 400 mg TWICE A DAY ORAL 01/30/19 09:00 03/01/19 08:59 01/30/19 08:47 Metoprolol Tartrate (Lopressor) 50 mg Q12HR ORAL 01/25/19 21:00 02/24/19 20:59 01/30/19 08:47 Pantoprazole (Protonix) 40 mg DAILY IVP 01/24/19 09:00 02/23/19 08:59 01/30/19 08:47 Vancomycin HCl (Vanco rx to dose) 1 ea DAILY PRN MISC Per rx protocol 01/23/19 15:15 02/22/19 15:14 Hernan Campos MD Jan 30, 2019 08:59
--- NOTE | 2019-01-30 10:51 | Infectious Diseases Prog Note ---
Assessment/Plan Assessment/Plan antibiotics : vancomycin iv A 1. MRSA pneumonia 2. CLL 3. hypertension 4. aortic stenosis 5. CVA 6. 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 d.c iv vancomycin 2. start and continue po doxycycline 2 more days 3. will follow up cultures Subjective ROS Limited/Unobtainable: Yes Allergies: Coded Allergies: No Known Allergies (Unverified , 10/28/18) Objective Vital Signs Last 24 Hour Vital Signs Date Time Temp Pulse Resp B/P (MAP) Pulse Ox O2 Delivery O2 Flow Rate FiO2 01/30/19 09:00 Nasal Cannula 3.0 01/30/19 08:47 90 122/74 01/30/19 08:00 98.7 90 20 122/74 (90) 97 01/30/19 08:00 82 01/30/19 04:00 89 01/30/19 04:00 97.2 110 20 115/80 (92) 100 01/30/19 00:00 87 01/30/19 00:00 97.7 104 20 130/70 (90) 99 01/29/19 21:56 93 Nasal Cannula 3.0 32 01/29/19 21:56 Nasal Cannula 3.0 32 01/29/19 21:56 88 124/75 01/29/19 21:00 Nasal Cannula 3.0 01/29/19 20:00 97.5 88 20 124/75 (91) 94 01/29/19 20:00 86 01/29/19 20:00 Nasal Cannula 3.0 01/29/19 16:00 Nasal Cannula 3.0 01/29/19 16:00 91 01/29/19 16:00 98.1 87 16 100/61 (74) 97 01/29/19 12:00 92 01/29/19 12:00 97.9 89 18 110/61 (77) 99 01/29/19 12:00 Nasal Cannula 3.0 Height (Feet): 5 Height (Inches): 8.00 Weight (Pounds): 117 Respiratory/Chest: lungs clear Cardiovascular: normal rate, regular rhythm, no gallop/murmur Abdomen: soft, non tender Extremities: no edema Laboratory Tests Test 01/30/19 03:10 White Blood Count 4.5 K/UL (4.8-10.8) L Red Blood Count 3.07 M/UL (4.70-6.10) L Hemoglobin 8.7 G/DL (14.2-18.0) L Hematocrit 27.3 % (42.0-52.0) L Mean Corpuscular Volume 89 FL (80-99) Mean Corpuscular Hemoglobin 28.5 PG (27.0-31.0) Mean Corpuscular Hemoglobin Concent 32.0 G/DL (32.0-36.0) Red Cell Distribution Width 16.1 % (11.6-14.8) H Platelet Count 164 K/UL (150-450) Mean Platelet Volume 6.7 FL (6.5-10.1) Neutrophils (%) (Auto) 65.1 % (45.0-75.0) Lymphocytes (%) (Auto) 21.1 % (20.0-45.0) Monocytes (%) (Auto) 9.1 % (1.0-10.0) Eosinophils (%) (Auto) 3.5 % (0.0-3.0) H Basophils (%) (Auto) 1.2 % (0.0-2.0) Sodium Level 136 MMOL/L (136-145) Potassium Level 3.5 MMOL/L (3.5-5.1) Chloride Level 103 MMOL/L (98-107) Carbon Dioxide Level 30 MMOL/L (21-32) Anion Gap 3 mmol/L (5-15) L Blood Urea Nitrogen 7 mg/dL (7-18) Creatinine 0.7 MG/DL (0.55-1.30) Estimat Glomerular Filtration Rate mL/min (>60) Glucose Level 89 MG/DL (74-106) Calcium Level 7.8 MG/DL (8.5-10.1) L Total Bilirubin 0.3 MG/DL (0.2-1.0) Aspartate Amino Transf (AST/SGOT) 11 U/L (15-37) L Alanine Aminotransferase (ALT/SGPT) 10 U/L (12-78) L Alkaline Phosphatase 55 U/L (46-116) Total Protein 5.5 G/DL (6.4-8.2) L Albumin 1.3 G/DL (3.4-5.0) L Globulin 4.2 g/dL Albumin/Globulin Ratio 0.3 (1.0-2.7) L Vancomycin Level Trough 23.9 ug/mL (5.0-12.0) H Current Medications Medications (Trade) Dose Ordered Sig/Elder Route PRN Reason Start Time Stop Time Status Last Admin Dose Admin Acetaminophen (Tylenol) 650 mg Q4H PRN ORAL Mild Pain/Temp > 100.5 01/24/19 17:30 02/23/19 17:29 01/24/19 18:05 Furosemide (Lasix) 40 mg DAILY IV 01/30/19 09:00 03/01/19 08:59 01/30/19 09:29 Megestrol Acetate (Megace) 400 mg TWICE A DAY ORAL 01/30/19 09:00 03/01/19 08:59 01/30/19 08:47 Metoprolol Tartrate (Lopressor) 50 mg Q12HR ORAL 01/25/19 21:00 02/24/19 20:59 01/30/19 08:47 Pantoprazole (Protonix) 40 mg DAILY IVP 01/24/19 09:00 02/23/19 08:59 01/30/19 08:47 Vancomycin HCl (Vanco rx to dose) 1 ea DAILY PRN MISC Per rx protocol 01/23/19 15:15 02/22/19 15:14 Ernie Barraza MD Jan 30, 2019 10:51
--- NOTE | 2019-01-30 11:41 | NUR ---
RADIOLOGY DEPT CHEST X-RAY DONE.-P.DYE
[2019-01-30 12:00] VITALS: BP 112/64
--- NOTE | 2019-01-30 12:08 | NUR ---
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 SEPSIS VS: BP 112/ 64, P 116, T 97.6, RR 20, SpO2 97 on 3.0L NC WBC 4.5, RBC 3.07, ABG pH 7.472, pCO2 102.4, HCO3 29.1, Anion Gap 3, Ca 7.8 CXR Impression: Possibly slightly improved right pleural effusion. Otherwise stable extensive bilateral pleural and parenchymal disease, as described, over 3 days IS: Doxycycline Monohydrate 100mg Metoprolol 50mg Pantoprazole 40mg Lasix 40mg Megace 400mg SDU STATUS
--- NOTE | 2019-01-30 12:10 | Diagnostic Imaging Report ---
Indication: Shortness of breath Technique: One view of the chest Comparison: 01/27/2019 Findings: Left perihilar consolidation, bilateral pleural effusions and likely underlying parenchymal opacity persists. Right pleural effusion appears slightly improved. Other findings appear unchanged. Impression: Possibly slightly improved right pleural effusion. Otherwise stable extensive bilateral pleural and parenchymal disease, as described, over 3 days
--- NOTE | 2019-01-30 14:23 | NUR ---
RD ASSESSMENT & RECOMMENDATIONS SEE CARE ACTIVITY FOR COMPLETE ASSESSMENT DAILY ESTIMATED NEEDS: Needs based on Underweight, wound 52kg 30-35 kcals/kg 7426-7600 total kcals 1.25-2 g protein/kg 65-104 g total protein 25-30 mL/kg 8823-3484 total fluid mLs NUTRITION DIAGNOSIS: * Increased kcal and protein needs r/t underweight status as evidenced by pt w generalized moderate to severe wasting, BMI underweight per guidelines, 75% of [place] Body Weight. * Swallowing difficulty R/T dysphagia, h/o CVA as evidenced by [employer] eval, recs for liquify pureed, NTL w/ poor po intake. * Altered nutrition related lab values R/T clinical condition as evidenced by elev BNP (2470-> 7608) CURRENT DIET:BARRERA liquify puree/ NTL PO DIET RECOMMENDATIONS: IF SAFE FOR PO -> Liberalized / Regular diet (texture per [employer]) ENTERAL NUTRITION RECOMMENDATIONS: Osmolite 1.5 @50ml/hr x24 hrs + Prosource x1 daily to provide 1200ml, 1800 kcal, 75g + 11g prot, 914ml free H2O - If non oral feeds are part of POC, rec to obtain GI access, start Osmolite 1.5 @20ml for 6-8 hrs - advance as tolerated 10ml q4-6 hrs to goal - Add PROSOURCE 1 pack daily to better meet est prot needs - Flush per MD/ HOB over 30 degrees ADDITIONAL RECOMMENDATIONS: * CALIBRATED bedscale wt for accurate CBW * Weekly wts given underweight status * WOUND CARE: add LESTER BID + MVI x1 + VIT C 250mg BID * Add Ensure Enlive TID to diet order * TF / NONORAL FEEDING RESC ABOVE OF PART OF POC * * Monitor lytes closely while on lasix, replete as needed
[2019-01-30 16:00] VITALS: BP 110/71
--- NOTE | 2019-01-30 16:23 | Surgery Progress Note ---
Surgery Progress Note Subjective Additional Comments ill appearing. not taking in much po intake. declined feeding tube Objective Last 24 Hour Vital Signs Date Time Temp Pulse Resp B/P (MAP) Pulse Ox O2 Delivery O2 Flow Rate FiO2 01/30/19 12:00 98.6 83 20 112/64 (80) 99 01/30/19 12:00 86 01/30/19 09:00 Nasal Cannula 3.0 01/30/19 08:47 90 122/74 01/30/19 08:00 98.7 90 20 122/74 (90) 97 01/30/19 08:00 82 01/30/19 04:00 89 01/30/19 04:00 97.2 110 20 115/80 (92) 100 01/30/19 00:00 87 01/30/19 00:00 97.7 104 20 130/70 (90) 99 01/29/19 21:56 93 Nasal Cannula 3.0 32 01/29/19 21:56 Nasal Cannula 3.0 32 01/29/19 21:56 88 124/75 01/29/19 21:00 Nasal Cannula 3.0 01/29/19 20:00 97.5 88 20 124/75 (91) 94 01/29/19 20:00 86 01/29/19 20:00 Nasal Cannula 3.0 I&O Intake and Output 01/29/19 01/30/19 19:00 07:00 Intake Total 480 ml 515 ml Output Total 400 ml 500 ml Balance 80 ml 15 ml Intake Oral 480 ml 240 ml IV Total 275 ml Output Urine Total 400 ml 500 ml Dressing: saturated Wound: other Drains: none Cardiovascular: RSR Respiratory: clear, decreased breath sounds Abdomen: soft, non-tender, non-distended Extremities: other Laboratory Tests Test 01/30/19 03:10 01/30/19 10:40 White Blood Count 4.5 K/UL (4.8-10.8) L Red Blood Count 3.07 M/UL (4.70-6.10) L Hemoglobin 8.7 G/DL (14.2-18.0) L Hematocrit 27.3 % (42.0-52.0) L Mean Corpuscular Volume 89 FL (80-99) Mean Corpuscular Hemoglobin 28.5 PG (27.0-31.0) Mean Corpuscular Hemoglobin Concent 32.0 G/DL (32.0-36.0) Red Cell Distribution Width 16.1 % (11.6-14.8) H Platelet Count 164 K/UL (150-450) Mean Platelet Volume 6.7 FL (6.5-10.1) Neutrophils (%) (Auto) 65.1 % (45.0-75.0) Lymphocytes (%) (Auto) 21.1 % (20.0-45.0) Monocytes (%) (Auto) 9.1 % (1.0-10.0) Eosinophils (%) (Auto) 3.5 % (0.0-3.0) H Basophils (%) (Auto) 1.2 % (0.0-2.0) Sodium Level 136 MMOL/L (136-145) Potassium Level 3.5 MMOL/L (3.5-5.1) Chloride Level 103 MMOL/L (98-107) Carbon Dioxide Level 30 MMOL/L (21-32) Anion Gap 3 mmol/L (5-15) L Blood Urea Nitrogen 7 mg/dL (7-18) Creatinine 0.7 MG/DL (0.55-1.30) Estimat Glomerular Filtration Rate mL/min (>60) Glucose Level 89 MG/DL (74-106) Calcium Level 7.8 MG/DL (8.5-10.1) L Total Bilirubin 0.3 MG/DL (0.2-1.0) Aspartate Amino Transf (AST/SGOT) 11 U/L (15-37) L Alanine Aminotransferase (ALT/SGPT) 10 U/L (12-78) L Alkaline Phosphatase 55 U/L (46-116) Total Protein 5.5 G/DL (6.4-8.2) L Albumin 1.3 G/DL (3.4-5.0) L Globulin 4.2 g/dL Albumin/Globulin Ratio 0.3 (1.0-2.7) L Vancomycin Level Trough 23.9 ug/mL (5.0-12.0) H Arterial Blood pH 7.472 (7.350-7.450) Arterial Blood Partial Pressure CO2 40.7 mmHg (35.0-45.0) Arterial Blood Partial Pressure O2 102.4 mmHg (75.0-100.0) H Arterial Blood HCO3 29.1 mmol/L (22.0-26.0) H Arterial Blood Oxygen Saturation 97.2 % (95-100) Arterial Blood Base Excess 5.1 (-2-2) H Handy Test Positive Plan Problems: (1) Decubitus skin ulcer Assessment & Plan: Pt presented on admission with multiple pressure injuries. Pt is emaciated with contractures . Non-blanchable erythema noted to R and L ears. Partial thickness pressure injury to L scapula.Base of wound moist and viable. Edges flat and adherent to base of wound. Periwound without erythema or induration(L)1cm X(W)0.8cm. Sacral DTPI maroon discoloration ,indurated with dark brown borders.(L)8cm x (W) 7.7cm . Incontinence associated dermatitis periwound extending down into both ischial,and scrotal region. Non-blanchable erythema without induration L trochanter (L)2.5cm x (W)1.8cm. Periwound is pink in colour. DTPI R trochanter.Base of wound maroon and is partially opened(L)8cm x (W) 9.4cm.Non-blanchable erythema periwound .No exudate noted. Full thickness pressure injury R ischium 10% soft necrosis /10% yellow slough otherwise beefy red with dark brown borders. Non-blanchable erythema periwound. (L)2.7cm x (W)3.9cm.No odor or exudate noted. DTPI R achilles that is partially opened with small amt sanguineous exudate.Base of wound is fluctuant. Opening within DTPI is beefy red. Erythema along borders .Non-blanchable erythema without induration periwound. (L)7.4cm x (W)2cm. Dry brown eschar plantar /lateral R 1st metatarsal head.Periwound without erythema or fluctuance.(L)5cm x(W)1.5cm. DTPI medial L malleolus. Base of wound maroon- indurated with small area centrally that is fluctuant. Non-blanchable erythema without induration periwound(L)1.5cm x (W)1.3cm. Non-blanchable erythema without induration medial R malleolus. Both heels are pink and dry . Tx.Plan: Apply Moisture Barrier Paste to scrotum and buttocks with each perineal care. Apply Moisture barrier to sacrum .Cover with Optifoam drsg Q3days and prn. Apply Cavilon Skin Barrier to R st metatarsal. Cover with Optifoam drsg .Change every 7 days and prn. Apply Cavilon Skin BArrier to L scapula. Cover with Optifoam drsg.Change Q7days and prn. Cleanse R achilles with saline. Apply Therahoney. Apply Cavilon Skin barrier periwound. Cover with Optifoam drsg. Change every 3 days and prn. Cleanse R trochanter and R ischial wounds with Saline .Apply Therahoney. Apply Moisture Barrier periwound. Cover with Optifoam drsg Q3days and prn. Apply Cavilon SKin Barrier to R and L malleoli,( Medial and lateral aspects). Cover each each site with Optifoam drsgs. Change every 7 days and prn. Apply Cavilon Skin Barrier to lateral aspects of both feet .Cover with Optifoam drsgs.Change every 7 days and prn. Maintain Coloplast rings to both ears for protection.Change prn. APM/MO mattress. Reposition at least every 2hours or as tolerated. Place pillow between knees. Off-load heels with pillow. Additional Comments will need improved nutritional status but unfortunately with poor oral intake difficult to obtain and wounds will decline. Josh Hernandez Jan 30, 2019 16:23
--- NOTE | 2019-01-30 18:48 | NUR ---
NURSE NOTES: Informed Dr. Pearl that patient's heart rate goes as high as 140s and back down to 90s bpm. Current HR is [address] Pearl acknowledged. Ordered to discontinue transfer order to [facility] and ordered to transfer to telemetry. Order entered, noted, and carried out. Will continue to monitor patient.
--- NOTE | 2019-01-30 19:11 | NUR ---
HAND-OFF: Report given to SOCORRO Brownlee.
--- NOTE | 2019-01-30 19:12 | NUR ---
NURSE NOTES: Received patient from SOCORRO Rodriguez. Patient is awake, eye tracking and making contact. On 3L nasal cannula and showing no signs and symptoms of pain or distress. Will continue plan of care.
[2019-01-30 20:00] VITALS: BP 118/67
[2019-01-31] VITALS: BP 118/80
[2019-01-31 04:00] VITALS: BP 123/60
--- NOTE | 2019-01-31 05:30 | Progress Note ---
DATE: 01/30/2019 CARDIOLOGY PROGRESS NOTE SUBJECTIVE: Heart rhythm has stabilized, sinus rhythm with rare atrial ectopy noted now, less congestion. Family continues to refuse a feeding tube. The patient is on oxygen by nasal cannula. Intake is less than 30% by mouth. OBJECTIVE: VITAL SIGNS: Blood pressure 115/80, pulse 110, respiratory rate 20, afebrile. LUNGS: Coarse breath sounds with rhonchi. HEART: Regular rhythm and rate. Normal S1, S2 with a fourth heart sound. ABDOMEN: Soft. EXTREMITIES: Trace edema. LABORATORY AND DIAGNOSTIC DATA: White count 4.5, hemoglobin 8.7. Potassium 3.5, BUN 7, creatinine 0.7, and albumin 1.3. Chest x-ray reveals right pleural effusion and bilateral parenchymal disease. IMPRESSION: 1. Healthcare-acquired pneumonia. 2. Paroxysmal atrial fibrillation. 3. Nonsustained ventricular ectopy. 4. Severe protein-calorie malnutrition. 5. CML. 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 7. Advanced dementia. PLAN: 1. Antimicrobials. 2. Respiratory hygiene. 3. Reassess chest x-ray for clearing. 4. Transfuse for hemoglobin less than 7 g with concomitant diuresis. 5. No change in current antiarrhythmic regimen planned. Arcenio Schulz M.D. DR: EDGARDO JOB#: [id number] CC:
--- NOTE | 2019-01-31 06:11 | NUR ---
NURSE NOTES: Left message for Dr. Pearl/Dr. Schulz regarding patient's BNP this morning of 6219. Left call back number if any new orders or further instructions are needed.
--- NOTE | 2019-01-31 07:09 | NUR ---
HAND-OFF: Report given to SOCORRO KWOK.
--- NOTE | 2019-01-31 07:10 | NUR ---
NURSE NOTES: RECEIVED PATIENT FROM Shai CUENCA RN. PATIENT IS RESTING IN BED, AWAKE. HOOKED TO STILL OPERATOR BATCH OR CONTINUOUS. ON 3L NC. NO SIGNS OF DISTRESS. SKIN ALTERATIONS NOTED. NOTED CONDOM CATH. IV ON L W G22, TKO AND L UA, SL. CALL LIGHT WITHIN REACH. BED AT LOWEST POSITION. SIDE RAILS UP. WILL CONTINUE TO MONITOR
[2019-01-31 08:00] VITALS: BP 94/69
--- NOTE | 2019-01-31 08:23 | Pulmonology Progress Note ---
Assessment/Plan Assessment/Plan IMPRESSION: 1. Pneumonia, possibly pulmonary edema (worsening) 2. Severe protein-calorie malnutrition. 3. History of CVA. 4. Focal weakness. 5. Concern for aspiration. 6. Evidence of anemia of chronic disease. 7. Recurrent fevers. 8. Respiratory congestion. 9. pulmonary edema PLAN obtain CT chest unclear as to underlying pathology chronic vs pneumonic vs edema respiratory care monitor BNP- elevated monitor fluid intake aspiration precautions IV antibiotics consider tele impression, plan, and exam edited and reviewed in detail care discussed with RN Subjective ROS Limited/Unobtainable: Yes Allergies: Coded Allergies: No Known Allergies (Unverified , 10/28/18) Subjective care noted confused still with abnormal cxr and congestion Objective Last 24 Hour Vital Signs Date Time Temp Pulse Resp B/P (MAP) Pulse Ox O2 Delivery O2 Flow Rate FiO2 01/31/19 04:00 97.3 99 22 123/60 (81) 97 01/31/19 03:44 84 01/31/19 00:00 98.0 88 18 118/80 (93) 98 01/30/19 23:45 75 01/30/19 21:00 Nasal Cannula 3.0 01/30/19 20:53 116 118/67 01/30/19 20:00 98.2 116 18 118/67 (84) 97 01/30/19 19:27 98 01/30/19 16:00 99 01/30/19 16:00 97.6 92 20 110/71 (84) 95 01/30/19 12:00 98.6 83 20 112/64 (80) 99 01/30/19 12:00 86 01/30/19 09:00 Nasal Cannula 3.0 01/30/19 08:47 90 122/74 Intake and Output 01/30/19 01/31/19 18:59 06:59 Intake Total 500 ml Output Total 1600 ml 500 ml Balance -1100 ml -500 ml Intake Oral 500 ml Output Urine Total 1600 ml 500 ml Objective GENERAL: An ill-appearing male, in no acute distress. HEENT: Oropharynx is moist. Reduced gag. NECK: Otherwise supple. No accessory muscle use. LUNGS: With scattered rhonchi. Moderate air entry. reduced CARDIAC: S1 and S2. Regular rate and rhythm without murmurs, rubs, or gallops. ABDOMEN: Soft, nontender, nondistended. EXTREMITIES: No cyanosis, clubbing, or edema. Focal weakness noted on examination. and confused Laboratory Tests 01/30/19 10:40: Arterial Blood pH 7.472H, Arterial Blood Partial Pressure CO2 40.7, Arterial Blood Partial Pressure O2 102.4H, Arterial Blood HCO3 29.1H, Arterial Blood Oxygen Saturation 97.2, Arterial Blood Base Excess 5.1H, Handy Test Positive 01/31/19 03:15: Pro-B-Type Natriuretic Peptide 2392H Current Medications Medications (Trade) Dose Ordered Sig/Elder Route PRN Reason Start Time Stop Time Status Last Admin Dose Admin Acetaminophen (Tylenol) 650 mg Q4H PRN ORAL Mild Pain/Temp > 100.5 01/24/19 17:30 02/23/19 17:29 01/24/19 18:05 Doxycycline Monohydrate (Vibramycin) 100 mg EVERY 12 HOURS ORAL 01/30/19 11:00 02/06/19 10:59 01/30/19 20:53 Furosemide (Lasix) 40 mg DAILY IV 01/30/19 09:00 03/01/19 08:59 01/30/19 09:29 Megestrol Acetate (Megace) 400 mg TWICE A DAY ORAL 01/30/19 09:00 03/01/19 08:59 01/30/19 17:17 Metoprolol Tartrate (Lopressor) 50 mg Q12HR ORAL 01/25/19 21:00 02/24/19 20:59 01/30/19 20:53 Pantoprazole (Protonix) 40 mg DAILY IVP 01/24/19 09:00 02/23/19 08:59 01/30/19 08:47 Hernan Campos MD Jan 31, 2019 08:23
[2019-01-31] MEDS: Megace 400mg/10ml Susp ORAL SCH ×2 (08:34→17:08)
[2019-01-31] MEDS: Pantoprazole Inj IVP SCH (08:34)
[2019-01-31] MEDS: Metoprolol Tartrate 50mg tab ORAL SCH ×2 (08:35→21:01)
--- NOTE | 2019-01-31 08:48 | General Progress Note ---
Assessment/Plan Problem List: (1) Severe anemia ICD Codes: D64.9 - Anemia, unspecified SNOMED: 155821289 (2) PUD (peptic ulcer disease) ICD Codes: K27.9 - Peptic ulcer, site unspecified, unspecified as acute or chronic, without hemorrhage or perforation SNOMED: 72938637 (3) Altered level of consciousness ICD Codes: R40.4 - Transient alteration of awareness SNOMED: 7072583 (4) CAD/NE (5) CML (chronic myelocytic leukemia) ICD Codes: C92.10 - Chronic myeloid leukemia, BCR/ABL-positive, not having achieved remission SNOMED: 45396707 (6) Aortic stenosis, severe ICD Codes: I35.0 - Nonrheumatic aortic (valve) stenosis SNOMED: 54550753 (7) Pneumonia ICD Codes: J18.9 - Pneumonia SNOMED: 379497455 Status: stable, progressing Assessment/Plan cont po with caution speech rx encourage pos asp precautions iv abx follow up cultures prn diuresis ct per pulm replace lytes as needed will d/w family gt again- previously they declined very poor prognosis family aware added appetite stimulant Subjective ROS Limited/Unobtainable: Yes Constitutional: Reports: malaise, weakness HEENT: Reports: no symptoms Cardiovascular: Reports: palpitations Respiratory: Reports: cough, shortness of breath Gastrointestinal/Abdominal: Reports: difficulty swallowing, poor fluid intake Genitourinary: Reports: no symptoms Neurologic/Psychiatric: Reports: pre-existing deficit Endocrine: Reports: no symptoms Hematologic/Lymphatic: Reports: anemia Allergies: Coded Allergies: No Known Allergies (Unverified , 10/28/18) All Systems: reviewed and negative except above Subjective no events. weak. less sob. still has some congested. o2 nasal cannula. started on diet. off ivf. cxr same- dense infiltrate po intake less than 30%. all noted. Objective Last 24 Hour Vital Signs Date Time Temp Pulse Resp B/P (MAP) Pulse Ox O2 Delivery O2 Flow Rate FiO2 01/31/19 08:35 90 94/69 01/31/19 08:00 97.7 90 20 94/69 (77) 95 01/31/19 04:00 97.3 99 22 123/60 (81) 97 01/31/19 03:44 84 01/31/19 00:00 98.0 88 18 118/80 (93) 98 01/30/19 23:45 75 01/30/19 21:00 Nasal Cannula 3.0 01/30/19 20:53 116 118/67 01/30/19 20:00 98.2 116 18 118/67 (84) 97 01/30/19 19:27 98 01/30/19 16:00 99 01/30/19 16:00 97.6 92 20 110/71 (84) 95 01/30/19 12:00 98.6 83 20 112/64 (80) 99 01/30/19 12:00 86 01/30/19 09:00 Nasal Cannula 3.0 01/30/19 08:47 90 122/74 Intake and Output 01/30/19 01/31/19 19:00 07:00 Intake Total 500 ml Output Total 1600 ml 500 ml Balance -1100 ml -500 ml Intake Oral 500 ml Output Urine Total 1600 ml 500 ml Laboratory Tests 01/30/19 10:40: Arterial Blood pH 7.472H, Arterial Blood Partial Pressure CO2 40.7, Arterial Blood Partial Pressure O2 102.4H, Arterial Blood HCO3 29.1H, Arterial Blood Oxygen Saturation 97.2, Arterial Blood Base Excess 5.1H, Handy Test Positive 01/31/19 03:15: Pro-B-Type Natriuretic Peptide 2392H Height (Feet): 5 Height (Inches): 8.00 Weight (Pounds): 117 Objective General Appearance: WD/WN, alert, lethargic, thin Neck: supple Cardiovascular: normal peripheral pulses, normal rate, regular rhythm Respiratory/Chest: rhonchi - bilaterally Abdomen: normal bowel sounds, non tender, soft, no organomegaly Edema: no edema noted Arm (L), no edema noted Arm (R), no edema noted Leg (L), no edema noted Leg (R), no edema noted Pedal (L), no edema noted Pedal (R), no edema noted Generalized Neurologic: motor weakness Camron Pearl MD Jan 31, 2019 08:48
--- NOTE | 2019-01-31 10:19 | Infectious Diseases Prog Note ---
Assessment/Plan Assessment/Plan antibiotics : doxycycline A 1. MRSA pneumonia 2. CLL 3. hypertension 4. aortic stenosis 5. CVA 6. 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 continue po doxycycline 1 more day 2. will follow up cultures Subjective ROS Limited/Unobtainable: Yes Allergies: Coded Allergies: No Known Allergies (Unverified , 10/28/18) Objective Vital Signs Last 24 Hour Vital Signs Date Time Temp Pulse Resp B/P (MAP) Pulse Ox O2 Delivery O2 Flow Rate FiO2 01/31/19 08:35 90 94/69 01/31/19 08:00 97.7 90 20 94/69 (77) 95 01/31/19 04:00 97.3 99 22 123/60 (81) 97 01/31/19 03:44 84 01/31/19 00:00 98.0 88 18 118/80 (93) 98 01/30/19 23:45 75 01/30/19 21:00 Nasal Cannula 3.0 01/30/19 20:53 116 118/67 01/30/19 20:00 98.2 116 18 118/67 (84) 97 01/30/19 19:27 98 01/30/19 16:00 99 01/30/19 16:00 97.6 92 20 110/71 (84) 95 01/30/19 12:00 98.6 83 20 112/64 (80) 99 01/30/19 12:00 86 Height (Feet): 5 Height (Inches): 8.00 Weight (Pounds): 117 Respiratory/Chest: lungs clear Cardiovascular: normal rate, regular rhythm, no gallop/murmur Abdomen: soft, non tender Extremities: no edema Laboratory Tests Test 01/30/19 10:40 01/31/19 03:15 Arterial Blood pH 7.472 (7.350-7.450) Arterial Blood Partial Pressure CO2 40.7 mmHg (35.0-45.0) Arterial Blood Partial Pressure O2 102.4 mmHg (75.0-100.0) H Arterial Blood HCO3 29.1 mmol/L (22.0-26.0) H Arterial Blood Oxygen Saturation 97.2 % (95-100) Arterial Blood Base Excess 5.1 (-2-2) H Handy Test Positive Pro-B-Type Natriuretic Peptide 2392 pg/mL (0-125) H Current Medications Medications (Trade) Dose Ordered Sig/Elder Route PRN Reason Start Time Stop Time Status Last Admin Dose Admin Acetaminophen (Tylenol) 650 mg Q4H PRN ORAL Mild Pain/Temp > 100.5 01/24/19 17:30 02/23/19 17:29 01/24/19 18:05 Doxycycline Monohydrate (Vibramycin) 100 mg EVERY 12 HOURS ORAL 01/30/19 11:00 02/06/19 10:59 01/31/19 08:34 Furosemide (Lasix) 40 mg DAILY IV 01/30/19 09:00 03/01/19 08:59 01/31/19 08:34 Megestrol Acetate (Megace) 400 mg TWICE A DAY ORAL 01/30/19 09:00 03/01/19 08:59 01/31/19 08:34 Metoprolol Tartrate (Lopressor) 50 mg Q12HR ORAL 01/25/19 21:00 02/24/19 20:59 01/30/19 20:53 Pantoprazole (Protonix) 40 mg DAILY IVP 01/24/19 09:00 02/23/19 08:59 01/31/19 08:34 Ernie Barraza MD Jan 31, 2019 10:19
[2019-01-31 12:00] VITALS: BP 96/54
--- NOTE | 2019-01-31 13:17 | NUR ---
NURSE NOTES: SPOKE WITH DR KEVIN FROST HR OF PATIENT. NEW ORDERS MADE. WILL CONTINUE TO MONITOR.
--- NOTE | 2019-01-31 14:10 | NUR ---
SWALLOW/SPEECH THERAPY NOTE: SWALLOW STATUS: PATIENT ALERT BUT NOT AVAILABLE FOR PO TRIALS AT THIS TIME. EDUCATED/TRAINED ISHMAEL CONNORS AND SOCORRO KWOK ABOUT POSTED ASPIRATION PRECAUTIONS. PATIENT'S FAMILY WANT PT TO HAVE PO FOR QUALITY OF LIFE AND COMFORT FEEDING KNOWING THAT HE HAS A CHRONIC ASPIRATION RISK POSSIBLY EVEN WITH SWALLOW STRATEGIES AND ASP PRECAUTIONS. GOALS NOT CONSISTENTLY MET WITH INTAKE 0/25/50/100%. PER [employer], SOMETIMES PATIENT WILL HOLD FOOD IN HIS MOUTH AND HAS PERIODIC COUGHING WITH MEALS. ASKED STAFF TO DISCONTINUE MEAL WHEN PT IS HOLDING FOOD IN MOUTH AND REMOVE IT. TRY TO FEED AT A DIFFERENT TIME AND PUSH HIGH JOB SUPPLEMENTS (THAT I REQUESTED) OVER THE FOOD AND DRINK ITEMS FOR INCREASED CALORIES. PLAN: CONTINUE WITH DYSPHAGIA MANAGEMENT/TX PLAN OUTLINED IN [facility] STUDY WITH PRIMARY ST, PAULA LEI, BACK TOMORROW. D/W DORY QUIÑONES, AND SOCORRO BAL. Addendum: 01/31/19 at 1414 by DIANA NICOLE LENS GENERATOR CORRECTION: PER CHART, PATIENT IS GETTING ENSURE ENLIVE TID (RN JUST DIDN'T SEE IT).
[2019-01-31 14:27] LABS: ANION GAP 10 mmol/L (5-15); BASOPHILS % (AUTO) 0.7 % (0.0-2.0); BLOOD UREA NITROGEN 10 mg/dL (7-18); CALCIUM 8.3 MG/DL (8.5-10.1); CARBON DIOXIDE 29 MMOL/L (21-32); CHLORIDE 103 MMOL/L (98-107); CREATININE 0.6 MG/DL (0.55-1.30); EOSINOPHILS % (AUTO) 0.5 % (0.0-3.0); HEMATOCRIT 32.5 % (42.0-52.0); HEMOGLOBIN 10.6 G/DL (14.2-18.0); LYMPHOCYTES % (AUTO) 20.1 % (20.0-45.0); MEAN CORPUSCULAR VOLUME 88 FL (80-99); NEUTROPHILS % (AUTO) 72.7 % (45.0-75.0); PLATELET COUNT 218 K/UL (150-450); POTASSIUM 3.1 MMOL/L (3.5-5.1); RED BLOOD COUNT 3.69 M/UL (4.70-6.10); RED CELL DISTRIBUTION WIDTH 16.3 % (11.6-14.8); SODIUM 141 MMOL/L (136-145); WHITE BLOOD COUNT 9.1 K/UL (4.8-10.8)
[2019-01-31 16:00] VITALS: BP 110/63
--- NOTE | 2019-01-31 16:00 | NUR ---
NURSE NOTES: SPOKE WITH DR BROWN RE [facility] LABS. NEW ORDERS GIVEN. NO NEW ORDER FOR HR. WILL CONTINUE TO MONITOR.
--- NOTE | 2019-01-31 19:15 | NUR ---
HAND-OFF: Report given to Sarah Yadav RN.
--- NOTE | 2019-01-31 19:16 | NUR ---
NURSE NOTES: Report received from SOCORRO Campbell. Pt opens eyes spontaneously, non-verbal. quality assurance monitor chassis shows ST currently at 130's. Pt on 3L NC. Showing no signs of acute respiratory or cardiac distress. Pt on a nectar thick diet for comfort care, 1:1 feeding necessary. Condom catheter present and draining appropriately. Multiple skin issues noted. See WCP for skin alteration. Pt has a LW22g and a KOREY 20g both patent and asymptomatic. Bed in lowest position, bed alarms placed. Will continue to monitor and with patients plan of care.
[2019-01-31 20:00] VITALS: BP 125/78
[2019-02-01] VITALS: BP 118/63
[2019-02-01 04:00] VITALS: BP 131/76
--- NOTE | 2019-02-01 07:25 | NUR ---
NURSE NOTES: Received patient from Sarah Yadav RN. Patient is awake, but nonverbal. On 3L NC. In no distress. school lunch monitor and condom catheter in placed. Bed in lowest position with side rails up. Will continue to follow plan of care.
[2019-02-01 07:49] LABS: ALANINE AMINOTRANSFERASE 7 U/L (12-78); ALBUMIN 1.8 G/DL (3.4-5.0); ALBUMIN/GLOBULIN RATIO 0.3 (1.0-2.7); ALKALINE PHOSPHATASE 70 U/L (46-116); ANION GAP 8 mmol/L (5-15); ASPARTATE AMINO TRANSFERASE 15 U/L (15-37); BILIRUBIN,TOTAL 0.4 MG/DL (0.2-1.0); BLOOD UREA NITROGEN 16 mg/dL (7-18); CALCIUM 8.9 MG/DL (8.5-10.1); CARBON DIOXIDE 27 MMOL/L (21-32); CHLORIDE 105 MMOL/L (98-107); CREATININE 0.8 MG/DL (0.55-1.30); POTASSIUM 4.1 MMOL/L (3.5-5.1); SODIUM 140 MMOL/L (136-145)
[2019-02-01 08:00] VITALS: BP 125/69
[2019-02-01] MEDS ORDERED: MEGACE ORA400 MG/10 ORAL (08:15)
[2019-02-01] MEDS: Metoprolol Tartrate 50mg tab ORAL SCH ×2 (08:45→21:34)
[2019-02-01] MEDS: Megace 400mg/10ml Susp ORAL SCH ×2 (08:45→17:42)
[2019-02-01] MEDS: Pantoprazole Inj IVP SCH (08:45)
[2019-02-01 09:16] LABS: BASOPHILS % (AUTO) 0.8 % (0.0-2.0); EOSINOPHILS % (AUTO) 0.2 % (0.0-3.0); HEMATOCRIT 36.9 % (42.0-52.0); HEMOGLOBIN 12.1 G/DL (14.2-18.0); LYMPHOCYTES % (AUTO) 10.2 % (20.0-45.0); MEAN CORPUSCULAR VOLUME 89 FL (80-99); MONOCYTES % (AUTO) 7.7 % (1.0-10.0); NEUTROPHILS % (AUTO) 81.1 % (45.0-75.0); PLATELET COUNT 208 K/UL (150-450); RED BLOOD COUNT 4.16 M/UL (4.70-6.10); RED CELL DISTRIBUTION WIDTH 16.8 % (11.6-14.8); WHITE BLOOD COUNT 11.9 K/UL (4.8-10.8)
--- NOTE | 2019-02-01 09:17 | NUR ---
Social Service Note Referral faxed to Екатерина at [facility] [phone] (p) [phone] (f). KAITLYNN informed patient's dgt Marcelina Ridley [phone] of discharge for today and is in agreement with discharge plan. Will follow up with Екатерина for bed assignment. Addendum: 02/01/19 at 1142 by MARILEE TAYLOR Second called placed to Екатерина at [facility] with no return call. KAITLYNN faxed referral to second phone number [phone]. Will follow up.
--- NOTE | 2019-02-01 10:17 | Pulmonology Progress Note ---
Assessment/Plan Assessment/Plan IMPRESSION: 1. Pneumonia, possibly pulmonary edema (worsening) 2. Severe protein-calorie malnutrition. 3. History of CVA. 4. Focal weakness. 5. Concern for aspiration. 6. Evidence of anemia of chronic disease. 7. Recurrent fevers. 8. Respiratory congestion. 9. pulmonary edema PLAN obtain CT chest; still pending unclear as to underlying pathology chronic vs pneumonic vs edema respiratory care monitor BNP- elevated ???diurese per cards monitor fluid intake aspiration precautions IV antibiotics impression, plan, and exam edited and reviewed in detail care discussed with RN Subjective Allergies: Coded Allergies: No Known Allergies (Unverified , 10/28/18) Subjective care noted confused no real change Objective Last 24 Hour Vital Signs Date Time Temp Pulse Resp B/P (MAP) Pulse Ox O2 Delivery O2 Flow Rate FiO2 02/01/19 08:45 105 125/69 02/01/19 08:00 97.3 105 24 125/69 (87) 99 02/01/19 06:50 94 Room Air 21 02/01/19 06:50 Room Air 21 02/01/19 04:00 97.9 92 24 131/76 (94) 97 02/01/19 04:00 87 02/01/19 00:00 95 02/01/19 00:00 98.0 95 24 118/63 (81) 95 01/31/19 21:01 124 125/86 01/31/19 20:00 98.5 124 24 125/78 (94) 98 01/31/19 20:00 126 01/31/19 20:00 Nasal Cannula 3.0 01/31/19 16:00 98.5 122 24 110/63 (79) 95 01/31/19 16:00 Nasal Cannula 3.0 01/31/19 16:00 162 01/31/19 12:00 112 01/31/19 12:00 Nasal Cannula 3.0 01/31/19 12:00 98.9 104 21 96/54 (68) 90 Intake and Output 01/31/19 02/01/19 19:00 07:00 Intake Total 200 ml 20 ml Output Total 125 ml 200 ml Balance 75 ml -180 ml Intake Oral 20 ml IV Total 200 ml Output Urine Total 125 ml 200 ml # Voids 2 2 Objective GENERAL: An ill-appearing male, in no acute distress. HEENT: Oropharynx is moist. Reduced gag. NECK: Otherwise supple. No accessory muscle use. LUNGS: With scattered rhonchi. Moderate air entry. reduced CARDIAC: S1 and S2. Regular rate and rhythm without murmurs, rubs, or gallops. ABDOMEN: Soft, nontender, nondistended. EXTREMITIES: No cyanosis, clubbing, or edema. Focal weakness noted on examination. and confused Laboratory Tests 01/31/19 13:50: White Blood Count 9.1#, Red Blood Count 3.69L, Hemoglobin 10.6L, Hematocrit 32.5L, Mean Corpuscular Volume 88, Mean Corpuscular Hemoglobin 28.7, Mean Corpuscular Hemoglobin Concent 32.6, Red Cell Distribution Width 16.3H, Platelet Count 218, Mean Platelet Volume 7.4, Neutrophils (%) (Auto) 72.7, Lymphocytes (%) (Auto) 20.1, Monocytes (%) (Auto) 6.0, Eosinophils (%) (Auto) 0.5, Basophils (%) (Auto) 0.7, Sodium Level 141, Potassium Level 3.1L, Chloride Level 103, Carbon Dioxide Level 29, Anion Gap 10, Blood Urea Nitrogen 10, Creatinine 0.6, Estimat Glomerular Filtration Rate , Glucose Level 103, Calcium Level 8.3L, Magnesium Level 1.7L 02/01/19 07:10: Sodium Level 140, Potassium Level 4.1, Chloride Level 105, Carbon Dioxide Level 27, Anion Gap 8, Blood Urea Nitrogen 16, Creatinine 0.8, Estimat Glomerular Filtration Rate , Glucose Level 98, Calcium Level 8.9, Total Bilirubin 0.4, Aspartate Amino Transf (AST/SGOT) 15, Alanine Aminotransferase (ALT/SGPT) 7L, Alkaline Phosphatase 70, Total Protein 7.1, Albumin 1.8L, Globulin 5.3, Albumin/ Globulin Ratio 0.3L 02/01/19 08:30: White Blood Count 11.9H, Red Blood Count 4.16L, Hemoglobin 12.1L, Hematocrit 36.9L, Mean Corpuscular Volume 89, Mean Corpuscular Hemoglobin 29.0, Mean Corpuscular Hemoglobin Concent 32.7, Red Cell Distribution Width 16.8H, Platelet Count 208, Mean Platelet Volume 7.0, Neutrophils (%) (Auto) 81.1H, Lymphocytes (%) (Auto) 10.2L, Monocytes (%) (Auto) 7.7, Eosinophils (%) (Auto) 0.2, Basophils (%) (Auto) 0.8 Current Medications Medications (Trade) Dose Ordered Sig/Elder Route PRN Reason Start Time Stop Time Status Last Admin Dose Admin Acetaminophen (Tylenol) 650 mg Q4H PRN ORAL Mild Pain/Temp > 100.5 01/24/19 17:30 02/23/19 17:29 01/24/19 18:05 Doxycycline Monohydrate (Vibramycin) 100 mg EVERY 12 HOURS ORAL 01/30/19 11:00 02/06/19 10:59 02/01/19 08:45 Furosemide (Lasix) 40 mg DAILY IV 01/30/19 09:00 03/01/19 08:59 02/01/19 08:45 Megestrol Acetate (Megace) 400 mg TWICE A DAY ORAL 01/30/19 09:00 03/01/19 08:59 02/01/19 08:45 Metoprolol Tartrate (Lopressor) 50 mg Q12HR ORAL 01/25/19 21:00 02/24/19 20:59 02/01/19 08:45 Pantoprazole (Protonix) 40 mg DAILY IVP 01/24/19 09:00 02/23/19 08:59 02/01/19 08:45 Hernan Campos MD Feb 01, 2019 10:17
--- NOTE | 2019-02-01 10:32 | Infectious Diseases Prog Note ---
Assessment/Plan Assessment/Plan antibiotics : doxycycline A 1. MRSA pneumonia s/p rx 2. CLL 3. hypertension 4. aortic stenosis 5. CVA 6. 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 d/c po doxycycline 2. observe off antibiotics Subjective ROS Limited/Unobtainable: Yes Allergies: Coded Allergies: No Known Allergies (Unverified , 10/28/18) Objective Vital Signs Last 24 Hour Vital Signs Date Time Temp Pulse Resp B/P (MAP) Pulse Ox O2 Delivery O2 Flow Rate FiO2 02/01/19 08:45 105 125/69 02/01/19 08:00 97.3 105 24 125/69 (87) 99 02/01/19 06:50 94 Room Air 21 02/01/19 06:50 Room Air 21 02/01/19 04:00 97.9 92 24 131/76 (94) 97 02/01/19 04:00 87 02/01/19 00:00 95 02/01/19 00:00 98.0 95 24 118/63 (81) 95 01/31/19 21:01 124 125/86 01/31/19 20:00 98.5 124 24 125/78 (94) 98 01/31/19 20:00 126 01/31/19 20:00 Nasal Cannula 3.0 01/31/19 16:00 98.5 122 24 110/63 (79) 95 01/31/19 16:00 Nasal Cannula 3.0 01/31/19 16:00 162 01/31/19 12:00 112 01/31/19 12:00 Nasal Cannula 3.0 01/31/19 12:00 98.9 104 21 96/54 (68) 90 Height (Feet): 5 Height (Inches): 8.00 Weight (Pounds): 116 Respiratory/Chest: lungs clear Cardiovascular: normal rate, regular rhythm, no gallop/murmur Abdomen: soft, non tender Extremities: no edema Laboratory Tests Test 01/31/19 13:50 02/01/19 07:10 02/01/19 08:30 White Blood Count 9.1 K/UL (4.8-10.8) # 11.9 K/UL (4.8-10.8) H Red Blood Count 3.69 M/UL (4.70-6.10) L 4.16 M/UL (4.70-6.10) L Hemoglobin 10.6 G/DL (14.2-18.0) L 12.1 G/DL (14.2-18.0) L Hematocrit 32.5 % (42.0-52.0) L 36.9 % (42.0-52.0) L Mean Corpuscular Volume 88 FL (80-99) 89 FL (80-99) Mean Corpuscular Hemoglobin 28.7 PG (27.0-31.0) 29.0 PG (27.0-31.0) Mean Corpuscular Hemoglobin Concent 32.6 G/DL (32.0-36.0) 32.7 G/DL (32.0-36.0) Red Cell Distribution Width 16.3 % (11.6-14.8) H 16.8 % (11.6-14.8) H Platelet Count 218 K/UL (150-450) 208 K/UL (150-450) Mean Platelet Volume 7.4 FL (6.5-10.1) 7.0 FL (6.5-10.1) Neutrophils (%) (Auto) 72.7 % (45.0-75.0) 81.1 % (45.0-75.0) H Lymphocytes (%) (Auto) 20.1 % (20.0-45.0) 10.2 % (20.0-45.0) L Monocytes (%) (Auto) 6.0 % (1.0-10.0) 7.7 % (1.0-10.0) Eosinophils (%) (Auto) 0.5 % (0.0-3.0) 0.2 % (0.0-3.0) Basophils (%) (Auto) 0.7 % (0.0-2.0) 0.8 % (0.0-2.0) Sodium Level 141 MMOL/L (136-145) 140 MMOL/L (136-145) Potassium Level 3.1 MMOL/L (3.5-5.1) L 4.1 MMOL/L (3.5-5.1) Chloride Level 103 MMOL/L (98-107) 105 MMOL/L (98-107) Carbon Dioxide Level 29 MMOL/L (21-32) 27 MMOL/L (21-32) Anion Gap 10 mmol/L (5-15) 8 mmol/L (5-15) Blood Urea Nitrogen 10 mg/dL (7-18) 16 mg/dL (7-18) Creatinine 0.6 MG/DL (0.55-1.30) 0.8 MG/DL (0.55-1.30) Estimat Glomerular Filtration Rate mL/min (>60) mL/min (>60) Glucose Level 103 MG/DL (74-106) 98 MG/DL (74-106) Calcium Level 8.3 MG/DL (8.5-10.1) L 8.9 MG/DL (8.5-10.1) Magnesium Level 1.7 MG/DL (1.8-2.4) L Total Bilirubin 0.4 MG/DL (0.2-1.0) Aspartate Amino Transf (AST/SGOT) 15 U/L (15-37) Alanine Aminotransferase (ALT/SGPT) 7 U/L (12-78) L Alkaline Phosphatase 70 U/L (46-116) Total Protein 7.1 G/DL (6.4-8.2) Albumin 1.8 G/DL (3.4-5.0) L Globulin 5.3 g/dL Albumin/Globulin Ratio 0.3 (1.0-2.7) L Current Medications Medications (Trade) Dose Ordered Sig/Elder Route PRN Reason Start Time Stop Time Status Last Admin Dose Admin Acetaminophen (Tylenol) 650 mg Q4H PRN ORAL Mild Pain/Temp > 100.5 01/24/19 17:30 02/23/19 17:29 01/24/19 18:05 Doxycycline Monohydrate (Vibramycin) 100 mg EVERY 12 HOURS ORAL 01/30/19 11:00 02/06/19 10:59 02/01/19 08:45 Furosemide (Lasix) 40 mg DAILY IV 01/30/19 09:00 03/01/19 08:59 02/01/19 08:45 Megestrol Acetate (Megace) 400 mg TWICE A DAY ORAL 01/30/19 09:00 03/01/19 08:59 02/01/19 08:45 Metoprolol Tartrate (Lopressor) 50 mg Q12HR ORAL 01/25/19 21:00 02/24/19 20:59 02/01/19 08:45 Pantoprazole (Protonix) 40 mg DAILY IVP 01/24/19 09:00 02/23/19 08:59 02/01/19 08:45 Ernie Barraza MD Feb 01, 2019 10:32
--- NOTE | 2019-02-01 10:45 | NUR ---
RESPIRATORY NOTE: Got a call from RN about pt is desaturating down to low 80% on 4L NC. Put pt on venturi mask 10L 45%, pt still saturates at 84%. Roosevelt rhonchi breath sound heard upon auscultation, tachypneic RR 28-30 bpm, nasotracheal suctioned large amount of thick arguello yellow secretions without incidents. RN at bedside. Saturation went up to 96%. Will continue to monitor pt.
[2019-02-01 12:00] VITALS: BP 133/72
--- NOTE | 2019-02-01 12:00 | NUR ---
NURSE NOTES: Received an order from Dr. Campos for Venturi Mask and ABG. Orders carried out.
--- NOTE | 2019-02-01 13:02 | NUR ---
Social Service Note Patient returning to [facility], group home to room 222. Nurse to call report to [phone]. Ambulance arranged with [facility] [phone] pickup driver [phone]. Charge nurse notified. Nurse to call report prior to transport. Addendum: 02/01/19 at 1436 by MARILEE TAYLOR Patient's dc placed on hold due to venturi mask at 10L. Facility unable to provide this level of care.
[2019-02-01 16:00] VITALS: BP 108/70
[2019-02-01] MEDS ORDERED: Tubing IV Secondary IV ONE (17:39)
[2019-02-01] MEDS ORDERED: NS 275ml ONE (17:39)
--- NOTE | 2019-02-01 19:20 | NUR ---
NURSE NOTES: received pt from [facility]. pt on 100%nonrebreather mask. awake nonverbal. no belongings. will continue to monitor.
--- NOTE | 2019-02-01 19:20 | NUR ---
HAND-OFF: Report given to SOCORRO Monet.
[2019-02-01 20:00] VITALS: BP 117/63
--- NOTE | 2019-02-01 20:24 | NUR ---
NURSE NOTES: Recvd pt. Pt is awake but nonverbal. Pt is on venturi mask 10L with no sign of distress, suction pt as needed. Condom cath in place and draining. Bed in lowest position,call light within reach, will continue with plan of care.
[2019-02-02] VITALS: BP 103/60
[2019-02-02 04:00] VITALS: BP 114/62
[2019-02-02 06:06] LABS: BASOPHILS % (AUTO) 0.6 % (0.0-2.0); EOSINOPHILS % (AUTO) 0.2 % (0.0-3.0); HEMATOCRIT 30.8 % (42.0-52.0); HEMOGLOBIN 10.3 G/DL (14.2-18.0); MEAN CORPUSCULAR VOLUME 88 FL (80-99); MONOCYTES % (AUTO) 8.9 % (1.0-10.0); NEUTROPHILS % (AUTO) 79.3 % (45.0-75.0); PLATELET COUNT 195 K/UL (150-450); RED BLOOD COUNT 3.49 M/UL (4.70-6.10); RED CELL DISTRIBUTION WIDTH 16.6 % (11.6-14.8); WHITE BLOOD COUNT 8.5 K/UL (4.8-10.8)
[2019-02-02] MEDS: dilTIAZem HCl 30mg tab ORAL SCH ×3 (06:25→22:49)
[2019-02-02 06:30] LABS: ALANINE AMINOTRANSFERASE 9 U/L (12-78); ALBUMIN 1.7 G/DL (3.4-5.0); ALBUMIN/GLOBULIN RATIO 0.4 (1.0-2.7); ALKALINE PHOSPHATASE 60 U/L (46-116); ANION GAP 10 mmol/L (5-15); ASPARTATE AMINO TRANSFERASE 13 U/L (15-37); BILIRUBIN,TOTAL 0.4 MG/DL (0.2-1.0); BLOOD UREA NITROGEN 21 mg/dL (7-18); CALCIUM 8.1 MG/DL (8.5-10.1); CARBON DIOXIDE 28 MMOL/L (21-32); CHLORIDE 107 MMOL/L (98-107); CREATININE 1.1 MG/DL (0.55-1.30); POTASSIUM 3.9 MMOL/L (3.5-5.1); SODIUM 145 MMOL/L (136-145)
--- NOTE | 2019-02-02 07:15 | NUR ---
NURSE NOTES: Report received from Tierney Welch RN.Pt awake resting in bed noted no resp dsitress on 100% NRB mask,no signs of pain or discomfort SR on the monitor.
[2019-02-02 08:00] VITALS: BP 116/66
--- NOTE | 2019-02-02 08:08 | Pulmonology Progress Note ---
Assessment/Plan Assessment/Plan IMPRESSION: 1. Pneumonia, possibly pulmonary edema (worsening) 2. Severe protein-calorie malnutrition. 3. History of CVA. 4. Focal weakness. 5. Concern for aspiration. 6. Evidence of anemia of chronic disease. 7. Recurrent fevers. 8. Respiratory congestion. 9. pulmonary edema PLAN obtain CT chest; not done yet respiratory care monitor BNP- elevated ???diurese per cards monitor fluid intake aspiration precautions IV antibiotics care noted and reviewed impression, plan, and exam edited and reviewed in detail care discussed with RN Subjective ROS Limited/Unobtainable: Yes Allergies: Coded Allergies: No Known Allergies (Unverified , 10/28/18) Subjective care noted confused some congestion noted Objective Last 24 Hour Vital Signs Date Time Temp Pulse Resp B/P (MAP) Pulse Ox O2 Delivery O2 Flow Rate FiO2 02/02/19 06:25 97 114/62 02/02/19 04:00 97 02/02/19 04:00 99.0 73 24 114/62 (79) 98 02/02/19 03:03 Venturi Mask 12.0 50 02/02/19 03:02 95 Venturi Mask 12.0 50 02/02/19 00:00 99.1 100 24 103/60 (74) 98 02/02/19 00:00 100 02/01/19 21:34 113 117/63 02/01/19 20:00 98.5 113 24 117/63 (81) 97 02/01/19 20:00 109 02/01/19 18:31 Venturi Mask 10.0 02/01/19 16:00 98.2 109 24 108/70 (83) 95 02/01/19 15:47 108 02/01/19 12:00 97.9 100 22 133/72 (92) 100 02/01/19 12:00 Venturi Mask 10.0 02/01/19 11:34 100 02/01/19 09:00 Nasal Cannula 3.0 02/01/19 08:45 105 125/69 Intake and Output 02/01/19 02/02/19 19:00 07:00 Intake Total 150 ml Output Total 275 ml Balance -125 ml Intake Oral 150 ml Output Urine Total 275 ml # Bowel Movements 2 Objective GENERAL: An ill-appearing male, in no acute distress. HEENT: Oropharynx is moist. Reduced gag. NECK: Otherwise supple. No accessory muscle use. LUNGS: noted rhonchi. Moderate air entry. reduced CARDIAC: S1 and S2. Regular rate and rhythm without murmurs, rubs, or gallops. ABDOMEN: Soft, nontender, nondistended. EXTREMITIES: No cyanosis, clubbing, or edema. Focal weakness noted on examination. and confused Laboratory Tests 02/01/19 08:30: White Blood Count 11.9H, Red Blood Count 4.16L, Hemoglobin 12.1L, Hematocrit 36.9L, Mean Corpuscular Volume 89, Mean Corpuscular Hemoglobin 29.0, Mean Corpuscular Hemoglobin Concent 32.7, Red Cell Distribution Width 16.8H, Platelet Count 208, Mean Platelet Volume 7.0, Neutrophils (%) (Auto) 81.1H, Lymphocytes (%) (Auto) 10.2L, Monocytes (%) (Auto) 7.7, Eosinophils (%) (Auto) 0.2, Basophils (%) (Auto) 0.8 02/01/19 12:30: Arterial Blood pH 7.423, Arterial Blood Partial Pressure CO2 45.4H, Arterial Blood Partial Pressure O2 79.3, Arterial Blood HCO3 29.0H, Arterial Blood Oxygen Saturation 94.6L, Arterial Blood Base Excess 4.0H, Handy Test Positive 02/02/19 03:00: White Blood Count 8.5, Red Blood Count 3.49L, Hemoglobin 10.3L, Hematocrit 30.8L , Mean Corpuscular Volume 88, Mean Corpuscular Hemoglobin 29.5, Mean Corpuscular Hemoglobin Concent 33.3, Red Cell Distribution Width 16.6H, Platelet Count 195, Mean Platelet Volume 6.5, Neutrophils (%) (Auto) 79.3H, Lymphocytes (%) (Auto) 11.0L, Monocytes (%) (Auto) 8.9, Eosinophils (%) (Auto) 0.2, Basophils (%) (Auto) 0.6, Sodium Level 145, Potassium Level 3.9, Chloride Level 107, Carbon Dioxide Level 28, Anion Gap 10, Blood Urea Nitrogen 21H, Creatinine 1.1, Estimat Glomerular Filtration Rate , Glucose Level 82, Calcium Level 8.1L, Magnesium Level 2.1, Total Bilirubin 0.4, Aspartate Amino Transf ( AST/SGOT) 13L, Alanine Aminotransferase (ALT/SGPT) 9L, Alkaline Phosphatase 60, Pro-B-Type Natriuretic Peptide 1682H, Total Protein 5.9L, Albumin 1.7L, Globulin 4.2, Albumin/Globulin Ratio 0.4L Current Medications Medications (Trade) Dose Ordered Sig/Elder Route PRN Reason Start Time Stop Time Status Last Admin Dose Admin Acetaminophen (Tylenol) 650 mg Q4H PRN ORAL Mild Pain/Temp > 100.5 01/24/19 17:30 02/23/19 17:29 01/24/19 18:05 Diltiazem HCl (Cardizem) 30 mg EVERY 8 HOURS ORAL 02/02/19 06:00 03/04/19 05:59 02/02/19 06:25 Furosemide (Lasix) 40 mg DAILY IV 01/30/19 09:00 03/01/19 08:59 02/01/19 08:45 Megestrol Acetate (Megace) 400 mg TWICE A DAY ORAL 01/30/19 09:00 03/01/19 08:59 02/01/19 17:42 Metoprolol Tartrate (Lopressor) 50 mg Q12HR ORAL 01/25/19 21:00 02/24/19 20:59 02/01/19 21:34 Pantoprazole (Protonix) 40 mg DAILY ORAL 02/02/19 09:00 03/04/19 08:59 Hernan Campos MD Feb 02, 2019 08:08
--- NOTE | 2019-02-02 08:23 | General Progress Note ---
Assessment/Plan Problem List: (1) Severe anemia ICD Codes: D64.9 - Anemia, unspecified SNOMED: 770243495 (2) PUD (peptic ulcer disease) ICD Codes: K27.9 - Peptic ulcer, site unspecified, unspecified as acute or chronic, without hemorrhage or perforation SNOMED: 01366833 (3) Altered level of consciousness ICD Codes: R40.4 - Transient alteration of awareness SNOMED: 0573324 (4) CAD/ME (5) CML (chronic myelocytic leukemia) ICD Codes: C92.10 - Chronic myeloid leukemia, BCR/ABL-positive, not having achieved remission SNOMED: 88136316 (6) Aortic stenosis, severe ICD Codes: I35.0 - Nonrheumatic aortic (valve) stenosis SNOMED: 33235746 (7) Pneumonia ICD Codes: J18.9 - Pneumonia SNOMED: 067645291 Status: deteriorating Assessment/Plan cont po with caution speech rx encourage pos asp precautions iv abx follow up cultures prn diuresis monitor labs and abg ct per pulm replace lytes as needed will d/w family gt again- previously they declined message left with dtr ursula updating pt status very poor prognosis family aware Subjective ROS Limited/Unobtainable: No Constitutional: Reports: malaise, weakness HEENT: Reports: no symptoms Cardiovascular: Reports: no symptoms Respiratory: Reports: cough, shortness of breath, sputum Gastrointestinal/Abdominal: Reports: difficulty swallowing Genitourinary: Reports: no symptoms Neurologic/Psychiatric: Reports: pre-existing deficit Endocrine: Reports: no symptoms Hematologic/Lymphatic: Reports: no symptoms Allergies: Coded Allergies: No Known Allergies (Unverified , 10/28/18) All Systems: reviewed and negative except above Subjective more sob after attempted ct. on nrb. abg from yesterday noted. very weak. poor po intake Objective Last 24 Hour Vital Signs Date Time Temp Pulse Resp B/P (MAP) Pulse Ox O2 Delivery O2 Flow Rate FiO2 02/02/19 06:25 97 114/62 02/02/19 04:00 97 02/02/19 04:00 99.0 73 24 114/62 (79) 98 02/02/19 03:03 Venturi Mask 12.0 50 02/02/19 03:02 95 Venturi Mask 12.0 50 02/02/19 00:00 99.1 100 24 103/60 (74) 98 02/02/19 00:00 100 02/01/19 21:34 113 117/63 02/01/19 20:00 98.5 113 24 117/63 (81) 97 02/01/19 20:00 109 02/01/19 18:31 Venturi Mask 10.0 02/01/19 16:00 98.2 109 24 108/70 (83) 95 02/01/19 15:47 108 02/01/19 12:00 97.9 100 22 133/72 (92) 100 02/01/19 12:00 Venturi Mask 10.0 02/01/19 11:34 100 02/01/19 09:00 Nasal Cannula 3.0 02/01/19 08:45 105 125/69 Intake and Output 02/01/19 02/02/19 19:00 07:00 Intake Total 150 ml Output Total 275 ml Balance -125 ml Intake Oral 150 ml Output Urine Total 275 ml # Bowel Movements 2 Laboratory Tests 02/01/19 08:30: White Blood Count 11.9H, Red Blood Count 4.16L, Hemoglobin 12.1L, Hematocrit 36.9L, Mean Corpuscular Volume 89, Mean Corpuscular Hemoglobin 29.0, Mean Corpuscular Hemoglobin Concent 32.7, Red Cell Distribution Width 16.8H, Platelet Count 208, Mean Platelet Volume 7.0, Neutrophils (%) (Auto) 81.1H, Lymphocytes (%) (Auto) 10.2L, Monocytes (%) (Auto) 7.7, Eosinophils (%) (Auto) 0.2, Basophils (%) (Auto) 0.8 02/01/19 12:30: Arterial Blood pH 7.423, Arterial Blood Partial Pressure CO2 45.4H, Arterial Blood Partial Pressure O2 79.3, Arterial Blood HCO3 29.0H, Arterial Blood Oxygen Saturation 94.6L, Arterial Blood Base Excess 4.0H, Handy Test Positive 02/02/19 03:00: White Blood Count 8.5, Red Blood Count 3.49L, Hemoglobin 10.3L, Hematocrit 30.8L , Mean Corpuscular Volume 88, Mean Corpuscular Hemoglobin 29.5, Mean Corpuscular Hemoglobin Concent 33.3, Red Cell Distribution Width 16.6H, Platelet Count 195, Mean Platelet Volume 6.5, Neutrophils (%) (Auto) 79.3H, Lymphocytes (%) (Auto) 11.0L, Monocytes (%) (Auto) 8.9, Eosinophils (%) (Auto) 0.2, Basophils (%) (Auto) 0.6, Sodium Level 145, Potassium Level 3.9, Chloride Level 107, Carbon Dioxide Level 28, Anion Gap 10, Blood Urea Nitrogen 21H, Creatinine 1.1, Estimat Glomerular Filtration Rate , Glucose Level 82, Calcium Level 8.1L, Magnesium Level 2.1, Total Bilirubin 0.4, Aspartate Amino Transf ( AST/SGOT) 13L, Alanine Aminotransferase (ALT/SGPT) 9L, Alkaline Phosphatase 60, Pro-B-Type Natriuretic Peptide 1682H, Total Protein 5.9L, Albumin 1.7L, Globulin 4.2, Albumin/Globulin Ratio 0.4L Height (Feet): 5 Height (Inches): 8.00 Weight (Pounds): 116 Objective General Appearance: WD/WN, alert, lethargic, thin Neck: supple Cardiovascular: normal peripheral pulses, normal rate, regular rhythm Respiratory/Chest: rhonchi - bilaterally Abdomen: normal bowel sounds, non tender, soft, no organomegaly Edema: no edema noted Arm (L), no edema noted Arm (R), no edema noted Leg (L), no edema noted Leg (R), no edema noted Pedal (L), no edema noted Pedal (R), no edema noted Generalized Neurologic: motor weakness Camron Pearl MD Feb 02, 2019 08:23
--- NOTE | 2019-02-02 09:32 | Diagnostic Imaging Report ---
Clinical Indication: Severe respiratory distress, recent history of pneumonia Technique: Spiral acquisitions obtained through the chest. No IV contrast utilized, . Multiplanar reconstructions generated. Total dose length product 613.58 mGycm. CTDIvol(s) 16.95 mGy. Dose reduction achieved using automated exposure control Comparison: No comparison CTs. Reference made to recent chest radiographs Findings: Exam is somewhat limited due to respiratory motion artifact. There are moderate to large bilateral pleural effusions. These result in compressive atelectasis of most of both lower lobes. Reticular and airspace consolidation is seen in the left upper lobe perihilar region. This is also reported on prior chest radiographs. There is some posterior compressive atelectasis in the right upper lobe. Right upper lobe and right middle lobe are otherwise essentially clear. A 3 mm nodular opacity is seen in the inferior lingula, image 47 of series 5. Debris is seen layering dependently within the distal trachea and bilateral proximal bronchi. There is a pericardial effusion which measures up to 18 mm thick anteriorly, 22 mm thick posteriorly. There are dense aortic valvular calcifications. There are dense coronary artery calcifications. The right and left main pulmonary arteries are ectatic, each measuring approximately 28 mm in diameter. No mediastinal or hilar mass or adenopathy. The esophagus is grossly unremarkable. The included portion of the thyroid is unremarkable. No axillary or chest wall mass or adenopathy. The bones demonstrate degenerative spondylosis changes. The upper abdomen demonstrates contrast within the colon, presumably from a prior video swallowing study. A parenchymal calcification is seen in the right kidney. Cysts are seen in the left kidney Impression: Moderate to large bilateral pleural effusions. Resultant compressive atelectasis of most of both lower lobes, portions of the right upper lobe. Left perihilar infiltrate, likely pneumonia, also described on prior chest radiographs. Large pericardial effusion 3 mm noncalcified inferior left upper lobe nodule. If there is significant smoking history or other risk factors for lung carcinoma, short interval follow-up CT at 6-12 months is recommended. No further follow-up necessary if there is no significant risk factors Ectatic right and left main pulmonary arteries, suggestive of although not diagnostic for pulmonary arterial hypertension Note debris within the distal trachea and proximal bronchi Other findings as noted, including right renal parenchymal calcification, degenerative spondylosis, aortic valvular calcifications and coronary artery calcifications, left renal cysts The CT scanner at [facility] is accredited by the [employer] and the scans are performed using protocols designed to limit radiation exposure to as low as reasonably achievable to attain images of sufficient resolution adequate for diagnostic evaluation.
--- NOTE | 2019-02-02 09:34 | Diagnostic Imaging Report ---
APPROVED REPORT CPT Code: 16720 Present Symptoms Comments: AMS BILATERAL: Imaging reveals a patent deep venous system bilaterally. There is no evidence of thrombus within the femoral, popliteal or tibial segments. The greater saphenous veins are also within normal limits. Doppler indicates normal spontaneous flow within these segments.
[2019-02-02] MEDS: Metoprolol Tartrate 50mg tab ORAL SCH (10:07)
[2019-02-02] MEDS: Megace 400mg/10ml Susp ORAL SCH ×2 (10:09→18:14)
--- NOTE | 2019-02-02 10:52 | NUR ---
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 SEPSIS VS: BP 114/62, P 73, T 99.0, RR 24, SpO2 95 on 12.0L O2 V.MASK FiO2 50 RBC 3.49, pCO2 45.4, HCO3 29.0, BUN 21, Ca 8.1, AST 13, ALT 9 CXR Impression: Moderate to large bilateral pleural effusions. Resultant compressive atelectasis of most of both lower lobes, portions of the right upper lobe. Large pericardial effusion IS:METOPROLOL 50mg LASIX 40mg IV MEGACE 400mg DILTIAZEM 30mg PROTONIX 40mg SDU STATUS
--- NOTE | 2019-02-02 10:54 | Infectious Diseases Prog Note ---
Assessment/Plan Assessment/Plan antibiotics : doxycycline A 1. MRSA pneumonia 2. CLL 3. hypertension 4. aortic stenosis 5. CVA 6. 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 pleural effusions 10. pericardial effusion P 1. start iv vancomycin 2. will follow up cultures Subjective ROS Limited/Unobtainable: Yes Allergies: Coded Allergies: No Known Allergies (Unverified , 10/28/18) Objective Vital Signs Last 24 Hour Vital Signs Date Time Temp Pulse Resp B/P (MAP) Pulse Ox O2 Delivery O2 Flow Rate FiO2 02/02/19 10:07 100 116/66 02/02/19 07:42 100 02/02/19 06:25 97 114/62 02/02/19 04:00 97 02/02/19 04:00 99.0 73 24 114/62 (79) 98 02/02/19 03:03 Venturi Mask 12.0 50 02/02/19 03:02 95 Venturi Mask 12.0 50 02/02/19 00:00 99.1 100 24 103/60 (74) 98 02/02/19 00:00 100 02/01/19 21:34 113 117/63 02/01/19 20:00 98.5 113 24 117/63 (81) 97 02/01/19 20:00 109 02/01/19 18:31 Venturi Mask 10.0 02/01/19 16:00 98.2 109 24 108/70 (83) 95 02/01/19 15:47 108 02/01/19 12:00 97.9 100 22 133/72 (92) 100 02/01/19 12:00 Venturi Mask 10.0 02/01/19 11:34 100 Height (Feet): 5 Height (Inches): 8.00 Weight (Pounds): 116 Respiratory/Chest: rhonchi - bilaterally Cardiovascular: normal rate, regular rhythm, no gallop/murmur Abdomen: soft, non tender Extremities: no edema Laboratory Tests Test 02/01/19 12:30 02/02/19 03:00 Arterial Blood pH 7.423 (7.350-7.450) Arterial Blood Partial Pressure CO2 45.4 mmHg (35.0-45.0) H Arterial Blood Partial Pressure O2 79.3 mmHg (75.0-100.0) Arterial Blood HCO3 29.0 mmol/L (22.0-26.0) H Arterial Blood Oxygen Saturation 94.6 % (95-100) L Arterial Blood Base Excess 4.0 (-2-2) H Handy Test Positive White Blood Count 8.5 K/UL (4.8-10.8) Red Blood Count 3.49 M/UL (4.70-6.10) L Hemoglobin 10.3 G/DL (14.2-18.0) L Hematocrit 30.8 % (42.0-52.0) L Mean Corpuscular Volume 88 FL (80-99) Mean Corpuscular Hemoglobin 29.5 PG (27.0-31.0) Mean Corpuscular Hemoglobin Concent 33.3 G/DL (32.0-36.0) Red Cell Distribution Width 16.6 % (11.6-14.8) H Platelet Count 195 K/UL (150-450) Mean Platelet Volume 6.5 FL (6.5-10.1) Neutrophils (%) (Auto) 79.3 % (45.0-75.0) H Lymphocytes (%) (Auto) 11.0 % (20.0-45.0) L Monocytes (%) (Auto) 8.9 % (1.0-10.0) Eosinophils (%) (Auto) 0.2 % (0.0-3.0) Basophils (%) (Auto) 0.6 % (0.0-2.0) Sodium Level 145 MMOL/L (136-145) Potassium Level 3.9 MMOL/L (3.5-5.1) Chloride Level 107 MMOL/L (98-107) Carbon Dioxide Level 28 MMOL/L (21-32) Anion Gap 10 mmol/L (5-15) Blood Urea Nitrogen 21 mg/dL (7-18) H Creatinine 1.1 MG/DL (0.55-1.30) Estimat Glomerular Filtration Rate mL/min (>60) Glucose Level 82 MG/DL (74-106) Calcium Level 8.1 MG/DL (8.5-10.1) L Magnesium Level 2.1 MG/DL (1.8-2.4) Total Bilirubin 0.4 MG/DL (0.2-1.0) Aspartate Amino Transf (AST/SGOT) 13 U/L (15-37) L Alanine Aminotransferase (ALT/SGPT) 9 U/L (12-78) L Alkaline Phosphatase 60 U/L (46-116) Pro-B-Type Natriuretic Peptide 1682 pg/mL (0-125) H Total Protein 5.9 G/DL (6.4-8.2) L Albumin 1.7 G/DL (3.4-5.0) L Globulin 4.2 g/dL Albumin/Globulin Ratio 0.4 (1.0-2.7) L Current Medications Medications (Trade) Dose Ordered Sig/Elder Route PRN Reason Start Time Stop Time Status Last Admin Dose Admin Acetaminophen (Tylenol) 650 mg Q4H PRN ORAL Mild Pain/Temp > 100.5 01/24/19 17:30 02/23/19 17:29 01/24/19 18:05 Diltiazem HCl (Cardizem) 30 mg EVERY 8 HOURS ORAL 02/02/19 06:00 03/04/19 05:59 02/02/19 06:25 Furosemide (Lasix) 40 mg DAILY IV 01/30/19 09:00 03/01/19 08:59 02/02/19 10:06 Megestrol Acetate (Megace) 400 mg TWICE A DAY ORAL 01/30/19 09:00 03/01/19 08:59 02/02/19 10:09 Metoprolol Tartrate (Lopressor) 50 mg Q12HR ORAL 01/25/19 21:00 02/24/19 20:59 02/02/19 10:07 Pantoprazole (Protonix) 40 mg DAILY ORAL 02/02/19 09:00 03/04/19 08:59 02/02/19 10:06 Ernie Barraza MD Feb 02, 2019 10:54
[2019-02-02 12:00] VITALS: BP 112/69
--- NOTE | 2019-02-02 13:00 | NUR ---
NURSE NOTES: pt noted desaturating to 80% on NRBmask 100%,Resp Therap called and did nasal suctioning,O2 sat up to 93%.will continue to monitor pt.
--- NOTE | 2019-02-02 13:13 | Discharge Summary ---
DATE OF ADMISSION: 01/23/2019 ADMISSION DIAGNOSES: 1. Pneumonia. 2. Respiratory failure. 3. History of CLL. 4. Hypertension. 5. Prior history of stroke. 6. Dysphagia. DISCHARGE DIAGNOSES: 1. Pneumonia. 2. Respiratory failure. 3. History of CLL. 4. Hypertension. 5. Prior history of stroke. 6. Dysphagia. HOSPITAL COURSE: The patient is an unfortunate male with history of CLL, stroke, and dementia. He presented with complaints of severe aspiration pneumonia. He initially was on high-flow oxygen. He initially was kept NPO. Chest x-ray showed extensive pulmonary infiltrates clinically though he improved with decrease in congestion, O2 saturations. He continued to have poor p.o. intake, was placed on Megace. The patient's overall prognosis was discussed with the family and they were aware that his short-term prognosis is poor. They wanted to continue conservative treatment. He should be discharged to a assisted facility with close outpatient followup. His prognosis again is poor, this was discussed with the patient's daughter, Marcelina. Camron Pearl M.D. DR: Marie JOB#: [id number] CC:
--- NOTE | 2019-02-02 13:14 | Progress Note ---
DATE: 01/31/2019 CARDIOLOGY PROGRESS NOTE LATE ENTRY SUBJECTIVE: ____ no new distress. The patient with episodes of rapid atrial arrhythmias. OBJECTIVE: VITAL SIGNS: Blood pressure 94/69 to 123/60, heart rate 90 to 120, respiratory 20 to 22, and afebrile. LUNGS: Coarse breath sounds ____ rhonchi. HEART: Regular rhythm and rate. Normal S1 and S2. ABDOMEN: Soft. EXTREMITIES: 1+ edema. LABORATORY DATA: Chest x-ray with persistent infiltrates. Potassium 3.1 and magnesium 1.7. White count 9.1 and hemoglobin 10.6. IMPRESSION: 1. Paroxysmal atrial tachyarrhythmias. 2. Healthcare acquired pneumonia. 3. CML. 4. Chronic gastrointestinal blood loss and anemia. 5. Hypokalemia. 6. Hypomagnesemia. 7. Acute on chronic diastolic congestive heart failure. PLAN: 1. Replace potassium and magnesium orally and intravenously respectively. 2. Cautious use of bronchodilators. 3. Avoid beta agonist. 4. No anti-platelet or anticoagulant. 5. Titrate beta blockade. 6. May consider addition of diltiazem for additional suppression of atrial arrhythmias. Arcenio Schluz M.D. DR: OSIEL JOB#: [id number] CC:
--- NOTE | 2019-02-02 13:14 | Progress Note ---
DATE: 02/01/2019 CARDIOLOGY PROGRESS NOTE SUBJECTIVE: Discharge cancelled. The patient still has high oxygen needs. He remains congested. Monitored with sinus tachycardia and atrial arrhythmias. OBJECTIVE: LUNGS: Coarse breath sounds and rhonchi. HEART: Regular rhythm and rate. Normal S1 and S2. ABDOMEN: Soft. EXTREMITIES: Trace edema. LABORATORY DATA: White count 11.9 and hemoglobin 12. Potassium 4.1 and albumin 1.8. IMPRESSIONS: 1. Remains tenuous, slow progress. 2. Multiple medical problems. 3. Poor prognosis due to advanced disease including CML. PLAN: 1. Plan of care to include antimicrobials. 2. ____ oxygen titration. 3. Respiratory hygiene. 4. Additional atrial antiarrhythmics with diltiazem. 5. No anti-platelet, no anticoagulants due to bleeding. 6. Nutritional support with protein supplement. 7. Diuresis based on clinical parameters. Arcenio Schulz M.D. DR: OSIEL JOB#: [id number] CC:
--- NOTE | 2019-02-02 13:36 | Surgery Progress Note ---
Surgery Progress Note Subjective Additional Comments no acute events. comfortable. discharged planned. Objective Last 24 Hour Vital Signs Date Time Temp Pulse Resp B/P (MAP) Pulse Ox O2 Delivery O2 Flow Rate FiO2 02/02/19 10:07 100 116/66 02/02/19 09:00 Venturi Mask 10.0 02/02/19 08:00 97.3 100 20 116/66 (83) 100 02/02/19 07:42 100 02/02/19 06:25 97 114/62 02/02/19 04:00 97 02/02/19 04:00 99.0 73 24 114/62 (79) 98 02/02/19 03:03 Venturi Mask 12.0 50 02/02/19 03:02 95 Venturi Mask 12.0 50 02/02/19 00:00 99.1 100 24 103/60 (74) 98 02/02/19 00:00 100 02/01/19 21:34 113 117/63 02/01/19 20:00 98.5 113 24 117/63 (81) 97 02/01/19 20:00 109 02/01/19 18:31 Venturi Mask 10.0 02/01/19 16:00 98.2 109 24 108/70 (83) 95 02/01/19 15:47 108 I&O Intake and Output 02/01/19 02/02/19 19:00 07:00 Intake Total 150 ml Output Total 275 ml Balance -125 ml Intake Oral 150 ml Output Urine Total 275 ml # Bowel Movements 2 Dressing: other Wound: other Cardiovascular: RSR Respiratory: clear Abdomen: soft, non-tender, present bowel sounds, non-distended Extremities: other Laboratory Tests Test 02/02/19 03:00 02/02/19 11:47 White Blood Count 8.5 K/UL (4.8-10.8) Red Blood Count 3.49 M/UL (4.70-6.10) L Hemoglobin 10.3 G/DL (14.2-18.0) L Hematocrit 30.8 % (42.0-52.0) L Mean Corpuscular Volume 88 FL (80-99) Mean Corpuscular Hemoglobin 29.5 PG (27.0-31.0) Mean Corpuscular Hemoglobin Concent 33.3 G/DL (32.0-36.0) Red Cell Distribution Width 16.6 % (11.6-14.8) H Platelet Count 195 K/UL (150-450) Mean Platelet Volume 6.5 FL (6.5-10.1) Neutrophils (%) (Auto) 79.3 % (45.0-75.0) H Lymphocytes (%) (Auto) 11.0 % (20.0-45.0) L Monocytes (%) (Auto) 8.9 % (1.0-10.0) Eosinophils (%) (Auto) 0.2 % (0.0-3.0) Basophils (%) (Auto) 0.6 % (0.0-2.0) Sodium Level 145 MMOL/L (136-145) Potassium Level 3.9 MMOL/L (3.5-5.1) Chloride Level 107 MMOL/L (98-107) Carbon Dioxide Level 28 MMOL/L (21-32) Anion Gap 10 mmol/L (5-15) Blood Urea Nitrogen 21 mg/dL (7-18) H Creatinine 1.1 MG/DL (0.55-1.30) Estimat Glomerular Filtration Rate mL/min (>60) Glucose Level 82 MG/DL (74-106) Calcium Level 8.1 MG/DL (8.5-10.1) L Magnesium Level 2.1 MG/DL (1.8-2.4) Total Bilirubin 0.4 MG/DL (0.2-1.0) Aspartate Amino Transf (AST/SGOT) 13 U/L (15-37) L Alanine Aminotransferase (ALT/SGPT) 9 U/L (12-78) L Alkaline Phosphatase 60 U/L (46-116) Pro-B-Type Natriuretic Peptide 1682 pg/mL (0-125) H Total Protein 5.9 G/DL (6.4-8.2) L Albumin 1.7 G/DL (3.4-5.0) L Globulin 4.2 g/dL Albumin/Globulin Ratio 0.4 (1.0-2.7) L Arterial Blood pH 7.418 (7.350-7.450) Arterial Blood Partial Pressure CO2 46.0 mmHg (35.0-45.0) H Arterial Blood Partial Pressure O2 246.8 mmHg (75.0-100.0) H Arterial Blood HCO3 29.0 mmol/L (22.0-26.0) H Arterial Blood Oxygen Saturation 98.9 % (95-100) Arterial Blood Base Excess 3.9 (-2-2) H Handy Test Positive Plan Problems: (1) Decubitus skin ulcer Assessment & Plan: Pt presented on admission with multiple pressure injuries. Pt is emaciated with contractures . Non-blanchable erythema noted to R and L ears. Partial thickness pressure injury to L scapula.Base of wound moist and viable. Edges flat and adherent to base of wound. Periwound without erythema or induration(L)1cm X(W)0.8cm. Sacral DTPI maroon discoloration ,indurated with dark brown borders.(L)8cm x (W) 7.7cm . Incontinence associated dermatitis periwound extending down into both ischial,and scrotal region. Non-blanchable erythema without induration L trochanter (L)2.5cm x (W)1.8cm. Periwound is pink in colour. DTPI R trochanter.Base of wound maroon and is partially opened(L)8cm x (W) 9.4cm.Non-blanchable erythema periwound .No exudate noted. Full thickness pressure injury R ischium 10% soft necrosis /10% yellow slough otherwise beefy red with dark brown borders. Non-blanchable erythema periwound. (L)2.7cm x (W)3.9cm.No odor or exudate noted. DTPI R achilles that is partially opened with small amt sanguineous exudate.Base of wound is fluctuant. Opening within DTPI is beefy red. Erythema along borders .Non-blanchable erythema without induration periwound. (L)7.4cm x (W)2cm. Dry brown eschar plantar /lateral R 1st metatarsal head.Periwound without erythema or fluctuance.(L)5cm x(W)1.5cm. DTPI medial L malleolus. Base of wound maroon- indurated with small area centrally that is fluctuant. Non-blanchable erythema without induration periwound(L)1.5cm x (W)1.3cm. Non-blanchable erythema without induration medial R malleolus. Both heels are pink and dry . Tx.Plan: Apply Moisture Barrier Paste to scrotum and buttocks with each perineal care. Apply Moisture barrier to sacrum .Cover with Optifoam drsg Q3days and prn. Apply Cavilon Skin Barrier to R st metatarsal. Cover with Optifoam drsg .Change every 7 days and prn. Apply Cavilon Skin BArrier to L scapula. Cover with Optifoam drsg.Change Q7days and prn. Cleanse R achilles with saline. Apply Therahoney. Apply Cavilon Skin barrier periwound. Cover with Optifoam drsg. Change every 3 days and prn. Cleanse R trochanter and R ischial wounds with Saline .Apply Therahoney. Apply Moisture Barrier periwound. Cover with Optifoam drsg Q3days and prn. Apply Cavilon SKin Barrier to R and L malleoli,( Medial and lateral aspects). Cover each each site with Optifoam drsgs. Change every 7 days and prn. Apply Cavilon Skin Barrier to lateral aspects of both feet .Cover with Optifoam drsgs.Change every 7 days and prn. Maintain Coloplast rings to both ears for protection.Change prn. APM/MO mattress. Reposition at least every 2hours or as tolerated. Place pillow between knees. Off-load heels with pillow. Continue wound care plan as above upon discharge to detention MaryJosh Feb 02, 2019 13:36
--- NOTE | 2019-02-02 14:15 | NUR ---
RD ASSESSMENT & RECOMMENDATIONS SEE CARE ACTIVITY FOR COMPLETE ASSESSMENT DAILY ESTIMATED NEEDS: Needs based on Underweight, wound 52kg 30-35 kcals/kg 5100-7653 total kcals 1.25-2 g protein/kg 65-104 g total protein 25-30 mL/kg 2729-7560 total fluid mLs NUTRITION DIAGNOSIS: * Increased kcal and protein needs r/t underweight status as evidenced by pt w generalized moderate to severe wasting, BMI underweight per guidelines, 75% of [place] Body Weight. * Swallowing difficulty R/T dysphagia, h/o CVA as evidenced by HEAD BUYER TOBACCO eval, recs for liquify pureed, NTL w/ poor po intake. * Altered nutrition related lab values R/T clinical condition as evidenced by elev BNP (2470-> 7608 ->1682) CURRENT DIET:BARRERA liquify puree/ NTL PO DIET RECOMMENDATIONS: Liberalized / Regular diet (texture per HEAD BUYER TOBACCO) ENTERAL NUTRITION RECOMMENDATIONS: Osmolite 1.5 @50ml/hr x24 hrs + Prosource x1 daily to provide 1200ml, 1800 kcal, 75g + 11g prot, 914ml free H2O - If non oral feeds are part of POC, rec to obtain GI access, start Osmolite 1.5 @ 20ml for 6-8 hrs - advance as tolerated 10ml q 4-6 hrs to goal - Add PROSOURCE 1 pack daily to better meet est prot needs - Flush per MD/ HOB over 30 degrees ADDITIONAL RECOMMENDATIONS: * CALIBRATED bedscale wt for accurate CBW * Weekly wts given underweight status * WOUND CARE: add LESTER BID + MVI w/ min x1 + VIT C 500mg BID * TF / NONORAL FEEDING RESC ABOVE OF PART OF POC * -> Monitor POC. Family requesting comfort oral feeding, no TF at this time * Monitor lytes closely while on lasix, replete as needed * Continue Ensure Enlive TID w/ meals
[2019-02-02] MEDS: Vancomycin 500mg/D5W 110ml IVPB SCH ×2 (14:49)
[2019-02-02 16:00] VITALS: BP 104/53
--- NOTE | 2019-02-02 16:15 | History and Physical Report ---
DATE OF ADMISSION: 01/23/2019 HISTORY OF PRESENT ILLNESS: This is an unfortunate 78-year-old male. He has a prior history of stroke, CML, hypertension, history of recurrent urinary tract infections, and dysphagia. He was admitted from a [facility] facility with complaints of shortness of breath. He initially required placement on BiPAP. In the emergency room, he had x-ray evidence of severe pneumonia. Broad spectrum IV antibiotics have been instituted and the patient is now admitted for further evaluation and care. PAST MEDICAL HISTORY: As above. PAST SURGICAL HISTORY: None. CURRENT MEDICATIONS: Reconciled and reviewed. ALLERGIES: None. FAMILY HISTORY: None. SOCIAL HISTORY: Negative for tobacco, ethanol, or drugs. REVIEW OF SYSTEMS: From the patient is unobtainable, as he is confused. PHYSICAL EXAMINATION: VITAL SIGNS: Temperature was 98 degrees, pulse 99, and blood pressure 120/72. GENERAL: The patient is a chronically ill-appearing thin male, in no apparent distress. He is currently on high-flow oxygen. NECK: Supple. There is no jugular venous distention. HEART: Regular rate and rhythm. LUNGS: Diminished breath sounds with bilateral rhonchi. ABDOMEN: Soft, nontender, and nondistended. EXTREMITIES: No clubbing, cyanosis, or edema. LABORATORY DATA: Initial labs showed white count of 10, hemoglobin 10, hematocrit 31, and platelets 199. Labs showed sodium 138, potassium 3.6, glucose 110. Natriuretic peptide level of 2400. Chest x-ray showed diffuse dense infiltrates bilaterally. ASSESSMENT: This is an unfortunate male with complaints of severe pneumonia. PROBLEM LIST: 1. Severe pneumonia. 2. Respiratory failure. 3. CML. 4. Hypertension. 5. History of stroke and dementia. 6. History of aortic stenosis. PLAN: 1. Antibiotics. 2. BiPAP and respiratory treatments as needed. 3. Aspiration precautions. 4. IV hydration. 5. Replace electrolytes. 6. Overall prognosis is poor. Camron Pearl M.D. DR: SULLY JOB#: [id number] CC:
--- NOTE | 2019-02-02 19:00 | NUR ---
NURSE NOTES: Transferred patient by bed,patient awake ,non verbal,on 100 % non rebreather mask O 2 saturation 95 %,head elevated aspiration precaution,with compression stockings,special mattress for skin protection,no distress,no belongings,IV heplock,
--- NOTE | 2019-02-02 19:00 | NUR ---
TRANSFER TO FLOOR: Patient transferred to 2 E Telemetry 218-1, per bed awake,in 100% NRB mask accompanied by bottle house quality control technician Sylvie Honeycutt.. medications given to receiving RN.
--- NOTE | 2019-02-02 19:20 | NUR ---
HAND-OFF: Report given to RN Amarilis patient on 100% non rebreather mask,awake no distress
--- NOTE | 2019-02-02 19:35 | NUR ---
HAND-OFF: Report given to Amarilis Ding RN.
[2019-02-02 20:00] VITALS: BP 107/66
[2019-02-02] MEDS ORDERED: Metoprolol Tartrate 50mg tab ORAL SCH (21:00)
--- NOTE | 2019-02-02 23:47 | NUR ---
NURSE NOTES: pt in bed BS wml according with pt's baseline. will continue to monitor. Addendum: 02/02/19 at 2348 by Amarilis Ding RN VS wnl
[2019-02-03] VITALS: BP 111/59
[2019-02-03] MEDS: Vancomycin 500mg/D5W 110ml IVPB SCH ×2 (00:56)
[2019-02-03] MEDS: Vancomycin 500 MG in D5W 110 ML IVPB SCH ×2 (00:57→13:57)
--- NOTE | 2019-02-03 01:45 | Progress Note ---
DATE: 02/02/2019 CARDIOLOGY PROGRESS NOTE: SUBJECTIVE: Condition remains tenuous. The patient was noted to have a large pericardial effusion in addition to bilateral pleural effusions. The echocardiogram revealed no signs of tamponade. OBJECTIVE: VITAL SIGNS: Blood pressure 107/66, pulse 104, respirations 22, afebrile, T-max 99. LUNGS: Diminished breath sounds. CARDIAC: Regular rhythm. Rapid rate. Normal S1, S2. ABDOMEN: Soft. EXTREMITIES: Trace edema. LABORATORY DATA: Albumin 1.7. BUN 21, creatinine 1.1, potassium 3.9, magnesium 2.1. Pro-natriuretic peptide is decreased to 1682. IMPRESSION: 1. Aortic stenosis. 2. Pericardial effusion. 3. Pleural effusion. 4. Paroxysmal atrial fibrillation. 5. CML. 6. Anemia with chronic blood loss from the GI tract. PLAN: 1. Continue diuresis efforts. 2. Monitor for clinical signs of tamponade. 3. Optimize nutritional state. 4. High risk for any cardiovascular intervention including pericardiocentesis. Arcenio Schulz M.D. DR: KARISSA JOB#: [id number] CC:
[2019-02-03 04:00] VITALS: BP 128/73
[2019-02-03] MEDS: dilTIAZem HCl 30mg tab ORAL SCH (06:06)
--- NOTE | 2019-02-03 06:39 | NUR ---
since i got pt pt having difficulty breathing, assessed pt and gave orders for BIPAP and ABG test. will continue to monitor.
[2019-02-03 08:00] VITALS: BP 139/76
--- NOTE | 2019-02-03 08:05 | NUR ---
NURSE NOTES: pt in bed in low position, HOB in semi fowlers, call light at bedside, 2 rails up, bed alarm on, No fluids running, Iv site L UA 22g locked but asymptomatic, need to crush meds as patient is aspiration precautions, condom catheter off, told IT HELP DESK ANALYST if she can put one back on, pt in rt lateral position, pt DNR/DNI, pt has wound care and according to night nurse she changed them this morning, pt on BIPAP, stat order for ABGs RT doing it now and Md wants to be notified as soon as possible on results, pt respirations 28 per min, will continue to monitor as pt has no orientations and does not respond, is non-verbal.
--- NOTE | 2019-02-03 08:59 | General Progress Note ---
Assessment/Plan Problem List: (1) Severe anemia ICD Codes: D64.9 - Anemia, unspecified SNOMED: 740704095 (2) PUD (peptic ulcer disease) ICD Codes: K27.9 - Peptic ulcer, site unspecified, unspecified as acute or chronic, without hemorrhage or perforation SNOMED: 99766626 (3) Altered level of consciousness ICD Codes: R40.4 - Transient alteration of awareness SNOMED: 8539560 (4) CAD/ND (5) CML (chronic myelocytic leukemia) ICD Codes: C92.10 - Chronic myeloid leukemia, BCR/ABL-positive, not having achieved remission SNOMED: 02895391 (6) Aortic stenosis, severe ICD Codes: I35.0 - Nonrheumatic aortic (valve) stenosis SNOMED: 15289608 (7) Pneumonia ICD Codes: J18.9 - Pneumonia SNOMED: 220972943 Status: deteriorating Assessment/Plan npo bipap lasix x 1 resp rx asp precautions iv abx follow up cultures prn diuresis monitor labs and abg will d/w family gt again- previously they declined message left with dtr ursula updating pt status very poor prognosis family aware Subjective ROS Limited/Unobtainable: Yes Constitutional: Reports: malaise, weakness HEENT: Reports: no symptoms Cardiovascular: Reports: no symptoms Respiratory: Reports: cough, shortness of breath Gastrointestinal/Abdominal: Reports: difficulty swallowing Genitourinary: Reports: no symptoms Neurologic/Psychiatric: Reports: pre-existing deficit Endocrine: Reports: no symptoms Hematologic/Lymphatic: Reports: no symptoms Allergies: Coded Allergies: No Known Allergies (Unverified , 10/28/18) All Systems: reviewed and negative except above Subjective doing poorly. found with agonal respiration. according RN pt has been "unstable all night." Objective Last 24 Hour Vital Signs Date Time Temp Pulse Resp B/P (MAP) Pulse Ox O2 Delivery O2 Flow Rate FiO2 02/03/19 08:35 Bi-pap 10.0 02/03/19 08:00 97.4 87 28 139/76 (97) 92 02/03/19 06:50 Bi-pap 50 02/03/19 06:50 95 Bi-pap 50 02/03/19 06:45 97 23 95 Facial 50 02/03/19 06:06 104 126/77 02/03/19 04:00 107 02/03/19 04:00 99.4 104 22 128/73 (91) 97 02/03/19 00:00 107 02/03/19 00:00 99.3 99 24 111/59 (76) 94 02/02/19 22:49 107 113/59 02/02/19 21:00 Venturi Mask 10.0 02/02/19 20:57 104 107/66 02/02/19 20:00 100 02/02/19 20:00 99.0 104 24 107/66 (80) 94 02/02/19 16:00 98.2 98 18 104/53 (70) 90 02/02/19 16:00 89 02/02/19 14:48 96 112/69 02/02/19 12:00 96 02/02/19 12:00 97.3 100 18 112/69 (83) 99 02/02/19 10:07 100 116/66 02/02/19 09:00 Venturi Mask 10.0 Intake and Output 02/02/19 02/03/19 19:00 07:00 Intake Total 240 ml 110 ml Output Total 1500 ml 250 ml Balance -1260 ml -140 ml Intake Oral 240 ml IV Total 110 ml Output Urine Total 1500 ml 250 ml Laboratory Tests 02/02/19 11:47: Arterial Blood pH 7.418, Arterial Blood Partial Pressure CO2 46.0H, Arterial Blood Partial Pressure O2 246.8H, Arterial Blood HCO3 29.0H, Arterial Blood Oxygen Saturation 98.9, Arterial Blood Base Excess 3.9H, Handy Test Positive 02/03/19 08:10: Arterial Blood pH 7.287L, Arterial Blood Partial Pressure CO2 63.4*H, Arterial Blood Partial Pressure O2 68.1L, Arterial Blood HCO3 29.6H, Arterial Blood Oxygen Saturation 89.7*L, Arterial Blood Base Excess 1.7, Handy Test Positive Height (Feet): 5 Height (Inches): 8.00 Weight (Pounds): 116 Objective General Appearance: WD/WN, alert, lethargic, thin Neck: supple Cardiovascular: normal peripheral pulses, normal rate, regular rhythm Respiratory/Chest: rhonchi - bilaterally Abdomen: normal bowel sounds, non tender, soft, no organomegaly Edema: no edema noted Arm (L), no edema noted Arm (R), no edema noted Leg (L), no edema noted Leg (R), no edema noted Pedal (L), no edema noted Pedal (R), no edema noted Generalized Neurologic: motor weakness Camron Pearl MD Feb 03, 2019 08:59
[2019-02-03] MEDS ORDERED: Megace 400mg/10ml Susp ORAL SCH (09:00)
--- NOTE | 2019-02-03 10:18 | Infectious Diseases Prog Note ---
Assessment/Plan Assessment/Plan antibiotics : vancomycin iv A 1. MRSA pneumonia 2. CLL 3. hypertension 4. aortic stenosis 5. CVA 6. 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 pleural effusions 10. pericardial effusion P 1. continue iv vancomycin 2. start zosyn 3. sputum culture 4. will follow up cultures Subjective ROS Limited/Unobtainable: Yes Allergies: Coded Allergies: No Known Allergies (Unverified , 10/28/18) Objective Vital Signs Last 24 Hour Vital Signs Date Time Temp Pulse Resp B/P (MAP) Pulse Ox O2 Delivery O2 Flow Rate FiO2 02/03/19 09:29 95 24 99 Facial 50 02/03/19 08:35 Bi-pap 10.0 02/03/19 08:00 97.4 87 28 139/76 (97) 92 02/03/19 06:50 Bi-pap 50 02/03/19 06:50 95 Bi-pap 50 02/03/19 06:45 97 23 95 Facial 50 02/03/19 06:06 104 126/77 02/03/19 04:00 107 02/03/19 04:00 99.4 104 22 128/73 (91) 97 02/03/19 00:00 107 02/03/19 00:00 99.3 99 24 111/59 (76) 94 02/02/19 22:49 107 113/59 02/02/19 21:00 Venturi Mask 10.0 02/02/19 20:57 104 107/66 02/02/19 20:00 100 02/02/19 20:00 99.0 104 24 107/66 (80) 94 02/02/19 16:00 98.2 98 18 104/53 (70) 90 02/02/19 16:00 89 02/02/19 14:48 96 112/69 02/02/19 12:00 96 02/02/19 12:00 97.3 100 18 112/69 (83) 99 Height (Feet): 5 Height (Inches): 8.00 Weight (Pounds): 116 HEENT: other - on bipap Respiratory/Chest: lungs clear Cardiovascular: normal rate, regular rhythm, no gallop/murmur Abdomen: soft, non tender Extremities: no edema Microbiology Date/Time Source Procedure Growth Status 02/02/19 17:00 Sputum Gram Stain - Final Resulted 02/02/19 17:00 Sputum Sputum Culture Pending Resulted Laboratory Tests Test 02/02/19 11:47 02/03/19 08:10 Arterial Blood pH 7.418 (7.350-7.450) 7.287 (7.350-7.450) Arterial Blood Partial Pressure CO2 46.0 mmHg (35.0-45.0) H 63.4 mmHg (35.0-45.0) *H Arterial Blood Partial Pressure O2 246.8 mmHg (75.0-100.0) H 68.1 mmHg (75.0-100.0) L Arterial Blood HCO3 29.0 mmol/L (22.0-26.0) H 29.6 mmol/L (22.0-26.0) H Arterial Blood Oxygen Saturation 98.9 % (95-100) 89.7 % (95-100) *L Arterial Blood Base Excess 3.9 (-2-2) H 1.7 (-2-2) Handy Test Positive Positive Current Medications Medications (Trade) Dose Ordered Sig/Elder Route PRN Reason Start Time Stop Time Status Last Admin Dose Admin Acetaminophen (Tylenol) 650 mg Q4H PRN ORAL Mild Pain/Temp > 100.5 02/02/19 19:37 02/23/19 19:36 Furosemide (Lasix) 40 mg DAILY IV 02/03/19 09:00 03/01/19 08:59 02/03/19 09:29 Vancomycin HCl (Vanco rx to dose) 1 ea DAILY PRN MISC Per rx protocol 02/02/19 19:38 03/04/19 19:37 Vancomycin HCl 500 mg/Dextrose 110 ml @ 110 mls/hr Q12H IVPB 02/03/19 01:00 02/07/19 12:59 02/03/19 00:57 Ernie Barraza MD Feb 03, 2019 10:18
--- NOTE | 2019-02-03 11:38 | NUR ---
SWALLOW STATUS: PATIENT ALERT BUT ON BIPAP, CANNOT TOLERATE PO TRIALS AT THIS TIME. ON THE DYSPHAGIA OUTCOME SEVERITY SCALE [place] AT LEVELS 1 AND 2 MODERATELY SEV TO SEVERE DYSPHAGIA: CAN'T TOLERATE PO ON BIPAP AND MAX ASSIST FOR USE OF STRATEGIES WITH PARTIAL PO ONLY (TOLERATES AT LEAST ONE CONSISTENCY SAFELY WITH TOTAL USE OF STRATEGIES. ON THE FUNCTIONAL ORAL INTAKE SCALE (FOIS) LEVEL 2 NOW MIN /INCONSISTENT ORAL INTAKE BUT FAMILY DOES NOT WANT TF. WAS AT LEVEL 4 TOTAL ORAL INTAKE OF SINGLE CONSISTENCY PER RN ? TPN UPDATE ON LUNG STATUS: 02/01/19 CTA: Impression: Moderate to large bilateral pleural effusions. Resultant compressive atelectasis of most of both lower lobes, portions of the right upper lobe. Left perihilar INFILTRATE, likely PNEUMONIA, also described on prior chest radiographs. UPDATE ON RESP STATUS: PER COMMUNITY RESOURCE OFFICER, PATIENT DID NOT EAT SINCE HE IS ON BIPAP NOW, DID NOT TOLERATE NASAL CANNULA. PER RESP THERAPIST TODAY: Date: 02/03/19 09:29 Type: BiPAP Ventilatory Support Asse... Initial Therapy No Oxygen Delivery Method Facial BiPAP Mode S/T Inspiratory Airway Pressure 18 cm H2O Expiratory Airway Pressure 4 cm H2O Pressure Support (IPAP-EPAP) 14 Back-up Rate 16 bpm Tidal Volume 550 ml Mask Leak 40 LPM Minute Ventilation 11.0 L/min Fraction of Inspired Oxygen (FiO2) 50 % Bedside Pulse Oximetry 99 % (90-100) Pulse Rate 95 beats per min (60-100) Respiratory Rate 24 breaths per minute (12-24) Respiratory Effort Normal Labored Short of Breath Respiratory Depth Shallow Respiratory Pattern Irregular Level of Consciousness Restless Disoriented Vent High Pressure Alarm Setting 40 cm H2O Vent Low Inspir Pressure Alarm Set 5 cm H2O Tape In place Yes Skin Intact Yes Side Bilateral Location All Lobes Phase Inspiratory & Expiratory Breath Sounds Diminished Chest Shape Normal Cough Description Non-productive Cough Frequency Occassional Sputum Amount None Respiratory Symptoms SOB at Rest SOB with Exertion Large pericardial effusion 3 mm noncalcified inferior left upper lobe nodule. If there is significant smoking history or other risk factors for lung carcinoma, short interval follow-up CT at 6-12 months is recommended. No further follow-up necessary if there is no significant risk factors Ectatic right and left main pulmonary arteries, suggestive of although not diagnostic for pulmonary arterial hypertension Note debris within the distal trachea and proximal bronchi Other findings as noted, including right renal parenchymal calcification, degenerative spondylosis, aortic valvular calcifications and coronary artery calcifications, left renal cysts Goals not met for intake (poor or refuses) and pt on BIPAP, may need nonoral feeding if still requires BIPAP but NO TUBE FEEDINGS per family. Continue oral care and hold po for now. Goals met for staff educated in oral care. Plan: continue with no po for now while on BIPAP and continue with oral care MD to explore with family regarding nonoral feedings options since they do not want any Tube Feedings. d/w rn, Cheikh left message with Dr. Styles regarding status of patient, he will speak with family. Addendum: 02/03/19 at [address] STYLES RESPONDED OK
[2019-02-03 12:00] VITALS: BP 121/68
--- NOTE | 2019-02-03 14:02 | Pulmonology Progress Note ---
Assessment/Plan Assessment/Plan PULMONARY PROGRESS NOTE HISTORY OF PRESENT ILLNESS: The patient is a 78-year-old male, who had recent admission for pneumonia. The patient discharged to care home facility and developed fever and shortness of breath, transferred back for sepsis and new pneumonia. Has CHRISTIANNE nodule, bilateral pleural effusions, basal atelectasis, endobronchial debris, enlrged Pulm arteries on CT chest PAST MEDICAL HISTORY: Aortic valve stenosis, hypertensive heart disease, pneumonia, paroxysmal atrial fibrillation, CVA with focal left-sided weakness, COPD, CML, and GI bleed. Assessment/Plan IMPRESSION: 1. Pneumonia, possibly pulmonary edema (worsening) 2. Severe protein-calorie malnutrition. 3. History of CVA. 4. Focal weakness. 5. Concern for aspiration. 6. Evidence of anemia of chronic disease. 7. Recurrent fevers. 8. Respiratory congestion. 9. pulmonary edema PLAN HHN, CPT BiPAP PRN respiratory care monitor BNP- elevated ???diurese per cards monitor fluid intake aspiration precautions IV antibiotics care noted and reviewed impression, plan, and exam edited and reviewed in detail care discussed with RN Subjective ROS Limited/Unobtainable: Yes Allergies: Coded Allergies: No Known Allergies (Unverified , 10/28/18) Subjective care noted confused some congestion noted Objective Vital Signs Noted Objective GENERAL: An ill-appearing male, in no acute distress. HEENT: Oropharynx is moist. Reduced gag. NECK: Otherwise supple. No accessory muscle use. LUNGS: noted rhonchi. Moderate air entry. reduced CARDIAC: S1 and S2. Regular rate and rhythm without murmurs, rubs, or gallops. ABDOMEN: Soft, nontender, nondistended. EXTREMITIES: No cyanosis, clubbing, or edema. Focal weakness noted on examination. and confused Laboratory Tests 02/01/19 08:30: White Blood Count 11.9H, Red Blood Count 4.16L, Hemoglobin 12.1L, Hematocrit 36.9L, Mean Corpuscular Volume 89, Mean Corpuscular Hemoglobin 29.0, Mean Corpuscular Hemoglobin Concent 32.7, Red Cell Distribution Width 16.8H, Platelet Count 208, Mean Platelet Volume 7.0, Neutrophils (%) (Auto) 81.1H, Lymphocytes (%) (Auto) 10.2L, Monocytes (%) (Auto) 7.7, Eosinophils (%) (Auto) 0.2, Basophils (%) (Auto) 0.8 02/01/19 12:30: Arterial Blood pH 7.423, Arterial Blood Partial Pressure CO2 45.4H, Arterial Blood Partial Pressure O2 79.3, Arterial Blood HCO3 29.0H, Arterial Blood Oxygen Saturation 94.6L, Arterial Blood Base Excess 4.0H, Handy Test Positive 02/02/19 03:00: White Blood Count 8.5, Red Blood Count 3.49L, Hemoglobin 10.3L, Hematocrit 30.8L , Mean Corpuscular Volume 88, Mean Corpuscular Hemoglobin 29.5, Mean Corpuscular Hemoglobin Concent 33.3, Red Cell Distribution Width 16.6H, Platelet Count 195, Mean Platelet Volume 6.5, Neutrophils (%) (Auto) 79.3H, Lymphocytes (%) (Auto) 11.0L, Monocytes (%) (Auto) 8.9, Eosinophils (%) (Auto) 0.2, Basophils (%) (Auto) 0.6, Sodium Level 145, Potassium Level 3.9, Chloride Level 107, Carbon Dioxide Level 28, Anion Gap 10, Blood Urea Nitrogen 21H, Creatinine 1.1, Estimat Glomerular Filtration Rate , Glucose Level 82, Calcium Level 8.1L, Magnesium Level 2.1, Total Bilirubin 0.4, Aspartate Amino Transf ( AST/SGOT) 13L, Alanine Aminotransferase (ALT/SGPT) 9L, Alkaline Phosphatase 60, Pro-B-Type Natriuretic Peptide 1682H, Total Protein 5.9L, Albumin 1.7L, Globulin 4.2, Albumin/Globulin Ratio 0.4L Current Medications Medications (Trade) Dose Ordered Sig/Elder Route PRN Reason Start Time Stop Time Status Last Admin Dose Admin Acetaminophen (Tylenol) 650 mg Q4H PRN ORAL Mild Pain/Temp > 100.5 01/24/19 17:30 02/23/19 17:29 01/24/19 18:05 Diltiazem HCl (Cardizem) 30 mg EVERY 8 HOURS ORAL 02/02/19 06:00 03/04/19 05:59 02/02/19 06:25 Furosemide (Lasix) 40 mg DAILY IV 01/30/19 09:00 03/01/19 08:59 02/01/19 08:45 Megestrol Acetate (Megace) 400 mg TWICE A DAY ORAL 01/30/19 09:00 03/01/19 08:59 02/01/19 17:42 Metoprolol Tartrate (Lopressor) 50 mg Q12HR ORAL 01/25/19 21:00 02/24/19 20:59 02/01/19 21:34 Pantoprazole (Protonix) 40 mg DAILY ORAL 02/02/19 09:00 03/04/19 08:59 Subjective ROS Limited/Unobtainable: No Allergies: Coded Allergies: No Known Allergies (Unverified , 10/28/18) Objective Last 24 Hour Vital Signs Date Time Temp Pulse Resp B/P (MAP) Pulse Ox O2 Delivery O2 Flow Rate FiO2 02/03/19 12:00 96.2 89 36 121/68 (85) 94 02/03/19 12:00 100 02/03/19 11:33 95 34 Bi-pap 50 02/03/19 11:32 95 34 95 Facial 50 02/03/19 09:29 95 24 99 Facial 50 02/03/19 08:35 Bi-pap 10.0 02/03/19 08:00 97.4 87 28 139/76 (97) 92 02/03/19 07:30 94 02/03/19 06:50 Bi-pap 50 02/03/19 06:50 95 Bi-pap 50 02/03/19 06:45 97 23 95 Facial 50 02/03/19 06:06 104 126/77 02/03/19 04:00 107 02/03/19 04:00 99.4 104 22 128/73 (91) 97 02/03/19 00:00 107 02/03/19 00:00 99.3 99 24 111/59 (76) 94 02/02/19 22:49 107 113/59 02/02/19 21:00 Venturi Mask 10.0 02/02/19 20:57 104 107/66 02/02/19 20:00 100 02/02/19 20:00 99.0 104 24 107/66 (80) 94 02/02/19 16:00 98.2 98 18 104/53 (70) 90 02/02/19 16:00 89 02/02/19 14:48 96 112/69 Intake and Output 02/02/19 02/03/19 19:00 07:00 Intake Total 240 ml 110 ml Output Total 1500 ml 250 ml Balance -1260 ml -140 ml Intake Oral 240 ml IV Total 110 ml Output Urine Total 1500 ml 250 ml Microbiology Date/Time Source Procedure Growth Status 02/02/19 17:00 Sputum Gram Stain - Final Resulted 02/02/19 17:00 Sputum Sputum Culture Pending Resulted Laboratory Tests 02/03/19 08:10: Arterial Blood pH 7.287L, Arterial Blood Partial Pressure CO2 63.4*H, Arterial Blood Partial Pressure O2 68.1L, Arterial Blood HCO3 29.6H, Arterial Blood Oxygen Saturation 89.7*L, Arterial Blood Base Excess 1.7, Handy Test Positive Current Medications Medications (Trade) Dose Ordered Sig/Elder Route PRN Reason Start Time Stop Time Status Last Admin Dose Admin Acetaminophen (Tylenol) 650 mg Q4H PRN ORAL Mild Pain/Temp > 100.5 02/02/19 19:37 02/23/19 19:36 Furosemide (Lasix) 40 mg DAILY IV 02/03/19 09:00 03/01/19 08:59 02/03/19 09:29 Piperacillin Sod/ Tazobactam Sod 3.375 gm/Dextrose 110 ml @ 27.5 mls/hr EVERY 8 HOURS IVPB 02/03/19 13:00 02/08/19 12:59 Vancomycin HCl (Vanco rx to dose) 1 ea DAILY PRN MISC Per rx protocol 02/02/19 19:38 03/04/19 19:37 Vancomycin HCl 500 mg/Dextrose 110 ml @ 110 mls/hr Q12H IVPB 02/03/19 01:00 02/07/19 12:59 02/03/19 13:57 Arcenio Mandujano MD Feb 03, 2019 14:02
[2019-02-03] MEDS: Piperacillin/Tazobactam 3.375 GM in D5W 110 ML IVPB SCH ×2 (14:55→22:00)
[2019-02-03 16:00] VITALS: BP 94/62
--- NOTE | 2019-02-03 17:00 | NUR ---
RESPIRATORY NOTE: Notified nursed that patient needs a red outlet for BIPAP
--- NOTE | 2019-02-03 19:20 | NUR ---
NURSE NOTES: received pt. pt nonverbal. on BIPAP. pt having difficulty breathing using accesory muscles with o2 sat 89. HR 115 family at bedside. will continue to monitor
--- NOTE | 2019-02-03 19:23 | NUR ---
HAND-OFF: Report given to Amarilis Sol.
[2019-02-03] MEDS: Albuterol/Ipratropium 3ml neb HHN SCH ×2 (19:57→23:34)
[2019-02-03 20:00] VITALS: BP 83/62
--- NOTE | 2019-02-03 20:01 | NUR ---
RESPIRATORY NOTE: Received pt on current bipap settings. Notified SOCORRO Salamanca and Charge nurse Barbara to put find a room with with red outlet and will let me know. Pt given breathing treatment and performed chest percussion. Will continue to monitor pt.
--- NOTE | 2019-02-03 22:35 | NUR ---
NURSE NOTES: family refusing IVPB administration. education provided. family still refused.
--- NOTE | 2019-02-03 23:30 | Progress Note ---
DATE: 02/03/2019 CARDIOLOGY PROGRESS NOTE: SUBJECTIVE: The patient's condition remains poor, deteriorating. He is short of breath. OBJECTIVE: LUNGS: Bilateral breath sounds. Scattered rhonchi. Diminished at bases. CARDIAC: Regular rhythm. Rapid rate. Normal S1, S2. Monitor sinus with atrial arrhythmias. Trace edema. VITAL SIGNS: He is on BiPAP support. Blood pressure 94/62, heart rate 92, respiratory 24 to 36. LABORATORY DATA: ABG 7.28, 63, 68. IMPRESSION: 1. Acute on chronic respiratory acidosis. 2. Pericardial effusion. 3. Pleural effusion. 4. Respiratory failure. 5. Healthcare-acquired pneumonia. 6. Severe protein-calorie malnutrition. 7. Sepsis. 8. MRSA pneumonia. 9. CML. 10. Aortic stenosis. PLAN: 1. Antimicrobials. 2. Respiratory therapy. 3. BiPAP support. 4. Consider thoracentesis. 5. May need transfer to tertiary care facility for pericardiocentesis; however, condition is very frail and I believe the patient would succumb with such a high risk intervention. 6. DNR and is appropriate at this time. Arcenio Schulz M.D. DR: KARISSA JOB#: [id number] CC:
[2019-02-04] VITALS (7 sets, daily range): BP systolic 55–70; BP diastolic 31–45
[2019-02-04] MEDS: Vancomycin 500 MG in D5W 110 ML IVPB SCH (01:00)
--- NOTE | 2019-02-04 01:14 | NUR ---
NURSE NOTES: bipap on place but pt grasping for air, respirations 24, o2sat 88%, family at bedside. will continue to monitor
--- NOTE | 2019-02-04 01:14 | NUR ---
NURSE NOTES: family refusing vancomycin scheduled at 00:00 education provided family still refused med
[2019-02-04] MEDS: Albuterol/Ipratropium 3ml neb HHN SCH ×6 (03:19→23:00)
[2019-02-04] MEDS: Piperacillin/Tazobactam 3.375 GM in D5W 110 ML IVPB SCH ×3 (06:00→23:11)
--- NOTE | 2019-02-04 06:14 | NUR ---
NURSE NOTES: family refusing IV insertion for IVPB administration
--- NOTE | 2019-02-04 06:41 | NUR ---
NURSE NOTES: family at bedside. no change in condition, will endorse to incoming nurse.
--- NOTE | 2019-02-04 07:44 | NUR ---
NURSE NOTES: Pt in bed in low position, BiPap on, pt is actively passing, no orientation, pt does not respond and family at bedside, NO IV as per night nurse his RT upper arm was infiltrated and family denied for him to have any IVs from now on, family at bedside and wish to have their time with their relative before he passes.
--- NOTE | 2019-02-04 07:53 | NUR ---
HAND-OFF: Report given to SOCORRO Bernabe.
--- NOTE | 2019-02-04 09:45 | Pulmonology Progress Note ---
Assessment/Plan Assessment/Plan IMPRESSION: 1. pleural effusions 2. Severe protein-calorie malnutrition. 3. History of CVA. 4. pericardial effusions 5. Concern for aspiration. 6. Evidence of anemia of chronic disease. 7. Recurrent fevers. 8. Respiratory congestion. 9. pulmonary edema 10. hypoxemia PLAN prognosis poor attempt to tap per cards, not stable for pericardiocentesis BIPAP as needed oxygen as needed monitor fluid intake aspiration precautions IV antibiotics care noted and reviewed impression, plan, and exam edited and reviewed in detail care discussed with RN Subjective Allergies: Coded Allergies: No Known Allergies (Unverified , 10/28/18) Subjective care noted confused dyspneic d/w cards- noted large pericardial and pleural effusions Objective Last 24 Hour Vital Signs Date Time Temp Pulse Resp B/P (MAP) Pulse Ox O2 Delivery O2 Flow Rate FiO2 02/04/19 08:36 Bi-pap 10.0 02/04/19 08:25 130 93 Bi-pap 50 02/04/19 08:25 Bi-pap 50 02/04/19 08:23 132 96 Facial 50 02/04/19 08:17 92 Bi-pap 50 02/04/19 08:17 Bi-pap 50 02/04/19 08:00 97.6 134 54 59/39 (46) 92 02/04/19 05:24 106 34 96 Facial 50 02/04/19 04:00 97.5 114 56 70/45 (53) 94 02/04/19 04:00 118 02/04/19 03:30 101 26 97 Bi-pap 50 02/04/19 03:20 87 29 96 Bi-pap 50 02/04/19 03:19 96 28 97 Facial 50 02/04/19 01:28 97 29 98 Facial 50 02/04/19 00:00 115 02/04/19 00:00 99.2 114 36 68/41 (50) 88 02/03/19 23:44 110 27 95 Bi-pap 50 02/03/19 23:36 99 26 96 Facial 50 02/03/19 23:34 96 26 93 Bi-pap 50 02/03/19 21:27 121 31 95 Facial 50 02/03/19 21:00 Bi-pap 10.0 02/03/19 20:14 115 33 97 Bi-pap 50 02/03/19 20:00 99.5 115 37 83/62 (69) 96 3/15/19 20:00 115 25 95 Bi-pap 50 02/03/19 20:00 116 02/03/19 19:59 Bi-pap 50 02/03/19 19:58 117 34 Bi-pap 50 02/03/19 19:58 95 Bi-pap 50 02/03/19 19:57 127 34 94 Facial 50 02/03/19 17:00 106 22 98 Facial 50 02/03/19 16:15 104 02/03/19 16:00 96.9 92 24 94/62 (73) 100 02/03/19 15:29 90 32 98 Facial 50 02/03/19 13:00 98 20 95 Facial 50 02/03/19 12:00 96.2 89 36 121/68 (85) 94 02/03/19 12:00 100 02/03/19 11:33 95 34 Bi-pap 50 02/03/19 11:32 95 34 95 Facial 50 Intake and Output 02/03/19 02/04/19 19:00 07:00 Output Total 425 ml 300 ml Balance -425 ml -300 ml Output Urine Total 425 ml 300 ml Objective GENERAL: An ill-appearing male, in no acute distress. HEENT: Oropharynx is moist. Reduced gag. NECK: Otherwise supple. No accessory muscle use. LUNGS: noted diffuse rhonchi. Moderate air entry. reduced CARDIAC: S1 and S2. Regular rate and rhythm without murmurs, rubs, or gallops. ABDOMEN: Soft, nontender, nondistended. EXTREMITIES: No cyanosis, clubbing, or edema. Focal weakness noted on examination. and confused Microbiology Date/Time Source Procedure Growth Status 02/02/19 17:00 Sputum Gram Stain - Final Resulted 02/02/19 17:00 Sputum Culture - Preliminary Gram Negative Bacillus 1 Usual Respiratory Shawna Resulted Laboratory Tests 02/04/19 00:25: Vancomycin Level Trough 22.3H Current Medications Medications (Trade) Dose Ordered Sig/Elder Route PRN Reason Start Time Stop Time Status Last Admin Dose Admin Acetaminophen (Tylenol) 650 mg Q4H PRN ORAL Mild Pain/Temp > 100.5 02/02/19 19:37 4 19:36 Acetylcysteine (Mucomyst) 100 mg TIDRT HHN 02/03/19 19:00 03/05/19 18:59 02/03/19 19:57 Albuterol/ Ipratropium (Albuterol/ Ipratropium) 3 ml Q4HRT HHN 02/03/19 19:00 02/08/19 18:59 02/04/19 03:19 Furosemide (Lasix) 40 mg DAILY IV 02/03/19 09:00 03/01/19 08:59 02/03/19 09:29 Piperacillin Sod/ Tazobactam Sod 3.375 gm/Dextrose 110 ml @ 27.5 mls/hr EVERY 8 HOURS IVPB 02/03/19 13:00 02/08/19 12:59 02/03/19 14:55 Vancomycin HCl (Vanco rx to dose) 1 ea DAILY PRN MISC Per rx protocol 02/02/19 19:38 03/04/19 19:37 Vancomycin HCl 1 gm/Dextrose 275 ml @ 183.708 mls/hr Q24H IVPB 02/04/19 13:00 02/09/19 12:59 Hernan Campos MD Feb 04, 2019 09:45
--- NOTE | 2019-02-04 10:25 | Infectious Diseases Prog Note ---
"Assessment/Plan Assessment/Plan antibiotics : vancomycin iv, zosyn A 1. MRSA | gram negative pneumonia 2. CLL 3. hypertension 4. aortic stenosis 5. CVA 6. 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 pleural effusions 10. pericardial effusion 11. respiratory failure P 1. continue iv vancomycin, zosyn 2. will follow up cultures Subjective ROS Limited/Unobtainable: Yes Allergies: Coded Allergies: No Known Allergies (Unverified , 10/28/18) Objective Vital Signs Last 24 Hour Vital Signs Date Time Temp Pulse Resp B/P (MAP) Pulse Ox O2 Delivery O2 Flow Rate FiO2 02/04/19 09:37 134 93 Facial 70 02/04/19 08:36 Bi-pap 10.0 02/04/19 08:25 130 93 Bi-pap 50 02/04/19 08:25 Bi-pap 50 02/04/19 08:23 132 96 Facial 50 02/04/19 08:17 92 Bi-pap 50 02/04/19 08:17 Bi-pap 50 02/04/19 08:00 97.6 134 54 59/39 (46) 92 02/04/19 05:24 106 34 96 Facial 50 02/04/19 04:00 97.5 114 56 70/45 (53) 94 02/04/19 04:00 118 02/04/19 03:30 101 26 97 Bi-pap 50 02/04/19 03:20 87 29 96 Bi-pap 50 02/04/19 03:19 96 28 97 Facial 50 02/04/19 01:28 97 29 98 Facial 50 02/04/19 00:00 115 02/04/19 00:00 99.2 114 36 68/41 (50) 88 02/03/19 23:44 110 27 95 Bi-pap 50 02/03/19 23:36 99 26 96 Facial 50 02/03/19 23:34 96 26 93 Bi-pap 50 02/03/19 21:27 121 31 95 Facial 50 02/03/19 21:00 Bi-pap 10.0 02/03/19 20:14 115 33 97 Bi-pap 50 02/03/19 20:00 99.5 115 37 83/62 (69) 96 02/03/19 20:00 115 25 95 Bi-pap 50 02/03/19 20:00 116 02/03/19 19:59 Bi-pap 50 02/03/19 19:58 117 34 Bi-pap 50 02/03/19 19:58 95 Bi-pap 50 02/03/19 19:57 127 34 94 Facial 50 02/03/19 17:00 106 22 98 Facial 50 02/03/19 16:15 104 02/03/19 16:00 96.9 92 24 94/62 (73) 100 02/03/19 15:29 90 32 98 Facial 50 02/03/19 13:00 98 20 95 Facial 50 02/03/19 12:00 96.2 89 36 121/68 (85) 94 02/03/19 12:00 100 02/03/19 11:33 95 34 Bi-pap 50 02/03/19 11:32 95 34 95 Facial 50 Height (Feet): 5 Height (Inches): 8.00 Weight (Pounds): 116 HEENT: other - on bipap Respiratory/Chest: lungs clear Cardiovascular: normal rate, regular rhythm, no gallop/murmur Abdomen: soft, non tender Extremities: no edema Microbiology Date/Time Source Procedure Growth Status 02/02/19 17:00 Sputum Gram Stain - Final Resulted 02/02/19 17:00 Sputum Culture - Preliminary Gram Negative Bacillus 1 Usual Respiratory Shawna Resulted Laboratory Tests Test 02/04/19 00:25 Vancomycin Level Trough 22.3 ug/mL (5.0-12.0) H Current Medications Medications (Trade) Dose Ordered Sig/Elder Route PRN Reason Start Time Stop Time Status Last Admin Dose Admin Acetaminophen (Tylenol) 650 mg Q4H PRN ORAL Mild Pain/Temp > 100.5 02/02/19 19:37 02/23/19 19:36 Acetylcysteine (Mucomyst) 100 mg TIDRT N 02/03/19 19:00 03/05/19 18:59 02/03/19 19:57 Albuterol/ Ipratropium (Albuterol/ Ipratropium) 3 ml Q4HRT N 02/03/19 19:00 02/08/19 18:59 02/04/19 03:19 Furosemide (Lasix) 40 mg DAILY IV 02/03/19 09:00 03/01/19 08:59 02/03/19 09:29 Piperacillin Sod/ Tazobactam Sod 3.375 gm/Dextrose 110 ml @ 27.5 mls/hr EVERY 8 HOURS IVPB 02/03/19 13:00 02/08/19 12:59 02/03/19 14:55 Vancomycin HCl (Vanco rx to dose) 1 ea DAILY PRN MISC Per rx protocol 02/02/19 19:38 03/04/19 19:37 Vancomycin HCl 1 gm/Dextrose 275 ml @ 183.708 mls/hr Q24H IVPB 02/04/19 13:00 02/09/19 12:59 Ernie Barraza MD Feb 04, 2019 10:25"
--- NOTE | 2019-02-04 11:07 | General Progress Note ---
Assessment/Plan Problem List: (1) Severe anemia ICD Codes: D64.9 - Anemia, unspecified SNOMED: 458314622 (2) PUD (peptic ulcer disease) ICD Codes: K27.9 - Peptic ulcer, site unspecified, unspecified as acute or chronic, without hemorrhage or perforation SNOMED: 83833045 (3) Altered level of consciousness ICD Codes: R40.4 - Transient alteration of awareness SNOMED: 4680736 (4) CAD/[place] (5) CML (chronic myelocytic leukemia) ICD Codes: C92.10 - Chronic myeloid leukemia, BCR/ABL-positive, not having achieved remission SNOMED: 14048716 (6) Aortic stenosis, severe ICD Codes: I35.0 - Nonrheumatic aortic (valve) stenosis SNOMED: 60323775 (7) Pneumonia ICD Codes: J18.9 - Pneumonia SNOMED: 041697911 Status: deteriorating Assessment/Plan npo bipap monitor abg resp rx asp precautions iv abx follow up cultures prn diuresis monitor labs and abg not candidate for percardiocentesis will d/w family gt again- previously they declined message left with dtr ursula updating pt status very poor prognosis/terminal family aware Subjective ROS Limited/Unobtainable: Yes Constitutional: Reports: malaise, weakness HEENT: Reports: no symptoms Cardiovascular: Reports: edema Respiratory: Reports: cough, shortness of breath, sputum Gastrointestinal/Abdominal: Reports: difficulty swallowing Genitourinary: Reports: no symptoms Neurologic/Psychiatric: Reports: pre-existing deficit Endocrine: Reports: no symptoms Hematologic/Lymphatic: Reports: no symptoms Allergies: Coded Allergies: No Known Allergies (Unverified , 10/28/18) All Systems: reviewed and negative except above Subjective no change. on bipap. lethargic. +accessory muscle use. on bipap. family at the bedside Objective Last 24 Hour Vital Signs Date Time Temp Pulse Resp B/P (MAP) Pulse Ox O2 Delivery O2 Flow Rate FiO2 02/04/19 09:37 134 93 Facial 70 02/04/19 08:36 Bi-pap 10.0 02/04/19 08:25 130 93 Bi-pap 50 02/04/19 08:25 Bi-pap 50 02/04/19 08:23 132 96 Facial 50 02/04/19 08:17 92 Bi-pap 50 02/04/19 08:17 Bi-pap 50 02/04/19 08:00 97.6 134 54 59/39 (46) 92 02/04/19 07:32 132 02/04/19 05:24 106 34 96 Facial 50 02/04/19 04:00 97.5 114 56 70/45 (53) 94 02/04/19 04:00 118 02/04/19 03:30 101 26 97 Bi-pap 50 02/04/19 03:20 87 29 96 Bi-pap 50 02/04/19 03:19 96 28 97 Facial 50 02/04/19 01:28 97 29 98 Facial 50 02/04/19 00:00 115 02/04/19 00:00 99.2 114 36 68/41 (50) 88 02/03/19 23:44 110 27 95 Bi-pap 50 02/03/19 23:36 99 26 96 Facial 50 02/03/19 23:34 96 26 93 Bi-pap 50 02/03/19 21:27 121 31 95 Facial 50 02/03/19 21:00 Bi-pap 10.0 02/03/19 20:14 115 33 97 Bi-pap 50 02/03/19 20:00 99.5 115 37 83/62 (69) 96 02/03/19 20:00 115 25 95 Bi-pap 50 02/03/19 20:00 116 02/03/19 19:59 Bi-pap 50 02/03/19 19:58 117 34 Bi-pap 50 02/03/19 19:58 95 Bi-pap 50 02/03/19 19:57 127 34 94 Facial 50 02/03/19 17:00 106 22 98 Facial 50 02/03/19 16:15 104 02/03/19 16:00 96.9 92 24 94/62 (73) 100 02/03/19 15:29 90 32 98 Facial 50 02/03/19 13:00 98 20 95 Facial 50 02/03/19 12:00 96.2 89 36 121/68 (85) 94 02/03/19 12:00 100 02/03/19 11:33 95 34 Bi-pap 50 02/03/19 11:32 95 34 95 Facial 50 Intake and Output 02/03/19 02/04/19 19:00 07:00 Output Total 425 ml 300 ml Balance -425 ml -300 ml Output Urine Total 425 ml 300 ml Laboratory Tests 02/04/19 00:25: Vancomycin Level Trough 22.3H Height (Feet): 5 Height (Inches): 8.00 Weight (Pounds): 116 General Appearance: lethargic Neck: supple Cardiovascular: regular rhythm Respiratory/Chest: accessory muscle use, crackles/rales, rhonchi - bilaterally Abdomen: normal bowel sounds, non tender, soft, no organomegaly Edema: no edema noted Arm (L), no edema noted Arm (R), no edema noted Leg (L), no edema noted Leg (R), no edema noted Pedal (L), no edema noted Pedal (R), no edema noted Generalized Neurologic: disoriented, unresponsive, aphasia Objective General Appearance: WD/WN, alert, lethargic, thin Neck: supple Cardiovascular: normal peripheral pulses, normal rate, regular rhythm Respiratory/Chest: rhonchi - bilaterally Abdomen: normal bowel sounds, non tender, soft, no organomegaly Edema: no edema noted Arm (L), no edema noted Arm (R), no edema noted Leg (L), no edema noted Leg (R), no edema noted Pedal (L), no edema noted Pedal (R), no edema noted Generalized Neurologic: motor weakness Camron Pearl MD Feb 04, 2019 11:07
[2019-02-04] MEDS: Vancomycin 1gm/D5W 275ml IVPB SCH ×2 (13:00)
--- NOTE | 2019-02-04 13:56 | NUR ---
RESPIRATORY NOTE: pt on continuous bipap and has been tachypneic and tachycardic. no breathing tx has been give due to elevated HR. RNCheikh notified. skin still intact. no visible redness or skin breakdown. family still at bedside. continuing to monitor for remaining of the day.
--- NOTE | 2019-02-04 19:49 | NUR ---
RESPIRATORY NOTE: Received pt on BiPAP 09/03, back up rate 16, 70%. Pt on a Facial mask, skin intact, no redness/breakdowns noted. Foam tape applied on pt's nosebridge/cheeks/chin to prevent any mask irritations. Pt restless/lethargic/obtunded. Family present at bedside. B/S chantell. diminished, nonproductive cough. BiPAP plugged into regular outlet, bedside RN & medical charge entry specialist aware that pt needs to be in a room w/ a red outlet for safety & emergency purposes. Pt tolerating current settings. Will continue to monitor pt.
--- NOTE | 2019-02-04 20:07 | NUR ---
HAND-OFF: Report given to Joan Sol.
--- NOTE | 2019-02-04 20:10 | NUR ---
NURSE NOTES: Received pt from SOCORRO Salamanca. Pt comatose. Family at bedside. Bed in lowest position. Call light within reach. Pt currently on bipap. Hypotension noted. Will continue to monitor.
[2019-02-05] MEDS: Albuterol/Ipratropium 3ml neb HHN SCH ×5 (03:06→19:47)
[2019-02-05 04:00] VITALS: BP 61/39
--- NOTE | 2019-02-05 04:30 | Progress Note ---
DATE: 02/04/2019 SUBJECTIVE: The patient is preterminal. Family members are considering comfort care only for now, however, they want to continue current level of support. OBJECTIVE: VITAL SIGNS: Blood pressure 59/39, pulse 134, respiratory rate 26 to 54, afebrile, T-max 99.2. LUNGS: Paradoxical respirations. Diminished breath sounds. Bilateral rales. CARDIAC: Irregular rhythm. Rapid rate. Normal S1, S2. ABDOMEN: Positive ascites and dependent edema. LABORATORY DATA: No new labs. IMPRESSION: 1. Pericardial effusion. 2. Pleural effusion. 3. Severe protein-calorie malnutrition. 4. Respiratory failure. 5. CML, failed remission. 6. Hypoxia. 7. Acute on chronic diastolic congestive heart failure. PLAN: 1. Limited options. 2. Multiorgan system failure and the patient is not stable for any intervention specifically pericardiocentesis or thoracentesis. 3. Family members have refused a feeding tube in the past. For now, he will continue on BiPAP support. Comfort measures as able. 4. Volume resuscitation. 5. Respiratory hygiene with diuresis efforts as well. Arcenio Schulz M.D. DR: EDGARDO JOB#: [id number] CC:
[2019-02-05] MEDS: Piperacillin/Tazobactam 3.375 GM in D5W 110 ML IVPB SCH (06:07)
--- NOTE | 2019-02-05 07:17 | NUR ---
HAND-OFF: Report given to SOCORRO Salamanca.
--- NOTE | 2019-02-05 07:18 | NUR ---
NURSE NOTES: Pt in bed in low position, family in room sleeping, HOB in high fowlers, BiPAP on 09/03 at 50%, blood pressure low, Pt DNR/DNI and no artificial feeding per family request, new IV started by previous nurse, no orientation, pt on java portal developer, cardiac tachy in the 100's. Will continue to monitor.
--- NOTE | 2019-02-05 07:37 | NUR ---
RESPIRATORY NOTE: Received pt on Bipap 18/4- rate 16- 100%FiO2, saturates at 97%, tachycardia HR 112bpm, shallow tachypneic nonlabored breathing RR 31-33bpm. Pt is DNR/DNI status, family members at bedside. Breathing TX Duoneb and Mucomyst given without advert reactions. Alarms are set and audible, Bipap is plugged into the red outlet. Will continue to monitor. Addendum: 02/05/19 at 1024 by Lazaro Machuca Guerrero RT No redness or skin breakdown noted on pt's face. Foam tapes applied on nose bridge, chin and cheeks. Pt doesn't tolerate the full face mask, leaking air, desaturate with full face mask. Will keep pt on facial mask and readjust the mask q2h to release the pressure prevent skin irritation/ skin breakdown. Addendum: 02/05/19 at 1137 by Lazaro N Guerrero RT There is an old small redness on the nose bridge was cover with the wound tape to prevent further redness and skin breakdown. SOCORRO Marinelli made aware.
[2019-02-05 08:00] VITALS: BP 64/43
--- NOTE | 2019-02-05 10:08 | Pulmonology Progress Note ---
Assessment/Plan Assessment/Plan IMPRESSION: 1. pleural effusions 2. Severe protein-calorie malnutrition. 3. History of CVA. 4. pericardial effusions 5. obtundation 6. Evidence of anemia of chronic disease. 7. Recurrent fevers. 8. Respiratory congestion. 9. pulmonary edema 10. hypoxemia and hypotension PLAN prognosis poor consider withdrawal of care oxygen as needed monitor fluid intake family at bedside and aware of current status not safe for radiology or transfer impression, plan, and exam edited and reviewed in detail care discussed with RN Subjective ROS Limited/Unobtainable: Yes Allergies: Coded Allergies: No Known Allergies (Unverified , 10/28/18) Subjective care noted obtunded hypotensive family at bedside Objective Last 24 Hour Vital Signs Date Time Temp Pulse Resp B/P (MAP) Pulse Ox O2 Delivery O2 Flow Rate FiO2 02/05/19 08:40 106 33 97 Facial 100 02/05/19 08:26 Bi-pap 10.0 02/05/19 08:00 97.7 109 24 64/43 (50) 98 02/05/19 07:37 109 29 97 Bi-pap 100 02/05/19 07:31 Bi-pap 100 02/05/19 07:31 97 Bi-pap 100 02/05/19 07:27 110 30 97 Bi-pap 100 02/05/19 07:25 112 31 97 Facial 100 02/05/19 05:30 125 29 98 Facial 100 02/05/19 04:00 97.9 127 34 61/39 (46) 98 02/05/19 04:00 130 02/05/19 03:16 115 29 98 Bi-pap 100 02/05/19 03:06 112 30 97 Bi-pap 100 02/05/19 03:05 112 30 97 Facial 100 02/05/19 01:08 134 34 97 Facial 100 02/05/19 00:00 134 02/04/19 23:27 97.9 136 34 67/43 (51) 98 02/04/19 23:15 Bi-pap 100 02/04/19 23:15 Bi-pap 100 02/04/19 23:13 135 32 97 Facial 100 02/04/19 21:20 128 35 95 Facial 100 02/04/19 21:00 Bi-pap 10.0 02/04/19 20:00 103 02/04/19 20:00 98.8 134 54 55/36 (42) 97 02/04/19 19:56 104 39 95 Bi-pap 70 02/04/19 19:40 102 34 99 Bi-pap 70 02/04/19 19:39 Bi-pap 70 02/04/19 19:39 99 Bi-pap 70 02/04/19 19:39 93 34 99 Facial 70 02/04/19 17:29 137 92 Facial 70 02/04/19 15:46 130 02/04/19 15:43 99.0 131 54 60/31 (41) 93 02/04/19 15:23 134 91 Facial 70 02/04/19 15:22 Bi-pap 50 02/04/19 15:22 Bi-pap 50 02/04/19 13:34 132 92 Facial 70 02/04/19 12:00 97.8 132 58 60/37 (45) 90 02/04/19 11:50 133 91 Facial 70 02/04/19 11:27 132 02/04/19 11:07 Bi-pap 50 02/04/19 11:07 Bi-pap 50 Objective GENERAL: An ill-appearing male, tachypneic on bipap HEENT: Oropharynx is moist. Reduced gag. NECK: Otherwise supple. + accessory muscle use. LUNGS: noted diffuse rhonchi. Moderate air entry. reduced CARDIAC: S1 and S2. Regular rhythm without murmurs, rubs, or gallops. tachy ABDOMEN: Soft, nontender, nondistended. EXTREMITIES: No cyanosis, clubbing, or edema. obtunded Microbiology Date/Time Source Procedure Growth Status 02/02/19 17:00 Sputum Gram Stain - Final Complete 02/02/19 17:00 Sputum Culture - Final Escherichia Coli Starla Albicans Complete Current Medications Medications (Trade) Dose Ordered Sig/Elder Route PRN Reason Start Time Stop Time Status Last Admin Dose Admin Acetaminophen (Tylenol) 650 mg Q4H PRN ORAL Mild Pain/Temp > 100.5 02/02/19 19:37 02/23/19 19:36 Acetylcysteine (Mucomyst) 100 mg TIDRT N 02/03/19 19:00 03/05/19 18:59 02/05/19 07:27 Albuterol/ Ipratropium (Albuterol/ Ipratropium) 3 ml Q4HRT N 3/15/19 19:00 02/08/19 18:59 02/05/19 07:27 Piperacillin Sod/ Tazobactam Sod 3.375 gm/Dextrose 110 ml @ 27.5 mls/hr EVERY 8 HOURS IVPB 02/03/19 13:00 02/08/19 12:59 02/05/19 06:07 Vancomycin HCl (Vanco rx to dose) 1 ea DAILY PRN MISC Per rx protocol 02/02/19 19:38 03/04/19 19:37 Vancomycin HCl 1 gm/Dextrose 275 ml @ 183.708 mls/hr Q24H IVPB 02/04/19 13:00 02/09/19 12:59 Hernan Campos MD Feb 05, 2019 10:08
--- NOTE | 2019-02-05 11:08 | General Progress Note ---
Assessment/Plan Problem List: (1) Severe anemia ICD Codes: D64.9 - Anemia, unspecified SNOMED: 375536960 (2) PUD (peptic ulcer disease) ICD Codes: K27.9 - Peptic ulcer, site unspecified, unspecified as acute or chronic, without hemorrhage or perforation SNOMED: 02727785 (3) Altered level of consciousness ICD Codes: R40.4 - Transient alteration of awareness SNOMED: 0731432 (4) CAD/[place] (5) CML (chronic myelocytic leukemia) ICD Codes: C92.10 - Chronic myeloid leukemia, BCR/ABL-positive, not having achieved remission SNOMED: 38907756 (6) Aortic stenosis, severe ICD Codes: I35.0 - Nonrheumatic aortic (valve) stenosis SNOMED: 99657594 (7) Pneumonia ICD Codes: J18.9 - Pneumonia SNOMED: 041409856 Status: deteriorating Assessment/Plan npo bipap monitor abg resp rx asp precautions iv abx family aware of terminal prognosis. Subjective ROS Limited/Unobtainable: Yes Constitutional: Reports: malaise, weakness HEENT: Reports: no symptoms Cardiovascular: Reports: no symptoms Gastrointestinal/Abdominal: Reports: difficulty swallowing Genitourinary: Reports: no symptoms Neurologic/Psychiatric: Reports: pre-existing deficit Endocrine: Reports: no symptoms Hematologic/Lymphatic: Reports: anemia Allergies: Coded Allergies: No Known Allergies (Unverified , 10/28/18) All Systems: reviewed and negative except above Subjective no change. on bipap. lethargic/unresponsive. +accessory muscle use. on bipap. family at the bedside hypotensive. Objective Last 24 Hour Vital Signs Date Time Temp Pulse Resp B/P (MAP) Pulse Ox O2 Delivery O2 Flow Rate FiO2 02/05/19 08:40 106 33 97 Facial 100 02/05/19 08:26 Bi-pap 10.0 02/05/19 08:00 97.7 109 24 64/43 (50) 98 02/05/19 07:41 110 02/05/19 07:37 109 29 97 Bi-pap 100 02/05/19 07:31 Bi-pap 100 02/05/19 07:31 97 Bi-pap 100 02/05/19 07:27 110 30 97 Bi-pap 100 02/05/19 07:25 112 31 97 Facial 100 02/05/19 05:30 125 29 98 Facial 100 02/05/19 04:00 97.9 127 34 61/39 (46) 98 02/05/19 04:00 130 02/05/19 03:16 115 29 98 Bi-pap 100 02/05/19 03:06 112 30 97 Bi-pap 100 02/05/19 03:05 112 30 97 Facial 100 02/05/19 01:08 134 34 97 Facial 100 02/05/19 00:00 134 02/04/19 23:27 97.9 136 34 67/43 (51) 98 02/04/19 23:15 Bi-pap 100 02/04/19 23:15 Bi-pap 100 02/04/19 23:13 135 32 97 Facial 100 02/04/19 21:20 128 35 95 Facial 100 02/04/19 21:00 Bi-pap 10.0 02/04/19 20:00 103 02/04/19 20:00 98.8 134 54 55/36 (42) 97 02/04/19 19:56 104 39 95 Bi-pap 70 02/04/19 19:40 102 34 99 Bi-pap 70 02/04/19 19:39 Bi-pap 70 02/04/19 19:39 99 Bi-pap 70 02/04/19 19:39 93 34 99 Facial 70 02/04/19 17:29 137 92 Facial 70 02/04/19 15:46 130 02/04/19 15:43 99.0 131 54 60/31 (41) 93 02/04/19 15:23 134 91 Facial 70 02/04/19 15:22 Bi-pap 50 02/04/19 15:22 Bi-pap 50 02/04/19 13:34 132 92 Facial 70 02/04/19 12:00 97.8 132 58 60/37 (45) 90 02/04/19 11:50 133 91 Facial 70 02/04/19 11:27 132 02/04/19 11:07 Bi-pap 50 02/04/19 11:07 Bi-pap 50 Height (Feet): 5 Height (Inches): 8.00 Weight (Pounds): 116 Objective General Appearance: WD/WN, alert, lethargic, thin Neck: supple Cardiovascular: normal peripheral pulses, normal rate, regular rhythm Respiratory/Chest: rhonchi - bilaterally Abdomen: normal bowel sounds, non tender, soft, no organomegaly Edema: no edema noted Arm (L), no edema noted Arm (R), no edema noted Leg (L), no edema noted Leg (R), no edema noted Pedal (L), no edema noted Pedal (R), no edema noted Generalized Neurologic: motor weakness Camron Pearl MD Feb 05, 2019 11:08
--- NOTE | 2019-02-05 11:57 | Infectious Diseases Prog Note ---
Assessment/Plan Assessment/Plan A: 1. MRSA & E. coli pneumonia 2. CLL 3. hypertension 4. aortic stenosis 5. + blood culture with clostridium likely contaminated 6. CVA 7. COPD 8. Hypercapnic respiratory failure 9. Pleural & pericardial effusions P 1. continue iv vancomycin, 2. Change Zosyn to Cefepime Subjective ROS Limited/Unobtainable: Yes Allergies: Coded Allergies: No Known Allergies (Unverified , 10/28/18) Objective Vital Signs Last 24 Hour Vital Signs Date Time Temp Pulse Resp B/P (MAP) Pulse Ox O2 Delivery O2 Flow Rate FiO2 02/05/19 11:30 127 28 93 Facial 100 02/05/19 08:40 106 33 97 Facial 100 02/05/19 08:26 Bi-pap 10.0 02/05/19 08:00 97.7 109 24 64/43 (50) 98 02/05/19 07:41 110 02/05/19 07:37 109 29 97 Bi-pap 100 02/05/19 07:31 Bi-pap 100 02/05/19 07:31 97 Bi-pap 100 02/05/19 07:27 110 30 97 Bi-pap 100 02/05/19 07:25 112 31 97 Facial 100 02/05/19 05:30 125 29 98 Facial 100 02/05/19 04:00 97.9 127 34 61/39 (46) 98 02/05/19 04:00 130 02/05/19 03:16 115 29 98 Bi-pap 100 02/05/19 03:06 112 30 97 Bi-pap 100 02/05/19 03:05 112 30 97 Facial 100 02/05/19 01:08 134 34 97 Facial 100 02/05/19 00:00 134 02/04/19 23:27 97.9 136 34 67/43 (51) 98 02/04/19 23:15 Bi-pap 100 02/04/19 23:15 Bi-pap 100 02/04/19 23:13 135 32 97 Facial 100 02/04/19 21:20 128 35 95 Facial 100 02/04/19 21:00 Bi-pap 10.0 02/04/19 20:00 103 02/04/19 20:00 98.8 134 54 55/36 (42) 97 02/04/19 19:56 104 39 95 Bi-pap 70 02/04/19 19:40 102 34 99 Bi-pap 70 02/04/19 19:39 Bi-pap 70 02/04/19 19:39 99 Bi-pap 70 02/04/19 19:39 93 34 99 Facial 70 02/04/19 17:29 137 92 Facial 70 02/04/19 15:46 130 02/04/19 15:43 99.0 131 54 60/31 (41) 93 02/04/19 15:23 134 91 Facial 70 02/04/19 15:22 Bi-pap 50 02/04/19 15:22 Bi-pap 50 02/04/19 13:34 132 92 Facial 70 02/04/19 12:00 97.8 132 58 60/37 (45) 90 Height (Feet): 5 Height (Inches): 8.00 Weight (Pounds): 116 General Appearance: cachetic HEENT: mucous membranes moist Respiratory/Chest: lungs clear, respiratory distress, other - on BIPAP Cardiovascular: tachycardia Abdomen: soft, non tender Extremities: no edema Skin: ulcers Neurologic/Psychiatric: unresponsiveness Microbiology Date/Time Source Procedure Growth Status 02/02/19 17:00 Sputum Gram Stain - Final Complete 02/02/19 17:00 Sputum Culture - Final Escherichia Coli Starla Albicans Complete Current Medications Medications (Trade) Dose Ordered Sig/Elder Route PRN Reason Start Time Stop Time Status Last Admin Dose Admin Acetaminophen (Tylenol) 650 mg Q4H PRN ORAL Mild Pain/Temp > 100.5 02/02/19 19:37 02/23/19 19:36 Acetylcysteine (Mucomyst) 100 mg TIDRT N 02/03/19 19:00 03/05/19 18:59 02/05/19 07:27 Albuterol/ Ipratropium (Albuterol/ Ipratropium) 3 ml Q6HRT N 02/05/19 13:00 02/08/19 18:59 Piperacillin Sod/ Tazobactam Sod 3.375 gm/Dextrose 110 ml @ 27.5 mls/hr EVERY 8 HOURS IVPB 02/03/19 13:00 02/08/19 12:59 02/05/19 06:07 Vancomycin HCl (Vanco rx to dose) 1 ea DAILY PRN MISC Per rx protocol 02/02/19 19:38 03/04/19 19:37 Vancomycin HCl 1 gm/Dextrose 275 ml @ 183.708 mls/hr Q24H IVPB 02/04/19 13:00 02/09/19 12:59 Mike Lazcano MD Feb 05, 2019 11:57
[2019-02-05 12:00] VITALS: BP 69/46
[2019-02-05] MEDS: Cefepime HCl 1 GM in D5W 55 ML IVPB SCH (13:41)
[2019-02-05] MEDS: Vancomycin 1gm/D5W 275ml IVPB SCH ×2 (15:23)
[2019-02-05 16:00] VITALS: BP 73/55
--- NOTE | 2019-02-05 19:39 | NUR ---
HAND-OFF: Report given to chacorta Sol.
--- NOTE | 2019-02-05 19:55 | NUR ---
RESPIRATORY NOTE: Pt. was received on Bipap 18/4, rate 16, 100% FiO2, saturation at 99%, tachycardic with HR 121bpm, shallow tachypneic, nonlabored breathing. RR in the high 20s, low 30s. Pt is DNR/DNI status, family members at bedside. Could not give Duoneb and mucomyst due to elevated heart rate. Alarms are set and audible, Bipap is plugged into the red outlet. Will continue to monitor closely
[2019-02-05 20:00] VITALS: BP 70/48
--- NOTE | 2019-02-05 20:00 | NUR ---
NURSE NOTES: Received pt from SOCORRO Salamanca. Pt comatose. Family at bedside. Bed in lowest position. Bipap on. Will continue to monitor.
[2019-02-05] MEDS ORDERED: Tubing IV Secondary IV ONE (20:06)
--- NOTE | 2019-02-05 22:45 | Progress Note ---
DATE: 02/05/2019 CARDIOLOGY PROGRESS NOTE: SUBJECTIVE: The patient's condition is deteriorating. He remains with significant respiratory distress. On BiPAP support and hypotensive with rapid heart rate. OBJECTIVE: VITAL SIGNS: Blood pressure 64/43, pulse 109, respirations 24, afebrile. LUNGS: Diminished breath sounds. CARDIAC: Regular rhythm. Rapid rate. Normal S1, S2. There is no rub. Kussmaul sign is not appreciated. ABDOMEN: Soft. EXTREMITIES: Dependent edema noted. IMPRESSION: The patient is preterminal. He has a large pericardial effusion, which is possibly trending towards tamponade. In addition, he has a polymicrobial pneumonia with pleural effusions and respiratory failure with hypoxia. The patient's comorbidities also include CML with pancytopenia. The patient's family members are aware of his terminal prognosis. They have initiated DNR status and are aware that efforts at pericardio and thoracentesis would carry extremely high risk and unlikely change short-term prognosis. As such, we will continue current level of support. Arcenio Schulz M.D. DR: KARISSA JOB#: [id number] CC:
[2019-02-06] VITALS: BP 76/49
[2019-02-06] MEDS: Cefepime HCl 1 GM in D5W 55 ML IVPB SCH ×3 (01:00→22:34)
[2019-02-06] MEDS: Albuterol/Ipratropium 3ml neb HHN SCH ×4 (01:00→19:55)
[2019-02-06 04:00] VITALS: BP 75/48
--- NOTE | 2019-02-06 07:57 | NUR ---
HAND-OFF: Report given to SOCORRO Tracy.
[2019-02-06 08:00] VITALS: BP 71/48
--- NOTE | 2019-02-06 08:07 | General Progress Note ---
Assessment/Plan Problem List: (1) Severe anemia ICD Codes: D64.9 - Anemia, unspecified SNOMED: 008195742 (2) PUD (peptic ulcer disease) ICD Codes: K27.9 - Peptic ulcer, site unspecified, unspecified as acute or chronic, without hemorrhage or perforation SNOMED: 83378570 (3) Altered level of consciousness ICD Codes: R40.4 - Transient alteration of awareness SNOMED: 6971309 (4) CAD/[place] (5) CML (chronic myelocytic leukemia) ICD Codes: C92.10 - Chronic myeloid leukemia, BCR/ABL-positive, not having achieved remission SNOMED: 75430845 (6) Aortic stenosis, severe ICD Codes: I35.0 - Nonrheumatic aortic (valve) stenosis SNOMED: 04744918 (7) Pneumonia ICD Codes: J18.9 - Pneumonia SNOMED: 074858383 Status: deteriorating Assessment/Plan npo bipap monitor abg resp rx asp precautions iv abx family aware of terminal prognosis. conservative care Subjective ROS Limited/Unobtainable: Yes Constitutional: Reports: malaise, weakness HEENT: Reports: no symptoms Cardiovascular: Reports: no symptoms Respiratory: Reports: shortness of breath Gastrointestinal/Abdominal: Reports: difficulty swallowing Genitourinary: Reports: no symptoms Neurologic/Psychiatric: Reports: pre-existing deficit Endocrine: Reports: no symptoms Hematologic/Lymphatic: Reports: anemia Allergies: Coded Allergies: No Known Allergies (Unverified , 10/28/18) All Systems: reviewed and negative except above Subjective no change. on bipap. lethargic/unresponsive. +accessory muscle use. on bipap. hypotensive. Objective Last 24 Hour Vital Signs Date Time Temp Pulse Resp B/P (MAP) Pulse Ox O2 Delivery O2 Flow Rate FiO2 02/06/19 07:11 114 26 100 Bi-pap 80 02/06/19 07:09 113 26 100 Facial 80 02/06/19 07:03 100 Bi-pap 80 02/06/19 07:03 Bi-pap 80 02/06/19 07:03 113 24 100 Bi-pap 80 02/06/19 05:25 122 27 99 Facial 100 02/06/19 04:00 121 02/06/19 04:00 98.1 121 20 75/48 (57) 99 02/06/19 02:59 130 29 99 Facial 100 02/06/19 01:28 121 27 98 Facial 100 02/06/19 01:00 Bi-pap 100 02/06/19 01:00 Bi-pap 100 02/06/19 00:00 121 02/06/19 00:00 99.1 127 28 76/49 (58) 98 02/05/19 23:21 122 30 98 Facial 100 02/05/19 21:30 124 28 98 Facial 100 02/05/19 21:03 98 Bi-pap 100 02/05/19 21:03 Bi-pap 100 02/05/19 21:00 Bi-pap 10.0 02/05/19 20:00 99.1 121 30 70/48 (55) 98 02/05/19 20:00 121 02/05/19 19:55 127 29 98 Facial 100 02/05/19 19:52 Bi-pap 100 02/05/19 19:47 Bi-pap 100 02/05/19 17:05 120 30 97 Facial 100 02/05/19 16:00 98.6 125 26 73/55 (61) 98 02/05/19 15:30 127 28 93 Facial 100 02/05/19 15:22 129 02/05/19 12:47 133 29 97 Facial 100 02/05/19 12:46 133 29 97 Bi-pap 100 02/05/19 12:46 133 Bi-pap 100 02/05/19 12:00 97.5 112 42 69/46 (54) 99 02/05/19 11:40 123 02/05/19 11:30 127 28 93 Facial 100 02/05/19 08:40 106 33 97 Facial 100 02/05/19 08:26 Bi-pap 10.0 Intake and Output 02/05/19 02/06/19 19:00 07:00 # Voids 2 # Bowel Movements 1 Height (Feet): 5 Height (Inches): 8.00 Weight (Pounds): 116 Objective General Appearance: WD/WN, alert, lethargic, thin Neck: supple Cardiovascular: normal peripheral pulses, normal rate, regular rhythm Respiratory/Chest: rhonchi - bilaterally Abdomen: normal bowel sounds, non tender, soft, no organomegaly Edema: no edema noted Arm (L), no edema noted Arm (R), no edema noted Leg (L), no edema noted Leg (R), no edema noted Pedal (L), no edema noted Pedal (R), no edema noted Generalized Neurologic: motor weakness Camron Pearl MD Feb 06, 2019 08:07
--- NOTE | 2019-02-06 08:18 | Pulmonology Progress Note ---
Assessment/Plan Assessment/Plan IMPRESSION: 1. pleural effusions 2. Severe protein-calorie malnutrition. 3. History of CVA. 4. pericardial effusions 5. obtundation 6. Evidence of anemia of chronic disease. 7. Recurrent fevers. 8. Respiratory congestion. 9. pulmonary edema 10. hypoxemia and hypotension PLAN prognosis poor maintain BIPAP and oxygen consider withdrawal of care terminal overall DNR family at bedside and aware of current status not safe for radiology or transfer impression, plan, and exam edited and reviewed in detail care discussed with RN Subjective ROS Limited/Unobtainable: Yes Allergies: Coded Allergies: No Known Allergies (Unverified , 10/28/18) Subjective care noted obtunded hypotensive and not improved family at bedside Objective Last 24 Hour Vital Signs Date Time Temp Pulse Resp B/P (MAP) Pulse Ox O2 Delivery O2 Flow Rate FiO2 02/06/19 07:11 114 26 100 Bi-pap 80 02/06/19 07:09 113 26 100 Facial 80 02/06/19 07:03 100 Bi-pap 80 02/06/19 07:03 Bi-pap 80 02/06/19 07:03 113 24 100 Bi-pap 80 02/06/19 05:25 122 27 99 Facial 100 02/06/19 04:00 121 02/06/19 04:00 98.1 121 20 75/48 (57) 99 02/06/19 02:59 130 29 99 Facial 100 02/06/19 01:28 121 27 98 Facial 100 02/06/19 01:00 Bi-pap 100 02/06/19 01:00 Bi-pap 100 02/06/19 00:00 121 02/06/19 00:00 99.1 127 28 76/49 (58) 98 02/05/19 23:21 122 30 98 Facial 100 02/05/19 21:30 124 28 98 Facial 100 02/05/19 21:03 98 Bi-pap 100 02/05/19 21:03 Bi-pap 100 02/05/19 21:00 Bi-pap 10.0 02/05/19 20:00 99.1 121 30 70/48 (55) 98 02/05/19 20:00 121 02/05/19 19:55 127 29 98 Facial 100 02/05/19 19:52 Bi-pap 100 02/05/19 19:47 Bi-pap 100 02/05/19 17:05 120 30 97 Facial 100 02/05/19 16:00 98.6 125 26 73/55 (61) 98 02/05/19 15:30 127 28 93 Facial 100 02/05/19 15:22 129 02/05/19 12:47 133 29 97 Facial 100 02/05/19 12:46 133 29 97 Bi-pap 100 02/05/19 12:46 133 Bi-pap 100 02/05/19 12:00 97.5 112 42 69/46 (54) 99 02/05/19 11:40 123 02/05/19 11:30 127 28 93 Facial 100 02/05/19 08:40 106 33 97 Facial 100 02/05/19 08:26 Bi-pap 10.0 Intake and Output 02/05/19 02/06/19 19:00 07:00 # Voids 2 # Bowel Movements 1 Objective GENERAL: An ill-appearing male, tachypneic on bipap HEENT: Oropharynx is moist. Reduced gag. NECK: Otherwise supple. + accessory muscle use. LUNGS: noted diffuse rhonchi. Moderate air entry. reduced CARDIAC: S1 and S2. Regular rhythm without murmurs, rubs, or gallops. tachy ABDOMEN: Soft, nontender, nondistended. EXTREMITIES: No cyanosis, clubbing, or edema. obtunded Current Medications Medications (Trade) Dose Ordered Sig/Elder Route PRN Reason Start Time Stop Time Status Last Admin Dose Admin Acetaminophen (Tylenol) 650 mg Q4H PRN ORAL Mild Pain/Temp > 100.5 02/02/19 19:37 02/23/19 19:36 Acetylcysteine (Mucomyst) 100 mg TIDRT N 02/03/19 19:00 03/05/19 18:59 02/06/19 07:03 Albuterol/ Ipratropium (Albuterol/ Ipratropium) 3 ml Q6HRT N 02/05/19 13:00 02/08/19 18:59 02/06/19 07:03 Cefepime HCl 1 gm/ Dextrose 55 ml @ 110 mls/hr Q12H IVPB 02/05/19 13:00 02/12/19 12:59 02/06/19 01:00 Vancomycin HCl (Vanco rx to dose) 1 ea DAILY PRN MISC Per rx protocol 02/02/19 19:38 03/04/19 19:37 Vancomycin HCl 1 gm/Dextrose 275 ml @ 183.708 mls/hr Q24H IVPB 02/04/19 13:00 02/09/19 12:59 02/05/19 15:23 Hernan Campos MD Feb 06, 2019 08:18
--- NOTE | 2019-02-06 08:21 | NUR ---
NURSE NOTES: Patient in supine position, sleeping, on BIPAP, bed in lowest position, call light within reach.
[2019-02-06 12:00] VITALS: BP_SYST 59; BP_DIAS 43; BP_DIAS 73
[2019-02-06] MEDS: Vancomycin 1gm/D5W 275ml IVPB SCH ×2 (13:53)
--- NOTE | 2019-02-06 14:20 | NUR ---
RD ASSESSMENT & RECOMMENDATIONS SEE CARE ACTIVITY FOR COMPLETE ASSESSMENT DAILY ESTIMATED NEEDS: Needs based on Underweight, wound 52kg 30-35 kcals/kg 5935-5902 total kcals 1.25-2 g protein/kg 65-104 g total protein 25-30 mL/kg 5896-3283 total fluid mLs NUTRITION DIAGNOSIS: * Increased kcal and protein needs r/t underweight status as evidenced by pt w generalized moderate to severe wasting, BMI underweight per guidelines, 75% of [place] Body Weight. * Swallowing difficulty R/T dysphagia, h/o CVA as evidenced by [employer] eval, recs for liquify pureed, NTL w/ poor po intake, on Bipap. * Altered nutrition related lab values R/T clinical condition as evidenced by elev BNP (2470-> 7608 ->1682) CURRENT DIET: B[place] liquify puree/ NTL PO DIET RECOMMENDATIONS: Liberalized / Regular diet (texture per [employer]) ENTERAL NUTRITION RECOMMENDATIONS: DNR. Family declines non oral feeds. to provide . ADDITIONAL RECOMMENDATIONS: * CALIBRATED bedscale wt for accurate CBW * Weekly wts given underweight status * WOUND CARE: add LESTER BID + MVI w/ min x1 + VIT C 500mg BID * TF / NONORAL FEEDING RECS IF PART OF POC * -> Monitor POC. Family requesting comfort oral feeding, no TF at this time * Monitor lytes closely while on lasix, replete as needed * Continue Ensure Enlive TID w/ meals if off bipap
--- NOTE | 2019-02-06 15:07 | Infectious Diseases Prog Note ---
Assessment/Plan Assessment/Plan A: 1. MRSA & E. coli pneumonia 2. CLL 3. hypertension 4. aortic stenosis 5. + blood culture with clostridium likely contaminated 6. CVA 7. COPD 8. Hypercapnic respiratory failure 9. Pleural & pericardial effusions P 1. continue iv vancomycin & Cefepime 2. Patient is terminally ill Subjective ROS Limited/Unobtainable: Yes Cardiovascular: Reports: other - hypotensive Allergies: Coded Allergies: No Known Allergies (Unverified , 10/28/18) Objective Vital Signs Last 24 Hour Vital Signs Date Time Temp Pulse Resp B/P (MAP) Pulse Ox O2 Delivery O2 Flow Rate FiO2 02/06/19 13:43 123 17 99 Bi-pap 60 02/06/19 13:29 118 18 98 Bi-pap 80 02/06/19 13:25 118 17 98 Facial 60 02/06/19 12:00 119 02/06/19 12:00 95.9 121 18 59/73 (68) 100 02/06/19 10:32 120 24 99 Facial 70 02/06/19 09:15 108 24 99 Facial 80 02/06/19 09:00 Bi-pap 10.0 02/06/19 08:00 98.4 115 22 71/48 (56) 100 02/06/19 08:00 134 02/06/19 07:11 114 26 100 Bi-pap 80 02/06/19 07:09 113 26 100 Facial 80 02/06/19 07:03 100 Bi-pap 80 02/06/19 07:03 Bi-pap 80 02/06/19 07:03 113 24 100 Bi-pap 80 02/06/19 05:25 122 27 99 Facial 100 02/06/19 04:00 121 02/06/19 04:00 98.1 121 20 75/48 (57) 99 02/06/19 02:59 130 29 99 Facial 100 02/06/19 01:28 121 27 98 Facial 100 02/06/19 01:00 Bi-pap 100 02/06/19 01:00 Bi-pap 100 02/06/19 00:00 121 02/06/19 00:00 99.1 127 28 76/49 (58) 98 02/05/19 23:21 122 30 98 Facial 100 02/05/19 21:30 124 28 98 Facial 100 02/05/19 21:03 98 Bi-pap 100 02/05/19 21:03 Bi-pap 100 02/05/19 21:00 Bi-pap 10.0 02/05/19 20:00 99.1 121 30 70/48 (55) 98 02/05/19 20:00 121 02/05/19 19:55 127 29 98 Facial 100 02/05/19 19:52 Bi-pap 100 02/05/19 19:47 Bi-pap 100 02/05/19 17:05 120 30 97 Facial 100 02/05/19 16:00 98.6 125 26 73/55 (61) 98 02/05/19 15:30 127 28 93 Facial 100 02/05/19 15:22 129 Height (Feet): 5 Height (Inches): 8.00 Weight (Pounds): 116 General Appearance: cachetic HEENT: mucous membranes moist Respiratory/Chest: decreased breath sounds, other - on BIPAP Cardiovascular: tachycardia Abdomen: soft, non tender Extremities: no edema Neurologic/Psychiatric: unresponsiveness Musculoskeletal: atrophy Current Medications Medications (Trade) Dose Ordered Sig/Elder Route PRN Reason Start Time Stop Time Status Last Admin Dose Admin Acetaminophen (Tylenol) 650 mg Q4H PRN ORAL Mild Pain/Temp > 100.5 02/02/19 19:37 02/23/19 19:36 Acetylcysteine (Mucomyst) 100 mg TIDRT [facility] 02/03/19 19:00 03/05/19 18:59 02/06/19 13:31 Albuterol/ Ipratropium (Albuterol/ Ipratropium) 3 ml Q6HRT HHN 02/05/19 13:00 02/08/19 18:59 02/06/19 13:31 Cefepime HCl 1 gm/ Dextrose 55 ml @ 110 mls/hr Q12H IVPB 02/05/19 13:00 02/12/19 12:59 02/06/19 13:51 Vancomycin HCl (Vanco rx to dose) 1 ea DAILY PRN MISC Per rx protocol 02/02/19 19:38 03/04/19 19:37 Vancomycin HCl 1 gm/Dextrose 275 ml @ 183.708 mls/hr Q24H IVPB 02/04/19 13:00 02/09/19 12:59 02/06/19 13:53 Mike Lazcano MD Feb 06, 2019 15:07
[2019-02-06 16:00] VITALS: BP 60/47
--- NOTE | 2019-02-06 17:27 | NUR ---
NURSE NOTES: Left message on voicemail service of Dr. Camron Pearl reporting patient has supraventricular [id number].
[2019-02-06 20:00] VITALS: BP 73/49
--- NOTE | 2019-02-06 20:35 | NUR ---
NURSE NOTES: Patient in supine position, on bipap, bed in lowest position, call light within reach, family at bedside, on comfort care.
[2019-02-06] MEDS ORDERED: Rate Change PCA 1 Each MISC PRN (21:00)
[2019-02-06] MEDS ORDERED: PCA Education Pamphlet MISC ONE (21:00)
--- NOTE | 2019-02-06 21:00 | NUR ---
NURSE NOTES: recvd pt. Pt is nonverbal and bedbound. PT is on bipap for comfort. Renée is POA and has decided on comfort care measure only. Contacted Dr Dickson and he ordered morphine drip 5mg/hr.
[2019-02-06] MEDS ORDERED: Rate Change Narcotic Drip MISC PRN (21:15)
[2019-02-06] MEDS: PCA Morphine 1mg/ml 30 ML IV PRN (22:29)
[2019-02-06] MEDS: Narcotic Shift Volume MISC SCH (22:30)
[2019-02-07] VITALS: BP 76/44
[2019-02-07] MEDS: Albuterol/Ipratropium 3ml neb HHN SCH ×2 (01:00→07:30)
[2019-02-07] MEDS: PCA Morphine 1mg/ml 30 ML IV PRN (03:51)
[2019-02-07 04:00] VITALS: BP 59/38
--- NOTE | 2019-02-07 04:15 | Progress Note ---
DATE: 02/06/2019 CARDIOLOGY PROGRESS NOTE SUBJECTIVE: Condition is deteriorating. The patient remains withdrawn, lethargic, tachypneic, and on BiPAP support. OBJECTIVE: VITAL SIGNS: Blood pressure is marginal at 75 systolic, heart rate 120, respiratory rate 32, accessary muscle use. Poorly responsive. LUNGS: Diminished breath sounds. Scattered rhonchi. HEART: Regular rhythm. Rapid rate. Normal S1, S2. ABDOMEN: Soft. EXTREMITIES: Trace edema. IMPRESSION: 1. Preterminal status. 2. Polymicrobial pneumonia. 3. CML. 4. Pancytopenia. 5. Severe aortic stenosis. 6. Pericardial effusion. 7. Pleural effusion. 8. Respiratory failure. PLAN: 1. Limited options. 2. BiPAP support. 3. Antimicrobials. 4. Diuresis efforts. 5. DNR. Arcenio Schulz M.D. DR: CHELY JOB#: [id number] CC:
--- NOTE | 2019-02-07 05:57 | NUR ---
NURSE NOTES: Per Dr Pearl, ok to remove bipap when family decides its ok. Per patient's jorge, she would like after 8am when her daughter arrives.
[2019-02-07] MEDS ORDERED: PCA shift volume MISC SCH (07:00)
[2019-02-07] MEDS: Narcotic Shift Volume MISC SCH (07:00)
--- NOTE | 2019-02-07 07:57 | NUR ---
NURSE NOTES: Patient in supine position, bed in lowest position, call light within reach, CPAP in place, and friend sleeping in bed next to patient, in no apparent distress, condom catheter in place. Addendum: 02/07/19 at 1312 by GARY MONTANA RN Patient on comfort measure, morphine drip in patent right forearm 22 gauge IV.
[2019-02-07 08:00] VITALS: BP 48/34
--- NOTE | 2019-02-07 08:57 | Pulmonology Progress Note ---
Assessment/Plan Assessment/Plan IMPRESSION: 1. pleural effusions 2. Severe protein-calorie malnutrition. 3. History of CVA. 4. pericardial effusions 5. obtundation 6. Evidence of anemia of chronic disease. 7. Recurrent fevers. 8. Respiratory congestion. 9. pulmonary edema 10. hypoxemia and hypotension PLAN prognosis poor recommend to dc BIPAP and maintain oxygen consider withdrawal of care terminal overall; comfort care recommended DNR family at bedside and aware of current status impression, plan, and exam edited and reviewed in detail care discussed with RN Subjective ROS Limited/Unobtainable: Yes Allergies: Coded Allergies: No Known Allergies (Unverified , 10/28/18) Subjective care noted remains obtunded hypotensive and not improved family at bedside d/w nursing Objective Last 24 Hour Vital Signs Date Time Temp Pulse Resp B/P (MAP) Pulse Ox O2 Delivery O2 Flow Rate FiO2 02/07/19 08:00 98.6 146 24 48/34 (39) 95 02/07/19 07:46 120 24 98 Bi-pap 50 02/07/19 07:30 Bi-pap 50 02/07/19 07:30 110 22 98 Bi-pap 50 02/07/19 07:30 98 Bi-pap 50 02/07/19 07:20 120 24 98 Facial 50 02/07/19 06:50 34 02/07/19 05:11 97.9 02/07/19 04:33 146 24 98 Facial 50 02/07/19 04:00 98.0 140 38 59/38 (45) 99 02/07/19 04:00 137 02/07/19 03:50 28 02/07/19 03:36 135 22 98 Facial 50 02/07/19 03:30 32 02/07/19 02:30 36 02/07/19 01:15 Bi-pap 50 02/07/19 01:15 Bi-pap 50 02/07/19 01:14 138 30 96 Facial 50 02/07/19 00:00 133 02/07/19 00:00 97.3 120 36 76/44 (55) 97 02/06/19 23:18 157 31 95 Facial 50 02/06/19 22:30 34 02/06/19 21:01 159 29 95 Facial 50 02/06/19 21:00 Bi-pap 10.0 02/06/19 20:17 Bi-pap 50 02/06/19 20:17 Bi-pap 50 02/06/19 20:15 165 28 97 Facial 50 02/06/19 20:14 97 Bi-pap 50 02/06/19 20:14 Bi-pap 50 02/06/19 20:00 97.9 131 34 73/49 (57) 97 02/06/19 17:18 108 29 98 Facial 50 02/06/19 16:00 99.9 175 24 60/47 (51) 97 02/06/19 16:00 176 02/06/19 15:28 98 22 100 Facial 55 02/06/19 13:43 123 17 99 Bi-pap 60 02/06/19 13:29 118 18 98 Bi-pap 80 02/06/19 13:25 118 17 98 Facial 60 02/06/19 12:00 119 02/06/19 12:00 95.9 121 18 59/43 (48) 100 02/06/19 10:32 120 24 99 Facial 70 02/06/19 09:15 108 24 99 Facial 80 02/06/19 09:00 Bi-pap 10.0 Intake and Output 02/06/19 02/07/19 18:59 06:59 # Voids 1 Objective GENERAL: An ill-appearing male, tachypneic on bipap HEENT: Oropharynx is moist. Reduced gag. NECK: Otherwise supple. + accessory muscle use. LUNGS: noted diffuse rhonchi. Moderate air entry. reduced CARDIAC: S1 and S2. Regular rhythm without murmurs, rubs, or gallops. tachy ABDOMEN: Soft, nontender, nondistended. EXTREMITIES: No cyanosis, clubbing, or edema. obtunded Current Medications Medications (Trade) Dose Ordered Sig/Elder Route PRN Reason Start Time Stop Time Status Last Admin Dose Admin Acetaminophen (Tylenol) 650 mg Q4H PRN ORAL Mild Pain/Temp > 100.5 02/02/19 19:37 02/23/19 19:36 Acetylcysteine (Mucomyst) 100 mg TIDRT N 02/03/19 19:00 03/05/19 18:59 02/07/19 07:30 Albuterol/ Ipratropium (Albuterol/ Ipratropium) 3 ml Q6HRT N 02/05/19 13:00 02/08/19 18:59 02/07/19 07:30 Miscellaneous Medication (Narcotic Drip Rate Change) 1 ea DAILY PRN MISC For Pain 02/06/19 21:15 03/08/19 21:14 Miscellaneous Medication (Narcotic Shift Volume) 1 ea Q8HR@07,15,23 MISC 02/06/19 23:00 03/08/19 22:59 02/07/19 07:00 Morphine Sulfate 30 ml @ 0 mls/hr Q24H PRN IV For Pain 02/06/19 21:00 02/08/19 20:59 02/07/19 03:51 Hernan Campos MD Feb 07, 2019 08:57
--- NOTE | 2019-02-07 09:00 | NUR ---
NURSE NOTES: Patient asystole with PEA, chest rising due to CPAP machine, no heart sounds upon auscultation, verified by second nurse, SOCORRO Salamanca, verified. Charge Nurse, Renée Mata, Notified. Nadia Estrella RN, [employer] verified and pronounced at 0900, 02/07/19.
--- NOTE | 2019-02-07 09:00 | NUR ---
PRONOUNCEMENT: No Code. Called to pronounce patient. Absence of spontaneous respirations, no cardiac or breath sounds on auscultation. Pupils fixed and dilated. No carotid pulse or chest movement. Patient at 0900. DR Pearl notified PER Mohan QUINTANILLA. Family was notified at @ bedside.
--- NOTE | 2019-02-07 09:06 | NUR ---
NURSE NOTES: Patient asystole, Dr. Camron Pearl notified, Renée Marshall RN, Charge Nurse, notified, Nik ZunigaManager Social Responsibility, notified. Family at bedside.
--- NOTE | 2019-02-07 09:55 | NUR ---
NURSE NOTES: [employer] notified of , Darlene, collections representative indicated that patient is not qualified to be a donor.
--- NOTE | 2019-02-07 10:00 | NUR ---
NURSE NOTES: Notified [facility] of patient , spoke with Lashanda.
--- NOTE | 2019-02-07 11:50 | NUR ---
post mortem care rendered, family at bedside, awaiting for the mortuary to warp picker the patient
--- NOTE | 2019-02-07 12:35 | NUR ---
NURSE NOTES: mortician here to picking supervisor the patient, family at bedside.
--- NOTE | 2019-02-07 12:42 | NUR ---
NURSE NOTES: morphine drip stopped, pt , wasted 3mg=3ml, witness by Mohan QUINTANILLA.
--- NOTE | 2019-02-08 00:15 | Discharge Summary ---
DATE OF ADMISSION: 01/23/2019 DATE OF DISCHARGE: 02/07/2019 SUMMARY CAUSE OF : 1. Cardiopulmonary arrest. 2. Bacterial pneumonia. 3. Chronic myelogenous leukemia. HOSPITAL COURSE: The patient is an unfortunate 78-year-old male with a history of stroke, hypertension, BPH, and CML, who presented with complaints of shortness of breath, generalized weakness, and malaise. He was diagnosed with severe pneumonia. He initially was placed on BiPAP and high-flow oxygen. He received broad-spectrum IV antibiotic therapy. The patient's symptoms initially improved after the first few days of aggressive treatment, but later during the hospitalization, the patient's congestion worsened. He had a CAT scan that showed extensive pneumonia as well as a pericardial effusion. Cardiology, Pulmonary, and Infectious Disease consultants were all involved in the patient's care. The need for possible pericardiocentesis was discussed with the patient's daughter, Marcelina. In light of the patient's multiple medical problems and comorbidities, overall function and health declined. Despite aggressive antibiotic therapy, the patient's symptoms and status had worsened. Family elected to make the patient comfort measures only. The patient was placed on a morphine drip and the BiPAP was removed once family members had all visited and were present. The patient peacefully. Family were present at that time. Camron Pearl M.D. DR: JENNIFER JOB#: [id number] CC:
--- NOTE | 2019-02-08 01:45 | Progress Note ---
DATE: 02/07/2019 CARDIOLOGY PROGRESS NOTE SUBJECTIVE: Condition was seen with family members at bedside. The patient is preterminal. Family members are aware. BiPAP support. Remains and family members, were offered further comfort and made aware of terminal condition once again. Arcenio Schulz M.D. DR: ANALISA JOB#: [id number] CC:
== END 2019-02-07 12:35 | disposition expired | DRG 177 ==
LOC: EDBD 10:20 → EMR 10:40 → EDBEDREQ 10:46 → 2W 11:15 → EDBEDREQ 12:58 → 2W 13:45 → 2E 02-02 19:32
DX: J15.5 Pneumonia due to Escherichia coli (principal); E43 Unspecified severe protein-calorie malnutrition; I50.33 Acute on chronic diastolic (congestive) heart failure; J96.01 Acute respiratory failure with hypoxia; J96.02 Acute respiratory failure with hypercapnia; I31.3 Pericardial effusion (noninflammatory); C92.10 Chronic myeloid leukemia, BCR/ABL-positive, not having achieved remission; I69.954 Hemiplegia and hemiparesis following unspecified cerebrovascular disease affecting left non-dominant side; I47.1 Supraventricular tachycardia; Z68.1 Body mass index [BMI] 19.9 or less, adult; J90 Pleural effusion, not elsewhere classified; Z51.5 Encounter for palliative care; J15.212 Pneumonia due to Methicillin resistant Staphylococcus aureus; I11.0 Hypertensive heart disease with heart failure; I48.0 Paroxysmal atrial fibrillation; I35.0 Nonrheumatic aortic (valve) stenosis; I25.9 Chronic ischemic heart disease, unspecified; D64.9 Anemia, unspecified; L89.529 Pressure ulcer of left ankle, unspecified stage; L89.159 Pressure ulcer of sacral region, unspecified stage; L89.219 Pressure ulcer of right hip, unspecified stage; I25.10 Atherosclerotic heart disease of native coronary artery without angina pectoris; K27.9 Peptic ulcer, site unspecified, unspecified as acute or chronic, without hemorrhage or perforation; E87.6 Hypokalemia; I95.9 Hypotension, unspecified
CPT/HCPCS: 36415; 36600; 71045; 71250; 80048; 80053; 80202; 81003; 82803; 83605; 83690; 83735; 83880; 84484; 85007; 85025; 87040; 87070; 87081; 87181; 87205; 93005; 93306; 93970; 94640; 94660; 94664; 94760; 96361; 96365; 99291; J7620; J8499